=== PATIENT | female | born 1990 | race Caucasian/White ===

== ENCOUNTER 2025-02-17 14:59 | Outpatient (CLI) | payer OTHER, SELFPAY ==
--- NOTE | 2025-02-17 15:00 | CRLHL7_ITS ---
For Patients: As a result of the Century Cures Act, medical imaging exams and procedure reports are released immediately into your electronic medical record. You may view this report before your referring provider. If you have questions, please contact your health care provider. INDICATION: Diamniotic dichorionic twin , growth. TECHNIQUE: Ultrasound OB pelvis transabdominal. Real-time bonilla-scale imaging of the fetus was performed as well as color Doppler and spectral Doppler analysis of the umbilical artery. COMPARISON: None. FINDINGS: Twin living intrauterine gestation as described below. A: heart rate: 147 beats per minute. Presentation: Breech, maternal left. Placenta: Anterior. Amniotic fluid deepest pocket: 4.4 cm. The following biometric measurements were obtained: Biparietal diameter: 6 cm, 24 weeks 3 day ,50percentile. Head circumference: 22 cm, 24 week 3 day, 37 percentile. Abdominal circumference: 20 cm, 24 week 4 day, 51 percentile. Femur length: 4 cm, 24 week 4 day, 44 percentile. Ultrasound age: 24 weeks 2 day. NASIM by US: 06/05/2025. EFW: 707+/-106 Grams, 53 %. Fetus B: heart rate: 142 beats per minute. Presentation: Vertex, maternal right. Placenta: Posterior. Amniotic fluid deepest pocket: 5.2 cm. The following biometric measurements were obtained: Biparietal diameter: 6 cm, 24 weeks 4 days, 52 percentile. Head circumference: 22 cm, 24 week 1 day, 25 percentile. Abdominal circumference: 20 cm, 24 week 0 day, 34 percentile. Femur length: 4 cm, 24 weeks 4 days, 45 percentile. Ultrasound age: 24 weeks 2 day. NASIM by US: 06/07/2025. EFW: 617+/- 101 Grams, 40 %. IMPRESSION.: Twin intrauterine gestation as detailed above. Dictated by Kevin Trimble MD @ 02/20/2025 1:51:23 PM (Electronically Signed)
== END 2025-02-17 15:00 | disposition home or self-care (01) ==
LOC: US 15:00
PROVIDERS: Visit Provider Obstetrics & Gynecology
DX: O30.042 Twin pregnancy, dichorionic/diamniotic, second trimester (principal); Z3A.24 24 weeks gestation of pregnancy
CPT/HCPCS: 76815

== ENCOUNTER 2025-03-16 12:10 | Outpatient (CLI) | payer OTHER, SELFPAY ==
--- NOTE | 2025-03-16 12:15 | CRLHL7_ITS ---
For Patients: As a result of the Century Cures Act, medical imaging exams and procedure reports are released immediately into your electronic medical record. You may view this report before your referring provider. If you have questions, please contact your health care provider. OB ULTRASOUND ??? TWIN LMP: 08/31/2024. NASIM by LMP: 06/07/2025. GA: 28 w, 1 d. Comparison: 02/17/2025. INDICATION: Di-Di twins, growth. TECHNIQUE: Real time grayscale imaging of the fetus was performed. Transabdominal. TWIN A: CERVIX: Not visualized. POSITIONING: Vertex. AMNIOTIC FLUID: 4.4 cm. SDP (N: greater than 2 x 1 cm) PLACENTA: Technique: Transabdominal. PLACENTA POSITION: Anterior. DOPPLER: heart rate: 135 bpm. BIOMETRY: BPD: 7.3 cm. 29 w, 1 d, 73 percent. HC: 26.3 cm. 28 w, 4 d, 33 percent. AC: 22.7 cm. 27 w, 0 d, 14 percent. FL: 5.2 cm. 27 w, 6 d, 28 percent. FL/AC ratio: 23.11 percent. HC/AC ratio: 1.16. EFW: 1104 g. Weight: 2 lbs, 7 oz. age by this US: 28 w, 1 d. NASIM by this US: 06/07/2025. Percentile by NASIM: 20.4 percent. TWIN B: CERVIX: Not visualized. POSITIONING: Vertex. AMNIOTIC FLUID: 4.5 cm. SDP (N: greater than 2 x 1 cm) PLACENTA: Technique: Transabdominal. PLACENTA POSITION: Posterior. DOPPLER: heart rate: 145 bpm. BIOMETRY: BPD: 7.2 cm. 29 w, 0 d, 68 percent. HC: 26.1 cm. 28 w, 2 d, 25 percent. AC: 23.2 cm. 27 w, 4 d, 26 percent. FL: 5.1 cm. 27 w, 3 d, 16 percent. FL/AC ratio: 22.0 percent. HC/AC ratio: 1.12. EFW: 1109 g. Weight: 2 lbs, 7 oz. age by this US: 28 w, 1 d. NASIM by this US: 06/07/2025. Percentile by NASIM: 21.3 percent. IMPRESSION: 1. Twin A measures 28 weeks 1 day with sonographic due date 06/07/2025. Good correlation with dates. Normal interval growth. Estimated weight 20th percentile. Abdominal circumference 14th percentile. Vertex position, maternal left. 2. Twin B measures 28 weeks 1 day with sonographic due date 06/07/2025. Good correlation with dates and normal interval growth. Estimated weight 21st percentile with abdominal circumference 26th percentile. Vertex position, maternal left. Cayetano Martin M.D. Diagnostic Radiologist [email or web address] DSM/jj jj/Dictated by: Cayetano Martin MD @ 03/17/2025 8:08:00 AM (Electronically Signed)
== END 2025-03-16 12:11 | disposition home or self-care (01) ==
LOC: US 12:11
PROVIDERS: Visit Provider Obstetrics & Gynecology
DX: O30.003 Twin pregnancy, unspecified number of placenta and unspecified number of amniotic sacs, third trimester (principal); Z3A.28 28 weeks gestation of pregnancy
CPT/HCPCS: 76816

== ENCOUNTER 2025-03-16 13:45 | Outpatient (CLI) | payer OTHER, SELFPAY | END 2025-03-16 13:46 | disposition home or self-care (01) | PROVIDERS: Visit Provider Obstetrics & Gynecology | DX: O99.013 Anemia complicating pregnancy, third trimester (principal); D50.9 Iron deficiency anemia, unspecified; R82.90 Unspecified abnormal findings in urine; Z3A.28 28 weeks gestation of pregnancy; Z11.3 Encounter for screening for infections with a predominantly sexual mode of transmission | CPT/HCPCS: 82728; 86592; 87086 ==

== ENCOUNTER 2025-03-17 08:28 | Outpatient (CLI) | payer OTHER, SELFPAY | END 2025-03-17 08:29 | disposition home or self-care (01) | LOC: NFLDREF 03-21 17:05 | PROVIDERS: Visit Provider Obstetrics & Gynecology | DX: O99.810 Abnormal glucose complicating pregnancy (principal) | CPT/HCPCS: 82951; 82952 ==

== ENCOUNTER 2025-03-21 13:23 | Outpatient (CLI) | payer OTHER, SELFPAY ==
--- NOTE | 2025-03-21 13:47 | CRLHL7_ITS ---
For Patients: As a result of the Cures Act, medical imaging exams and procedure reports are released immediately into your electronic medical record. You may view this report before your referring provider. If you have questions, please contact your health care provider. OB ULTRASOUND NASIM by LMP or US: 06/07/2025. GA: 28 w, 6 d. Comparison: Ultrasound 03/16/2025, 02/17/2025. INDICATION: Decreased movement. TECHNIQUE: Real time grayscale imaging of the fetus was performed. Transabdominal. TWIN A: CERVIX: Not visualized. POSITIONING: Vertex. AMNIOTIC FLUID: 3.5 cm. SDP (N: greater than 2 x 1 cm) BIOPHYSICAL PROFILE: 2: Gross body movements 2: tone 2: Respiratory activity 2: Amniotic fluid SDP (N: greater than 2 x 1 cm) 8/8: Total score PLACENTA: Technique: Transabdominal. PLACENTA POSITION: Anterior. DOPPLER: heart rate: 125 bpm. TWIN B: POSITIONING: Breech. AMNIOTIC FLUID: 5.6 cm. SDP (N: greater than 2 x 1 cm) BIOPHYSICAL PROFILE: 2: Gross body movements 2: tone 2: Respiratory activity 2: Amniotic fluid SDP (N: greater than 2 x 1 cm) 8/8: Total score PLACENTA: Technique: Transabdominal. PLACENTA POSITION: Posterior. DOPPLER: heart rate: 145 bpm. IMPRESSION: 1. Twin A: Normal biophysical profile score 8/8. 2. Twin B: Normal biophysical profile score 8/8. Cayetano Martin M.D. Diagnostic Radiologist [email or web address]/Dictated by: Cayetano Martin MD @ 03/21/2025 3:27:00 PM (Electronically Signed)
[2025-03-21 14:53] VITALS: BP 115/62; PULSE 94
[2025-03-21 14:59] LABS: Appearance Urine Clear (Clear); Bilirubin Urine Negative (Negative); Blood Urine Negative (Negative); Color Urine Yellow (Yellow); Glucose Urine Negative (Negative); Ketones Urine Negative (Negative); Leukocyte Esterase Urine Negative (Negative); Nitrite Urine Negative (Negative); Protein Urine Negative (Negative); Specific Gravity Urine 1.015 (1.000-1.030); Urobilinogen Urine 0.2 (0.2-1.0); pH Urine 7.5 (5.0-8.5)
[2025-03-21 15:08] VITALS: BP 114/63; PULSE 99
[2025-03-21 15:23] VITALS: BP 109/63; PULSE 101
[2025-03-21 15:27] LABS: Hemoglobin* 9.8 gm/dL (12.0-16.0); Mean Corpuscular HGB Conc 33 gm/dL (32-36); Mean Corpuscular Hemoglobin 29 pg (26-34); Mean Corpuscular Volume 88 fL (80-100); Platelet Count* 345 K/uL (140-440)
[2025-03-21 15:32] LABS: Slide Review Reflex No
[2025-03-21 15:39] LABS: Total Protein Urine 11 mg/dL
[2025-03-21 15:40] LABS: Creatinine Urine 74.6 mg/dL; Protein Creatinine Ratio Urine 0.15 (0-0.19)
[2025-03-21 15:42] VITALS: BP 117/62; PULSE 96
[2025-03-21 15:52] LABS: Blood Urea Nitrogen* 7 mg/dL (5-24); Creatinine* 0.5 mg/dL (0.5-1.5); Estimated Glomerular Filt Rate 125 ml/min
[2025-03-21 15:53] VITALS: BP 110/58; PULSE 99
[2025-03-21 15:53] LABS: Alanine Aminotransferase* 15 U/L (4-35); Aspartate Amino Transferase* 29 U/L (12-35)
--- NOTE | 2025-03-21 16:47 | PC.OBNST ---
NST Note NST Note Start: 03/21/25 13:36 Freq: ONCE Status: Active Protocol: Document 03/21/25 13:36 ABH (Rec: 03/21/25 16:47 ABH No Response) NST Note 3 Para (# of births) 1 EDC 06/07/25 Gestational Age In Weeks & Days 28 Weeks & 6 Days High Risk Factors Twins Patient Presented with Complaint(s) of Decreased movement Other Complaints Complaint of headache and vision changes Reactive Yes Appropriate for Gestational Age Yes TON Jean RN Date 03/21/25 Reactive Yes Appropriate for Gestational Age Yes TON Chun RN Date 03/21/25 OB NST charge Yes Complete NST Note via Write Note Yes The provider's electronic signature indicates the NST is reactive/appropriate for gestational age. *Note to provider: If an addendum is required, open the patient's chart and click on the note under the Nurse/Allied Health tab.
== END 2025-03-21 16:00 | disposition home or self-care (01) ==
LOC: OB OUT 13:23 → OB 13:23
PROVIDERS: Visit Provider Obstetrics & Gynecology
DX: O36.8130 Decreased fetal movements, third trimester, not applicable or unspecified (principal); O30.003 Twin pregnancy, unspecified number of placenta and unspecified number of amniotic sacs, third trimester; Z3A.28 28 weeks gestation of pregnancy
CPT/HCPCS: 36415; 59025; 76819; 81003; 82565; 82570; 84156; 84450; 84460; 84520; 85027; G0463

== ENCOUNTER 2025-04-03 11:51 | Outpatient (CLI) | payer OTHER, SELFPAY | END 2025-04-03 11:52 | disposition home or self-care (01) | LOC: NFLDREF 04-06 23:24 | PROVIDERS: Visit Provider Obstetrics & Gynecology | DX: Z34.93 Encounter for supervision of normal pregnancy, unspecified, third trimester (principal); Z3A.30 30 weeks gestation of pregnancy | CPT/HCPCS: 82728 ==

== ENCOUNTER 2025-04-14 10:00 | Outpatient (RCR) | payer OTHER, SELFPAY ==
--- NOTE | 2025-02-22 10:03 | URNOTE ---
Prior auth is not required for INfed (J1750) per [employer] on behalf of [employer].
[2025-02-24 11:47] VITALS: BP 113/71; PULSE 101; RESP 15; TEMP 36.6; O2SAT 100
[2025-02-24] MEDS: SODIUM CHLORIDE 0.9 % (FLUSH) 10 ML SYRINGE IVF (12:16)
[2025-02-24] MEDS: IRON DEXTRAN COMPLEX 25 MG in 0.9 % SODIUM CHLORIDE 100 ml 100 ML 402 MG IVPB (12:28)
[2025-02-24 12:53] VITALS: BP 108/70; PULSE 92; RESP 15; TEMP 36.6
[2025-02-24] MEDS: IRON DEXTRAN COMPLEX 975 MG in 0.9 % SODIUM CHLORIDE 250 ml 250 ML 270 MG IVPB (13:40)
[2025-02-24 14:48] VITALS: BP 100/60; PULSE 98; RESP 15; TEMP 36.4; O2SAT 98
[2025-02-24 15:27] VITALS: BP 128/80; PULSE 103; RESP 18; O2SAT 99
--- NOTE | 2025-04-04 11:05 | URNOTE ---
Request received for authorization for [employer] (Infed) (J1750). Prior authorization is not required per [employer] on behalf of [employer] plan is active.
[2025-04-14] MEDS: IRON DEXTRAN COMPLEX 25 MG in 0.9 % SODIUM CHLORIDE 100 ml 100 ML 402 MG IVPB (10:43)
[2025-04-14 11:06] VITALS: BP 100/68; PULSE 103; RESP 18; O2SAT 100
[2025-04-14] MEDS: IRON DEXTRAN COMPLEX 975 MG in 0.9 % SODIUM CHLORIDE 250 ml 250 ML 270 MG IVPB (11:57)
[2025-04-14 13:10] VITALS: BP 104/71; PULSE 103; RESP 20; O2SAT 100
[2025-04-16 16:11] LABS: Hemoglobin - Other 0.0 % (0.0-0.0); Hemoglobin Cap ELP Not Performed
== END 2025-08-23 23:59 | disposition home or self-care (01) ==
LOC: CCIC 10:00
PROVIDERS: Obstetrics & Gynecology; Visit Provider Clinical Nurse Specialist
DX: O99.013 Anemia complicating pregnancy, third trimester (principal); D50.9 Iron deficiency anemia, unspecified
CPT/HCPCS: 36415; 76816; 83020; 83021; 85660; 96365; J1750; J7050

== ENCOUNTER 2025-04-14 13:18 | Outpatient (CLI) | payer OTHER, SELFPAY ==
--- NOTE | 2025-04-14 13:00 | CRLHL7_ITS ---
For Patients: As a result of the Century Cures Act, medical imaging exams and procedure reports are released immediately into your electronic medical record. You may view this report before your referring provider. If you have questions, please contact your health care provider. LMP: 08/31/2024. NASIM by US: 06/07/2025. GA: 32w, 2d. COMPARISON: 03/21/2025, 03/16/2025, 02/17/2025. Twins. INDICATION: Di/Di twins. Twin A: CERVIX: Not visualized. POSITIONING: Vertex. AMNIOTIC FLUID: 6.1 cm SDP. PLACENTA POSITION: Anterior. DOPPLER: heart rate: 133 bpm. Biometry: BPD: 8.1 cm. 32w, 5d, 53.4 percent. HC: 29.4 cm. 32w, 3d, 18.4 percent. AC: 28.9 cm. 32w, 6d, 67.7 percent. FL: 6.0 cm. 31w, 1d, 12.7 percent. FL/AC ratio: 20.7 percent. HC/AC ratio: 1.0. EFW: 1951 g. Weight: 4 lbs, 5 oz. age by this US: 32w, 2d. NASIM by this US: 06/07/2025. Percentile by NASIM: 40.6 percent. Twin B: CERVIX: Not visualized. POSITIONING: Vertex. AMNIOTIC FLUID: 6.6 cm SDP. PLACENTA POSITION: Posterior. DOPPLER: heart rate: 134 bpm. Biometry: BPD: 8.3 cm. 33w, 4d, 77.4 percent. HC: 30.3 cm. 33w, 5d, 51.2 percent. AC: 28.9 cm. 32w, 6d, 67.4 percent. FL: 5.9 cm. 30w, 4d, 5.8 percent. FL/AC ratio: 20.3 percent. HC/AC ratio: 1.1. EFW: 1956 g. Weight: 4 lbs, 5 oz. age by this US: 32w, 5d. NASIM by this US: 06/04/2025. Percentile by NASIM: 41.4 percent. IMPRESSION: 1. Twin A: Sonographic gestational age 32 weeks 2 days and sonographic due date 06/07/2025. Good correlation with dates. Estimated weight 41st percentile. Abdominal circumference 68th percentile. 2. Twin B: Sonographic gestational age 32 weeks 5 days with a sonographic due date 06/04/2025. Good correlation with dates. Estimated weight 41st percentile. Abdominal circumference 67th percentile. Femur length 6th percentile. 3. Twin A is vertex position, maternal left. Twin B is vertex position, maternal right. Similar cystic areas within the membrane again noted. Cayetano Martin M.D. Diagnostic Radiologist [email or web address] bM/Dictated by: Cayetano Martin MD @ 04/14/2025 4:12:00 PM (Electronically Signed)
== END 2025-04-14 13:19 | disposition home or self-care (01) ==
LOC: US 13:18
PROVIDERS: Visit Provider Obstetrics & Gynecology
DX: O30.003 Twin pregnancy, unspecified number of placenta and unspecified number of amniotic sacs, third trimester (principal); Z3A.32 32 weeks gestation of pregnancy
CPT/HCPCS: 76816

== ENCOUNTER 2025-04-28 14:44 | Outpatient (CLI) | payer OTHER, SELFPAY ==
[2025-04-29 13:19] LABS: Strep B DNA Probe Negative (Negative)
[2025-04-29 13:21] LABS: Strep B Susceptibility Needed? No
== END 2025-04-28 14:45 | disposition home or self-care (01) ==
LOC: NFLDREF 14:45
PROVIDERS: Visit Provider Obstetrics & Gynecology
DX: Z34.83 Encounter for supervision of other normal pregnancy, third trimester (principal)
CPT/HCPCS: 82728; 87081; 87653

== ENCOUNTER 2025-05-05 14:30 | Outpatient (CLI) | payer OTHER, SELFPAY | END 2025-05-05 14:31 | disposition home or self-care (01) | PROVIDERS: Visit Provider Obstetrics & Gynecology | DX: O30.043 Twin pregnancy, dichorionic/diamniotic, third trimester (principal); Z3A.35 35 weeks gestation of pregnancy | CPT/HCPCS: 82565; 82570; 84156; 84450; 84460; 84520 ==

== ENCOUNTER 2025-05-12 13:00 | Outpatient (CLI) | payer OTHER, SELFPAY ==
--- NOTE | 2025-05-12 13:00 | CRLHL7_ITS ---
For Patients: As a result of the Century Cures Act, medical imaging exams and procedure reports are released immediately into your electronic medical record. You may view this report before your referring provider. If you have questions, please contact your health care provider. LMP: . NASIM by LMP: 06/07/2025. GA: 36w, 2d. Twin gestation. INDICATION: Di/Di twins, check growth. CERVIX: Not visualized. Twin A: POSITIONING: Vertex. AMNIOTIC FLUID: 3.4 cm SDP. PLACENTA POSITION: Anterior. DOPPLER: heart rate: 133 bpm. Biometry: BPD: 9.0 cm. 36w, 2d, 61 percent. HC: 32.4 cm. 36w, 5d, 29 percent. AC: 31.3 cm. 35w, 2d, 31 percent. FL: 6.8 cm. 34w, 6d, 15 percent. FL/AC ratio: 21.67 percent. HC/AC ratio: 1.03. EFW: 2674 g. Weight: 5 lbs, 14 oz. age by this US: 35w, 6d. NASIM by this US: 06/10/2025. Percentile by NASIM: 29 percent. Twin B: POSITIONING: Vertex. AMNIOTIC FLUID: 4.9 cm SDP. PLACENTA POSITION: Posterior. DOPPLER: heart rate: 144 bpm. Biometry: BPD: 9.3 cm. 37w, 4d, 90 percent. HC: 33.5 cm. 38w, 3d, 72 percent. AC: 30.6 cm. 34w, 4d, 15 percent. FL: 6.7 cm. 34w, 3d, 8 percent. FL/AC ratio: 21.89 percent. HC/AC ratio: 1.10. EFW: 2615 g. Weight: 5 lbs, 12 oz. age by this US: 36w, 2d. NASIM by this US: 7.9.25 Percentile by NASIM: 24 percent. IMPRESSION: 1. Twin A: Sonographic gestational age 35 weeks 6 days and sonographic due date 06/10/2025. Good correlation with dates. Normal interval growth. Estimated weight 29th percentile. Abdominal circumference 31st percentile. 2. Twin B: Sonographic gestational age 36 weeks 2 days and sonographic due date 06/07/2025. Good correlation with dates. Normal interval growth. Estimated weight 24th percentile. Abdominal circumference 15th percentile. Cayetano Martin M.D. Diagnostic Radiologist [email or web address] bM/Dictated by: Cayetano Martin MD @ 05/12/2025 3:11:00 PM (Electronically Signed)
== END 2025-05-12 13:01 | disposition home or self-care (01) ==
LOC: US 13:01
PROVIDERS: Visit Provider Obstetrics & Gynecology
DX: O30.043 Twin pregnancy, dichorionic/diamniotic, third trimester (principal); Z3A.36 36 weeks gestation of pregnancy
CPT/HCPCS: 76816

== ENCOUNTER 2025-05-19 14:01 | Outpatient (CLI) | payer OTHER, SELFPAY ==
--- NOTE | 2025-05-19 14:00 | CRLHL7_ITS ---
For Patients: As a result of the Cures Act, medical imaging exams and procedure reports are released immediately into your electronic medical record. You may view this report before your referring provider. If you have questions, please contact your health care provider. OB ULTRASOUND BIOPHYSICAL PROFILE LMP: 08/31/2024. NASIM by LMP:06/07/2025. GA: 37 w, 2 d. TWIN A INDICATION: Di-di twins, decreased movement. TECHNIQUE: Real time bonilla scale imaging of the fetus was performed. CERVIX: Not visualized. POSITIONING: Vertex. AMNIOTIC FLUID: 4.5 cm. SDP (N: greater than 2 x 1 cm) BIOPHYSICAL PROFILE: Total score: 2. Gross body movements: 2. tone: 2. Respiratory activity: 2. Amniotic fluid: 8. (SDP N: greater than 2 x 1 cm) PLACENTA POSITION: Anterior. DOPPLER: heart rate: 127 bpm. TWIN B POSITIONING: Vertex. AMNIOTIC FLUID: 7.3 cm. SDP (N: greater than 2 x 1 cm) BIOPHYSICAL PROFILE: Total score: 2. Gross body movements: 2. tone: 2. Respiratory activity: 2. Amniotic fluid: 8. (SDP N: greater than 2 x 1 cm) PLACENTA POSITION: Posterior. DOPPLER: heart rate: 131 bpm. IMPRESSION: 1. Twin A: Normal biophysical profile 8/8. Vertex position, maternal left. 2. Twin B: Normal biophysical profile. Vertex position, maternal right. Cayetano Martin M.D. Diagnostic Radiologist [email or web address] DW/Dictated by: Cayetano Martin MD @ 05/20/2025 9:21:00 PM (Electronically Signed)
== END 2025-05-19 14:02 | disposition home or self-care (01) ==
LOC: US 14:01
PROVIDERS: Visit Provider Obstetrics & Gynecology
DX: O30.043 Twin pregnancy, dichorionic/diamniotic, third trimester (principal); Z3A.37 37 weeks gestation of pregnancy
CPT/HCPCS: 76819

== ENCOUNTER 2025-05-23 16:40 | Inpatient (IN) | payer OTHER, SELFPAY ==
[2025-05-23] VITALS (11 sets, daily range): BP systolic 110–142; BP diastolic 68–77; PULSE 100–114; TEMP 36.6–36.9; O2SAT 99–100; BMI 41.6
--- NOTE | 2025-05-23 17:25 | P.LDBA_ITS ---
Subjective History of Present Illness Narrative: Patient is being admitted to Labor and Delivery for IOL due to Dichorionic twin . She is a 35 year old at 37 6/7 weeks gestation. Her full history and physical was dictated by Dr. Churchill on 05/12/25. Please see this for details. Patient today states that she has been doing okay, she has continued to experience episodes of abdominal tightening and watery like vaginal discharge that she would describe same as my last appointment. Denies vaginal bleeding. She is anxious about delivery and the possibility of a breech extraction. Specific Issues/Plans Transfer at 24.3 weeks' gestation from [facility] in [place] Spouse: Vinay Son: Santino Twins: Girls! Elizabeth and Guera(sp?) H&P: by Dr. Churchill on 05/12/25 # dichorionic diamniotic twin - s/p MFM and genetic counseling - Level II US on 01/06/2025 - T0apoey growth scan starting at 24 weeks - Weekly surveillance starting at 36 weeks if uncomplicated - Recommended delivery: 38-38.6 weeks - surveillance sheet filled out on 03/16/25 - IOL schedule for May 23 cervical ripening --> May 24 @ 38 weeks # One Elevated BP at home and headache (05/05/25), h/o pp pre-e after first delivery. - Labs 05/05: Hgb 10.6, plts 301K, AST 43, ALT 19, BUN 6, Creat 0.6. Urine P/C 0.07. # Normocytic anemia with recently normal ferritin - Hgb 9.7 g/dL earlier in - Failed PO iron - s/p IV iron on 02/24/25 with INFeD - Hgb on 03/16/25 was 9.9 with ferritin at 144 - Repeat Hgb 04/03: 10.1. Ferritin 90.3 but checked after iron infusion. - Hemoglobin electrophoresis negative - Repeat Hb early April- 10.7 on 04/28 # Hx of Pre-eclampsia - Normal baseline pre-eclampsia labs - On LDA # BMI 37 - surveillance per twins # History of infertility, low ovarian reserve. - Conceived spontaneously! # [place] (vs allergic rxn) from flu shot - prefers to avoid vaccinations labs 10/21: Blood type: A+, antibody screen negative Hemoglobin: 11.8 Platelets: 375 Rubella: 3.04 Varicella: 12.90 RPR: non reactive Hep B sAg: Non reactive Hep C Ab: Nonreactive HIV: Nonreactive HbA1c: 5.6 GC/Chlamydia: Declined Genetic testing: low risk (11/21) 1 hr GTT: 143 3rd trimester Hb: 04/28 10.7 GBS: 04/28/25 Imagin. 1st trimester: Di-di twins at 7 weeks 2 days on 10/21/2024 2. Anatomy scan: Fetus 1: No anomalies commonly detected by ultrasound were identified. Growth parameters an estimated weight were consistent with gestational age predicted by sign NASIM. Normal amniotic fluid. Fetus 2: Hypoplastic nasal bone is noted. No other anomalies. Growth parameters appropriate. Inter twin discordance 2.2%. Normal amniotic fluid. Per MFM, given normal NIPT and no other abnormalities, likely a normal variant. No further aneuploidy evaluation or follow-up ultrasound surveillance is necessary for the hypoplastic nasal bone. 3. 04/14/2025: Twin A: Vertex, SDP 6.1 cm EFW 1951 g, weight 4 lb 5 oz, 41%. Twin B: Vertex, SDP 6.6 cm, EFW 1956 g, weight 4 lb 5 oz, 41%. Inter twin discordance 0%. Vaccinations: COVID: Declined Flu: Declined Tdap: Declined RSV: N/A GBS negative 32 week mental health: PHQ-9 0, JOLEEN-7 0. Last pap: [Only high-risk abnormal pap results in problem list] OB - Problem Based A/P Additional Plan (1) Dichorionic diamniotic twin gestation: Status: Acute (2) Hx of pre-eclampsia in prior , currently : Status: Acute Plan 1. Since cervix is favorable, will wait to continue with IOL if needed until after midnight. Plan would be to start low dose Oxytocin again if needed. 2. History of preeclampsia, will add preeclampsia labs to admission labs. Close monitoring of V/S. 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 3. Continuous monitoring at the start of interventions. 4. Patient is planning epidural for pain management. 5. GBS negative, no need for antibiotic prophylaxis. 6. Type and screen, IV in place-higher risk for PPH. OB Exam Physical Exam Vital signs: Pulse BP 114 H 110/68 05/23/25 16:56 05/23/25 16:56 Narrative: Bedside US confirms vertex presentation for both babies. 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
[2025-05-23 18:00] LABS: Amnisure Rom* Negative
[2025-05-23 18:33] LABS: Hematocrit 31.7 % (33.0-51.0); Hemoglobin* 10.9 gm/dL (12.0-16.0); Mean Corpuscular HGB Conc 34 gm/dL (32-36); Mean Corpuscular Hemoglobin 30 pg (26-34); Mean Corpuscular Volume 86 fL (80-100); Platelet Count* 307 K/uL (140-440); Red Blood Count 3.67 m/uL (4.00-5.20); White Blood Count* 11.71 K/uL (4.50-11.00)
[2025-05-23 18:34] LABS: Slide Review Reflex No
[2025-05-23 18:51] LABS: Alanine Aminotransferase* 19 U/L (4-35); Aspartate Amino Transferase* 36 U/L (12-35); Blood Urea Nitrogen* 9 mg/dL (5-24); Creatinine* 0.5 mg/dL (0.5-1.5); Est. Creatinine Clearance* 168.21; Estimated Glomerular Filt Rate 125 ml/min
[2025-05-23] MEDS: SCOPOLAMINE 1 MG/3 DAY PATCH 1 PATCH TRANSDERMA (18:59)
[2025-05-23] MEDS: ONDANSETRON 2 MG/ML inj 4 MG IV (21:17)
[2025-05-23 21:59] LABS: Creatinine Urine 143.3 mg/dL; Protein Creatinine Ratio Urine 0.03 (0-0.19); Total Protein Urine < 5 mg/dL
[2025-05-24] VITALS (150 sets, daily range): BP systolic 84–151; BP diastolic 44–82; PULSE 81–130; RESP 16; TEMP 36.4–36.9; O2SAT 90–100
[2025-05-24] MEDS: CALCIUM CARBONATE 500 MG CHEW PO ×2 (01:41→08:19)
[2025-05-24] MEDS: LACTATED RINGERS 1000 ML 1,000 ML 125 ML IV ×4 (03:22→11:50)
[2025-05-24] MEDS: OXYTOCIN 30 unit/500 ML in NS 30 UNIT/500 ML BAG IVPB (03:23)
--- NOTE | 2025-05-24 05:35 | PM.OBPNL ---
Subjective Date Seen: 05/24/25 Narrative: Uncomfortable Objective Vital Signs: Last Vital Signs Temp 98.4 F 05/24/25 03:57 Pulse 101 H 05/24/25 05:20 BP 135/70 05/24/25 05:20 Pulse Ox 99 05/23/25 22:59 Contractions Monitor mode: External Contraction pattern: Irregular Contraction intensity: Moderate Pitocin Rate (mU/min): 1 Assessment Assessment: induction ongoing Tracing Comments: Baby A has been very difficult to monitor continuously with external monitor. Periods of monitoring have not shown any sign of significant decelerations, has shown accelerations. Baby B:120bpm/positive accelerations/negative decelerations/moderate variability. Labor Progress: Due to staffing issues overnight Oxytocin was not started until around 3:30am. Maternal Status: Stable. Plan Plan: Recommend AROM for baby A and placement of scalp monitor. Patient would like placement of epidural prior to AROM. Continued discussions have happened with patient and about delivery planning. At this moment, there have not been any indications that would make me recommend a delivery, we did discuss that it is always an option if she asks for it. Discussed that we can never promise that she would not need an emergency delivery as this is a possibility with any attempt at a vaginal delivery. Discussed that at the end of the day, a vaginal delivery will always be safer and associated with less risks if successful compared to a delivery. Discussed that we do have indications that would make us recommend a delivery in a timely manner instead of an emergent manner such as protraction of labor progress, category 2 tracing etc... Patient has voiced out her desire to try to complete a vaginal delivery. At this moment will continue with above mentioned plan.
[2025-05-24] MEDS: ONDANSETRON 2 MG/ML inj 4 MG IV (05:38)
[2025-05-24] MEDS: LIDOCAINE 2% (PF) 5 ML VIAL EPIDURAL ×2 (06:37→15:40)
[2025-05-24] MEDS: ROPIVACAINE 0.2% 100 ml 100 ML 12 MG EPIDURAL ×2 (06:37→14:52)
[2025-05-24] MEDS: PHENYLEPHRINE 100 MCG/ML SYRINGE IVP ×8 (06:43→12:43)
--- NOTE | 2025-05-24 06:50 | PM.ANBPRC ---
[facility] Medical History Endometriosis determined by laparoscopy ?N80.9 - Endometriosis, unspecified (ICD-10) Surgical History H/O laparoscopy ?Z98.890 - Other specified postprocedural states (ICD-10) Social History What is your current living situation?: I presently have a place to live Problems where you live: no known problems In the past 12 months, utilities in danger of being shut off: no In past 12 months, lack of transportation kept you from medical appts, meetings, work, or getting things needed for daily living: no In the past 12 mos, have been you worried that your food would run out before you had money to buy more?: never true In the past 12 mos, the food you bought just didn't last and you didn't have money to buy more?: never true Smoking Status: Never smoker How often does anyone, including family, friends and others, physically hurt you: never How often does anyone, including family, friends and others, insult or talk down to you: never How often does anyone, including family, friends and others, threaten you with harm: never How often does anyone, including family, friends and others, scream or curse at you: never Meds Home Medications and Allergies Home Medications ?Medication ?Instructions ?Recorded ?Confirmed ?Type aspirin 81 mg tablet,delayed 81 mg PO QDAY 02/17/25 05/23/25 History release (Adult Low Dose Aspirin) cholecalciferol (vitamin D3) 25 25 mcg PO QDAY 02/17/25 05/23/25 History mcg (1,000 unit) capsule docosahexaenoic acid 200 mg mg PO 02/17/25 05/19/25 History capsule ( DHA) folic acid 400 mcg tablet 0.4 mg PO QDAY 02/17/25 05/23/25 History Allergies Allergy/AdvReac Type Severity Reaction Status Date / Time cefuroxime (From Ceftin) Allergy Severe Verified 05/23/25 17:01 influenza virus vacc Allergy Severe Verified 05/23/25 17:01 trivalent, spl (From Fluzone) prednisolone Allergy Severe Verified 05/23/25 17:01 Sulfa (Sulfonamide Allergy Severe Swelling Verified 05/23/25 17:01 Antibiotics) of Lip/Tongue/Throat doxycycline Allergy Unknown Verified 05/23/25 17:01 Results Labs Labs: Laboratory Results - last 24 hr 05/23/25 05/23/25 05/23/25 17:38 18:25 20:50 WBC 11.71 H RBC 3.67 L Hgb 10.9 L Hct 31.7 L MCV 86 MCH 30 MCHC 34 Plt Count 307 BUN 9 Creatinine 0.5 Estimated Creat Clear 168.21 Estimated GFR 125 AST 36 H ALT 19 Urine Creatinine 143.3 Protein/Creatinin Ratio 0.03 Urine Total Protein < 5 Membrane Rupture Negative Blood Type A Positive Antibody Screen NEGATIVE Vital Signs Vital Signs: Last Vital Signs Temp 97.8 F 05/24/25 06:47 Pulse 86 05/24/25 06:46 BP 106/58 L 05/24/25 06:46 Pulse Ox 100 05/24/25 06:45 Weight: 131.723 kg Height: 177.8 cm Anesthesia Procedures Epidural Insertion Patient Location: OB Start Time: 06:00 Stop Time: 07:00 Start Date: 05/24/25 Stop Date: 05/24/25 Reason for Block: procedure for pain Patient Position: sitting Performed By: Leyla Membreno Preanesthetic Checklist: IV checked, risks and benefits discussed, monitors and equipment checked, pre-op evaluation, timeout performed and anesthesia consent Prep: chlorhexidine gluconate Monitoring: blood pressure monitoring, continuous pulse oximetry and heart rate Approach: midline Vertebral Space: lumbar (1-5) Epidural Technique: KEKE saline Needle Type: Tuohy needle Injection Technique: continuous catheter (continuous catheter) Needle gauge: 17 Needle Length (cm): 10 cm Needle Insertion Depth (cm): 8 Catheter Gauge: 19 Catheter Type: multi-orifice Catheter at skin depth (cm): 15 Test Dose Result: negative and lidocaine 1.5% with epinephrine 1 to 200,000
--- NOTE | 2025-05-24 06:59 | PM.OBPNL ---
Subjective Time Seen by Provider: 08:00 Date Seen: 05/24/25 Narrative: Dominique is a 35-year-old ongoing induction of labor in the setting of dichorionic diamniotic twin gestation. is otherwise complicated by anemia, history of preeclampsia. Induction is included low-dose Pitocin overnight. This is currently at 1 milliunits per minute, where there was noted difficulty monitoring both babies overnight. Overall, there status is reassuring just difficult to trace. Patient is now comfortable status post epidural placement. She is feeling intermittent nausea, secondary to the hypotension that is being treated with phenylephrine and ephedrine by nurses. She denies any regular/painful contractions, vaginal bleeding leaking of fluid. Endorses movement of both babies. She is agreeable to a cervical exam and amniotomy with FSE placement for twin A. Objective Exam: General: Alert and oriented, no acute distress Psych: Appropriate mood and affect Abdomen: Gravid. Cephalic/cephalic on admission US. EFW at time of last growth ultrasound was 2624 g at the 29th percentile for twin a, 2615 g at the 24th percentile for twin B. Discordance is 2.2%. Cervix: 4/50/-1, amniotomy performed with return of large volume clear fluid. FSE was applied to twin A. FHR twin A: Category 1. Baseline is 120 beats per minute, moderate variability, no apparent accelerations in the period immediately prior to FSE placement. No apparent decelerations. FHR twin B: Category 1. Baseline is 120bpm, moderate variability, acceleration present, no apparent decelerations Vital Signs: Last Vital Signs Temp 97.8 F 05/24/25 06:47 Pulse 88 05/24/25 06:58 BP 103/51 L 05/24/25 06:58 Pulse Ox 99 05/24/25 06:55 Contractions Monitor mode: External Contraction pattern: Irregular Contraction intensity: Moderate Pitocin Rate (mU/min): 1 Plan Plan: Dominique is a 35-year-old ongoing induction of labor in the setting of a dichorionic diamniotic twin gestation at 38w0d gestational age today. is otherwise complicated by history of preeclampsia and anemia. Induction progress has included Pitocin, currently at 1 milliunits per minute. She is now status post amniotomy of twin A, FSE was applied. Cervix is 4/50/-1. - Plan to continue Pitocin titration at 2 milliunits per minute Q 30 minutes pending heart rate toco data - Anticipate next cervical exam of 4 hours, sooner as clinically indicated - Prior to amniotomy, we did discuss the risks/benefits again of a twin vaginal delivery. Explained that it is very reassuring that her twins are currently below vertex with a 2% inter twin discordance. I reviewed standard obstetric indications that could lead to a delivery in any labor. More specific to a twin vaginal delivery, we again reviewed following vaginal delivery of twin a that next steps could include normal spontaneous vaginal delivery of twin B if it is vertex, possible breech extraction and in the event of an emergency for twin B (such as heart rate changes, cord prolapse, etc.). Explained emergency steps that could be required for breech vaginal delivery including piper forceps, cervical incisions, abdominal rescue. Even without any of these acute complications, we did discuss the risk of cord compression and brachial plexus injury. She again affirmed her desire to proceed with a twin vaginal delivery prior to amniotomy. That said, she said that she would like us to notify her sooner rather than later (if possible) if we have concerns about her labor course or baby's well-being that may necessitate . I reassured her that of course we will do so (for things that can be anticipated), but most of the risk with a twin vaginal delivery will occur her acute/emergent setting particularly with the unpredictable course of twin B. She expressed understanding and is agreeable to proceed. - Plan delivery in the OR, with twin set up - Pediatrics to attend delivery in the setting of twin delivery - BT A+ - Admission Hgb 10.9, active T/S on file - GBS negative
[2025-05-24] MEDS: ePHEDrine sulfate 5 MG/ML inj 10 MG IVP ×9 (07:29→12:26)
[2025-05-24] MEDS: fentaNYL 100 MCG/2 ML inj EPIDURAL (15:40)
--- NOTE | 2025-05-24 18:55 | PM.OBPNL ---
Subjective Time Seen by Provider: 14:15 Date Seen: 05/24/25 Narrative: Dominique is a 35-year-old ongoing induction of labor in the setting of dichorionic diamniotic twin gestation. is otherwise complicated by anemia, history of preeclampsia. Induction is included low-dose Pitocin overnight and amniotomy of twin A. Pitocin titration is ongoing. status has been reassuring for both babies. Patient notes some suprapubic pain/pressure. Agreeable to cervical exam. Objective Exam: General: Alert and oriented, no acute distress Psych: Appropriate mood and affect Abdomen: Gravid. Vertex/vertex on admission. heart rate twin A: Category 1 heart rate twin B: Category 1 Cervix: 6/80/-1 Vital Signs: Last Vital Signs Temp 98.1 F 05/24/25 15:30 Pulse 96 05/24/25 18:50 Resp 16 05/24/25 14:16 BP 119/58 L 05/24/25 18:50 Pulse Ox 99 05/24/25 16:14 Contractions Monitor mode: External Contraction pattern: Irregular Contraction intensity: Moderate Pitocin Rate (mU/min): 1 Plan Plan: Dominique is a 35-year-old ongoing induction of labor in the setting of a dichorionic diamniotic twin gestation at 38w0d gestational age today. is otherwise complicated by history of preeclampsia and anemia. - Induction progress has included Pitocin and amniotomy of twin A, FSE was applied. - Cervix is 6/80/-1, representing transition to active labor. Plan to hold Pitocin. - OR crew notified of plan twin vaginal delivery in active labor. - Anticipate next exam in 2 hours, sooner as clinically indicated - BT A+ - Admission Hgb 10.9, active T/S on file - GBS negative
--- NOTE | 2025-05-24 18:58 | W.PM.VAGDEL1 ---
Procedure Delivery date: 05/24/25 Procedure Done: Global Procedure Details: Normal spontaneous vaginal delivery of twins Second-degree perineal laceration repair Events: Labor Induction, AMA and Other (Dichorionic diamniotic twins, asthma, maternal mood disorder, anemia) Delivery augmentation: rupture of membranes Delivery monitor: internal FHT Route of delivery: Laceration description: Perineal - 2nd Degree Delivery repair: Vicryl Estimated blood loss (mL): 200 Anesthesia type: Epidural Disposition: floor Complications: None Narrative: Dominique is a 35 yo G 2 P 1 at 38w0d GA admitted for induction of labor. is complicated by dichorionic diamniotic twin , elevated glucose tolerance testing with subsequent normal monitoring, AMA, anemia, asthma, maternal mood disorder. heart tones on admission were category 1 for both twins. Her labor was induced with Pitocin and epidural was utilized for pain management. Status of bag of herndon: AROM performed of twin A, large volume clear fluid. heart tones during active labor were category 1 for both twins. She was complete at 1610 and transferred to the operating room. She started pushing at 1644. She made excellent descent through the second stage of labor, and had a normal spontaneous vaginal delivery of twin A at 1653. heart tones during second stage of labor were category 1 primarily, rare variable deceleration noted with rapid return to baseline of 145bpm with moderate variability. Twin A delivered OA, restituted VIK and the anterior and posterior shoulders delivered without difficulty. Nuchal cord: absent. The cord was clamped and cut after 60 seconds of delayed cord clamping. Ultrasound was immediately performed, where twin B was noted to be cephalic. heart tones were reassuring. AROM was performed at 1657, return of large volume clear fluid. Patient noticed pressure within a few minutes of amniotomy, started pushing. heart tones during second stage of labor were category 2 - baseline of 125bpm with moderate variability was noted, with intermittent periods of variable decelerations. FSE was applied and was not reliably tracing, thus we revised back to external monitor. FHR would often recover to baseline readily with normal baseline and moderate variability. At 1725, she had a 90 second deep variable vs late deceleration (interrupted tracing) to a ming of 50bpm with slower recovery. Pitocin was reduced and ultimately discontinued, IV bolus administered and maternal repositioning occurred. More gradual descent was noted with twin throughout second stage, where operative vaginal delivery was verbally consented for if prolonged deceleration were to occur or deep/recurrent variables again occurred. After consenting for Kiwi and obtaining device, Twin B's status was significantly improved to baseline of 120-130bpm, moderate variability with 10x10 accelerations present but intermittent variable decelerations did still occur. She made excellent descent ultimately, where normal spontaneous vaginal delivery of Twin B occurred at 1746. Twin B delivered direct OP, restituted LOP and the anterior and posterior shoulders delivered without difficulty. Nuchal cord: present x 1, tight but able to deliver through and reduce immediately after delivery. The cord was clamped and cut after 60 seconds of delayed cord clamping. Active management of the third stage occurred with IV pitocin and gentle cord traction and the placenta delivered spontaneous and intact at 1753. Cord gases sent: no Cord blood sent for ABO: no Twin A details: - Liveborn female fetus at 1653 - weight 2860g - APGARs were 7 and 8 at 1 and 5 minutes respectively Twin B details: - Liveborn female fetus at 1746 - weight 2890g - APGARs were 7 and 7 at 1 and 5 minutes respectively - resuscitation included CPAP for approximately 2 minutes, see IMMIGRATION [place] note for details Perineum and vagina were inspected, and the following lacerations were noted: Second-degree laceration along her former perineal laceration. Repair was completed in the usual fashion with 2-0 and 3-0 Vicryl under existing epidural analgesia. Excellent hemostasis was noted. The following counts were correct: sponges, needles, instruments. Mother and infants in stable condition following the . [place] Infant A Gender: Female presentation: vertex Position: Right Occiput Anterior Placental Delivery: Spontaneous Cord Description: 3 Vessels Infant B Gender: Female presentation: vertex Position: Other (Direct occiput posterior) Placental Delivery: Spontaneous Cord Description: 3 Vessels, Nuchal Cord and Reduced
[2025-05-24] MEDS: fentaNYL 100 MCG/2 ML inj IVP (20:30)
--- NOTE | 2025-05-24 21:03 | P.OBPN_ITS ---
OB - PN:Subj Subjective Time Seen by Provider: 21:03 Date Seen: 05/24/25 Narrative: Dominique is a 35-year-old seen a few hours status post of dichorionic diamniotic twins. QBL from her delivery was 200 mL, second-degree laceration was repaired. Patient noted onset of significant abdominal/suprapubic pain, rectal pressure and urge to void in her recovery. She was up ambulate to the bathroom, but notes she could not void. Nursing completed a fundal check, where her uterus was noted to be 3 above umbilicus and off to the right. RN requested IV narcotics were requested due to pain an anticipated vaginal/bimanual exam, noting her epidural has seemingly worn off (has been able to ambulate). 100 mcg of IV fentanyl was administered. I presented the bedside, where patient appeared to be in moderate distress secondary to pain. Vital signs reviewed, where slight tachycardia is noted with HR ranging from 95-105bpm, normotensive. Her slight tachycardia is noted to be consistent with her historic baseline. She repeatedly noted feeling like she new lly needed to pee, citing abdominal and vaginal pressure. Bedside transabdominal ultrasound was performed, where uterus was noted to be about 2 cm above the umbilicus stent to the right. Her bladder is markedly distended. A Duong catheter was inserted sterilely, with immediate return of greater than 1.2L of urine. Her labia were noted to be very tender, but perineal incision is noted to be intact and dry. Fundal massage was completed, with no return of appreciable bleeding. Gentle vaginal exam was completed, no apparent blood or clot collections noted in the proximal vagina. Fundus now palpates firm and at umbilicus, more midline in location. Repeat transabdominal ultrasound demonstrates a thin and homogeneous endometrial stripe, very small clot burden noted in the lowering uterine segment. Patient has noted significant improvement in her discomfort. No apparent ongoing hemorrhage. Recommend diligent vital sign monitoring, fundal height assessments and perineal exams to assess for bleeding. Plan to utilize Pyridium as needed for bladder spasms. Pain control with ibuprofen and Tylenol ongoing. Discussed that I would recommend we maintain her Duong catheter for the next few hours to prevent overdistention of the bladder. Reviewed that urinary retention in the immediate state is typically transient, likely to improve with expectant management. We discussed tentatively keeping her Duong in place for few hours or even as long as overnight if well tolerated. Upon Duong removal, recommend timed voiding every 2 hours. If she is unable to void at 4 hours or with return of her suprapubic pain/urgency in the interim, I would recommend proceeded with in/out catheterization. Of note, I was alerted to to mild range blood pressures while actively pushing in the operating room. These did seem to coincide with times of active pushing, however given patient's history of preeclampsia I would recommend we proceed with CBC, creatinine, AST and ALT out of an abundance of precaution. Of note, she does not currently meet criteria for hypertensive disorder of . Patient expressed understanding and is agreeable entirety of plan. OB - PN: Obj Exam Physical Exam: Vital signs: Temp Pulse Resp BP Pulse Ox 98.1 F 96 16 119/58 L 99 05/24/25 15:30 05/24/25 18:50 05/24/25 14:16 05/24/25 18:50 05/24/25 16:14 OB - PN: Obj Data Labs Labs: Laboratory Results - last 24 hr 05/23/25 20:50 Urine Creatinine 143.3 Protein/Creatinin Ratio 0.03 Urine Total Protein < 5 OB - PN: A/P Delivery Assessment and Plan (1) Dichorionic diamniotic twin gestation: Status: Acute (2) Hx of pre-eclampsia in prior , currently : Status: Acute
[2025-05-24 21:18] LABS: Hemoglobin* 10.6 gm/dL (12.0-16.0); Mean Corpuscular HGB Conc 34 gm/dL (32-36); Mean Corpuscular Hemoglobin 29 pg (26-34); Mean Corpuscular Volume 86 fL (80-100); Platelet Count* 276 K/uL (140-440)
[2025-05-24 21:24] LABS: Slide Review Reflex No
[2025-05-24] MEDS: ACETAMINOPHEN 500 MG TABLET 1000 MG PO (21:30)
[2025-05-24 21:37] LABS: Alanine Aminotransferase* 24 U/L (4-35); Aspartate Amino Transferase* 41 U/L (12-35); Creatinine* 0.5 mg/dL (0.5-1.5); Est. Creatinine Clearance* 168.21; Estimated Glomerular Filt Rate 125 ml/min
[2025-05-25 00:20] VITALS: BP 124/74; PULSE 84; RESP 16; TEMP 36.9; O2SAT 99
[2025-05-25] MEDS: IBUPROFEN 600 MG TABLET PO ×4 (00:54→23:00)
[2025-05-25] MEDS: PHENAZOPYRIDINE HCL 200 MG TABLET PO (00:59)
[2025-05-25] MEDS: ACETAMINOPHEN 500 MG TABLET 1000 MG PO ×3 (03:35→18:28)
[2025-05-25 04:20] VITALS: BP 99/67; PULSE 92; RESP 16; TEMP 36.5; O2SAT 97
[2025-05-25 06:38] LABS: Hemoglobin* 10.1 gm/dL (12.0-16.0)
[2025-05-25 08:34] VITALS: BP 111/75; PULSE 88; RESP 16; O2SAT 97
--- NOTE | 2025-05-25 09:31 | P.OBPN_ITS ---
OB - PN:Subj Subjective Date Seen: 05/25/25 Patient comments OB post-: no complaints, perineal pain, tolerating diet and flatus present [place] status: and doing well feeding status: exclusively Narrative: Dominique feels well.? Her pain is well controlled with current medications.?She did complain of pain with getting up and sitting in a chair. Discussed getting in a regular schedule for ibuprofen and Tylenol, utilizing ice, and taking a bath. Per the RN she did inquire about additional medications earlier this morning but did not mention it to me. Open to considering a one time dose of narcotics if she tries these interventions and still feels she needs more relief. She has no new complaints.? Urinary output is adequate and she is voiding without difficulty.? Has a good appetite, is tolerating a general diet, is passing flatus, and has not had a bowel movement.? Has scant amount of rubra lochia.? She is ambulating well.?She is breast feeding and supplementing with donor milk in a syringe. Encouraged help with nursing and consultation. OB - PN: Obj Exam Physical Exam: Vital signs: Temp Pulse Resp BP Pulse Ox O2 Del Method 97.7 F 88 16 111/75 97 Room Air 05/25/25 04:20 05/25/25 08:34 05/25/25 08:34 05/25/25 08:34 05/25/25 08:34 05/25/25 08:34 Narrative: GENERAL APPEARANCE:? normal affect, alert, no distress? MOOD:? appropriate? CHEST:? clear to auscultation and percussion? HEART:? regular rate and rhythm? ABDOMEN:? soft, non-tender the uterine fundus is U/U and is appropriate for the stage of recovery.? PERINEUM:? mild edema of the perineum, there is a 2nd degree laceration that is healing well.? EXTREMITIES:? normal and no edema? OB - PN: Obj Data Labs Labs: Laboratory Results - last 24 hr 05/24/25 05/25/25 21:12 06:19 WBC 16.10 H RBC 3.60 L Hgb 10.6 L 10.1 L Hct 31.0 L MCV 86 MCH 29 MCHC 34 Plt Count 276 Creatinine 0.5 Estimated Creat Clear 168.21 Estimated GFR 125 AST 41 H ALT 24 OB - PN: A/P Delivery Assessment and Plan (1) Hx of pre-eclampsia in prior , currently : Status: Acute (2) Elevated BP without diagnosis of hypertension: Status: Acute (3) Asthma: Status: Acute (4) Anxiety: Status: Acute (5) Depression: Status: Acute (6) Lactating mother: Status: Acute (7) care following vaginal delivery: Status: Acute (8) Twin delivered vaginally: Status: Acute Plan day: 1 Plan: routine care Comments: Anticipate discharge home tomorrow.
--- NOTE | 2025-05-25 09:36 | PM.ANPOST ---
Post Anesthesia Note Post Anesthesia Note Patient seen: Inpatient Respiratory Status: adequate Cardiovascular Status: adequate Mental Status: baseline Pain: adequate Temp: baseline Anesthetic awareness: N/A Complications: none Follow care: none
[2025-05-25] MEDS: ONDANSETRON 2 MG/ML inj 4 MG IV (10:23)
[2025-05-25] MEDS: OXYCODONE 5 MG TABLET PO (13:22)
[2025-05-25 13:28] VITALS: BP 100/66; PULSE 86; RESP 16; O2SAT 97
[2025-05-25 14:40] LABS: Rapid Plasma Reagin (RPR) Non Reactive (Non Reactive)
[2025-05-25] MEDS: DOCUSATE SODIUM 100 MG CAPSULE PO (14:47)
[2025-05-25 17:07] VITALS: BP 108/66; PULSE 80; RESP 18; O2SAT 100
[2025-05-26 01:30] VITALS: BP 100/68; PULSE 77; RESP 16; TEMP 36.7; O2SAT 98
[2025-05-26] MEDS: IBUPROFEN 600 MG TABLET PO (04:46)
[2025-05-26] MEDS: ACETAMINOPHEN 500 MG TABLET 1000 MG PO ×2 (04:46→15:02)
--- NOTE | 2025-05-26 09:11 | PM.OBDSVD1 ---
DS: Providers Provider Date Seen: 05/26/25 Date of admission: 05/23/25 17:30 Primary care physician: Not a Local Provider Admitting Clinician: Jordyn Yee MD Attending Physician on discharge: Marva Delacruz CNM Date of Discharge: 05/26/25 DS: Diagnosis Discharge Diagnosis (1) Twin delivered vaginally: Status: Acute (2) care following vaginal delivery: Status: Acute (3) Lactating mother: Status: Acute (4) Elevated BP without diagnosis of hypertension: Status: Acute Exam Narrative: Exam Narrative: VSS, afebrile GENERAL APPEARANCE: ?normal affect, alert, no distress MOOD: ?appropriate HEENT: normocephalic, neck supple, full ROM CHEST: ?Symmetrical chest wall movement. ?Normal respiratory effort. ?Clear to auscultation HEART: ?regular rate and rhythm ABDOMEN: ?soft, non-tender. Uterine fundus is firm, at Umbilicus, Midline and is appropriate for the stage of recovery. ?Bowel sounds present. PERINEUM: ?mild edema of the perineum, there is a 2nd degree laceration that is healing well. EXTREMITIES: ?normal and 1+ edema Const: Vital Signs, click to edit/add: Vital Signs - 24 hr 05/25/25 13:28 05/25/25 17:07 05/26/25 01:30 Temperature 98.0 F Pulse Rate [Pulse Oximeter] 86 80 77 Respiratory Rate 16 18 16 Blood Pressure [Ri ght Arm] 100/66 108/66 100/68 Pulse Oximetry 97 100 98 Oxygen Delivery Me thod Room Air Room Air Room Air Documenting provider has reviewed patient's vital signs: yes OB - DS: Summary Hospital Course Hospital Course: Dominique is a 35 y.o. who was admitted to [facility] & [facility] for induction of labor. ?She had an uncomplicated NVD of twins.?The patient feels well. ?The pain is well controlled with current medications. ?She has no new complaints. ?She is breast feeding and reports things are not going well. She struggled with with her first child and had low supply. She has been working with and is open to supplementation, plans to discuss home feeding plan with them today before discharge.? the patient has done well.? Vitals have been stable. We discussed her past history of preeclampsia and she has a BP cuff at home. She is aware of s/s to report and BP parameters.? She has remained afebrile.? Has a good appetite, is tolerating a general diet. ?She is voiding without difficulty.? She is passing gas and has not had a bowel movement.? She is ambulating and denies any dizziness.? Has Small amount of rubra lochia. ?She is undecided on her plan for prevention. Peripartum Data Infant delivery method: Vaginal Laceration description: Perineal - 2nd Degree complications: none Infant Gender: Female Discharge Plan: Home Infant A Gender: Female Infant Discharge Plan: Home [place] Infant B Gender: Female Status at Discharge Functional status at discharge: independent ambulation Overall status at discharge: patient is progressing back to baseline Time Spent with Patient Time attestation: Total time spent providing and/or coordinating discharge services: Time spent: Less than 30 minutes Discharge Plan Discharge Disposition: Home, Self-Care Date of Admission: 05/23/25 17:30 Attending Provider on Discharge: Marva Delacruz Consulting Providers: Yarelis Martinez Primary Care Provider: Provider,Not a Local Condition: Stable Anticipated Discharge Date/Time: 05/26/25 12:00 Discharge Medications: New acetaminophen 500 mg Tablet 1,000 mg PO Q6H PRNQty: 0 0RF docusate sodium 100 mg Capsule 100 mg PO DAILY Qty: 90 0RF ibuprofen 600 mg Tablet 600 mg PO Q6H PRNQty: 60 0RF oxycodone 5 mg capsule 5 mg PO Q6H PRN (Reason: pain) Qty: 3 0RF Rx Instructions: use only for breakthrough pain if Tylenol and Ibuprofen is not enough. Continued DHA 200 mg capsule See Rx Instructions PO DAILY Rx Instructions: as directed orally daily; cholecalciferol (vitamin D3) 25 mcg (1,000 unit) capsule 25 mcg PO QDAY folic acid 400 mcg tablet 0.4 mg PO QDAY Discontinued aspirin [Adult Low Dose Aspirin] 81 mg tablet,delayed release (DR/EC) 81 mg PO QDAY Discharge Orders: Discharge Order (Routine); Ordered 05/26/25 Ordered By: Marva Delacruz Patient Education: OB Over the Counter Medication Information, OB Vaginal/Breast Feeding Additional Instructions: Discharge instructions were reviewed with the patient including signs and symptoms of infection and home going medications Nothing vaginally for 6 weeks: no tampons or intercourse Do not drive while taking narcotic pain medication(s) Off Work or School for 8 weeks 2-week visit: discuss infant feeding concerns, review control options and screen for anxiety/depression. 6-week visit for an annual exam. consultation services are available to all mothers and babies for the first year after delivery.? To make an appointment, please call [phone]. Activity Level: Activity as Tolerated Discharge Diet: Regular Follow Up Appointments: [facility] [Provider Group] Forms: [email or web address] Info Instructions
[2025-05-26 09:55] VITALS: BP 102/65; PULSE 80; RESP 16; TEMP 36.6; O2SAT 100
[2025-05-26 14:00] VITALS: BP 116/80
[2025-05-26 18:10] LABS: Rubella Antibody IgG 14.2 IU/mL
== END 2025-05-26 14:00 | disposition home or self-care (01) | DRG 807 ==
PROVIDERS: Obstetrics & Gynecology; Admitting Provider Obstetrics & Gynecology; Visit Provider Obstetrics & Gynecology
DX: O30.043 Twin pregnancy, dichorionic/diamniotic, third trimester (principal); Z37.2 Twins, both liveborn; R33.9 Retention of urine, unspecified; R10.9 Unspecified abdominal pain; R03.0 Elevated blood-pressure reading, without diagnosis of hypertension; O70.1 Second degree perineal laceration during delivery; O99.02 Anemia complicating childbirth; D64.9 Anemia, unspecified; O99.344 Other mental disorders complicating childbirth; F41.9 Anxiety disorder, unspecified; F32.A Depression, unspecified; J45.909 Unspecified asthma, uncomplicated; Z3A.37 37 weeks gestation of pregnancy
CPT/HCPCS: 01967; 36415; 76815; 82565; 82570; 84112; 84156; 84450; 84460; 84520; 85018; 85025; 85027; 86592; 86762; 86850; 86900; 86901; A9270; J2405; J2795; J3010; J7120

== ENCOUNTER 2025-05-28 14:03 | Emergency (ER) | payer OTHER, SELFPAY ==
--- OUTSIDE RECORDS SUMMARY | 2025-05-28 14:05 | XMS_ITS | Encounter Summary ---
Author Organization [facility] Address [address], [place] [address] Care Team Providers Care Intern Product Marketing Manager Name Role Phone Maira Up MD Primary Care Provider [phone] Encounter Details Date Type Department Care Team (Late st Contact Info) Description 10/15/2014 Emergency Room External to [facility], Provider FLU SMPTOMS VIRAL ILLNESS Social History Tobacco Use Types Packs/Day Years Used Date Smoking Tobacco: Never Smokeless Tobacco: Never Comments:no smoking in home Alcohol Use Standard Drinks/Week Comments Yes 0 (1 standard drink = 0.6 oz pur e alcohol) occa. Comments No Sex and Gender Information Value Date Recorded Sex Assigned at Not on file Legal Sex Female 5:05 AM CDT Gender Identity Not on file Sexual Orientation Not on file documented as of this encounter Plan of Treatment Not on file documented as of this encounter Visit Diagnoses Not on filedocumented in this encounter Care Teams Intern Product Marketing Manager Relationship Specialty Start Date End Date Maira Up MD [address] [place] [address] PCP - General Internal Medicine 05/31/13 documented as of this encounter
--- OUTSIDE RECORDS SUMMARY | 2025-05-28 14:05 | XMS_ITS | Encounter Summary ---
Author [facility] Address [address] [place] [address] Care Team Providers Care Munitions Handler Supervisor Name Role Phone Maira Up MD Primary Care Provider [phone] Encounter Details Date Type Department Care Team (Late st Contact Info) Description 02/02/2014 Correspondence None No Primary/Referring, Phy INCOMPLETE INSURANCE INFORMATION Social History Tobacco Use Types Packs/Day Years [...] on file documented as of this encounter Progress Notes * No Primary/Referring, Phy - 02/02/2014 12:00 AM CST documented in this encounter Plan of Treatment Not on file documented as of this encounter Visit Diagnoses Not on filedocumented in this encounter Care Teams Munitions Handler Supervisor Relationship Specialty Start Date End Date Maira Up MD [address] [place] [address] PCP - General Internal Medicine 05/31/13 documented as of this encounter
--- OUTSIDE RECORDS SUMMARY | 2025-05-28 14:05 | XMS_ITS | Encounter Summary ---
Author Organization [facility] Address [address] [place] [address] Care Team Providers Care Woolen Suiting Shrinker Name Role Phone Maira Up MD Primary Care Provider [phone] Encounter Details Date Type Department Care Team (Late st Contact Info) Description 11/13/2015 Correspondence [facility] Occupational and Environmental Medicine [address] [place] [id number] Yariel Gregory MD [address] [place] [address] OCC MED NOTES Social History Tobacco Use Types Packs/Day Years [...] on filedocumented in this encounter Care Teams Woolen Suiting Shrinker Relationship Specialty Start Date End Date Maira Up MD [address] [place] [address] PCP - General Internal Medicine 05/31/13 documented as of this encounter
--- OUTSIDE RECORDS SUMMARY | 2025-05-28 14:05 | XMS_ITS | Encounter Summary ---
Author Organization [facility] Address [address], [place] [address] Care Team Providers Care Tinsmith Apprentice Name Role Phone Maira Up MD Primary Care Provider [phone] Encounter Details Date Type Department Care Team (Late st Contact Info) Description 10/15/2014 Emergency Room External to [facility], Provider VIRAL ILLNESS Social History Tobacco Use Types [...] on filedocumented in this encounter Care Teams Tinsmith Apprentice Relationship Specialty Start Date End Date Maira Up MD [address] [place] [address] PCP - General Internal Medicine 05/31/13 documented as of this encounter
--- OUTSIDE RECORDS SUMMARY | 2025-05-28 14:05 | XMS_ITS | Encounter Summary ---
Author [facility] Address [address] [place] [address] Care Team Providers Care Sort Worker Name Role Phone Maira Up MD Primary Care Provider [phone] Encounter Details Date Type Department Care Team (Late st Contact Info) Description 08/20/2012 Emergency Room External to [facility], Provider ABD PAIN ED STAFF PHYSICIAN NOTE Social History Tobacco Use Types Packs/Day Years Used Date Smoking Tobacco: Never Smokeless Tobacco: Never Comments:no smoking in home Alcohol Use Standard Drinks/Week Comments No 0 (1 standard drink = 0.6 oz pur e alcohol) abstinent x 09/13/2010 Comments No Sex and Gender Information Value Date Recorded Sex Assigned at Not on file Legal Sex Female 5:05 AM CDT Gender Identity Not on file Sexual Orientation Not on file documented as of this encounter Progress Notes * [facility], Provider - 08/20/2012 12:00 AM CDT documented in this encounter Plan of Treatment Not on file documented as of this encounter Visit Diagnoses Not on filedocumented in this encounter Care Teams Sort Worker Relationship Specialty Start Date End Date Maira Up MD [address] [place] [address] PCP - General Internal Medicine 05/31/13 documented as of this encounter
--- OUTSIDE RECORDS SUMMARY | 2025-05-28 14:06 | XMS_ITS | Clinical Summary ---
Author Organization [facility] Address [address] [place] [address] Care Team Providers Care Deli Manager Name Role Phone Maira Saldaña MD Unavailable Edyta Londono DO Primary Care Provider Allergies Active Allergy Reactions Criticality Noted Date Comments Cefuroxime Rash Low 09/18/2011 Doxycycline GI Bleeding 07/03/2022 Influenza Virus Vaccines Muscle Weakness High 2010 Stroke-like symptoms Prednisolone Stomach Upset High 03/03/2018 Blood in stool Sulfa (Sulfonamide Antibiotics) Edema 09/18/2011 Medications vits96/iron fum/folic ( VITAMIN WITH FOLIC ACID) tablet Take 1 Tab by mouth. Take one tablet daily Active NebulizerIndicati ons:Bronchospasm Nebulizer, disposable neb kit x 4, reuseable neb kit x 1, mask x 1, filters x 1. Frequency of use: daily; Medication: albuterol Length of need: 99 months 1 Each 1 Active InnoSpire Elegance USE DIRECTED WITH ALBUTEROL 2 Active SUMAtriptan (IMITREX) 50 mg tabletIndications :Migraine syndrome Take 1 Tablet (50 mg) by mouth every 2 hours if needed for Migraine. Give at minimum 2hrs apart. Max Dose: 200mg per 24hrs. 9 Tablet 3 4 Active codeine-guaiFENes in 10-100 mg/5 mL liquidIndications :Acute cough Take 5 mL by mouth at bedtime if needed for Cough. 100 mL 4 Active fluticasone (50 mcg per actuation) nasal solution (FLONASE)Indicati ons:Sinusitis, unspecified chronicity, unspecified location Inhale 1 [place] into affected nostril(s) once daily. 24 g 4 Active cholecalciferol (Vitamin D-3) 2,000 unit capsule Take 2,000 units by mouth once daily. Active Magnesium Citrate powd As directed. Active fluticasone propionate (FLOVENT) 44 mcg/Actuation inhalerIndication s:Influenza-like illness Inhale 1 Puff by mouth two times daily. 10.6 g 5 Active aspirin chewable 81 mg chewable tabletIndications :Influenza-like illness Chew 1 Tablet (81 mg) by mouth once daily with a meal. 5 Active metoclopramide HCl (REGLAN) 10 mg tabletIndications :Nausea Take 1 Tablet (10 mg) by mouth every 6 hours if needed for Nausea/Vomitin g. 20 Tablet 5 Active budesonide (PULMiCORT) 1 mg/2 mL neb suspensionIndicat ions:Upper respiratory tract infection, unspecified type,SOB (shortness of breath),Mild intermittent asthma with acute exacerbation (HC) Inhale 1 mg via a nebulizer two times daily. 60 mL 5 Active fluticasone propion-salmetero L (Advair Diskus) 100-50 mcg/dose diskus inhalerIndication s:SOB (shortness of breath),Mild intermittent asthma with acute exacerbation (HC),Expiratory wheezing Inhale 1 Puff by mouth two times daily. 60 Each 5 Active ferrous sulfate 325 mg (65 mg iron) tablet Take 1 Tablet by mouth once daily. 5 Active Active Problems Problem Noted Date Diagnosed Date Mild intermittent asthma with acute exacerbation 11/03/2024 Chronic left-sided low back pain 12/18/2021 Overview (12/18/2021): IMO Update IMO Update Anxiety and depression 12/08/2018 Migraine 07/03/2014 Adverse reaction to influenza vaccine 04/14/2013 Overview (12/18/2021): 2009. Went urgent care, drooping left sided face, and numbness and tingling. Treated with Benadryl. 2009. Went urgent care, drooping left sided face, and numbness and tingling. Treated with Benadryl. 2009. Went urgent care, drooping left sided face, and numbness and tingling. Treated with Benadryl. Hypercholesteremia 08/06/2010 Estimated Date of Delivery Comme nts Yes 06/07/2025 Resolved Problems Problem Noted Date Diagnosed Date Resolved Date Stroke-like symptoms 06/22/2019 024 Overview (02/08/2024): to influenza shot MDD (major depressive disorder) 09/08/2014 12/08/2018 Anxiety 09/08/2014 12/08/2018 Neurologic abnormality 07/03/201402/07 Conversion disorder 07/03/2014 02/08/20 24 Finger contusion 03/23/2012 07/03/2014 Encounters Date Type Department Care Team Description 05/25/2025 Lab Requisition [facility] [phone] Yarelis Martinez MD from Last 3 Months Immunizations Immunization Administration Dates Next Due DTP 06/09/1995, 0,1989,1989 ,1989 DTaP 06/09/1995 HIB HbOC (HibTITER) 12/08/1991 HIB PRP-T (ActHIB,Hiberix) 12/08/1991 Hepatitis A (Adult) 02/15/2019,12/16/2011 Hepatitis A (Peds) 12/16/2011 Hepatitis B (Peds) 12/09/1995,07/13/1995, 995 Hepatitis B, Unspecified 12/09/1995,07/13/1995 Inactivated Polio Vaccine 06/09/1995,1989, 1989 Influenza Virus, Unspecified 09/24/1998,11/01/19 97 Influenza, IIV3 (Age 6-35 mos) 09/03/2010 Influenza, IIV3 (Age >=3 years) 09/26/2004 Influenza, IIV4 09/26/2004,09/24/1998,11/01/1997 MMR 04/18/1999,12/08/1991,04/19/1990 Meningococcal Vaccine 07/16/2005 Meningococcal Vaccine (Menactra) 07/16/2005 Oral Polio Vaccine 06/09/1995,07/27/1990, 989,1989 Td (Age >=7 Years) 07/21/2002,07/24/2000 Tdap 09/10/2020,12/16/2011 Typhoid (injectable) 12/16/2011 Family History Medical History Relation Name Comments Drug Abuse Brother Psychiatric illness Brother ADD, OCD Hyperlipidemia Father Hypertension Father Psychiatric illness Maternal Aunt ADHD Diabetes Maternal Grandfather Hyperlipidemia Maternal Grandfather Hypertension Maternal Grandfather Diabetes Maternal Grandmother great-g randmother Diabetes type II Mother Hypertension Mother Hypothyroidism Mother Psychiatric illness Mother anxiety. On paxil. bipolar ? Cancer Paternal Uncle unknown Relation Name Status Comments Brother Father Alive Half-Sister 1 Meghna Alive Half-Sister 2 Kanchan Alive Maternal Aunt Maternal Grandfather Maternal Grandmother Mother Alive Paternal Uncle Social History Tobacco Use Types Packs/Day Years Used Date Smoking Tobacco: Former Cigarettes 0.3 0.5 0 06/02/2018 - 2018 Smokeless Tobacco: Never Tobacco Cessation:Counseling Given: Not Answered Comments:attempting on own Alcohol Use Standard Drinks/Week Comments Not Currently 0 (1 standard drink = 0.6 oz pur e alcohol) 1-2 month; no binging PHQ-2 Answer Date Recorded PHQ-2 TOTAL SCORE 6 06/09/2024 Social Connections Answer Date Recorded Do you often feel lonely or isolated from those around you? 0 05/25/2024 Financial Resource Strain Answer Date R ecorded Difficulty of Paying Living Expenses 3 05/25/2024 Difficulty of Paying Living Expenses Not on file 05/25/2024 Food Insecurity Answer Date Recorded Do you worry your food will run out before you are able to buy more? 1 05/25/2024 Transportation Needs Answer Date Record ed Does lack of transportation keep you from medica l appointments? 1 05/25/2024 Does lack of transportation keep you from work, meetings or getting things that you need? 1 05/25/2024 Housing Stability Answer Date Recorded What is your housing situation today? 1 05/25/2024 Interpersonal Safety Answer Date Record ed Are you being hit, kicked, p ushed or yelled at (see row info)? No 01/06/2025 Interpersonal Safety Abuse 12 - 18 Not on file 01/06/2025 Interpersonal Safety Ambulatory Vulnerability No t on file 01/06/2025 Utilities Answer Date Recorded Do you have trouble paying f or utilities (for example, heat, electricity, water, phone)? 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) Current Last Filed Vital Signs Vital Sign Reading Time Taken Comments Blood Pressure 122/64 02/18/2025 10:15 AM CDT Pulse 117 02/18/2025 10:15 AM CDT Temperature 36.6 C (97.8 F) 02/18/2025 10:15 AM CDT Respiratory Rate 16 02/18/2025 10:15 AM CDT Oxygen Saturation 100% 01/09/2025 3:26 PM PROPERTY MANAGEMENT BOOKKEEPER Inhaled Oxygen Concentration - - Weight 125.2 kg (276 lb) 02/18/2025 10:15 AM CDT Height 174.9 cm (5' 8.86) 01/09/2025 3:26 PM CS T Body Mass Index 40.92 01/09/2025 3:26 PM PROPERTY MANAGEMENT BOOKKEEPER Plan of Treatment Health Maintenance Due Date Last Done Comments HIV for age 15-65 2004 COVID-19 vaccine series ( - 2023- season) 2024 Pap test for age 21-65 12/08/2024 0 (Completed outside of [facility]), 08/13/2017, 07/20/2014 Depression screening for age 12+ 06/09/2025 06/09/2024, 02/08/2024, 05/29/2021, Additional history exists BMI (ht and wt on same day) for age 18+ 01/09/2026 01/09/2025, 11/08/2024, 08/30/2024, Additional history exists Tetanus booster 09/10/2030 09/10/2020, 11/30, 12/16/2011, Additional history exists Hepatitis B series for 19+ Completed 12/09, 12/09/1995, 07/13/1995, Additional history exists Tdap Completed 09/10/2020, 11/30, 12/16/2011 Hepatitis C screening for age 18-79 Completed 10/01/2023 Pneumococcal series for age 6-49 Aged Out No longer eligible based on patient's age to complete this topic RSV vaccine for adults or (No Doses Required) Completed Procedures Procedure Name Priority Date/Time Associated Diagnosis Comments ANTI HCV Routine 10/01/2023 3:38 PM CDT Polyarthralgia Positive SHAKIRA (antinuclear antibody) ACADEMIC COMPUTING DIRECTOR THIN PREP PAP SCREEN IMAGED Routine 08/13/2017 10:31 AM CDT Cervical cancer screening from Last 3 Months or Most Recently Relevant to Health Maintenance Results * ANTI HCV (10/01/2023 3:38 PM CDT) HEPATITIS C ANTIBODY Non-Reacti ve Non-React jaylon 10/02/2023 3:14 PM CDT [facility] Comment:Please note, per www .CDC.gov: If a patient is known to be at high risk of HCV infection, or is symptomatic, and the physician's suspicion of HCV infection is high, HCV RNA testing is often employed and is of diagnostic value, even after an initial negative anti-HCV test result. Blood BLOOD SPECIMEN / Unknown Butterfly / Unknown 10/01/2023 3:38 PM CDT 10/01/2023 3:46 PM CDT Shavon Zuniga MD SEND OUTS Final Result [facility] [address] [place] [address], [place] * ACADEMIC COMPUTING DIRECTOR THIN PREP PAP SCREEN IMAGED (08/13/2017 10:31 AM CDT) Case Report Gynecologic Cytology Report Case: [id number] Authorizing Provider: Ara Aguilera MD Collected: 08/13/2017 1031 Ordering Location: [facility] Received: 08/13/2017 [facility] First Screen: Matilde Bear Rescreen: Kandice Chand Specimen: ACADEMIC COMPUTING DIRECTOR ThinPrep Vial Screening, Cervical 08/21/2017 12:25 PM CDT [facility] INTERPRETATION/ RESULT NEGATIVE FOR INTRAEPITHELIAL LESION OR MALIGNANCY (NIL) (none) 08/21/2017 12:25 PM CDT [facility] at 1225 CDT SPECIMEN ADEQUACY Satisfactory for evaluation Endocervical component present Scant cellularity Obscuring Inflammation 08/21/2017 12:25 PM CDT [facility] HPV REQUEST HPV if ASCUS 08/21/2017 12:25 PM CDT [facility] Date of LMP 07/31/2017 08/21/2017 12:25 PM CDT [facility] Last Pap Date 201308/21/2017 12:25 PM CDT [facility] Last Pap Result UNS 7 12:25 PM CDT [facility] Abnormal Pap or [place] Bx in last 5 years No 08/21/2017 12:25 PM CDT [facility] Menstrual Status Regular Periods 08/21/2017 12:25 PM CDT [facility] [place] Bx Done Today No 08/21/2017 12:25 PM CDT [facility] Additional Information None given 08/21/2017 12:25 PM CDT [facility] Automated Review Successful 08/21/2017 12:25 PM CDT [facility] Comment:Specimen processed s uccessfully by automated warp knitting machine operator device, ThinPrep Imaging System, [employer] Note The pap test is a screening technique, not a diagnostic procedure. It is used primarily to screen for squamous cancers and precursor lesions. Published studies have shown that it is subject to both false negative and false positive results. The pap test should not be used as the sole means to diagnose or exclude pre-malignant and malignant lesions. Interpreted at [facility] ([facility] Lab, [facility], [facility], [facility], [facility], [facility], [facility]) 08/21/2017 12:25 PM T [facility] Other (Cervical) 08/13/2017 10:31 AM CDT 08/13/2017 10:31 AM CDT us Ara Aguilera MD PATHOLOGY/CYTOLOGY Heidi hylton Result [facility] [address] [place] [address], [place] from Last 3 Months or Most Recently Relevant to Health Maintenance Insurance [employer] CHOICE [facility] WORKERS COMP Advance Directives * Full Code (Latest Code Status on File) Date Activated Date Inactivated Comments 02/04/2022 7:57 AM 02/04/2022 2:55 PM Question Answer Comments Code Status Discussion: Unable to Assess Preferences, Provider to review later Care Teams Deli Manager Relationship Specialty Start Date End Date Edyta Londono DO [address] [place] [address] PCP - General Family Practice 12/26/24 Maira Saldaña MD Family Practice Family Practice 04/14/13
--- OUTSIDE RECORDS SUMMARY | 2025-05-28 14:06 | XMS_ITS | Encounter Summary ---
Author Organization [facility] Address [address] [place] [address] Care Team Providers Care Senior Media Director Name Role Phone Maira Up MD Primary Care Provider [phone] Encounter Details Date Type Department Care Team (Latest Contact Info) Description 02/22/1998 Orders Only Natali Chao Social History Tobacco Use Types Packs/Day Years Used Date Smoking Tobacco: Never Assessed Comments Unknown Sex and Gender Information Value Date Recorded Sex Assigned at Not on file Legal Sex Female 5:05 AM CDT Gender Identity Not on file Sexual Orientation Not on file documented as of this encounter Plan of Treatment Not on file documented as of this encounter Visit Diagnoses Not on filedocumented in this encounter Care Teams Senior Media Director Relationship Specialty Start Date End Date Maira Up MD [address] [place] [address] PCP - General Internal Medicine 05/31/13 documented as of this encounter
--- OUTSIDE RECORDS SUMMARY | 2025-05-28 14:06 | XMS_ITS | Encounter Summary ---
Author Organization [facility] Address [address] [place] [address] Care Team Providers Care Technical Sales Support Manager Name Role Phone Maira Up MD Primary Care Provider [phone] Encounter Details Date Type Department Care Team (Latest Contact Info) Description 03/25/2004 Hospital None Unknown, Physician [address] [place] [address] CONSULT ABD PAIN Social History Tobacco Use Types Packs/Day Years [...] as of this encounter Progress Notes * Unknown, Physician - 03/25/2004 12:00 AM CDT * Unknown, Physician - 03/25/2004 12:00 AM CDT documented in this encounter Plan of Treatment Not on file documented as of this encounter Visit Diagnoses Not on filedocumented in this encounter Care Teams Technical Sales Support Manager Relationship Specialty Start Date End Date Maira Up MD [address] [place] [address] PCP - General Internal Medicine 05/31/13 documented as of this encounter
--- OUTSIDE RECORDS SUMMARY | 2025-05-28 14:06 | XMS_ITS | Encounter Summary ---
Author Organization [facility] Address [address] [place] [address] Care Team Providers Care Salesperson Surgical Appliances Name Role Phone Maira Up MD Primary Care Provider [phone] Encounter Details Date Type Department Care Team (Late st Contact Info) Description 01/19/2013 Emergency Room External to Lili Wilson, Provider LOWER BACK PAIN Social History Tobacco Use Types Packs/Day [...] as of this encounter Progress Notes * Lili Wilson, Provider - 01/19/2013 12:00 AM CST documented in this encounter Plan of Treatment Not on file documented as of this encounter Visit Diagnoses Not on filedocumented in this encounter Care Teams Salesperson Surgical Appliances Relationship Specialty Start Date End Date Maira Up MD [address] [place] [address] PCP - General Internal Medicine 05/31/13 documented as of this encounter
--- OUTSIDE RECORDS SUMMARY | 2025-05-28 14:06 | XMS_ITS | Clinical Summary ---
Author Organization [facility] Address [address] [place] [address] Care Team Providers Care Photoengraving Proofer Apprentice Name Role Phone Maira Up MD Primary Care Provider [phone] Source Comments You are receiving this document as you are listed as the primary care provider,follow-up provider, or the patient has been referred to you for consultation.This is in compliance with the Medicare and[facility] EHR Incentive Program,which states Providers who transition their patient to another setting of careor provider of care or refers their patient to another provider of care shouldprovide summary care record for each transition of care or referral. [facility] Allergies Active Allergy Reactions Criticality Noted Date Comments Cephalosporins Rash 09/08/2003 Influenza Virus Vaccine 09/05/2010 Pt. Had numbness and paralysis of arm and droopiness of face. Penicillins Rash 12/10/2000 Sulfa Antibiotics Swelling Swelling in hands/ feet; pt denies h/o: anaphylaxis, facial angioedema, Rx or use of epi pen Medications * This document contains information received from the source organization and may not represent a complete record from that organization. cyclobenzaprine (AKA FLEXERIL) 10 MG tablet Take 1 Tab by mouth at bedtime as needed for Muscle Spasms. 20 Tab 1 11/13/2015 Active Vit-Fe Fumarate-FA ( RX 1 OR) Active Active Problems Problem Noted Date Diagnosed Date Work related injury 12/19/2015 Back strain 12/19/2015 CAREPLAN: TERMINATION 09/11/2011 Overview (09/11/2011): This patient's care has been terminated on 09/11/2011 due to Failed Intake. Please direct the patient to the Customer Service number on the back of their insurance card for other options outside of [facility]. They may contact their health insurance company to get a list of providers outside of the [facility] system or they may wish to contact [facility] or [facility]. Surveillance of previously p rescribed intrauterine contraceptive device 11/21/2010 Overview (12/09/2010): Copper IUD Migraine 08/06/2010 Hypercholesteremia 08/06/2010 Weight gain 08/06/2010 Asthma 02/17/2005 Resolved Problems Problem Noted Date Diagnosed Date Resolved Date Low back pain 12/27/2015 02/26/2016 Immunizations Immunization Administration Dates Next Due DTP 06/09/1995, 0,1989,05/25/19 89,1989 Flu Vac (3+ yrs) 09/03/2010,09/26/2004 HepA Adult (19+ yrs) 12/16/2011 HepB Ped/Adol (0-18 yrs) 12/09/1995,07/13/1995,0 06/09/1995 Hib (HbOC) 12/08/1991 Influenza, Unspecified Formulation 09/24/1998, MCV4 (Menactra) 07/16/2005 MMR 04/18/1999,04/19/1990 OPV, Trivalent (Orimune or tOPV) 995,07/27/1990,1989,03/19/19 89 Td 07/21/2002,07/24/2000 Tdap 12/16/2011 Typhoid (Typhim Vi, IM) 12/16/2011 Varicella 03/07/1998(Deferred: Immune by oGrdo stephen) Family History Medical History Relation Name Comments Hypertension Father Hypertension Maternal Grandfather Hypertension Paternal Grandmother Relation Name Status Comments Father Maternal Grandfather Paternal Grandmother Social History Tobacco Use Types Packs/Day Years [...] on file Sexual Orientation Not on file Last Filed Vital Signs Vital Sign Reading Time Taken Comments Blood Pressure 112/79 08/29/2023 3:00 AM CDT Pulse 92 08/29/2023 12:24 AM CDT Temperature 36.5 C (97.7 F) 08/29/2023 12:24 AM CDT Respiratory Rate 16 08/29/2023 12:24 AM CDT Oxygen Saturation 100% 08/29/2023 3:00 AM CDT Inhaled Oxygen Concentration - - Weight 117.9 kg (260 lb) 08/29/2023 12:24 AM CDT Height 177.8 cm (5' 10) 08/29/2023 12:24 AM CDT Body Mass Index 37.31 08/29/2023 12:24 AM CDT Plan of Treatment Health Maintenance Due Date Last Done Comments Hep C Screening (Preventive Services) 1989 Asthma ACT (score of 20 or higher) 1993 Pneumococcal Vaccine (1 of 2 - PCV) 2008 Cervical Cancer Screening Due 08/07/2010 08/06/2010 SMI: Fasting Lipid 08/06/2011 08/06/2010 HepA Vaccine (2 of 2 - Risk 2-dose series) 06/15/2012 12/16/2011 Adult Preventive Visit 08/06/2012 0, 07/29/2001, 06/15/2000 DTaP/Tdap/Td Vaccine (7 - Tdap) 12/16/2021 12/16/2011, 07/21/2002, 07/24/2000, Additional history exists COVID-19 Vaccine ( season) 2024 SMI: Hgb A1C 08/29/2024 08/29/2023, 08/30, 09/03/2010, Additional history exists Influenza Vaccine (Season Ended) 2025 09/03/2010, 09/26/2004, 09/24/1998, Additional history exists Zoster/Shingles Vaccine (1 of 2) 2039 Hib Vaccine Completed 12/08/1991 IPV (Polio) Vaccine Completed 06/09/1995, 07/27/1990, 1989, Additional history exists HepB Vaccine Completed 12/09/1995, 06/30, 06/09/1995 HIV Screening (Preventive Services) Completed 06/27/2000 MCV4 Vaccine Completed 07/16/2005 HPV Vaccine Aged Out No longer eligi ble based on patient's age to complete this topic Meningococcal B Vaccine Aged Out No l onger eligible based on patient's age to complete this topic Procedures Procedure Name Priority Date/Time Associated Diagnosis Comments BASIC METABOLIC PANEL STAT 08/29/2023 1:29 AM CDT LIPID PANEL & DIRECT LDL (IF NEEDED) Routine 08/06/2010 3:06 PM CDT Lipid Screening PAP TEST, ROUTINE Routine 08/06/2010 12: 00 AM CDT Screening for Malignant Neoplasm of the Cervix HIV ANTIBODY Routine 06/27/2000 8:52 PM CDT from Last 3 Months or Most Recently Relevant to Health Maintenance Results * Basic Metabolic Panel (08/29/2023 1:29 AM CDT) Sodium 138 136 - 145 mmol/L 08/29/2023 1:56 AM [facility] Potassium 3.9 3.5 - 5.1 mmol/L 08/29/2023 1:56 AM [facility] Chloride 104 98 - 109 mmol/L 08/29/2023 1:56 AM [facility] CO2 22 20 - 29 mmol/L 08/29/2023 1:56 AM [facility] Anion Gap 12 7 - 16 mmol/L 08/29/2023 1:56 AM [facility] Calcium 9.3 8.4 - 10.4 mg/dL 08/29/2023 1:56 AM [facility] BUN 9 7 - 26 mg/dL 08/29/2023 1:56 AM [facility] Creatinine 0.69 0.55 - 1.02 mg/dL 08/29/2023 1:56 AM [facility] Glucose 96 70 - 100 mg/dL 08/29/2023 1:56 AM CDT [facility] Comment:The given reference range is for the fasting state. Non-fasting reference range for glucose is 70 - 180 mg/dL. GFR, Estimated >60 >60 mL/min/1.7 3m2 08/29/2023 1:56 AM CDT [facility] Blood Venipuncture / Unknown 08/29/2023 1:29 AM CDT 08/29/2023 1:34 AM CDT John Churchill MD LAB_1 Final Result [address] [phone] * (ABNORMAL) LIPID PANEL AND DIRECT LDL(IF NEEDED) (08/06/2010 3:06 PM CDT) Cholesterol 226(H) 0 - 199 mg/dl [facility] Triglyceride 138 0 - 149 mg/dl [facility] HDL 58 >40 mg/dl [facility] LDL, Calc. 140(H) 0 - 129 mg/dl [facility] Hours Fasting 15 hours [facility] 08/06/2010 3:06 PM CDT 08/06/2010 3:11 PM CDT Natali Gay MD LAB_1 Final Result Performing Organization Address City/[facility]/ZIP Co de Phone Number [facility] [address] [address] * PAP TEST, ROUTINE (08/06/2010 12:00 AM CDT) Cytology, Pap (NOTE) Parts Analyst Cytology Report Patient Name: SELAM RAMSEY Taken: 08/06/2010 Received: 08/08/2010 Reported: 08/14/2010 Physician(s): NATALI GAY ([id number]) Source of Specimen Liquid routine Pap, cervical/endocervi fabi: Specimen Adequacy Satisfactory for evaluation. Endocervical component present. Final Cytologic Interpretation/Res ult NEGATIVE FOR INTRAEPITHELIAL LESION OR MALIGNANCY (NILM) Other Cytologic Findings Fungal organisms morphologically consistent with Tish spp. Inflammation hernesto/08/14/2010 Electronically Signed Out By BLAZE Mendoza (ASCP) BLAZE Mendoza (ASCP) Pap Smear History Date of Last Menstrual Period: 08/01/10 [facility] 08/06/2010 08/08/2010 9:0 9 AM CDT Natali Gay MD LAB_1 Final Result [facility] [address] [address] * HIV 1/2 ANTIBODY (06/27/2000 8:52 PM CDT) HIV 1/2 Antibody Non-Reacti ve [facility] 06/27/2000 8:52 PM CDT 06/27/2000 8:57 PM CDT Ped Spucc LAB_1 Final Result Performing Organization Address City/[facility] Co de Phone Number [facility] [address] [address] from Last 3 Months or Most Recently Relevant to Health Maintenance Insurance [address] [place] [id number] [place] [address] [place] [address] [employer] Care Teams Photoengraving Proofer Apprentice Relationship Specialty Start Date End Date Maira Up MD [address] [place] [address] PCP - General Internal Medicine 05/31/13
--- OUTSIDE RECORDS SUMMARY | 2025-05-28 14:06 | XMS_ITS | Encounter Summary ---
[facility] Address [address], [place] [address] Care Team Providers Care Architectural Examiner Name Role Phone Maira Up MD Primary Care Provider [phone] Encounter Details Date Type Department Care Team (Latest Contact Info) Description 06/30/2000 Orders Only Jcarlos Ramirez MD [address] [place] [address] Social History Tobacco Use Types Packs/Day Years [...] on filedocumented in this encounter Care Teams Architectural Examiner Relationship Specialty Start Date End Date Maira Up MD [address] [place] [address] PCP - General Internal Medicine 05/31/13 documented as of this encounter
--- OUTSIDE RECORDS SUMMARY | 2025-05-28 14:06 | XMS_ITS | Encounter Summary ---
Author Organization [facility] Address [address] [place] [address] Care Team Providers Care Glove Sewer Name Role Phone Maira Up MD Primary Care Provider [phone] Encounter Details Date Type Department Care Team (Late st Contact Info) Description 02/02/2014 Emergency Room External to [facility], Provider SOFT TISSUE INJURY TO RT ELBOW Social History Tobacco Use Types Packs/Day Years [...] as of this encounter Progress Notes * [facility][1], Provider - 02/02/2014 12:00 AM CST documented in this encounter Plan of Treatment Not on file documented as of this encounter Visit Diagnoses Not on filedocumented in this encounter Care Teams Glove Sewer Relationship Specialty Start Date End Date Maira Up MD [address] [place] [address] PCP - General Internal Medicine 05/31/13 documented as of this encounter
--- OUTSIDE RECORDS SUMMARY | 2025-05-28 14:06 | XMS_ITS | Encounter Summary ---
Author Organization [facility] Address [address], [place] [address] Care Team Providers Care School Traffic Guard Name Role Phone Maira Up MD Primary Care Provider [phone] Encounter Details Date Type Department Care Team (Latest Contact Info) Description 09/10/1998 Orders Only Ronnie Angel MD [address] [place] [address] Social History Tobacco Use Types Packs/Day Years [...] on filedocumented in this encounter Care Teams School Traffic Guard Relationship Specialty Start Date End Date Maira Up MD [address] [place] [address] PCP - General Internal Medicine 05/31/13 documented as of this encounter
--- OUTSIDE RECORDS SUMMARY | 2025-05-28 14:06 | XMS_ITS | Encounter Summary ---
Author Organization [facility] Address [address], [place] [address] Care Team Providers Care Build And Deployment Engineer Name Role Phone Maira Up MD Primary Care Provider [phone] Encounter Details Date Type Department Care Team (Late st Contact Info) Description 06/03/2001 Office Visit [facility] [address] [place] [address] Jcarlos Ramirez MD [address] [place] [address] Social History Tobacco Use Types Packs/Day Years Used Date Smoking Tobacco: Never Assessed Comments Unknown Sex and Gender Information Value Date Recorded Sex Assigned at Not on file Legal Sex Female 5:05 AM CDT Gender Identity Not on file Sexual Orientation Not on file documented as of this encounter Progress Notes * Jcarlos Ramirez - 06/03/2001 12:00 AM CDTS: Dominique is here for an evaluation of an illness of several day's duration consisting of initially of little bit of right chest tightness, progressing on into cough, fever and today she has developed some nausea, general body aches and ear pain. She had a bloody nose a little bit earlier today. There has been no wheezing. Her older brother was treated with Zithromax for respiratory tract infection about a week ago and the family has been at [facility] while this developed. O: Dominique is alert, active, and pleasant child who weighs 169 pounds, temperature of 103.1 and pulse ox of 98% at room air. She is flushed, uncomfortable, and has got a runny nose and little bit of red throat and supple neck without nodes. Tympanic membranes are fine. Lungs are pretty clear to auscultation but she is tachypneic with a respiratory rate of about 28-30. A: Febrile illness with upper and lower respiratory tract component. P: Rapid strep is obtained and is negative. Chest x-ray shows a fairly prominent right lower lobe pneumonia with obscuring the diaphragm. CBC shows a normal hemoglobin and white blood cell count of 8,700 with 340,000 platelets. Differential is pending. P: I am going to arbitrarily treat with Zithromax Z-Pierre, continue supportive care with plenty of fluids, Tylenol / Advil and I would like to see her tomorrow afternoon for a recheck. IN SUMMARY: febrile illness cc: documented in this encounter Plan of Treatment Not on file documented as of this encounter Visit Diagnoses Not on filedocumented in this encounter Care Teams Build And Deployment Engineer Relationship Specialty Start Date End Date Maira Up MD [address] [place] [address] PCP - General Internal Medicine 05/31/13 documented as of this encounter
--- OUTSIDE RECORDS SUMMARY | 2025-05-28 14:06 | XMS_ITS | Encounter Summary ---
Author Organization [facility] Address [address] [address] Care Team Providers Care Mobile Marketing Manager Name Role Phone Maira Up MD Primary Care Provider [phone] Encounter Details Date Type Department Care Team (Latest Contact Info) Description 02/12/1999 Office Visit Louise Alvarez MD Social History Tobacco Use Types Packs/Day Years Used Date Smoking Tobacco: Never Assessed Comments Unknown Sex and Gender Information Value Date Recorded Sex Assigned at Not on file Legal Sex Female 5:05 AM CDT Gender Identity Not on file Sexual Orientation Not on file documented as of this encounter Progress Notes * Louise Alvarez - 02/12/1999 12:00 AM CSTS: Today here for right earache. Complaining of right earache today, has had cold symptoms for one week. Has a history of asthma, although she is doing very well this winter. This morning she was playing tennis and she hit her head with a tennis racquet by herself accidentally. No loss of consciousness, no vomiting after this event. She didn't get sleepy or change in her consciousness. O: Alert, cooperative, in no acute distress. Well-oriented. T: 98.8. Ears, left side landmark and light reflex present, clear tympanic membrane. Right side tympanic membrane disfigured. There is a couple of large bullous lesions noted. Throat redness, no exudate, head symmetric, no tenderness with touch or any bump on her head. Lungs: clear. Eyes: PERRL. Normal fundi exam. Lungs: good air entry, no rales or wheezing. Abdomen soft, no organomegaly, no palpable mass. Skin is clear. Neurologic exam in detail within normal limits. A: Right otitis media and closed head injury. P: The patient is allergic to Sulfa and penicillin. Therefore, placed on Vantin 250 mg p.o. b.i.d. x 10 days. Follow up if any symptoms persist. Regarding closed head injury, close watch regarding her level of alertness and information regarding closed head injury was given. cc: T SENIOR ASSOCIATE documented in this encounter Plan of Treatment Not on file documented as of this encounter Visit Diagnoses Not on filedocumented in this encounter Care Teams Mobile Marketing Manager Relationship Specialty Start Date End Date Maira Up MD [address] [place] [address] PCP - General Internal Medicine 05/31/13 documented as of this encounter
--- OUTSIDE RECORDS SUMMARY | 2025-05-28 14:06 | XMS_ITS | Encounter Summary ---
Author Organization [facility] Address [address] [place] [address] Care Team Providers Care Rubber Cutting Machine Tender Name Role Phone Blake Bonillaah Primary Care Provider [phone] Betty Godfrey MD Unavailable [facility], Shoaib Colon/Sylvain Primary Care Pr ovider Stacia Lozano MD Unavailable Encounter Details Date Type Department Care Team (Late st Contact Info) Description 07/23/2020 Records - [facility] CONVERSION Scan, Non-Provider Social History Tobacco Use Types Packs/Day Years Used Date Smoking Tobacco: Never Assessed Comments Unknown Sex and Gender Information Value Date Recorded Sex Assigned at Female 09/07/2023 1:35 PM CDT Legal Sex Female 3:11 PM PELLET MILL OPERATOR Gender Identity Female 09/07/2023 1:35 PM CDT Sexual Orientation Not on file documented as of this encounter Plan of Treatment Not on file documented as of this encounter Visit Diagnoses Not on filedocumented in this encounter Additional Health Concerns Infection Onset Date Last Indicated Resolved Time Rule Out COVID-19 11/18/2021 11/18/2021 11/18/2021 6:50 PM PELLET MILL OPERATOR documented as of this encounter Care Teams Rubber Cutting Machine Tender Relationship Specialty Start Date End Date Leyla Bonilla PCP - General Family Practice 06/22/19 11/28/24 Shoaib Xie [address] [place] [address] PCP - General 11/29/24 [place] [address] [place] [address] Assigned OBGYN Provider 10/20/21 2 Stacia Lozano MD [address] [place] [address] [address] [place] [address] Assigned OBGYN Provider 01/22/25 documented as of this encounter
--- OUTSIDE RECORDS SUMMARY | 2025-05-28 14:06 | XMS_ITS | Encounter Summary ---
Author Organization [facility] Address [address] [place] [address] Care Team Providers Care Laborer Carpentry Dock Name Role Phone Maira Up MD Primary Care Provider [phone] Encounter Details Date Type Department Care Team (Latest Contact Info) Description 09/08/1999 Orders Only Carlito Cadet MD [address] [place] [address] Social History Tobacco Use Types Packs/Day Years [...] on filedocumented in this encounter Care Teams Laborer Carpentry Dock Relationship Specialty Start Date End Date Maira Up MD [address] [place] [address] PCP - General Internal Medicine 05/31/13 documented as of this encounter
--- OUTSIDE RECORDS SUMMARY | 2025-05-28 14:06 | XMS_ITS | Encounter Summary ---
Author Organization [facility] Address [address] [address] Care Team Providers Care Design Leader Name Role Phone Maira Up MD Primary Care Provider [phone] Encounter Details Date Type Department Care Team (Late st Contact Info) Description 12/05/2003 Hospital External to Jcarlos Ramirez MD [address] [place] [address] [facility] ORTHO EXAM Social History Tobacco Use Types Packs/Day Years [...] encounter Progress Notes * Jcarlos Ramirez - 12/05/2003 12:00 AM DIRECTOR OF INCOME TAX CTOR OF INCOME TAX documented in this encounter Plan of Treatment Not on file documented as of this encounter Visit Diagnoses Not on filedocumented in this encounter Care Teams Design Leader Relationship Specialty Start Date End Date Maira Up MD [address] [place] [address] PCP - General Internal Medicine 05/31/13 documented as of this encounter
--- OUTSIDE RECORDS SUMMARY | 2025-05-28 14:06 | XMS_ITS | Encounter Summary ---
Author Organization [facility] Address [address] [address] Care Team Providers Care Chest Pain Coordinator Name Role Phone Maira Up MD Primary Care Provider [phone] Encounter Details Date Type Department Care Team (Latest Contact Info) Description 08/12/1998 Orders Only Drake Saldivar Social History Tobacco Use Types Packs/Day Years [...] on filedocumented in this encounter Care Teams Chest Pain Coordinator Relationship Specialty Start Date End Date Maira Up MD [address] [place] [address] PCP - General Internal Medicine 05/31/13 documented as of this encounter
--- OUTSIDE RECORDS SUMMARY | 2025-05-28 14:06 | XMS_ITS | Encounter Summary ---
Author Organization [facility] Address [address] [place] [address] Care Team Providers Care Psychiatric Clinical Nurse Specialist Name Role Phone Maira Up MD Primary Care Provider [phone] Encounter Details Date Type Department Care Team (Latest Contact Info) Description 02/26/1998 Orders Only Drake Isidro MD [address] [place], [place] [address] Social History Tobacco Use Types Packs/Day Years [...] on filedocumented in this encounter Care Teams Psychiatric Clinical Nurse Specialist Relationship Specialty Start Date End Date Maira Up MD [address] [place] [address] PCP - General Internal Medicine 05/31/13 documented as of this encounter
--- OUTSIDE RECORDS SUMMARY | 2025-05-28 14:06 | XMS_ITS | Encounter Summary ---
Author Organization [facility] Address [address] [place] [address] Care Team Providers Care Vp Data Name Role Phone Maira Up MD Primary Care Provider [phone] Encounter Details Date Type Department Care Team (Late st Contact Info) Description 01/07/2013 Scanned History External to Transferred Record, Provider SOAR CHIRO Social History Tobacco Use Types Packs/Day Years [...] as of this encounter Progress Notes * Transferred Record, Provider - 01/07/2013 12:00 AM CST documented in this encounter Plan of Treatment Not on file documented as of this encounter Visit Diagnoses Not on filedocumented in this encounter Care Teams Vp Data Relationship Specialty Start Date End Date Maira Up MD [address] [place] [address] PCP - General Internal Medicine 05/31/13 documented as of this encounter
--- OUTSIDE RECORDS SUMMARY | 2025-05-28 14:06 | XMS_ITS | Encounter Summary ---
Author Organization [facility] Address [address], [place] [address] Care Team Providers Care Wheel Cutter Name Role Phone Maira Up MD Primary Care Provider [phone] Encounter Details Date Type Department Care Team (Latest Contact Info) Description 10/22/1998 Office Visit Louise Alvarez MD Social History Tobacco Use Types Packs/Day Years Used Date Smoking Tobacco: Never Assessed Comments Unknown Sex and Gender Information Value Date Recorded Sex Assigned at Not on file Legal Sex Female 5:05 AM CDT Gender Identity Not on file Sexual Orientation Not on file documented as of this encounter Progress Notes * Louise Alvarez - 10/22/1998 12:00 AM CSTS: Patient is here today for a lump in the mouth. Has a lump in her right cheek that has been swollen and painful for two days. Has a history of recurrent canker sores. No fever, no cold symptoms. Her appetite is down due to the abdominal pain. No vomiting or diarrhea today. O: On exam, alert, cooperative, in no acute distress. Her weight is 113 pounds, temperature 98.2. Ears bilaterally: [place] and light reflex present, clear TM. Mouth: Throat is clear. There is a large canker sore on the left buccal area and one smaller one in the right buccal area. There are no caries. The gums are not red; no tenderness. There is no swelling of the cheeks. Neck supple. No enlarged lymph node in the neck area. Lungs: Good air entry. No rales or wheezing. Abdomen soft, no organomegaly, no palpable mass. A: Probably is aphthous. P: Reassured Mom. Use Ibuprofen for discomfort. Also, place her on non-citrus drink and bland diet. T HOUSE MANAGER documented in this encounter Plan of Treatment Not on file documented as of this encounter Visit Diagnoses Not on filedocumented in this encounter Care Teams Wheel Cutter Relationship Specialty Start Date End Date Maira Up MD [address] [place] [address] PCP - General Internal Medicine 05/31/13 documented as of this encounter
--- OUTSIDE RECORDS SUMMARY | 2025-05-28 14:06 | XMS_ITS | Encounter Summary ---
Author Organization [facility] Address [address], [place] [address] Care Team Providers Care Mental Hygiene Consultant Name Role Phone Maira Up MD Primary Care Provider [phone] Encounter Details Date Type Department Care Team (Latest Contact Info) Description 08/14/1998 Orders Only Louise Alvarez MD Social History Tobacco Use [...] on filedocumented in this encounter Care Teams Mental Hygiene Consultant Relationship Specialty Start Date End Date Maira Up MD [address] [place] [address] PCP - General Internal Medicine 05/31/13 documented as of this encounter
--- OUTSIDE RECORDS SUMMARY | 2025-05-28 14:06 | XMS_ITS | Encounter Summary ---
[facility] Organization [facility] Address [address] [address] Care Team Providers Care Snowboarder Name Role Phone Maira Up MD Primary Care Provider [phone] Encounter Details Date Type Department Care Team (Latest Contact Info) Description 12/27/1997 Orders Only Juma Kelly MD Social History Tobacco Use Types Packs/Day [...] on filedocumented in this encounter Care Teams Snowboarder Relationship Specialty Start Date End Date Maira Up MD [address] [place] [address] PCP - General Internal Medicine 05/31/13 documented as of this encounter
--- OUTSIDE RECORDS SUMMARY | 2025-05-28 14:06 | XMS_ITS | Clinical Summary ---
Author Organization [facility] Address [address] [place] [address]. [place] [address] Care Team Providers Care Classifying Machine Operator Name Role Phone Clinic, [facility] Primary [facility] Pr ovider Allergies Active Allergy Reactions Criticality Noted Date Comments Cefuroxime Rash Low 10/15/2014 Influenza Vaccines Other (See Comments) 019 Stroke like symptoms Prednisolone Other (See Comments) 06/22/2019 Blood in stool Prednisone Other (See Comments) 06/22/2019 Psychosis in a high dose , has used since did ok as a smaller dose Sulfa Antibiotics Swelling 10/15/2014 Medications vitamin iron-folic acid 27mg-0.8mg ( S) 27 mg iron- 800 mcg Tab tablet [ VITAMIN IRON-FOLIC ACID 27MG-0.8MG ( S) 27 MG IRON- 800 MCG TAB TABLET] Take 1 tablet by mouth at bedtime. 06/22/2019 Active magnesium oxide 500 mg Tab [MAGNESIUM OXIDE 500 MG TAB] Take 500 mg by mouth at bedtime. 09/17/2020 Active acetaminophen (TYLENOL) 500 MG tablet [ACETAMINOPH EN (TYLENOL) 500 MG TABLET] Take 1,000 mg by mouth every 6 (six) hours as needed for pain. 11/03/2020 Active doxylamine (UNISOM) 25 mg tablet [DOXYLAMINE (UNISOM) 25 MG TABLET] Take 25 mg by mouth at bedtime as needed for sleep. 11/03/2020 Active Active Problems Problem Noted Date Diagnosed Date 10/28/2020 , incidental 09/11/2020 Emesis 09/11/2020 Nonintractable migraine, unspecified migraine ty pe 09/11/2020 Paresthesias 06/23/2019 Stroke-like symptoms 06/22/2019 Anxiety and depression 12/08/2018 Conversion disorder 07/03/2014 Neurologic abnormality 07/03/2014 Migraine 07/03/2014 Influenza vaccine side effect 04/14/2013 Overview (05/31/2021): 2010. Went urgent care, drooping left sided face, and numbness and tingling. Treated with Benadryl. Chronic left-sided low back pain Overview (05/15/2021): IMO Update Estimated Date of Delivery Comme nts Yes 06/07/2025 Based on last me nstrual period of 08/31/2024 Family History Medical History Relation Comments Hyperlipidemia Father Hypertension Father Anxiety Disorder Mother Hypertension Mother Relation Status Comments Father Mother Social History Tobacco Use Types Packs/Day Years Used Date Smoking Tobacco: Former Cigarettes Q uit: 2019 Smokeless Tobacco: Current Comments:2 packs year Alcohol Use Standard Drinks/Week Comments Not Currently 0 (1 standard drink = 0.6 oz pure alcohol) Alcoholic Drinks/day: socially Adolescent Education Answer Date Record ed Getting School Help Needed Not on file 08/22 Estimated Date of Delivery Comme nts Yes 06/07/2025 Based on last me nstrual period of 08/31/2024 Sex and Gender Information Value Date Recorded Sex Assigned at Female 09/07/2023 1:35 PM CDT Legal Sex Female 3:11 PM HR ADMINISTRATOR Gender Identity Female 09/07/2023 1:35 PM CDT Sexual Orientation Not on file Last Filed Vital Signs Vital Sign Reading Time Taken Comments Blood Pressure 124/74 11/29/2024 10:48 AM HR ADMINISTRATOR Pulse 86 11/29/2024 10:48 AM HR ADMINISTRATOR Temperature 36.5 C (97.7 F) 11/29/2024 10:48 AM HR ADMINISTRATOR Respiratory Rate 20 11/29/2024 10:48 AM HR ADMINISTRATOR Oxygen Saturation 100% 11/29/2024 10:48 AM HR ADMINISTRATOR Inhaled Oxygen Concentration - - Weight 115.7 kg (255 lb) 11/29/2024 10:48 AM HR ADMINISTRATOR Height 175.3 cm (5' 9) 11/29/2024 10:48 AM HR ADMINISTRATOR Body Mass Index 37.66 11/29/2024 10:48 AM HR ADMINISTRATOR Plan of Treatment Health Maintenance Due Date Last Done Comments ADVANCE CARE PLANNING 1989 ANNUAL REVIEW OF HM ORDERS 1989 PAP 12/08/2022 12/08/2019, 07/2020, 08/13/2017, Additional history exists COVID-19 VACCINE ( season) 2024 MATERNAL SCREENING DISCUSSION 11/09/2024 PHQ-2 (once per calendar year) 2024 YEARLY PREVENTIVE VISIT 02/07/2025 02/08/20 24, 05/29/2021, 11/17/2019, Additional history exists OBGCT (OB) 02/15/2025 TDAP VACCINE () 03/08/2025 GROUP B STREP SCREENING 05/10/2025 INFLUENZA VACCINE (Season Ended) 2025 09/03/2010, 09/26/2004, 09/24/1998, Additional history exists DIABETES SCREENING 11/29/2027 11/29/2024, 1 01/19/2021, 07/29/2021, Additional history exists DTAP/TDAP/TD VACCINE (8 - Td or Tdap) 09/10/2030 09/10/2020, 12/16/2011, 07/21/2002, Additional history exists ZOSTER VACCINE (1 of 2) 2039 HEPATITIS B VACCINE Completed 12/09/1995, 12/09/1995, 07/13/1995, Additional history exists HIV SCREENING Completed 06/27/2000 MENINGITIS VACCINE Completed 07/16/2005, 07/16/2005 HEPATITIS C SCREENING Completed 10/01/2023 HPV VACCINE Aged Out No longer eligi ble based on patient's age to complete this topic PNEUMOCOCCAL VACCINE: PEDIATRICS (0 to 5 YEARS) AND AT-RISK PATIENTS (6 to 49 YEARS) Aged Out No longer eligible based on patient's age to complete this topic RSV VACCINE (No Doses Required) Completed Procedures Procedure Name Priority Date/Time Associated Diagnosis Comments BASIC METABOLIC PANEL STAT 11/29/2024 11:34 AM HR ADMINISTRATOR from Last 3 Months or Most Recently Relevant to Health Maintenance Results * (ABNORMAL) Basic metabolic panel (11/29/2024 11:34 AM HR ADMINISTRATOR) Sodium 132(L) 135 - 145 mmol/L 11/29/2024 11:57 AM [facility] Potassium 4.4 3.4 - 5.3 mmol/L 11/29/2024 11:57 AM [facility] Chloride 99 98 - 107 mmol/L 11/29/2024 11:57 AM [facility] Carbon Dioxide (CO2) 21(L) 22 - 29 mmol/L 11/29/2024 11:57 AM [facility] Anion Gap 12 7 - 15 mmol/L 11/29/2024 11:57 AM [facility] Urea Nitrogen 7.9 6.0 - 20.0 mg/dL 11/29/2024 11:57 AM [facility] Creatinine 0.69 0.51 - 0.95 mg/dL 11/29/2024 11:57 AM [facility] GFR Estimate >90 >60 mL/min/1.7 3m2 11/29/2024 11:57 AM [facility] Comment:eGFR calculated usin g 2020 CKD-EPI equation. Calcium 8.6(L) 8.8 - 10.4 mg/dL 11/29/2024 11:57 AM [facility] Comment:Reference intervals for this test were updated on 06/14/2024 to reflect our healthy population more accurately. There may be differences in the flagging of prior results with similar values performed with this method. Those prior results can be interpreted in the context of the updated reference intervals. Glucose 92 70 - 99 mg/dL 11/29/2024 11:57 AM [facility] Blood BLOOD SPECIMEN / Unknown Venipuncture / Unknown 11/29/2024 11:34 AM [facility] 11/29/2024 11:37 AM [facility] us Herve Fields PA-C LAB - BLOOD ORDERABLES Final Result [facility] [address] [place] [address], [place] from Last 3 Months or Most Recently Relevant to Health Maintenance Insurance [employer]ICE [employer] Care Teams Classifying Machine Operator Relationship Specialty Start Date End Date Clinic, [facility] [address] PCP - General 11/29/24
[2025-05-28 14:16] VITALS: BP 153/101; PULSE 110; RESP 20; TEMP 36.7; O2SAT 98; BMI 39.5
--- NOTE | 2025-05-28 14:21 | ED.GENADULT ---
HPI - General Adult General Date Seen: 05/28/25 Chief complaint: Post OB/Post- Complication Stated complaint: vaginal tear Time Seen by Provider: 05/28/25 14:10 History of Present Illness HPI narrative: 35 yo F who presents to the ER today for[]. She was admitted to Labor and delivery 5 days ago on 05/23 for induction of labor with dichorionic twin . She was 37 weeks eggs, 6 days at the time she was admitted for induction. She had vaginal delivery of both twins. She did have a second-degree laceration following were her former perineal laceration had been. Laceration were repaired by the OB doctor with 2-0 and 3-0 Vicryl. Good hemostasis was achieved. She was . She does have a history of preeclampsia with previous pregnancies and so was sent home with instructions for blood pressure monitoring. She was discharged home. She says overall her vaginal bleeding had been slack inning. She had been having a fair amount of constipation and had gone several days without a bowel movement. She took a suppository 2 days ago and had a fairly large bowel movement with some improvement in her abdominal bloating and symptoms that she was feeling from constipation. However since then she has noted worsening pain from her vaginal laceration. She is concerned that she might have torn something when she passed a bowel movement. She feels a burning/searing perineal pain from her vaginal laceration. In particular it is worse when she sits down on the toilet PE. The pain is worse probably from traction on the skin when she is sitting rather than from urine trickling around the laceration. 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 Not large volume blood loss but just few drops on the toilet paper. The blood is been reddish and yellowish. She does not really look closely. No brown or malodorous discharge. No clear purulent discharge. She does have some upper abdominal discomfort mostly in the periumbilical region which she attributes to diastasis recti which has been present throughout this . No new abdominal pain. No pelvic pain. No right upper quadrant pain. She did have borderline blood pressures when she was discharged and did have peripheral edema. She has been monitoring her blood pressure and it tends to run fairly low at home. She has been noticing worsening peripheral edema for the past couple of days. No headache. No vision changes. No numbness or weakness in her arms or legs. No confusion. No right upper quadrant pain. No rash or jaundice. She has been very sleep deprived because she is working on trying to care for her twin infants. They were up at least every 3 hours. She is feeling exhausted. Related Data Home Medications ?Medication ?Instructions ?Recorded ?Confirmed cholecalciferol (vitamin D3) 25 25 mcg PO QDAY 02/17/25 05/23/25 mcg (1,000 unit) capsule docosahexaenoic acid 200 mg See Rx Instructions PO DAILY 02/17/25 05/24/25 capsule ( DHA) folic acid 400 mcg tablet 0.4 mg PO QDAY 02/17/25 05/23/25 Previous Rx's ?Medication ?Instructions ?Recorded acetaminophen 500 mg tablet 1,000 mg (2 x 500 mg) PO Q6H PRN 05/26/25 #0 tabs docusate sodium 100 mg capsule 100 mg PO DAILY #90 caps 05/26/25 ibuprofen 600 mg tablet 600 mg PO Q6H PRN #60 tabs 05/26/25 oxycodone 5 mg capsule 5 mg PO Q6H PRN pain #3 caps 05/26/25 nitrofurantoin 100 mg PO BID #14 caps 05/28/25 monohydrate/macrocrystals 100 mg capsule (Macrobid) oxycodone 5 mg tablet 5 mg PO Q6H PRN pain #10 tabs 05/28/25 polyethylene glycol 3350 17 17 g PO DAILY PRN #119 grams 05/28/25 gram/dose oral powder (LaxaClear) Allergies Allergy/AdvReac Type Severity Reaction Status Date / Time cefuroxime (From Ceftin) Allergy Severe Verified 05/23/25 17:01 influenza virus vacc Allergy Severe Verified 05/23/25 17:01 trivalent, spl (From Fluzone) prednisolone Allergy Severe Verified 05/23/25 17:01 Sulfa (Sulfonamide Allergy Severe Swelling Verified 05/23/25 17:01 Antibiotics) of Lip/Tongue/Throat doxycycline Allergy Unknown Verified 05/23/25 17:01 [facility] Medical History (Updated 05/28/25 @ 16:59 by Ameya Jolley MD) Abnormal glucose tolerance affecting , antepartum ?O99.810 - Abnormal glucose complicating (ICD-10) Anemia affecting ?O99.019 - Anemia complicating , unspecified trimester (ICD-10) Dichorionic diamniotic twin gestation ?O30.049 - Twin , dichorionic/diamniotic, unspecified trimester (ICD-10) Endometriosis determined by laparoscopy ?N80.9 - Endometriosis, unspecified (ICD-10) Surgical History H/O laparoscopy ?Z98.890 - Other specified postprocedural states (ICD-10) Social History What is your current living situation?: I presently have a place to live Problems where you live: no known problems In the past 12 months, utilities in danger of being shut off: no In past 12 months, lack of transportation kept you from medical appts, meetings, work, or getting things needed for daily living: no In the past 12 mos, have been you worried that your food would run out before you had money to buy more?: never true In the past 12 mos, the food you bought just didn't last and you didn't have money to buy more?: never true Smoking Status: Never smoker Do you use any of these nicotine containing products: None How often do you have a drink containing alcohol: never AUDIT-C Alcohol total score: 0 Non-prescribed substance use: denies use How often does anyone, including family, friends and others, physically hurt you: never How often does anyone, including family, friends and others, insult or talk down to you: never How often does anyone, including family, friends and others, threaten you with harm: never How often does anyone, including family, friends and others, scream or curse at you: never Exam Narrative: Exam Narrative: Constitutional: Appears well-developed and well-nourished. Alert. Conversant. Non toxic. HENT: Head: Atraumatic. Nose: Nose normal. Mouth/Throat: Oral mucosa is clear and moist. no trismus. Pharynx normal. Tonsils symmetric. No tonsillar enlargement, erythema, or exudate. Eyes: Conjunctivae normal. EOM normal. Pupils equal, round, and reactive to light. No scleral icterus. Neck: Normal range of motion. Neck supple. No tracheal deviation present. Cardiovascular: Normal rate, regular rhythm. No gallop. No friction rub. No murmur heard. Symmetric radial artery pulses Pulmonary/Chest: Effort normal. No stridor. No respiratory distress. No wheezes. No rales. No rhonchi . No tenderness. Abdominal: Soft. Bowel sounds normal. No distension. No mass. No tenderness. No rebound. No guarding. Pelvic: Performed with female tenterer. Normal external genitalia. She does have a vaginal laceration in the posterior fornix of the vagina. It appears is of the suture line is holding. There is no active bleeding. No signs of surrounding erythema or purulent drainage. It does not seem that this laceration penetrates through to the rectum or externally onto the perineum. Normal vaginal mucosa of the external vagina. We did not perform a speculum exam because of the discomfort associated with the healing vaginal injury. Musculoskeletal: RUE: Normal range of motion. No tenderness. No deformity LUE: Normal range of motion. No tenderness. No deformity RLE: Normal range of motion. 2+ pitting edema. No tenderness. No deformity LLE: Normal range of motion. 2+ pitting edema. No tenderness. No deformity Lymph: No cervical adenopathy. Neurological: Alert and oriented to person, place, and time. Normal strength. CN II-VII intact. No sensory deficit. GCS eye subscore is 4. GCS verbal subscore is 5. GCS motor subscore is 6. Normal coordination Skin: Skin is warm and dry. No rash noted. No pallor. Normal capillary refill. Psychiatric: Normal mood. Normal affect. Const: Vital Signs, click to edit/add: Vital Signs - 24 hr 05/28/25 14:16 05/28/25 14:32 05/28/25 14:46 Temperature 98.0 F Pulse Rate 88 88 Pulse Rate [Right Pulse Oximeter] 110 H Respiratory Rate 20 20 Blood Pressure 137/88 122/74 Blood Pressure [Ri ght Upper Arm] 153/101 H Pulse Oximetry 98 98 Oxygen Delivery Me thod Room Air 05/28/25 15:07 05/28/25 15:17 Temperature Pulse Rate Pulse Rate [Right Pulse Oximeter] Respiratory Rate Blood Pressure 117/80 119/67 Blood Pressure [Ri ght Upper Arm] Pulse Oximetry Oxygen Delivery Me thod Course Vital Signs Vital signs: Initial Vital Signs Temperature 98.0 F 05/28/25 14:16 Temperature Source Temporal Artery Scan 05/28/25 14:16 Pulse Rate 110 H 05/28/25 14:16 Respiratory Rate 20 05/28/25 14:16 Blood Pressure 153/101 H 05/28/25 14:16 Blood Pressure Mean 118 H 05/28/25 14:16 Blood Pressure Position Sitting 05/28/25 14:16 Pulse Oximetry 98 05/28/25 14:16 Oxygen Delivery Method Room Air 05/28/25 14:16 Vital Signs Temperature 98.0 F 05/28/25 14:16 Pulse Rate 110 H 05/28/25 14:16 Respiratory Rate 20 05/28/25 14:16 Blood Pressure 153/101 H 05/28/25 14:16 Pulse Oximetry 98 05/28/25 14:16 Oxygen Delivery Method Room Air 05/28/25 14:16 Temperature 98.0 F 05/28/25 14:16 Pulse Rate 88 05/28/25 14:46 Respiratory Rate 05/28/25 14:46 Blood Pressure 119/67 05/28/25 15:17 Pulse Oximetry 98 05/28/25 14:46 Oxygen Delivery Method Room Air 05/28/25 14:16 Medications Administered Medications: Discontinued Medications Generic Name Dose Route Start Last Admin Trade Name Joshuaq PRN Reason Stop Dose Admin Acetaminophen 1,000 mg 05/28/25 15:06 05/28/25 15:22 Acetaminophen 500 Mg Tablet PO 05/28/25 15:07 1,000 mg ONCE ONE Administration Ibuprofen 600 mg 05/28/25 15:06 05/28/25 15:22 Ibuprofen 600 Mg Tablet PO 05/28/25 15:07 600 mg ONCE ONE Administration Oxycodone HCl 5 mg 05/28/25 15:40 05/28/25 15:57 Oxycodone 5 Mg Tablet PO 05/28/25 15:41 5 mg ONCE ONE Administration Medical Decision Making [facility] Narrative Medical decision making narrative: Very pleasant 35-year-old female who is day 4 after vaginal delivery of twins. She presents to the ER today primarily for pain in her posterior vagina and perineum. She had a recognized grade 2 vaginal laceration from the delivery which was repaired by her luggage liner that day. She has been having worsening pain especially a burning, searing type pain for the past couple of days after she passed her 1st hard constipated bowel movement. Concern here was for possible dehiscence of the wound, evolving infection, or a high-grade laceration. Fortunately on our exam it actually looks like laceration is healing pretty well. No sign of infection or bleeding or purulent drainage at this time. I think it is safe to continue to keep an eye on this and let it heal. I do not think she needs antibiotics or repeat surgical intervention. We did apply topical viscous lidocaine without much improvement in her pain. She did respond better to oxycodone. Will give her a prescription for oxycodone. Opiate precautions reviewed. She will need medications for constipation. She is already on docusate. Will add MiraLax as well. Incidentally she has a history of preeclampsia with her 1st child. She has been noting increasing bilateral lower extremity edema since she left the hospital but blood pressures have been controlled on her home measurements. Initial blood pressure measurement here at the ER triage was elevated (153/101) with heart rate of 110 but subsequent readings are more normal (130/80s) heart rate down to the 80s. I suspect that her 1st hypertensive reading was probably due to stress and pain from going through the triage process. We did check labs and they look reassuring. She is anemic but that similar to discharge. LFTs, kidney function, other blood counts look good. Platelet count normal. Blood pressure normalized further wash was resting here in the ER. Urinalysis is abnormal suggesting pyuria and hematuria. Unclear if this is simply from her vaginal sources since there is skin in the urine or if this actually represented of UTI. Discussed options with the patient including doing nothing about the abnormal urine, treating empirically with antibiotics, or obtaining a catheterized urine sample. I had ordered a catheterized urine sample but the patient strongly wants to just treat empirically. She does not want catheter today. Therefore will put her on a 7 day course of Macrobid. The symptoms could be indicative of UTI since she is having some lower abdominal pain and urinary frequency. She is not having any fever, flank pain, or other symptoms of pyelonephritis or urosepsis. At this point I do not think she needs CT imaging liver kidney stone. Lab Data Labs: Lab Results 05/28/25 05/28/25 Range/Units 14:24 15:12 WBC 8.92 (4.50-11.00) K/uL RBC 3.25 L (4.00-5.20) m/uL Hgb 9.6 L (12.0-16.0) gm/dL Hct 28.8 L (33.0-51.0) % MCV 89 (80-100) fL MCH 30 (26-34) pg MCHC 33 (32-36) gm/dL RDW Coeff of Jennifer 13.5 (11.5-15.5) % Plt Count 358 (140-440) K/uL Neut % (Auto) 72.8 H (42.0-72.0) % Lymph % (Auto) 19.3 L (20-44) % [place] % (Auto) 5.6 (0.0-11.0) % Eos % (Auto) 1.5 (0.0-7.0) % Baso % (Auto) 0.2 (0.0-3.0) % Neut # (Auto) 6.50 (1.7-7.0) K/uL Lymph # (Auto) 1.70 (0.90-2.90) K/uL [place] # (Auto) 0.50 (0.00-0.90) K/UL Eos # (Auto) 0.13 (0.00-0.50) K/uL Baso # (Auto) 0.02 (0.00-0.30) K/uL Abs Immat Gran (auto) 0.05 (0.00-0.30) K/uL Imm/Tot Granulo (auto) 0.6 % INR 0.92 (0.91-1.10) Sodium 136 (135-149) mmol/L Potassium 4.0 (3.6-5.1) mmol/L Chloride 104 (96-114) mmol/L Carbon Dioxide 25 (20-32) mmol/L Anion Gap 7 (7-15) mEq/L BUN 12 (5-24) mg/dL Creatinine 0.7 (0.5-1.5) mg/dL Estimated Creat Clear 120.15 Estimated GFR 115 ml/min Glucose 86 (60-115) mg/dL Calcium 9.0 (8.4-10.6) mg/dL Magnesium 1.8 (1.5-2.6) mg/dL Total Bilirubin 0.3 (0.1-1.5) mg/dL AST 38 H (12-35) U/L ALT 26 (4-35) U/L Alkaline Phosphatase 87 (40-150) U/L Total Protein 6.4 (6.0-8.3) g/dL Albumin 3.5 (3.3-5.0) g/dL Urine Color Yellow (Yellow) Urine Appearance Clear (Clear) Urine pH 7.0 (5.0-8.5) Ur Specific [place] 1.015 (1.000-1.030) Urine Protein Negative (Negative) Urine Glucose (UA) Negative (Negative) Urine Ketones Negative (Negative) Urine Blood 3+ A (Negative) Urine Nitrite Negative (Negative) Urine Bilirubin Negative (Negative) Urine Urobilinogen 0.2 (0.2-1.0) Ur Leukocyte Esterase 2+ A (Negative) Urine RBC 25-50 A (0-2) Urine WBC 50-100 A (0-5) Ur Squamous Epith Cells Moderate A (None-Few) Urine Bacteria Moderate A (None) Discharge Plan Discharge Clinical Impression: UTI (urinary tract infection), Vaginal tear resulting from childbirth Patient Disposition: Home, Self-Care Condition: Stable Instructions: Urinary Tract Infection in Women (DC), Urinary Tract Infection in (ED) Additional Instructions: As we discussed, your urine sample is abnormal today suggesting the you probably have a bladder infection. Please start on the antibiotics today to help treat your infection. Monitor carefully and if you have worsening symptoms such as worsening pain, kidney pain, fever chills, vomiting, or weakness, please return to the ER or see your doctor right away. Please continue to monitor the swelling in your legs, monitor your blood pressure. Call your OB or return to the ER right away if you have any worsening concerns. Use the oxycodone as needed for the pain from your vaginal injury. Be careful with oxycodone because it could cause constipation, dizziness, drowsiness,, and can be addictive. Use the stool softener docusate and the stool softener MiraLax as needed to help prevent constipation from the Percocet. Prescriptions: New nitrofurantoin monohyd/m-cryst [Macrobid] 100 mg capsule 100 mg PO BID Qty: 14 0RF Rx Instructions: must administer with a meal/food oxycodone 5 mg tablet 5 mg PO Q6H PRN (Reason: pain) Qty: 10 0RF polyethylene glycol 3350 [LaxaClear] 17 gram/dose powder 17 g PO DAILY PRNQty: 119 0RF No Action DHA 200 mg capsule See Rx Instructions PO DAILY Rx Instructions: as directed orally daily; cholecalciferol (vitamin D3) 25 mcg (1,000 unit) capsule 25 mcg PO QDAY folic acid 400 mcg tablet 0.4 mg PO QDAY acetaminophen 500 mg Tablet 1,000 mg PO Q6H PRNQty: 0 0RF docusate sodium 100 mg Capsule 100 mg PO DAILY Qty: 90 0RF ibuprofen 600 mg Tablet 600 mg PO Q6H PRNQty: 60 0RF oxycodone 5 mg capsule 5 mg PO Q6H PRN (Reason: pain) Qty: 3 0RF Rx Instructions: use only for breakthrough pain if Tylenol and Ibuprofen is not enough. Follow Up/Referrals: Provider,Not a Local [Primary Care Provider, Family Practice] Stand Alone Forms: MyHealth Info Instructions
[2025-05-28 14:32] VITALS: BP 137/88; PULSE 88
[2025-05-28 14:46] VITALS: BP 122/74; PULSE 88; RESP 20; O2SAT 98
[2025-05-28 14:57] LABS: Appearance Urine Clear (Clear); Bilirubin Urine Negative (Negative); Color Urine Yellow (Yellow); Glucose Urine Negative (Negative); Ketones Urine Negative (Negative); Specific Gravity Urine 1.015 (1.000-1.030)
[2025-05-28 15:00] LABS: Blood Urine 3+ (Negative)
[2025-05-28 15:01] LABS: Bacteria Urine Moderate; Leukocyte Esterase Urine 2+ (Negative); Nitrite Urine Negative (Negative); Protein Urine Negative (Negative); RBC Urine 25-50 (0-2); Squamous Epithelial Cell Urine Moderate (None-Few); Urobilinogen Urine 0.2 (0.2-1.0); WBC Urine 50-100 (0-5)
[2025-05-28 15:07] VITALS: BP 117/80
[2025-05-28 15:17] VITALS: BP 119/67
[2025-05-28] MEDS: IBUPROFEN 600 MG TABLET PO (15:22)
[2025-05-28] MEDS: ACETAMINOPHEN 500 MG TABLET 1000 MG PO (15:22)
[2025-05-28 15:37] LABS: Basophils Absolute Auto 0.02 K/uL (0.00-0.30); Basophils Percent Auto 0.2 % (0.0-3.0); Eosinophils Absolute Auto 0.13 K/uL (0.00-0.50); Eosinophils Percent Auto 1.5 % (0.0-7.0); Hematocrit 28.8 % (33.0-51.0); Hemoglobin* 9.6 gm/dL (12.0-16.0); Immature Granulocytes Abs Auto 0.05 K/uL (0.00-0.30); Immature Granulocytes Pct Auto 0.6 %; Lymphocytes Percent Auto 19.3 % (20-44); Mean Corpuscular HGB Conc 33 gm/dL (32-36); Mean Corpuscular Hemoglobin 30 pg (26-34); Mean Corpuscular Volume 89 fL (80-100); Monocytes Percent Auto 5.6 % (0.0-11.0); Neutrophils Percent Auto 72.8 % (42.0-72.0); Platelet Count* 358 K/uL (140-440); RDW Coefficient of Variation % 13.5 % (11.5-15.5); Red Blood Count 3.25 m/uL (4.00-5.20); White Blood Count* 8.92 K/uL (4.50-11.00)
[2025-05-28 15:40] LABS: Albumin* 3.5 g/dL (3.3-5.0); Chloride* 104 mmol/L (96-114); INR 0.92 (0.91-1.10); Prothrombin Time 13.1 Seconds; Sodium* 136 mmol/L (135-149)
[2025-05-28 15:42] LABS: Blood Urea Nitrogen* 12 mg/dL (5-24); Creatinine* 0.7 mg/dL (0.5-1.5); Est. Creatinine Clearance* 120.15; Estimated Glomerular Filt Rate 115 ml/min
[2025-05-28 15:43] LABS: Alanine Aminotransferase* 26 U/L (4-35); Alkaline Phosphatase* 87 U/L (40-150); Anion Gap 7 mEq/L (7-15); Aspartate Amino Transferase* 38 U/L (12-35); Bilirubin Total* 0.3 mg/dL (0.1-1.5); Carbon Dioxide* 25 mmol/L (20-32); Glucose* 86 mg/dL (60-115); Magnesium* 1.8 mg/dL (1.5-2.6); Total Protein* 6.4 g/dL (6.0-8.3)
[2025-05-28 15:47] LABS: Slide Review Reflex No
[2025-05-28] MEDS: OXYCODONE 5 MG TABLET PO (15:57)
[2025-05-28 17:11] VITALS: BP 124/83; PULSE 68; RESP 18; O2SAT 99
== END 2025-05-28 17:12 | disposition home or self-care (01) ==
PROVIDERS: Emergency Provider Emergency Medicine
DX: N39.0 Urinary tract infection, site not specified (principal); O70.9 Perineal laceration during delivery, unspecified
CPT/HCPCS: 36415; 80053; 81001; 83735; 85025; 85610; 87086; 99283; A9270

== ENCOUNTER 2025-05-31 17:28 | Emergency (ER) | payer OTHER, SELFPAY ==
--- OUTSIDE RECORDS SUMMARY | 2025-05-31 17:30 | XMS_ITS | Encounter Summary ---
Author Organization [facility] Address [address] [place] [address] Care Team Providers Care Lighting Director Name Role Phone Maira Up MD Primary Care Provider [phone] Encounter Details Date Type Department Care Team (Late st Contact Info) Description 02/02/2014 Emergency Room External to [facility], Provider SOFT TISSUE INJURY TO RT ELBOW [...] as of this encounter Progress Notes * [facility], Provider - 02/02/2014 12:00 AM CST documented in this encounter Plan of Treatment Not on file documented as of this encounter Visit Diagnoses Not on filedocumented in this encounter Care Teams Lighting Director Relationship Specialty Start Date End Date Maira Up MD [address] [place] [address] PCP - General Internal Medicine 05/31/13 documented as of this encounter
--- OUTSIDE RECORDS SUMMARY | 2025-05-31 17:30 | XMS_ITS | Clinical Summary ---
Author Organization [facility] Address [address] [place] [address] Care Team Providers Care Tobacco Primer Machine Operator Name Role Phone Maira Up MD Primary Care Provider Source Comments You are receiving this document as you are listed as the primary care provider,follow-up provider, or the patient has been referred to you for consultation.This is in compliance with the Medicare and[facility] EHR Incentive Program,which states Providers who transition their patient to another setting of careor provider of care or refers their patient to another provider of care shouldprovide summary care record for each transition of care or referral. [facility] Allergies Active Allergy Reactions Criticality Noted Date [...] a list of providers outside of the [facility] system or they may wish to contact [facility] or [facility]. Surveillance of previously p rescribed intrauterine [...] Vi, IM) 12/16/2011 Varicella 03/07/1998(Deferred: Immune by Gordo stephen) Family History Medical History Relation Name [...] 136 - 145 mmol/L 08/29/2023 1:56 AM [facility] Potassium 3.9 3.5 - 5.1 mmol/L 08/29/2023 1:56 AM [facility] Chloride 104 98 - 109 mmol/L 08/29/2023 1:56 AM [facility] CO2 22 20 - 29 mmol/L 08/29/2023 1:56 AM [facility] Anion Gap 12 7 - 16 mmol/L 08/29/2023 1:56 AM [facility] Calcium 9.3 8.4 - 10.4 mg/dL 08/29/2023 1:56 AM [facility] BUN 9 7 - 26 mg/dL 08/29/2023 1:56 AM [facility] Creatinine 0.69 0.55 - 1.02 mg/dL 08/29/2023 1:56 AM [facility] Glucose 96 70 - 100 mg/dL 08/29/2023 1:56 AM CDT [facility] Comment:The given reference range is for the fasting state. Non-fasting reference range for glucose is 70 - 180 mg/dL. GFR, Estimated >60 >60 mL/min/1.7 3m2 08/29/2023 1:56 AM CDT [facility] Blood Venipuncture / Unknown 08/29/2023 1:29 AM CDT 08/29/2023 1:34 AM CDT John Churchill MD LAB_1 Final Result [address] [phone] * (ABNORMAL) LIPID PANEL AND DIRECT LDL(IF NEEDED) (08/06/2010 3:06 PM CDT) Cholesterol 226(H) 0 - 199 mg/dl [facility] Triglyceride 138 0 - 149 mg/dl [facility] HDL 58 >40 mg/dl [facility] LDL, Calc. 140(H) 0 - 129 mg/dl [facility] Hours Fasting 15 hours [facility] 08/06/2010 3:06 PM CDT 08/06/2010 3:11 PM CDT Natali Gay MD LAB_1 Final Result Performing Organization Address City/[facility]/ZIP Co de Phone Number [facility] [address] [address] * PAP TEST, ROUTINE (08/06/2010 12:00 AM CDT) Cytology, Pap (NOTE) Service Center Technician Cytology Report Patient Name: SELAM RAMSEY Taken: 08/06/2010 Received: 08/08/2010 Reported: 08/14/2010 Physician(s): NATALI GAY ([id number]) Source of Specimen Liquid routine Pap, cervical/endocervi fabi: Specimen Adequacy Satisfactory for evaluation. Endocervical component present. Final Cytologic Interpretation/Res ult NEGATIVE FOR INTRAEPITHELIAL LESION OR MALIGNANCY (NILM) Other Cytologic Findings Fungal organisms morphologically consistent with Tish spp. Inflammation hernesto/08/14/2010 Electronically Signed Out By BLAZE Mendoza (ASCP) BLAZE Mendoza (ASCP) Pap Smear History Date of Last Menstrual Period: 08/01/10 [facility] 08/06/2010 08/08/2010 9:0 9 AM CDT Natali Gay MD LAB_1 Final Result [facility] [address] [id number] * HIV 1/2 ANTIBODY (06/27/2000 8:52 PM CDT) HIV 1/2 Antibody Non-Reacti ve [facility] 06/27/2000 8:52 PM CDT 06/27/2000 8:57 PM CDT Ped Spucc LAB_1 Final Result Performing Organization Address City/[facility] Co de Phone Number [facility] [address] [phone] from Last 3 Months or Most Recently Relevant to Health Maintenance Insurance [address] [place] [phone] [place] [address] [place] [address] [employer] Care Teams Tobacco Primer Machine Operator Relationship Specialty Start Date End Date Maira Up MD [address] [place] [address] PCP - General Internal Medicine 05/31/13
--- OUTSIDE RECORDS SUMMARY | 2025-05-31 17:30 | XMS_ITS | Encounter Summary ---
[facility] Address [address] [place] [address] Care Team Providers Care Sourcing Analyst Name Role Phone Maira Up MD Primary Care Provider [phone] Encounter Details Date Type Department Care Team (Late st Contact Info) Description 08/20/2012 Emergency Room External to [facility], Provider ABD PAIN ED STAFF PHYSICIAN [...] as of this encounter Progress Notes * [facility], Provider - 08/20/2012 12:00 AM CDT documented in this encounter Plan of Treatment Not on file documented as of this encounter Visit Diagnoses Not on filedocumented in this encounter Care Teams Sourcing Analyst Relationship Specialty Start Date End Date Maira Up MD [address] [place] [address] PCP - General Internal Medicine 05/31/13 documented as of this encounter
--- OUTSIDE RECORDS SUMMARY | 2025-05-31 17:30 | XMS_ITS | Encounter Summary ---
Author Organization [facility] Address [address], [place] [address] Care Team Providers Care Senior Planner Name Role Phone Maira Up MD Primary Care Provider [phone] Encounter Details Date Type Department Care Team (Late st Contact Info) Description 06/03/2001 Office Visit [facility] [address] [place] [address] Jcarlos Ramirez MD [address] [place] [address] Social History Tobacco Use Types Packs/Day Years [...] ago and the family has been at [facility] while this developed. O: Dominique is alert, [...] filedocumented in this encounter Care Teams Senior Planner Relationship Specialty Start Date End Date Maira Up MD [address] [place] [address] PCP - General Internal Medicine 05/31/13 documented as of this encounter
--- OUTSIDE RECORDS SUMMARY | 2025-05-31 17:30 | XMS_ITS | Encounter Summary ---
Author Organization [facility] Address [address], [place] [address] Care Team Providers Care Drain Cleaner Name Role Phone Maira pU MD Primary Care Provider Encounter Details Date Type Department Care Team (Late st Contact Info) Description 10/15/2014 Emergency Room External to [facility], Provider VIRAL ILLNESS Social History [...] on filedocumented in this encounter Care Teams Drain Cleaner Relationship Specialty Start Date End Date Maira Up MD [address] [place] [address] PCP - General Internal Medicine 05/31/13 documented as of this encounter
--- OUTSIDE RECORDS SUMMARY | 2025-05-31 17:30 | XMS_ITS | Encounter Summary ---
Author [facility] Address [address] [place] [address] Care Team Providers Care Runner Man Name Role Phone Maira Up MD Primary Care Provider [phone] Encounter Details Date Type Department Care Team [...] on filedocumented in this encounter Care Teams Runner Man Relationship Specialty Start Date End Date Maira Up MD [address] [place] [address] PCP - General Internal Medicine 05/31/13 documented as of this encounter
--- OUTSIDE RECORDS SUMMARY | 2025-05-31 17:30 | XMS_ITS | Encounter Summary ---
Author Organization [facility] Address [address] [address] Care Team Providers Care Community Action Worker Name Role Phone Maira Up MD Primary Care Provider [phone] Encounter Details Date Type Department Care Team (Latest Contact Info) Description 06/30/2000 Orders Only Jcarlos Ramirez MD [address] [place] [address] Social History Tobacco Use Types Packs/Day Years [...] on filedocumented in this encounter Care Teams Community Action Worker Relationship Specialty Start Date End Date Maira pU MD [address] [place] [address] PCP - General Internal Medicine 05/31/13 documented as of this encounter
--- OUTSIDE RECORDS SUMMARY | 2025-05-31 17:30 | XMS_ITS | Encounter Summary ---
Author Organization [facility] Address [address] [place] [address] Care Team Providers Care Drug Enforcement Agent Name Role Phone Maira Up MD Primary Care Provider [phone] Encounter Details Date Type Department Care Team [...] on filedocumented in this encounter Care Teams Drug Enforcement Agent Relationship Specialty Start Date End Date Maira Up MD [address] [place] [address] PCP - General Internal Medicine 05/31/13 documented as of this encounter
--- OUTSIDE RECORDS SUMMARY | 2025-05-31 17:30 | XMS_ITS | Encounter Summary ---
Author Organization [facility] Address [address] [address] Care Team Providers Care Bark Grinder Name Role Phone Maira Up MD Primary Care Provider [phone] Encounter Details Date Type Department Care Team (Late st Contact Info) Description 10/15/2014 Emergency Room External [place] [facility] [place] FLU SMPTOMS VIRAL ILLNESS Social History [...] on filedocumented in this encounter Care Teams Bark Grinder Relationship Specialty Start Date End Date Maira Up MD [address] [place] [address] PCP - General Internal Medicine 05/31/13 documented as of this encounter
--- OUTSIDE RECORDS SUMMARY | 2025-05-31 17:30 | XMS_ITS | Encounter Summary ---
Author Organization [facility] Address [address] [place] [address] Care Team Providers Care Nail Assembly Machine Operator Name Role Phone Maira Up MD Primary Care Provider Encounter Details Date [...] on filedocumented in this encounter Care Teams Nail Assembly Machine Operator Relationship Specialty Start Date End Date Maira Up MD [address] [place] [address] PCP - General Internal Medicine 05/31/13 documented as of this encounter
--- OUTSIDE RECORDS SUMMARY | 2025-05-31 17:30 | XMS_ITS | Encounter Summary ---
Author Organization [facility] Address [address] [place] [address] Care Team Providers Care Sports Medicine Specialist Name Role Phone Maira Up MD Primary Care Provider [phone] Encounter Details Date Type Department Care Team (Late st Contact Info) Description 11/13/2015 Correspondence [facility] Occupational and Environmental Medicine [address] [place] [address] Yariel Gregory MD [address] [place] [address] OCC MED NOTES Social History Tobacco Use [...] on filedocumented in this encounter Care Teams Sports Medicine Specialist Relationship Specialty Start Date End Date Maira Up MD [address] [place] [address] PCP - General Internal Medicine 05/31/13 documented as of this encounter
--- OUTSIDE RECORDS SUMMARY | 2025-05-31 17:31 | XMS_ITS | Clinical Summary ---
Author Organization [facility] Address [address] [place] [address]. [place] [address] Care Team Providers Care Icer Machine Operator Name Role Phone Clinic, Shoaib [...] PM CDT Legal Sex Female 3:11 PM ROLLOUT MANAGER Gender Identity Female 09/07/2023 1:35 PM CDT Sexual Orientation Not on file Last Filed Vital Signs Vital Sign Reading Time Taken Comments Blood Pressure 124/74 11/29/2024 10:48 AM ROLLOUT MANAGER Pulse 86 11/29/2024 10:48 AM ROLLOUT MANAGER Temperature 36.5 C (97.7 F) 11/29/2024 10:48 AM ROLLOUT MANAGER Respiratory Rate 20 11/29/2024 10:48 AM ROLLOUT MANAGER Oxygen Saturation 100% 11/29/2024 10:48 AM ROLLOUT MANAGER Inhaled Oxygen Concentration - - Weight 115.7 kg (255 lb) 11/29/2024 10:48 AM ROLLOUT MANAGER Height 175.3 cm (5' 9) 11/29/2024 10:48 AM ROLLOUT MANAGER Body Mass Index 37.66 11/29/2024 10:48 AM ROLLOUT MANAGER Plan of Treatment Health Maintenance Due Date [...] BASIC METABOLIC PANEL STAT 11/29/2024 11:34 AM ROLLOUT MANAGER from Last 3 Months or Most Recently Relevant to Health Maintenance Results * (ABNORMAL) Basic metabolic panel (11/29/2024 11:34 AM ROLLOUT MANAGER) Sodium 132(L) 135 - 145 mmol/L 11/29/2024 11:57 AM [facility] Potassium 4.4 3.4 - 5.3 mmol/L 11/29/2024 11:57 AM [facility] Chloride 99 98 - 107 mmol/L 11/29/2024 11:57 AM [facility] Carbon Dioxide (CO2) 21(L) 22 - 29 mmol/L 11/29/2024 11:57 AM [facility] Anion Gap 12 7 - 15 mmol/L 11/29/2024 11:57 AM [facility] Urea Nitrogen 7.9 6.0 - 20.0 mg/dL 11/29/2024 11:57 AM [facility] Creatinine 0.69 0.51 - 0.95 mg/dL 11/29/2024 11:57 AM [facility] GFR Estimate >90 >60 mL/min/1.7 3m2 11/29/2024 11:57 AM [facility] Comment:eGFR calculated usin g 2020 CKD-EPI equation. Calcium 8.6(L) 8.8 - 10.4 mg/dL 11/29/2024 11:57 AM [facility] Comment:Reference intervals for this test were updated on 06/14/2024 to reflect our healthy population more accurately. There may be differences in the flagging of prior results with similar values performed with this method. Those prior results can be interpreted in the context of the updated reference intervals. Glucose 92 70 - 99 mg/dL 11/29/2024 11:57 AM [facility] Blood BLOOD SPECIMEN / Unknown Venipuncture / Unknown 11/29/2024 11:[address] [facility] 11/29/2024 11:[address] [facility] us Herve Fields PA-C LAB - BLOOD ORDERABLES Final Result [facility] [address] [place] [address], [place] from Last 3 Months or Most Recently Relevant to Health Maintenance Insurance [employer] Care Teams Icer Machine Operator Relationship Specialty Start Date End Date Clinic, Shoaib Colon/Sylvain [facility] [place] [address] PCP - General 11/29/24
--- OUTSIDE RECORDS SUMMARY | 2025-05-31 17:31 | XMS_ITS | Encounter Summary ---
Author Organization [facility] Address [address] [address] Care Team Providers Care Mobile Solutions Architect Name Role Phone Maira Up MD Primary Care Provider [phone] Encounter Details Date Type Department Care Team [...] is 113 pounds, temperature 98.2. Ears bilaterally: Mckenna and light reflex present, clear TM. Mouth: [...] her on non-citrus drink and bland diet. RICT MANAGER PRIMARY CARE SALES documented in this encounter Plan of Treatment Not on file documented as of this encounter Visit Diagnoses Not on filedocumented in this encounter Care Teams Mobile Solutions Architect Relationship Specialty Start Date End Date Maira Up MD [address] [place] [address] PCP - General Internal Medicine 05/31/13 documented as of this encounter
--- OUTSIDE RECORDS SUMMARY | 2025-05-31 17:31 | XMS_ITS | Encounter Summary ---
Author Organization [place] Address [address] [place] [address] Care Team Providers Care Barnworker Groom Name Role Phone Blake Bonillaah Primary Care Provider [phone] Betty Godfrey MD Unavailable [facility], Shoaib Colon/Sylvain Primary Care Pr ovider Stacia [...] PM CDT Legal Sex Female 3:11 PM MARKLOGIC DEVELOPER Gender Identity Female 09/07/2023 1:35 PM CDT Sexual Orientation Not on file documented as of this encounter Plan of Treatment Not on file documented as of this encounter Visit Diagnoses Not on filedocumented in this encounter Additional Health Concerns Infection Onset Date Last Indicated Resolved Time Rule Out COVID-19 11/18/2021 11/18/2021 11/18/2021 6:50 PM MARKLOGIC DEVELOPER documented as of this encounter Care Teams Barnworker Groom Relationship Specialty Start Date End Date Leyla Bonilla PCP - General Family Practice 06/22/19 11/28/24 Shoaib Xie [address] [place] [address] PCP - General 11/29/24 [place] [address] [place] [address] Assigned OBGYN Provider 10/20/21 2 Stacia Lozano MD [address] [place] [address] [address] [place] [address] Assigned OBGYN Provider 01/22/25 documented as of this encounter
--- OUTSIDE RECORDS SUMMARY | 2025-05-31 17:31 | XMS_ITS | Encounter Summary ---
Author Organization [facility] Address [address] [place] [address] Care Team Providers Care Supervisor Finish End Name Role Phone Maira Up MD Primary Care Provider [phone] Encounter Details Date Type Department Care Team (Latest Contact Info) Description 09/08/1999 Orders Only Carlito Cadet MD [address] [place] [address] Social History Tobacco Use Types Packs/Day Years [...] on filedocumented in this encounter Care Teams Supervisor Finish End Relationship Specialty Start Date End Date Maira Up MD [address] [place] [address] PCP - General Internal Medicine 05/31/13 documented as of this encounter
--- OUTSIDE RECORDS SUMMARY | 2025-05-31 17:31 | XMS_ITS | Encounter Summary ---
Author Organization [facility] Address [address], [place] [address] Care Team Providers Care Human Intelligence Name Role Phone Maira Up MD Primary Care Provider [phone] Encounter Details Date Type Department Care Team (Late st Contact Info) Description 12/05/2003 Hospital External to Jcarlos Ramirez MD [address] [place] [address] [facility] ORTHO EXAM Social History Tobacco Use [...] * Jcarlos Ramirez - 12/05/2003 12:[address] L[address] NAVIGATOR documented in this encounter Plan of Treatment Not on file documented as of this encounter Visit Diagnoses Not on filedocumented in this encounter Care Teams Human Intelligence Relationship Specialty Start Date End Date Maira Up MD [address] [place] [address] PCP - General Internal Medicine 05/31/13 documented as of this encounter
--- OUTSIDE RECORDS SUMMARY | 2025-05-31 17:31 | XMS_ITS | Encounter Summary ---
Author Organization [facility] Address [address] [address] Care Team Providers Care Professional Fighter Name Role Phone Maira Up MD Primary Care Provider [phone] Encounter Details Date Type Department Care Team [...] on filedocumented in this encounter Care Teams Professional Fighter Relationship Specialty Start Date End Date Maira Up MD [address] [place] [address] PCP - General Internal Medicine 05/31/13 documented as of this encounter
--- OUTSIDE RECORDS SUMMARY | 2025-05-31 17:31 | XMS_ITS | Encounter Summary ---
Author Organization formerly [facility] Address [address], [place] [address] Care Team Providers Care Mint Wafer Depositor Name Role Phone Maira Up MD Primary Care Provider [phone] Encounter Details Date Type Department Care Team [...] regarding closed head injury was given. cc: ITE GRINDER documented in this encounter Plan of Treatment Not on file documented as of this encounter Visit Diagnoses Not on filedocumented in this encounter Care Teams Mint Wafer Depositor Relationship Specialty Start Date End Date Maira Up MD [address] [place] [address] PCP - General Internal Medicine 05/31/13 documented as of this encounter
--- OUTSIDE RECORDS SUMMARY | 2025-05-31 17:31 | XMS_ITS | Encounter Summary ---
Author Organization [facility] Address [address] [place] [address] Care Team Providers Care Certified Medical Technician Assistant Name Role Phone Maira Up MD Primary Care Provider [phone] Encounter Details Date Type Department Care Team (Latest Contact Info) Description 03/25/2004 Hospital None Unknown, Physician [address] [place] [address] CONSULT ABD PAIN Social History Tobacco Use [...] on filedocumented in this encounter Care Teams Certified Medical Technician Assistant Relationship Specialty Start Date End Date Maira Up MD [address] [place] [address] PCP - General Internal Medicine 05/31/13 documented as of this encounter
--- OUTSIDE RECORDS SUMMARY | 2025-05-31 17:31 | XMS_ITS | Encounter Summary ---
Author Organization [facility] Address [address] [address] Care Team Providers Care Polysomnographic Technician Name Role Phone Maira Up MD Primary Care Provider [phone] Encounter Details Date Type Department Care Team (Latest Contact Info) Description 09/10/1998 Orders Only Ronnie Angel MD [address] [place] [address] Social History Tobacco Use Types Packs/Day Years [...] on filedocumented in this encounter Care Teams Polysomnographic Technician Relationship Specialty Start Date End Date Maira Up MD [address] [place] [address] PCP - General Internal Medicine 05/31/13 documented as of this encounter
--- OUTSIDE RECORDS SUMMARY | 2025-05-31 17:31 | XMS_ITS | Encounter Summary ---
Author Organization [facility] Address [address] [place] [address] Care Team Providers Care Levee Superintendent Name Role Phone Maira Up MD Primary Care Provider [phone] Encounter Details Date Type Department Care Team (Latest Contact Info) Description 02/26/1998 Orders Only Drake Isidro MD [address] [place], [place] [address] Social History Tobacco Use Types Packs/Day Years [...] on filedocumented in this encounter Care Teams Levee Superintendent Relationship Specialty Start Date End Date Maira Up MD [address] [place] [address] PCP - General Internal Medicine 05/31/13 documented as of this encounter
--- OUTSIDE RECORDS SUMMARY | 2025-05-31 17:31 | XMS_ITS | Encounter Summary ---
Author Organization [facility] Address [address], [place] [address] Care Team Providers Care Child Care Lead Teacher Name Role Phone Maira Up MD Primary Care Provider [phone] Encounter Details Date Type Department Care Team [...] on filedocumented in this encounter Care Teams Child Care Lead Teacher Relationship Specialty Start Date End Date Maira Up MD [address] [place] [address] PCP - General Internal Medicine 05/31/13 documented as of this encounter
--- OUTSIDE RECORDS SUMMARY | 2025-05-31 17:31 | XMS_ITS | Encounter Summary ---
Author Organization [facility] Address [address], [place] [address] Care Team Providers Care Senior Customer Service Representative Name Role Phone Maira Up MD Primary Care Provider [phone] Encounter Details Date Type Department Care Team [...] filedocumented in this encounter Care Teams Senior Customer Service Representative Relationship Specialty Start Date End Date Maira Up MD [address] [place] [address] PCP - General Internal Medicine 05/31/13 documented as of this encounter
--- OUTSIDE RECORDS SUMMARY | 2025-05-31 17:31 | XMS_ITS | Encounter Summary ---
Author Organization [facility] Address [address] [address] Care Team Providers Care Manugrapher Name Role Phone Maira Up MD Primary Care Provider [phone] Encounter Details Date Type Department Care Team [...] on filedocumented in this encounter Care Teams Manugrapher Relationship Specialty Start Date End Date Maira Up MD [address] [place] [address] PCP - General Internal Medicine 05/31/13 documented as of this encounter
[2025-05-31 17:44] VITALS: BP 146/91; PULSE 72; RESP 18; TEMP 36.5; O2SAT 99; BMI 38.6
[2025-05-31 17:50] LABS: Appearance Urine Clear (Clear)
--- NOTE | 2025-05-31 17:55 | ED.GENADULT ---
HPI - General Adult General Chief complaint: Post OB/Post- Complication Stated complaint: OB sent to ER for preeclampsia Time Seen by Provider: 05/31/25 17:31 History of Present Illness HPI narrative: This 35-year-old female comes in with possible preeclampsia. She delivered twins a week or 2 ago. She states that she acquired a significant headache today and has measured her blood pressures in the 150 range through the day. She also reports some blurry vision at times. She does have a history of migraines. She arrives here with normal vital signs. Her blood pressure on arrival is 146/91. She called the labor and delivery nurse hotline and was instructed to come to the emergency department. Related Data Home Medications ?Medication ?Instructions ?Recorded ?Confirmed cholecalciferol (vitamin D3) 25 25 mcg PO QDAY 02/17/25 05/23/25 mcg (1,000 unit) capsule docosahexaenoic acid 200 mg See Rx Instructions PO DAILY 02/17/25 05/24/25 capsule ( DHA) folic acid 400 mcg tablet 0.4 mg PO QDAY 02/17/25 05/23/25 Previous Rx's ?Medication ?Instructions ?Recorded acetaminophen 500 mg tablet 1,000 mg (2 x 500 mg) PO Q6H PRN 05/26/25 #0 tabs docusate sodium 100 mg capsule 100 mg PO DAILY #90 caps 05/26/25 ibuprofen 600 mg tablet 600 mg PO Q6H PRN #60 tabs 05/26/25 oxycodone 5 mg capsule 5 mg PO Q6H PRN pain #3 caps 05/26/25 oxycodone 5 mg tablet 5 mg PO Q6H PRN pain #10 tabs 05/28/25 polyethylene glycol 3350 17 17 g PO DAILY PRN #119 grams 05/28/25 gram/dose oral powder (LaxaClear) labetalol 100 mg tablet 100 mg PO BID #60 tabs 05/31/25 Allergies Allergy/AdvReac Type Severity Reaction Status Date / Time cefuroxime (From Ceftin) Allergy Severe Verified 05/23/25 17:01 influenza virus vacc Allergy Severe Verified 05/23/25 17:01 trivalent, spl (From Fluzone) prednisolone Allergy Severe Verified 05/23/25 17:01 Sulfa (Sulfonamide Allergy Severe Swelling Verified 05/23/25 17:01 Antibiotics) of Lip/Tongue/Throat doxycycline Allergy Unknown Verified 05/23/25 17:01 Review of Systems Status of ROS: Reports: 10 or more systems reviewed and unremarkable except as noted in History and below Narrative: Constitutional: No fevers, no weight gain or loss. Eyes: No discharge. HENT: No congestion, no sore throat, no ear pain. Cardiovascular: No chest pain, no palpitations. Respiratory: No shortness of breath, no wheezes, no cough. Gastrointestinal: No abdominal pain, no vomiting, no diarrhea. Genitourinary: No dysuria, no hematuria. Musculoskeletal: Normal range of motion. Skin: No rashes, no pruritis. Neurological: No dizziness, weakness, sensory change, speech change. Endo/Heme/Allergies: No bruising or bleeding. No polydipsia. Pysch: no suicidality, no anxiety, no insomnia. All other systems reviewed and are negative. [facility] Medical History (Updated 05/31/25 @ 19:12 by Bernard Najera MD) Abnormal glucose tolerance affecting , antepartum ?O99.810 - Abnormal glucose complicating (ICD-10) Anemia affecting ?O99.019 - Anemia complicating , unspecified trimester (ICD-10) Dichorionic diamniotic twin gestation ?O30.049 - Twin , dichorionic/diamniotic, unspecified trimester (ICD-10) Endometriosis determined by laparoscopy ?N80.9 - Endometriosis, unspecified (ICD-10) Surgical History H/O laparoscopy ?Z98.890 - Other specified postprocedural states (ICD-10) Social History What is your current living situation?: I presently have a place to live Problems where you live: no known problems In the past 12 months, utilities in danger of being shut off: no In past 12 months, lack of transportation kept you from medical appts, meetings, work, or getting things needed for daily living: no In the past 12 mos, have been you worried that your food would run out before you had money to buy more?: never true In the past 12 mos, the food you bought just didn't last and you didn't have money to buy more?: never true Smoking Status: Never smoker Do you use any of these nicotine containing products: None How often do you have a drink containing alcohol: never AUDIT-C Alcohol total score: 0 Non-prescribed substance use: denies use How often does anyone, including family, friends and others, physically hurt you: never How often does anyone, including family, friends and others, insult or talk down to you: never How often does anyone, including family, friends and others, threaten you with harm: never How often does anyone, including family, friends and others, scream or curse at you: never Exam Narrative: Exam Narrative: Constitutional: Well-developed, well-nourished, no acute distress. HEENT: Normocephalic, atraumatic. Neck: Normal range of motion. Nontender. Supple. Heart: Regular. No murmurs. Normal rate. Intact distal pulses. Lungs: Clear to auscultation. No chest discomfort. No wheezes, rhonchi, or rales. Abdomen: Normal bowel sounds. Nontender. No rebound tenderness. Genitalia: Deferred. Back: No midline tenderness. Normal range of motion. Extremities: Normal range of motion. No injury. Skin: Intact. No rash. Warm. No erythema or pallor. Neurologic: No altered sensation. No weakness. Alert and oriented. Psychiatric: No suicidality. No anxiety or depression. No insomnia. Nursing notes and vitals signs are reviewed. Const: Vital Signs, click to edit/add: Vital Signs - 24 hr 05/31/25 17:44 05/31/25 18:10 Temperature 97.7 F Pulse Rate [Pulse Oximeter] 72 Respiratory Rate 18 Blood Pressure [Ri ght Upper Arm] 146/91 H 143/80 H Pulse Oximetry 99 Oxygen Delivery Me thod Room Air Course Vital Signs Vital signs: Initial Vital Signs Temperature 97.7 F 05/31/25 17:44 Temperature Source Temporal Artery Scan 05/31/25 17:44 Pulse Rate 72 05/31/25 17:44 Pulse Rhythm Regular 05/31/25 17:44 Respiratory Rate 18 05/31/25 17:44 Blood Pressure 146/91 H 05/31/25 17:44 Blood Pressure Mean 109 H 05/31/25 17:44 Blood Pressure Position Sitting 05/31/25 17:44 Pulse Oximetry 99 05/31/25 17:44 Oxygen Delivery Method Room Air 05/31/25 17:44 Vital Signs Temperature 97.7 F 05/31/25 17:44 Pulse Rate 72 05/31/25 17:44 Respiratory Rate 18 05/31/25 17:44 Blood Pressure 146/91 H 05/31/25 17:44 Pulse Oximetry 99 05/31/25 17:44 Oxygen Delivery Method Room Air 05/31/25 17:44 Temperature 97.7 F 05/31/25 17:44 Pulse Rate 72 05/31/25 17:44 Respiratory Rate 18 05/31/25 17:44 Blood Pressure 143/80 H 05/31/25 18:10 Pulse Oximetry 99 05/31/25 17:44 Oxygen Delivery Method Room Air 05/31/25 17:44 Medications Administered Medications: Discontinued Medications Generic Name Dose Route Start Last Admin Trade Name Abram PRN Reason Stop Dose Admin Acetaminophen 1,000 mg 05/31/25 18:41 05/31/25 18:48 Acetaminophen 500 Mg Tablet PO 05/31/25 18:42 1,000 mg ONCE ONE Administration Ibuprofen 600 mg 05/31/25 18:41 05/31/25 18:49 Ibuprofen 200 Mg Tablet PO 05/31/25 18:42 600 mg ONCE ONE Administration Labetalol HCl 100 mg 05/31/25 18:22 05/31/25 18:29 Labetalol Hcl 100 Mg Tablet PO 05/31/25 18:23 100 mg ONCE ONE Administration Medical Decision Making MDM Narrative Medical decision making narrative: This patient comes in because of headache and elevated blood pressure and she is for delivering twins. Labs are acquired and these returned with reassuring findings. These labs are typical ones ordered to evaluate for preeclampsia. The patient did receive an oral dose of labetalol 100 mg as her blood pressure was persistently above 140. I did speak with the pharmacy stock clerk physician on-call Dr. Martinez, who stated that she should be on labetalol 100 mg twice daily. Ranges will be made for a follow-up appointment on Thursday in the OBGYN clinic. Lab Data Labs: Lab Results 05/31/25 05/31/25 Range/Units 17:40 18:15 WBC 7.86 (4.50-11.00) K/uL RBC 3.44 L (4.00-5.20) m/uL Hgb 10.1 L (12.0-16.0) gm/dL Hct 30.1 L (33.0-51.0) % MCV 88 (80-100) fL MCH 29 (26-34) pg MCHC 34 (32-36) gm/dL RDW Coeff of Jennifer 12.9 (11.5-15.5) % Plt Count 419 (140-440) K/uL Neut % (Auto) 67.2 (42.0-72.0) % Lymph % (Auto) 24.3 (20-44) % [place] % (Auto) 6.4 (0.0-11.0) % Eos % (Auto) 1.7 (0.0-7.0) % Baso % (Auto) 0.1 (0.0-3.0) % Neut # (Auto) 5.29 (1.7-7.0) K/uL Lymph # (Auto) 1.91 (0.90-2.90) K/uL [place] # (Auto) 0.50 (0.00-0.90) K/UL Eos # (Auto) 0.13 (0.00-0.50) K/uL Baso # (Auto) 0.01 (0.00-0.30) K/uL Abs Immat Gran (auto) 0.02 (0.00-0.30) K/uL Imm/Tot Granulo (auto) 0.3 % INR 0.88 L (0.91-1.10) Sodium 136 (135-149) mmol/L Potassium 4.2 (3.6-5.1) mmol/L Chloride 105 (96-114) mmol/L Carbon Dioxide 24 (20-32) mmol/L Anion Gap 7 (7-15) mEq/L BUN 11 (5-24) mg/dL Creatinine 0.8 (0.5-1.5) mg/dL Estimated Creat Clear 105.13 Estimated GFR 98 ml/min Glucose 84 (60-115) mg/dL Calcium 9.0 (8.4-10.6) mg/dL Total Bilirubin 0.2 (0.1-1.5) mg/dL Direct Bilirubin 0.1 (0.0-0.5) mg/dL AST 36 H (12-35) U/L ALT 27 (4-35) U/L Alkaline Phosphatase 93 (40-150) U/L Total Protein 6.9 (6.0-8.3) g/dL Albumin 3.8 (3.3-5.0) g/dL Urine Color Yellow (Yellow) Urine Appearance Clear (Clear) Urine pH 6.0 (5.0-8.5) Ur Specific [place] <= 1.005 (1.000-1.030) Urine Protein Negative (Negative) Urine Glucose (UA) Negative (Negative) Urine Ketones Negative (Negative) Urine Blood 2+ A (Negative) Urine Nitrite Negative (Negative) Urine Bilirubin Negative (Negative) Urine Urobilinogen 0.2 (0.2-1.0) Ur Leukocyte Esterase 1+ A (Negative) Urine RBC 0-2 (0-2) Urine WBC 2-5 (0-5) Ur Squamous Epith Cells Moderate A (None-Few) Discharge Plan Discharge Clinical Impression: Hypertension in , condition Patient Disposition: Home, Self-Care Condition: Stable Additional Instructions: Take medication as prescribed. Follow-up with OBGYN clinic. You should receive a call for arrangements for appointment this coming Thursday. Return if worsening. Prescriptions: New labetalol 100 mg tablet 100 mg PO BID Qty: 60 2RF No Action DHA 200 mg capsule See Rx Instructions PO DAILY Rx Instructions: as directed orally daily; cholecalciferol (vitamin D3) 25 mcg (1,000 unit) capsule 25 mcg PO QDAY folic acid 400 mcg tablet 0.4 mg PO QDAY oxycodone 5 mg tablet 5 mg PO Q6H PRN (Reason: pain) Qty: 10 0RF polyethylene glycol 3350 [LaxaClear] 17 gram/dose powder 17 g PO DAILY PRNQty: 119 0RF acetaminophen 500 mg Tablet 1,000 mg PO Q6H PRNQty: 0 0RF docusate sodium 100 mg Capsule 100 mg PO DAILY Qty: 90 0RF ibuprofen 600 mg Tablet 600 mg PO Q6H PRNQty: 60 0RF oxycodone 5 mg capsule 5 mg PO Q6H PRN (Reason: pain) Qty: 3 0RF Rx Instructions: use only for breakthrough pain if Tylenol and Ibuprofen is not enough. Follow Up/Referrals: Provider,Not a Local [Primary Care Provider, Family Practice] Stand Alone Forms: [facility] Info [facility]
[2025-05-31 18:10] VITALS: BP 143/80
--- OUTSIDE RECORDS SUMMARY | 2025-05-31 18:20 | XMS_ITS | Clinical Summary ---
Author Organization [facility] Address [address] [place] [id number] Care Team Providers Care Edger Liner Name Role Phone Maira Saldaña MD Unavailable [...] ons:Sinusitis, unspecified chronicity, unspecified location Inhale 1 Flushing into affected nostril(s) once daily. 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 file Not on file Not [...] N Livin g 9 9 [employer] [place] Complications:Pre-eclampsia (HC) Delivery Location:[facility] Current Last Filed Vital Signs Vital Sign Reading Time Taken Comments Blood Pressure 122/64 02/18/2025 10:15 AM CDT Pulse 117 02/18/2025 10:15 AM CDT Temperature 36.6 C (97.8 F) 02/18/2025 10:15 AM CDT Respiratory Rate 16 02/18/2025 10:15 AM CDT Oxygen Saturation 100% 01/09/2025 3:26 PM ELECTRICAL CONTROL ASSEMBLER Inhaled Oxygen Concentration - - Weight 125.2 kg (276 lb) 02/18/2025 10:15 AM CDT Height 174.9 cm (5' 8.86) 01/09/2025 3:26 PM CS T Body Mass Index 40.92 01/09/2025 3:26 PM ELECTRICAL CONTROL ASSEMBLER Plan of Treatment Health Maintenance Due Date Last Done Comments HIV for age 15-65 2004 COVID-19 vaccine series ( - 2023- season) 2024 Pap test for age 21-65 12/08/2024 0 (Completed outside of [facility]), 08/13/2017, 07/20/2014 Depression screening for age 12+ 06/09/2025 06/09/2024, 02/08/2024, 05/29/2021, Additional history exists BMI (ht and wt on same day) for age 18+ 01/09/2026 01/09/2025, 11/08/2024, 08/30/2024, Additional history exists Tetanus booster 09/10/2030 09/10/2020, 11/30, 12/16/2011, Additional history exists Hepatitis B series for 19+ Completed 12/09, 12/09/1995, 07/13/1995, Additional history exists (IA) Tdap Completed 09/10/2020, 11/30, 12/16/2011 Hepatitis C screening for age 18-79 Completed 10/01/2023 Pneumococcal series for age 6-49 Aged Out No longer eligible based on patient's age to complete this topic RSV vaccine for adults or (No Doses Required) Completed Procedures Procedure Name Priority Date/Time Associated Diagnosis Comments LAB TRACKING EVENT Routine 05/24/2025 4: 53 PM CDT PATH TISSUE EXAM PLACENTA Routine 05/24/2025 4:53 PM CDT ANTI HCV Routine 10/01/2023 3:38 PM CDT Polyarthralgia Positive SHAKIRA (antinuclear antibody) GEOMORPHOLOGIST THIN PREP PAP SCREEN IMAGED Routine 08/13/2017 10:31 AM CDT Cervical cancer screening from Last 3 Months or Most Recently Relevant to Health Maintenance Results * LAB TRACKING EVENT (05/24/2025 4:53 PM CDT) Other (Other) Client Collect / Unknown 05/24/2025 4:53 PM CDT 05/25/2025 2:14 PM CDT Yarelis Martinez MD LAB BILL ONLY Final Re [facility] [address] [place] [address], * PATH TISSUE EXAM PLACENTA (05/24/2025 4:53 PM CDT) Case Report Pathology Report Case: [id number] Authorizing Provider: Yarelis Martinez MD Collected: 05/24/20251652 Ordering Location: [facility] Received: 05/25/2025 1611 Pathologist: Bird Snow MD Specimens: A) - Placenta B) - Placenta 05/29/2025 7:44 AM CDT [facility] Final Diagnosis A,B) PLACENTAS, VAGINAL DELIVERY: Third trimester twin placentas with the following characteristics: 1. Twin A (Part A), portion of placenta with: a. Placental weight: Not obtained (partial placenta provided) b. Membranes with no significant histologic alterations c. Three vessel umbilical cord d. Placental disc without infarcts 2. Twin B (Part B), portion of placenta with: a. Placental weight: Not obtained (partial placenta provided) b. Membranes with no significant histologic alterations c. Three vessel umbilical cord d. Placental disc without infarcts 3. Chorionic villi consistent with gestational age 4. Negative for chorioamnionitis , funisitis, and villitis 5. Chorionicity indeterminate (partial placentas provided) 05/29/2025 7:44 AM CDT [facility] at 0744 CDT Clinical Information Indications for Placental Examination by Pathology / indications: Multiple Gestation Maternal indications: AMA Infectious specimen (e.g. maternal HIV or HCV): No Clinical information: Date of delivery: 05/24/2025 Time of delivery: 1652 Type of delivery: Vaginal Live born:Yes Gestational age: 38.0 weeks weight of infant(s): 2860 grams Sex of (s): Female Pertinent Maternal History: Maternal parity: Diabetes: No Hypertension: No Eclampsia: No Smoking: No 05/29/2025 7:44 AM CDT [facility] LABORATORY-C ENTRAL LABORATORY Gross Description A) Received fresh labeled with the patient's name and A, is a 3.3 x 3.2 x 2 cm portion of placenta parenchyma with a small portion of associated hunt membrane. The surface has a purplish blue appearance. The maternal surface appears intact without adherent blood clot. On cut section, no discrete lesions are identified. Also submitted is a 3 cm long, 1.7 cm diameter portion of trivascular umbilical cord with no knots or hemorrhages. Motocross Racer sections are submitted as follows: 1. Sections of umbilical cord 2. Sections of membrane 3-4. Full-thickness sections from portion of placenta B) Received fresh labeled with the patient's name and B, is a 3.5 x 3.2 x 2 cm portion of placenta with small portion of associated hunt membrane. The surface has a purplish blue appearance. The maternal surface is intact without adherent blood clot. On cut section, no discrete lesions are identified. Also submitted is a 5 cm long, 1.6 cm diameter portion of trivascular umbilical cord with no cord knots or hemorrhages. Motocross Racer sections are submitted as follows: 1. Motocross Racer sections of umbilical cord 2. Motocross Racer sections of membrane 3, 4. Motocross Racer full-thickness sections of placenta tissue TRB 05/25/2025 05/29/2025 7:44 AM CDT [facility]- ENTRAL LABORATORY Microscopic Description The final diagnosis is based on microscopic examination of appropriate sections of all specimens. 05/29/2025 7:44 AM CDT [facility] LABORATORY-C ENTRAL LABORATORY Additional Information Interpreted at [facility], Central Laboratory - [address] [address] 05/29/2025 7:44 AM CDT [facility]- ENTRAL LABORATORY Tissue SPECIMEN FROM PLACENTA / Unknown 05/24/2025 4:53 PM CDT 05/25/2025 4:11 PM CDT Tissue specimen (specimen) SPECIMEN FROM PLACENTA / Unknown 05/24/2025 5:46 PM CDT 05/25/2025 4:11 PM CDT Yarelis Martinez MD PATHOLOGY/CYTOLOGY Final Result Performing Organization Address City/State/[facility] Co de Phone Number [facility] [address] [place] [address], [place] * ANTI HCV (10/01/2023 3:38 PM CDT) HEPATITIS C ANTIBODY Non-Reacti ve Non-React jaylon 10/02/2023 3:14 PM CDT [facility] TRAL LABORATORY Comment:Please note, per www .CDC.gov: [...] PM CDT 10/01/2023 3:46 PM CDT Shavon Mariel Zuniga MD SEND OUTS Final Result Performing Organization Address [facility] Co de Phone Number [facility] [address] [place] [address], [place] * GEOMORPHOLOGIST THIN PREP PAP SCREEN IMAGED (08/13/2017 10:31 AM CDT) Case Report Gynecologic Cytology Report Case: [id number] Authorizing Provider: Ara Aguilera MD Collected: 08/13/2017 1031 Ordering Location: [facility] Received: 08/13/2017 [facility] First Screen: Matilde Bear Rescreen: Kandice Chand Specimen: GEOMORPHOLOGIST ThinPrep Vial Screening, Cervical 08/21/2017 12:25 PM CDT [facility] INTERPRETATION/ RESULT NEGATIVE FOR INTRAEPITHELIAL LESION OR MALIGNANCY (NIL) (none) 08/21/2017 12:25 PM CDT [facility] [employer] ENTRAL LABORATORY at 1225 CDT SPECIMEN ADEQUACY Satisfactory for evaluation Endocervical component present Scant cellularity Obscuring Inflammation 08/21/2017 12:25 PM CDT [facility] [employer] ENTRAL LABORATORY HPV REQUEST HPV if ASCUS 08/21/2017 12:25 PM CDT [facility] LAB[facility]AT[facility] Date of LMP 07/31/2017 08/21/2017 12:25 PM CDT [facility] LABORAT[facility] Last Pap Date 201308/21/2017 12:25 PM CDT [facility] ENTRAL LABORATORY Last Pap Result UNS 7 12:25 PM CDT [facility] ENTRAL LABORATORY Abnormal Pap or [place] Bx in last 5 years No 08/21/2017 12:25 PM CDT [facility] Menstrual Status Regular Periods 08/21/2017 12:25 PM CDT [facility] [place] Bx Done Today No 08/21/2017 12:25 PM CDT [facility] Additional Information None given 08/21/2017 12:25 PM CDT [facility] Automated Review Successful 08/21/2017 12:25 PM CDT [facility] Comment:Specimen processed s uccessfully by automated production stage manager device, ThinPrep Imaging System, [employer] Note The pap test is a screening technique, not a diagnostic procedure. It is used primarily to screen for squamous cancers and precursor lesions. Published studies have shown that it is subject to both false negative and false positive results. The pap test should not be used as the sole means to diagnose or exclude pre-malignant and malignant lesions. Interpreted at [facility] Laboratory (Central Lab, [facility], [facility], [facility], [facility], [facility]) 08/21/2017 12:25 PM CDT [facility] Other (Cervical) 08/13/2017 10:31 AM CDT 08/13/2017 10:31 AM CDT us Ara Aguilera MD PATHOLOGY/CYTOLOGY Heidi hylton Result [facility] [address] [place] [address], [place] from Last 3 Months or Most Recently Relevant to Health Maintenance Insurance [employer] CHOICE [facility] WORKERS COMP Advance Directives * Full Code (Latest Code Status on File) Date Activated Date Inactivated Comments 02/04/2022 7:57 AM 02/04/2022 2:55 PM Question Answer Comments Code Status Discussion: Unable to Assess Preferences, Provider to review later Care Teams Edger Liner Relationship Specialty Start Date End Date Edyta Londono DO [address] [place] [address] PCP - General Family Practice 12/26/24 Maira Saldaña MD Family Practice Family Practice 04/14/13
[2025-05-31 18:25] LABS: Hematocrit 30.1 % (33.0-51.0); Hemoglobin* 10.1 gm/dL (12.0-16.0); Immature Granulocytes Abs Auto 0.02 K/uL (0.00-0.30); Immature Granulocytes Pct Auto 0.3 %; Lymphocytes Absolute Auto 1.91 K/uL (0.90-2.90); Mean Corpuscular HGB Conc 34 gm/dL (32-36); Mean Corpuscular Hemoglobin 29 pg (26-34); Mean Corpuscular Volume 88 fL (80-100); RDW Coefficient of Variation % 12.9 % (11.5-15.5); Red Blood Count 3.44 m/uL (4.00-5.20); White Blood Count* 7.86 K/uL (4.50-11.00)
[2025-05-31 18:26] LABS: Slide Review Reflex No
[2025-05-31] MEDS: LABETALOL HCL 100 MG TABLET PO (18:29)
[2025-05-31 18:39] LABS: Albumin* 3.8 g/dL (3.3-5.0); Chloride* 105 mmol/L (96-114); Potassium* 4.2 mmol/L (3.6-5.1); Sodium* 136 mmol/L (135-149)
[2025-05-31 18:41] LABS: Alanine Aminotransferase* 27 U/L (4-35); Anion Gap 7 mEq/L (7-15); Aspartate Amino Transferase* 36 U/L (12-35); Blood Urea Nitrogen* 11 mg/dL (5-24); Carbon Dioxide* 24 mmol/L (20-32); Creatinine* 0.8 mg/dL (0.5-1.5); Est. Creatinine Clearance* 105.13; Estimated Glomerular Filt Rate 98 ml/min; INR 0.88 (0.91-1.10); Prothrombin Time 12.7 Seconds
[2025-05-31 18:42] LABS: Alkaline Phosphatase* 93 U/L (40-150); Bilirubin Direct* 0.1 mg/dL (0.0-0.5); Bilirubin Total* 0.2 mg/dL (0.1-1.5); Calcium* 9.0 mg/dL (8.4-10.6); Glucose* 84 mg/dL (60-115); Total Protein* 6.9 g/dL (6.0-8.3)
[2025-05-31] MEDS: ACETAMINOPHEN 500 MG TABLET 1000 MG PO (18:48)
[2025-05-31] MEDS: IBUPROFEN 200 MG TABLET 600 MG PO (18:49)
--- NOTE | 2025-05-31 18:53 | ED.NURSE ---
Patient reporting headache not relieved by medications at a 6/10 today. Upper back pain, vision being funky and off, increased blood pressures at home (156/99) and bilateral LE swelling, 3+ pitting edema. Recheck BP >140/90. Oral labetalol 100mg given.
== END 2025-05-31 19:18 | disposition home or self-care (01) ==
PROVIDERS: Emergency Provider Emergency Medicine Emergency Medical Services
DX: O10.93 Unspecified pre-existing hypertension complicating the puerperium (principal); R51.9 Headache, unspecified; H53.8 Other visual disturbances
CPT/HCPCS: 36415; 80048; 80076; 81001; 85025; 85610; 87086; 99283; 99284; A9270

== ENCOUNTER 2025-06-04 20:05 | Day surgery (SDC) | payer OTHER, SELFPAY ==
[2025-06-04] VITALS (15 sets, daily range): BP systolic 123–145; BP diastolic 72–98; PULSE 63–75; RESP 20; TEMP 35.9; O2SAT 96–100; BMI 38.9
--- OUTSIDE RECORDS SUMMARY | 2025-06-04 20:07 | XMS_ITS | Clinical Summary ---
Author Organization [facility] Address [address] [place] [address]. 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 Gender Identity Female 09/07/2023 1:35 PM CDT Sexual Orientation Not on file Last Filed Vital Signs Vital Sign Reading Time Taken Comments Blood Pressure 124/74 11/29/2024 10:48 AM PRINTING GRAY CLOTH TENDER Pulse 86 11/29/2024 10:48 AM PRINTING GRAY CLOTH TENDER Temperature 36.5 C (97.7 F) 11/29/2024 10:48 AM PRINTING GRAY CLOTH TENDER Respiratory Rate 20 11/29/2024 10:48 AM PRINTING GRAY CLOTH TENDER Oxygen Saturation 100% 11/29/2024 10:48 AM PRINTING GRAY CLOTH TENDER Inhaled Oxygen Concentration - - Weight 115.7 kg (255 lb) 11/29/2024 10:48 AM PRINTING GRAY CLOTH TENDER Height 175.3 cm (5' 9) 11/29/2024 10:48 AM PRINTING GRAY CLOTH TENDER Body Mass Index 37.66 11/29/2024 10:48 AM PRINTING GRAY CLOTH TENDER Plan of Treatment Health Maintenance Due Date [...] BASIC METABOLIC PANEL STAT 11/29/2024 11:34 AM PRINTING GRAY CLOTH TENDER from Last 3 Months or Most Recently Relevant to Health Maintenance Results * (ABNORMAL) Basic metabolic panel (11/29/2024 11:34 AM PRINTING GRAY CLOTH TENDER) Sodium 132(L) 135 - 145 mmol/L 11/29/2024 11:57 AM [facility] Potassium 4.4 3.4 - 5.3 mmol/L 11/29/2024 11:57 AM [facility] Chloride 99 98 - 107 mmol/L 11/29/2024 11:57 AM [facility] Carbon Dioxide (CO2) 21(L) 22 - 29 mmol/L 11/29/2024 11:57 AM [facility] Anion Gap 12 7 - 15 mmol/L 11/29/2024 11:57 AM [facility] Urea Nitrogen 7.9 6.0 - 20.0 mg/dL 11/29/2024 11:57 AM [facility] Creatinine 0.69 0.51 - 0.95 mg/dL 11/29/2024 11:57 AM [facility] GFR Estimate >90 >60 mL/min/1.7 3m2 11/29/2024 11:57 AM [facility] Comment:eGFR calculated usin g 2020 CKD-EPI equation. Calcium 8.6(L) 8.8 - 10.4 mg/dL 11/29/2024 11:57 AM [facility] Comment:Reference intervals for this test were updated on 06/14/2024 to reflect our healthy population more accurately. There may be differences in the flagging of prior results with similar values performed with this method. Those prior results can be interpreted in the context of the updated reference intervals. Glucose 92 70 - 99 mg/dL 11/29/2024 11:57 AM [facility] Blood BLOOD SPECIMEN / Unknown Venipuncture / Unknown 11/29/2024 11:34 AM [facility] 11/29/2024 11:37 AM [facility] us Herve Fields PA-C LAB - BLOOD ORDERABLES Final Result [facility] [address] [place] [address], [place] from Last 3 Months or Most Recently Relevant to Health Maintenance Insurance [employer] CHOICE Member Subscriber Plan / Payer (Ef fective 2020-Present) Name:Ericka Menezesblanca Hernandez Relation to Subscriber:Spouse Name:VINAY MENEZES Date of :1987 (Home) Address: [address] [place] [id number] Payer ID:[id number] (NAIC) Type:Indemnity Address: [address] [address] [employer] Member Subscriber Plan / Payer (Ef fective 2020-Present) Name:Jeffery Dominique L Relation to Subscriber:Spouse Name:VINAY MENEZES Date of :1987 (Home) Address: [address] [place] [id number] Payer ID:[id number] (NAIC) Type:Indemnity Address: [address] [address] Care Teams Strategy Execution Consultant Relationship Specialty Start Date End Date Clinic, Shoaib Colon/Sylvain [facility] [place] [address] PCP - General 11/29/24
--- OUTSIDE RECORDS SUMMARY | 2025-06-04 20:07 | XMS_ITS | Encounter Summary ---
Author Organization [facility] Address [address] [place] [address] Care Team Providers Care Antique Automobiles Repairer Name Role Phone Maira Up MD Primary Care Provider Encounter Details Date Type Department Care Team (Late st Contact Info) Description 10/15/2014 Emergency Room External to [facility], Provider VIRAL ILLNESS Social [...] on filedocumented in this encounter Care Teams [employer] Repairer Relationship Specialty Start Date End Date Maira Up MD [address] [place] [address] PCP - General Internal Medicine 05/31/13 documented as of this encounter
--- OUTSIDE RECORDS SUMMARY | 2025-06-04 20:07 | XMS_ITS | Encounter Summary ---
Author Organization [facility] Address [address] [address] Care Team Providers Care Service Transformer Repair Supervisor Name Role Phone Maira Up MD Primary Care Provider [phone] Encounter Details Date Type Department Care Team [...] on filedocumented in this encounter Care Teams Service Transformer Repair Supervisor Relationship Specialty Start Date End Date Maira Up MD [address] [place] [address] PCP - General Internal Medicine 05/31/13 documented as of this encounter
--- OUTSIDE RECORDS SUMMARY | 2025-06-04 20:07 | XMS_ITS | Clinical Summary ---
Author Organization [facility] Address [address] [place] [address] Care Team Providers Care Head Of Strategy Name Role Phone Maira Up MD Primary Care Provider [phone] Source Comments You are receiving this document as you are listed as the primary care provider,follow-up provider, or the patient has been referred to you for consultation.This is in compliance with the Medicare and[facility] EHR Incentive Program,which states Providers who transition their patient to another setting of careor provider of care or refers their patient to another provider of care shouldprovide summary care record for each transition of care or referral. [facility] Allergies Active Allergy Reactions Criticality Noted Date [...] providers outside of the [facility] system or they may wish to contact [facility] or [facility]. Surveillance of previously p rescribed intrauterine contraceptive [...] 07/24/2000, Additional history exists COVID-19 Vaccine ( - season) 2024 SMI: Hgb A1C 08/29/2024 08/29/2023, 08/30, 09/03/2010, Additional history exists Influenza Vaccine (#1) 2025 0, 09/26/2004, 09/24/1998, Additional history exists Zoster/Shingles Vaccine [...] 136 - 145 mmol/L 08/29/2023 1:56 AM [facility] Potassium 3.9 3.5 - 5.1 mmol/L 08/29/2023 1:56 AM [facility] Chloride 104 98 - 109 mmol/L 08/29/2023 1:56 AM [facility] CO2 22 20 - 29 mmol/L 08/29/2023 1:56 AM [facility] Anion Gap 12 7 - 16 mmol/L 08/29/2023 1:56 AM [facility] Calcium 9.3 8.4 - 10.4 mg/dL 08/29/2023 1:56 AM [facility] BUN 9 7 - 26 mg/dL 08/29/2023 1:56 AM [facility] Creatinine 0.69 0.55 - 1.02 mg/dL 08/29/2023 1:56 AM [facility] Glucose 96 70 - 100 mg/dL 08/29/2023 1:56 AM CDT [facility] Comment:The given reference range is for the fasting state. Non-fasting reference range for glucose is 70 - 180 mg/dL. GFR, Estimated >60 >60 mL/min/1.7 3m2 08/29/2023 1:56 AM CDT [facility] Blood Venipuncture / Unknown 08/29/2023 1:29 AM CDT 08/29/2023 1:34 AM CDT John Churchill MD LAB_1 Final Result [address] [phone] * (ABNORMAL) LIPID PANEL AND DIRECT LDL(IF NEEDED) (08/06/2010 3:06 PM CDT) Cholesterol 226(H) 0 - 199 mg/dl [facility] Triglyceride 138 0 - 149 mg/dl [facility] HDL 58 >40 mg/dl [facility] LDL, Calc. 140(H) 0 - 129 mg/dl [facility] Hours Fasting 15 hours [facility] 08/06/2010 3:06 PM CDT 08/06/2010 3:11 PM CDT Natali Gay MD LAB_1 Final Result Performing Organization Address City/[facility]/ZIP Co de Phone Number [facility] [address] [address] * PAP TEST, ROUTINE (08/06/2010 12:00 AM CDT) Cytology, Pap (NOTE) Paper Reel Operator Cytology Report Patient Name: SELAM RAMSEY Taken: 08/06/2010 Received: 08/08/2010 Reported: 08/14/2010 Physician(s): NATALI GAY ([id number]) Source of Specimen Liquid routine Pap, cervical/endocervi fabi: Specimen Adequacy Satisfactory for evaluation. Endocervical component present. Final Cytologic Interpretation/Res ult NEGATIVE FOR INTRAEPITHELIAL LESION OR MALIGNANCY (NILM) Other Cytologic Findings Fungal organisms morphologically consistent with Tish spp. Inflammation hernesto/08/14/2010 Electronically Signed Out By BLAZE Mendoza (ASCP) BLAZE Mendoza (ASCP) Pap Smear History Date of Last Menstrual Period: 08/01/10 [facility] 08/06/2010 08/08/2010 9:0 9 AM CDT Natali Gay MD LAB_1 Final Result [facility] [address] [address] * HIV 1/2 ANTIBODY (06/27/2000 8:52 PM CDT) HIV 1/2 Antibody Non-Reacti ve [facility] 06/27/2000 8:52 PM CDT 06/27/2000 8:57 PM CDT Ped Spucc LAB_1 Final Result Performing Organization Address City/[facility] Co de Phone Number [facility] [address] [address] from Last 3 Months or Most Recently Relevant to Health [place] [address] [employer] Care Teams Head Of Strategy Relationship Specialty Start Date End Date Maira Up MD [address] [place], [place] [id number] PCP - General Internal Medicine 05/31/13
--- OUTSIDE RECORDS SUMMARY | 2025-06-04 20:07 | XMS_ITS | Encounter Summary ---
Author Organization [facility] Address [address] [address] Care Team Providers Care Trailer Chief Name Role Phone Maira Up MD Primary Care Provider [phone] Encounter Details Date Type Department Care Team (Latest Contact Info) Description 09/10/1998 Orders Only Ronnie Angel MD [address] [place] [address] Social History Tobacco Use Types Packs/Day Years [...] on filedocumented in this encounter Care Teams Trailer Chief Relationship Specialty Start Date End Date Maira Up MD [address] [place] [address] PCP - General Internal Medicine 05/31/13 documented as of this encounter
--- OUTSIDE RECORDS SUMMARY | 2025-06-04 20:07 | XMS_ITS | Encounter Summary ---
Author Organization [facility] Address [address] [place] [address] Care Team Providers Care Wood Router Hand Name Role Phone Maira Up MD Primary Care Provider [phone] Encounter Details Date Type Department Care Team (Latest Contact Info) Description 03/25/2004 Hospital None Unknown, Physician [address] [place] [address] CONSULT ABD PAIN Social History Tobacco Use [...] on filedocumented in this encounter Care Teams Wood Router Hand Relationship Specialty Start Date End Date Maira Up MD [address] [place] [address] PCP - General Internal Medicine 05/31/13 documented as of this encounter
--- OUTSIDE RECORDS SUMMARY | 2025-06-04 20:07 | XMS_ITS | Encounter Summary ---
[facility] Address [address], [place] [address] Care Team Providers Care Pm Technician Name Role Phone Maira Up MD Primary Care Provider [phone] Encounter Details Date Type Department Care Team (Latest Contact Info) Description 06/30/2000 Orders Only Jcarlos Ramirez MD [address] [place] [address] Social History Tobacco Use Types Packs/Day Years [...] on filedocumented in this encounter Care Teams Pm Technician Relationship Specialty Start Date End Date Maira Up MD [address] [place] [address] PCP - General Internal Medicine 05/31/13 documented as of this encounter
--- OUTSIDE RECORDS SUMMARY | 2025-06-04 20:07 | XMS_ITS | Encounter Summary ---
Author Organization [facility] Address [address] [address] Care Team Providers Care Manager Employee Benefits Name Role Phone Maira Up MD Primary Care Provider [phone] Encounter Details Date Type Department Care Team [...] on filedocumented in this encounter Care Teams Manager Employee Benefits Relationship Specialty Start Date End Date Maiar Up MD [address] [place] [address] PCP - General Internal Medicine 05/31/13 documented as of this encounter
--- OUTSIDE RECORDS SUMMARY | 2025-06-04 20:07 | XMS_ITS | Encounter Summary ---
[facility] Organization [facility] Address [address] [address] Care Team Providers Care Bacteriology Research Assistant Name Role Phone Maira Up MD Primary Care Provider [phone] Encounter Details Date Type Department Care Team (Late st Contact Info) Description 12/05/2003 Hospital External to Jcarlos Ramirez MD [address] [place] [address] [facility] ORTHO EXAM Social History Tobacco Use [...] * Jcarlos Ramirez - 12/05/2003 12:00 AM ROUGH ROUNDER H ROUNDER documented in this encounter Plan of Treatment Not on file documented as of this encounter Visit Diagnoses Not on filedocumented in this encounter Care Teams Bacteriology Research Assistant Relationship Specialty Start Date End Date Maira Up MD [address] [place] [address] PCP - General Internal Medicine 05/31/13 documented as of this encounter
--- OUTSIDE RECORDS SUMMARY | 2025-06-04 20:07 | XMS_ITS | Encounter Summary ---
Author [facility] Address [address] [place] [address] Care Team Providers Care Emt Dispatcher Name Role Phone Maira Up MD Primary Care Provider [phone] Encounter Details Date Type Department Care Team (Late st Contact Info) Description 08/20/2012 Emergency Room External to [facility], Provider ABD PAIN ED STAFF PHYSICIAN NOTE [...] as of this encounter Progress Notes * [facility], Provider - 08/20/2012 12:00 AM CDT documented in this encounter Plan of Treatment Not on file documented as of this encounter Visit Diagnoses Not on filedocumented in this encounter Care Teams Emt Dispatcher Relationship Specialty Start Date End Date Maira Up MD [address] [place] [address] PCP - General Internal Medicine 05/31/13 documented as of this encounter
--- OUTSIDE RECORDS SUMMARY | 2025-06-04 20:07 | XMS_ITS | Encounter Summary ---
Author Organization [facility] Address [address] [place] [address] Care Team Providers Care Frame Catcher Name Role Phone Maira Up MD Primary Care Provider [phone] Encounter Details Date Type Department Care Team (Latest Contact Info) Description 09/08/1999 Orders Only Carlito Cadet MD [address] [place] [address] Social History Tobacco Use Types Packs/Day Years [...] on filedocumented in this encounter Care Teams Frame Catcher Relationship Specialty Start Date End Date Maira Up MD [address] [place] [address] PCP - General Internal Medicine 05/31/13 documented as of this encounter
--- OUTSIDE RECORDS SUMMARY | 2025-06-04 20:07 | XMS_ITS | Encounter Summary ---
Author Organization [facility] Address [address], [place] [address] Care Team Providers Care Mechanical Development Engineer Name Role Phone Maira Up MD Primary Care Provider [phone] Encounter Details Date Type Department Care Team [...] on filedocumented in this encounter Care Teams Mechanical Development Engineer Relationship Specialty Start Date End Date Maira Up MD [address] [place] [address] PCP - General Internal Medicine 05/31/13 documented as of this encounter
--- OUTSIDE RECORDS SUMMARY | 2025-06-04 20:07 | XMS_ITS | Encounter Summary ---
Author Organization [facility] Address [address] [place] [address] Care Team Providers Care Manager Furniture Name Role Phone Maira Up MD Primary Care Provider [phone] Encounter Details Date Type Department Care Team [...] filedocumented in this encounter Care Teams Manager Furniture Relationship Specialty Start Date End Date Maira Up MD [address] [place] [address] PCP - General Internal Medicine 05/31/13 documented as of this encounter
--- OUTSIDE RECORDS SUMMARY | 2025-06-04 20:07 | XMS_ITS | Clinical Summary ---
Author Organization [facility] Address [address] [place] [address] Care Team Providers Care Director Government Name Role Phone Maira Saldaña MD Unavailable [...] ons:Sinusitis, unspecified chronicity, unspecified location Inhale 1 Anderson into affected nostril(s) once daily. 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 Not on file Not on file Not [...] N Livin g 9 9 [employer]HEUS [employer] GROUND SUPPORT EQUIPMENT ASSEMBLER,C [place] Complications:Pre-eclampsia (HC) Delivery Location:[facility]) Current Last Filed Vital Signs Vital Sign Reading Time Taken Comments Blood Pressure 122/64 02/18/2025 10:15 AM CDT Pulse 117 02/18/2025 10:15 AM CDT Temperature 36.6 C (97.8 F) 02/18/2025 10:15 AM CDT Respiratory Rate 16 02/18/2025 10:15 AM CDT Oxygen Saturation 100% 01/09/2025 3:26 PM CHIROPRACTOR SOLE PRACTITIONER Inhaled Oxygen Concentration - - Weight 125.2 kg (276 lb) 02/18/2025 10:15 AM CDT Height 174.9 cm (5' 8.86) 01/09/2025 3:26 PM CS T Body Mass Index 40.92 01/09/2025 3:26 PM CHIROPRACTOR SOLE PRACTITIONER Plan of Treatment Health Maintenance Due Date Last Done Comments HIV for age 15-65 2004 COVID-19 vaccine series ( - 2023- season) 2024 Pap test for age 21-65 12/08/2024 0 ([facility] 08/13/2017, 07/20/2014 Depression screening for age 12+ [...] PM CDT Polyarthralgia Positive SHAKIRA (antinuclear antibody) ACCIDENT REPORT CLERK THIN PREP PAP SCREEN IMAGED Routine 08/13/2017 10:31 AM CDT Cervical cancer screening from Last 3 Months or Most Recently Relevant to Health Maintenance Results * LAB TRACKING EVENT (05/24/2025 4:53 PM CDT) Other (Other) Client Collect / Unknown 05/24/2025 4:53 PM CDT 05/25/2025 2:14 PM CDT Yarelis Martinez MD LAB BILL ONLY Final Re s[facility] [address] [place] [address], * PATH TISSUE EXAM PLACENTA (05/24/2025 4:53 PM CDT) Case Report Pathology Report Case: [id number] Authorizing Provider: Yarelis Martinez MD Collected: 05/24/20251652 Ordering Location: [facility] Received: 05/25/2025 1611 Pathologist: Bird Snow MD Specimens: A) - Placenta B) - Placenta 05/29/2025 7:44 AM CDT [facility] Final Diagnosis A,B) PLACENTAS, [...] (partial placentas provided) 05/29/2025 7:44 AM CDT [facility] at 0744 CDT Clinical [...] No Smoking: No 05/29/2025 7:44 AM CDT [facility] [employer] LABORATORY-C ENTRAL LABORATORY Gross Description A) Received [...] umbilical cord with no knots or hemorrhages. Manager Msw sections are submitted as follows: 1. Sections [...] cord with no cord knots or hemorrhages. Manager Msw sections are submitted as follows: 1. Manager Msw sections of umbilical cord 2. Manager Msw sections of membrane 3, 4. Manager Msw full-thickness sections of placenta tissue TRB 05/25/2025 05/29/2025 7:44 AM CDT [facility] [employer] [facility]- ENTRAL LABORATORY Microscopic Description The final diagnosis is based on microscopic examination of appropriate sections of all specimens. 05/29/2025 7:44 AM CDT [facility] [employer] LABORATORY-C ENTRAL LABORATORY Additional Information Interpreted at [facility], Central Laboratory - [address] [place] [address], [place] [address] 05/29/2025 7:44 AM CDT [facility]- ENTRAL LABORATORY Tissue SPECIMEN FROM PLACENTA / Unknown 05/24/2025 4:53 PM CDT 05/25/2025 4:11 PM CDT Tissue specimen (specimen) SPECIMEN FROM PLACENTA / Unknown 05/24/2025 5:46 PM CDT 05/25/2025 4:11 PM CDT Yarelis Martinez MD PATHOLOGY/CYTOLOGY Final Result Performing Organization Address City/State/[facility] Co de Phone Number [facility] [address] [place] [address], [place] * ANTI HCV (10/01/2023 3:38 PM CDT) HEPATITIS C ANTIBODY Non-Reacti ve Non-React jaylon 10/02/2023 3:14 PM CDT [facility] TRAL LABORATORY Comment:Please note, per www .CDC.gov: [...] SEND OUTS Final Result Performing Organization Address [facility] Co de Phone Number [facility] [address] [place] [address], [place] * ACCIDENT REPORT CLERK THIN PREP PAP SCREEN IMAGED (08/13/2017 10:31 AM CDT) Case Report Gynecologic Cytology Report Case: [id number] Authorizing Provider: Ara Aguilera MD Collected: 08/13/2017 1031 [facility] Received: 08/13/2017 [facility] First Screen: Matilde Bear Rescreen: Kandice Chand Specimen: ACCIDENT REPORT CLERK ThinPrep Vial Screening, Cervical 08/21/2017 12:25 PM CDT [facility] INTERPRETATION/ RESULT NEGATIVE FOR INTRAEPITHELIAL LESION OR MALIGNANCY (NIL) (none) 08/21/2017 12:25 PM CDT [facility] [employer] ENTRAL LABORATORY at 1225 CDT SPECIMEN ADEQUACY Satisfactory for evaluation Endocervical component present Scant cellularity Obscuring Inflammation 08/21/2017 12:25 PM CDT [facility] [employer] ENTRAL LABORATORY HPV REQUEST HPV if ASCUS 08/21/2017 12:25 PM CDT [facility] [employer] [facility] EN[facility] Date of LMP 07/31/2017 08/21/2017 12:25 PM CDT [facility] ENTRMO LABORATORY Last Pap Date 201308/21/2017 12:25 PM CDT [facility] ENTRAL LABORATORY Last Pap Result UNS 7 12:25 PM CDT [facility] ENTRAL LABORATORY Abnormal Pap or Sanford Bx in last 5 years No 08/21/2017 12:25 PM CDT [facility] LABORATORY Menstrual Status Regular Periods 08/21/2017 12:25 PM CDT [facility] LAB[facility] Sanford Bx Done Today No 08/21/2017 12:25 PM CDT [facility] Additional Information None given 08/21/2017 12:25 PM CDT [facility] ENTRMO LABORATORY Automated Review Successful 08/21/2017 12:25 PM CDT [facility] ENTRMO LABORATORY Comment:Specimen processed s uccessfully by automated electro winning operator device, ThinPrep Imaging System, [employer] Note The pap test is a screening technique, not a diagnostic procedure. It is used primarily to screen for squamous cancers and precursor lesions. Published studies have shown that it is subject to both false negative and false positive results. The pap test should not be used as the sole means to diagnose or exclude pre-malignant and malignant lesions. Interpreted at [facility] Laboratory (Central Lab, [facility], [facility], [facility], [facility], [facility], [facility]) 08/21/2017 12:25 PM CDT [facility] Other (Cervical) 08/13/2017 10:31 AM CDT 08/13/2017 10:31 AM CDT us Ara Aguilera MD PATHOLOGY/CYTOLOGY Heidi hylton Result [facility] [address] [place] [address], [place] from Last 3 Months or Most Recently Relevant to Health Maintenance Insurance MEDICA CHOICE [facility] WORKERS COMP Advance Directives * Full Code (Latest Code Status on File) Date Activated Date Inactivated Comments 02/04/2022 7:57 AM 02/04/2022 2:55 PM Question Answer Comments Code Status Discussion: Unable to Assess Preferences, Provider to review later Care Teams Director Government Relationship Specialty Start Date End Date Edyta Londono DO [address] [place] [address] PCP - General Family Practice 12/26/24 Maira Saldaña MD Family Practice Family Practice 04/14/13
--- OUTSIDE RECORDS SUMMARY | 2025-06-04 20:07 | XMS_ITS | Encounter Summary ---
Author Organization [facility] Address [address] [place] [address] Care Team Providers Care Chicken And Fish Butcher Name Role Phone Blake Bonillaah Primary Care Provider [phone] Betty Godfrey MD Unavailable [facility], Shoaib Colon/Sylvain Primary Care Pr ovider Stacia [...] PM CDT Legal Sex Female 3:11 PM CLOUD CONSULTANT Gender Identity Female 09/07/2023 1:35 PM CDT Sexual Orientation Not on file documented as of this encounter Plan of Treatment Not on file documented as of this encounter Visit Diagnoses Not on filedocumented in this encounter Additional Health Concerns Infection Onset Date Last Indicated Resolved Time Rule Out COVID-19 11/18/2021 11/18/2021 11/18/2021 6:50 PM CLOUD CONSULTANT documented as of this encounter Care Teams Chicken And Fish Butcher Relationship Specialty Start Date End Date Leyla Bonilla PCP - General Family Practice 06/22/19 11/28/24 Shoaib Xie [address] [place] [address] PCP - General 11/29/24 [place] [address] [place] [address] Assigned OBGYN Provider 10/20/21 2 Stacia Lozano MD [address] [place] [address] [address] [place] [address] Assigned OBGYN Provider 01/22/25 documented as of this encounter
--- OUTSIDE RECORDS SUMMARY | 2025-06-04 20:07 | XMS_ITS | Encounter Summary ---
Author Organization [facility] Address [address] [place] [address] Care Team Providers Care Business Rules Developer Name Role Phone Maira Up MD Primary Care Provider [phone] Encounter Details Date Type Department Care Team (Late st Contact Info) Description 11/13/2015 Correspondence [facility] Occupational and Environmental Medicine [address] [place] [address] Yariel Gregory MD [address] [place] [address] OCC MED NOTES Social History Tobacco Use [...] on filedocumented in this encounter Care Teams Business Rules Developer Relationship Specialty Start Date End Date Maira Up MD [address] [place] [address] PCP - General Internal Medicine 05/31/13 documented as of this encounter
--- OUTSIDE RECORDS SUMMARY | 2025-06-04 20:07 | XMS_ITS | Encounter Summary ---
Author Organization [facility] Address [address] [place] [address] Care Team Providers Care Associate Professor Of Engineering Name Role Phone Maira Up MD Primary Care Provider [phone] Encounter Details Date Type Department Care Team [...] on filedocumented in this encounter Care Teams Associate Professor Of Engineering Relationship Specialty Start Date End Date Maira Up MD [address] [place] [address] PCP - General Internal Medicine 05/31/13 documented as of this encounter
--- OUTSIDE RECORDS SUMMARY | 2025-06-04 20:07 | XMS_ITS | Encounter Summary ---
Author Organization [facility] Address [address], [place] [address] Care Team Providers Care Stock Checker Name Role Phone Maira Up MD Primary Care Provider [phone] Encounter Details Date Type Department Care Team (Late st Contact Info) Description 10/15/2014 Emergency Room External to [facility], Provider FLU SMPTOMS VIRAL ILLNESS Social [...] on filedocumented in this encounter Care Teams Stock Checker Relationship Specialty Start Date End Date Maira Up MD [address] [place] [address] PCP - General Internal Medicine 05/31/13 documented as of this encounter
--- OUTSIDE RECORDS SUMMARY | 2025-06-04 20:07 | XMS_ITS | Encounter Summary ---
Author Organization [facility] Address [address] [place] [address] Care Team Providers Care Craft Center Director Name Role Phone Maira Up MD Primary Care Provider [phone] Encounter Details Date Type Department Care Team (Latest Contact Info) Description 02/26/1998 Orders Only Drake Isidro MD [address] [place], [place] [address] Social History Tobacco Use Types Packs/Day Years [...] on filedocumented in this encounter Care Teams Craft Center Director Relationship Specialty Start Date End Date Maira Up MD [address] [place] [address] PCP - General Internal Medicine 05/31/13 documented as of this encounter
--- OUTSIDE RECORDS SUMMARY | 2025-06-04 20:07 | XMS_ITS | Encounter Summary ---
Author Organization [facility] Address [address], [place] [address] Care Team Providers Care Drone Pilot Name Role Phone Maira Up MD Primary Care Provider [phone] Encounter Details Date Type Department Care Team (Late st Contact Info) Description 06/03/2001 Office Visit [facility] [address] [place] [address] Jcarlos Ramirez MD [address] [place] [address] Social History Tobacco Use Types Packs/Day Years [...] ago and the family has been at [facility] while this developed. O: Dominique is [...] on filedocumented in this encounter Care Teams Drone Pilot Relationship Specialty Start Date End Date Maira Up MD [address] [place] [address] PCP - General Internal Medicine 05/31/13 documented as of this encounter
--- OUTSIDE RECORDS SUMMARY | 2025-06-04 20:07 | XMS_ITS | Encounter Summary ---
Author Organization [facility] Address [address], [place] [address] Care Team Providers Care Technical Architect Name Role Phone Maira Up MD Primary Care Provider [phone] Encounter Details Date Type Department Care Team [...] filedocumented in this encounter Care Teams Technical Architect Relationship Specialty Start Date End Date Maira Up MD [address] [place] [address] PCP - General Internal Medicine 05/31/13 documented as of this encounter
--- OUTSIDE RECORDS SUMMARY | 2025-06-04 20:07 | XMS_ITS | Encounter Summary ---
Author Organization [facility] Address [address], [place] [address] Care Team Providers Care Hydrochloric Manufacturing Supervisor Name Role Phone Maira Up MD Primary Care Provider [phone] Encounter Details Date Type Department Care Team [...] regarding closed head injury was given. cc: HANDLER documented in this encounter Plan of Treatment Not on file documented as of this encounter Visit Diagnoses Not on filedocumented in this encounter Care Teams Hydrochloric Manufacturing Supervisor Relationship Specialty Start Date End Date Maira Up MD [address] [place] [address] PCP - General Internal Medicine 05/31/13 documented as of this encounter
--- OUTSIDE RECORDS SUMMARY | 2025-06-04 20:07 | XMS_ITS | Encounter Summary ---
Author Organization [facility] Address [address] [place] [address] Care Team Providers Care Clicker Operator Name Role Phone Maira Up MD Primary Care Provider [phone] Encounter Details Date Type Department Care Team [...] on filedocumented in this encounter Care Teams Clicker Operator Relationship Specialty Start Date End Date Maira Up MD [address] [place] [address] PCP - General Internal Medicine 05/31/13 documented as of this encounter
--- OUTSIDE RECORDS SUMMARY | 2025-06-04 20:07 | XMS_ITS | Encounter Summary ---
Author Organization [facility] Address [address] [place] [address] Care Team Providers Care Reconciliation Accountant Name Role Phone Maira Up MD Primary Care Provider [phone] Encounter Details Date Type Department Care Team (Late st Contact Info) Description 02/02/2014 Emergency Room External to [facility], Provider SOFT TISSUE INJURY TO RT ELBOW [...] as of this encounter Progress Notes * [facility], Provider - 02/02/2014 12:00 AM CST documented in this encounter Plan of Treatment Not on file documented as of this encounter Visit Diagnoses Not on filedocumented in this encounter Care Teams Reconciliation Accountant Relationship Specialty Start Date End Date Maira Up MD [address] [place] [address] PCP - General Internal Medicine 05/31/13 documented as of this encounter
--- OUTSIDE RECORDS SUMMARY | 2025-06-04 20:07 | XMS_ITS | Encounter Summary ---
Author Organization [facility] Address [address] [address] Care Team Providers Care Rn Team Leader Name Role Phone Maira Up MD Primary Care Provider [phone] Encounter Details Date Type Department Care Team [...] as of this encounter Progress Notes * oLuise Alvarez - 10/22/1998 12:00 AM CSTS: Patient [...] is 113 pounds, temperature 98.2. Ears bilaterally: [place] and light reflex present, clear TM. Mouth: [...] her on non-citrus drink and bland diet. ENT SAFETY MANAGER documented in this encounter Plan of Treatment Not on file documented as of this encounter Visit Diagnoses Not on filedocumented in this encounter Care Teams Rn Team Leader Relationship Specialty Start Date End Date Maira Up MD [address] [place] [address] PCP - General Internal Medicine 05/31/13 documented as of this encounter
--- NOTE | 2025-06-04 20:26 | CRLHL7_ITS ---
For Patients: As a result of the Century Cures Act, medical imaging exams and procedure reports are released immediately into your electronic medical record. You may view this report before your referring provider. If you have questions, please contact your health care provider. INDICATION: 3 weeks , vaginal bleeding, passing clots TECHNIQUE: Ultrasound pelvis transvaginal. Endovaginal imaging was performed to better visualize the endometrium and ovaries. Real-time bonilla scale sonographic images with spectral and color Doppler imaging of the ovaries were obtained. COMPARISON: 05/19/2025 FINDINGS: Uterus: 14.7 x 7.8 x 11 cm. Heterogeneous hypoechoic material is present within the uterine cavity which may be due to blood products. Normal echotexture of the myometrium noted with no masses are seen. Endometrium: 37 mm. Color Doppler shows vascularity along the margins of the endometrium and near the fundus. Right ovary: 4.8 x 2.8 x 2.5 cm. There is a cyst measuring 2.3 cm in the right ovary. The right ovary is normal in appearance and echotexture. Color Doppler examination of the right ovary is limited. Left ovary: The left ovary is not seen and may be obscured by bowel gas. Cul-de-sac: No significant ascites noted. IMPRESSION: 1. Endometrium is thickened, heterogeneous and vascular in appearance. Findings are suggestive of retained products of conception. Dictated by Nolan Larsen MD @ 06/04/2025 10:19:28 PM Dictated by: Nolan Larsen MD @ 06/04/2025 22:19:36 (Electronically Signed)
--- NOTE | 2025-06-04 20:38 | ED.PREGNANCY ---
HPI - General Date Seen: 06/04/25 Chief complaint: Vaginal Bleeding Stated complaint: heavy bleeding Time Seen by Provider: 06/04/25 20:09 Source: patient Mode of arrival: ambulatory Limitations: no limitations History of Present Illness HPI Narrative: Patient is a 35-year-old female post Twin vaginal delivery 11 days ago, presents here with markedly increased vaginal bleeding, passing large clots that her hands size. And bright red blood. She contacted OB who told her to come in, she did not feel dizzy or faint there is no history of syncope, she was having some bleeding, a but nothing like this it has happened the last 6-8 hours. She says her delivery was complicated by which she describes as hemorrhage in the PACU. She also has had PIH in is continuing on her labetalol. No previous history of bleeding, she has been anemic in the past and did require during this iron infusions and transfusion with her last delivery. Denies any fevers chills or sweats, there is no history of any dysuria frequency, no history of any nasal bleeding, she does have a very urticarial rash on her abdomen, denies any significant abdominal plain she does get cramping when she breast feeds. Related Data Home Medications ?Medication ?Instructions ?Recorded ?Confirmed cholecalciferol (vitamin D3) 25 25 mcg PO QDAY 02/17/25 05/23/25 mcg (1,000 unit) capsule docosahexaenoic acid 200 mg See Rx Instructions PO DAILY 02/17/25 05/24/25 capsule ( DHA) folic acid 400 mcg tablet 0.4 mg PO QDAY 02/17/25 05/23/25 Previous Rx's ?Medication ?Instructions ?Recorded acetaminophen 500 mg tablet 1,000 mg (2 x 500 mg) PO Q6H PRN 05/26/25 #0 tabs docusate sodium 100 mg capsule 100 mg PO DAILY #90 caps 05/26/25 ibuprofen 600 mg tablet 600 mg PO Q6H PRN #60 tabs 05/26/25 oxycodone 5 mg capsule 5 mg PO Q6H PRN pain #3 caps 05/26/25 oxycodone 5 mg tablet 5 mg PO Q6H PRN pain #10 tabs 05/28/25 polyethylene glycol 3350 17 17 g PO DAILY PRN #119 grams 05/28/25 gram/dose oral powder (LaxaClear) labetalol 100 mg tablet 100 mg PO BID #60 tabs 05/31/25 Allergies Allergy/AdvReac Type Severity Reaction Status Date / Time cefuroxime (From Ceftin) Allergy Severe Verified 05/23/25 17:01 influenza virus vacc Allergy Severe Verified 05/23/25 17:01 trivalent, spl (From Fluzone) prednisolone Allergy Severe Verified 05/23/25 17:01 Sulfa (Sulfonamide Allergy Severe Swelling Verified 05/23/25 17:01 Antibiotics) of Lip/Tongue/Throat doxycycline Allergy Unknown Verified 05/23/25 17:01 Review of Systems Status of ROS: Reports: 10 or more systems reviewed and unremarkable except as noted in History and below PFSH PFS Medical History Abnormal glucose tolerance affecting , antepartum ?O99.810 - Abnormal glucose complicating (ICD-10) Anemia affecting ?O99.019 - Anemia complicating , unspecified trimester (ICD-10) Dichorionic diamniotic twin gestation ?O30.049 - Twin , dichorionic/diamniotic, unspecified trimester (ICD-10) Endometriosis determined by laparoscopy ?N80.9 - Endometriosis, unspecified (ICD-10) Surgical History H/O laparoscopy ?Z98.890 - Other specified postprocedural states (ICD-10) Social History What is your current living situation?: I presently have a place to live Problems where you live: no known problems In the past 12 months, utilities in danger of being shut off: no In past 12 months, lack of transportation kept you from medical appts, meetings, work, or getting things needed for daily living: no In the past 12 mos, have been you worried that your food would run out before you had money to buy more?: never true In the past 12 mos, the food you bought just didn't last and you didn't have money to buy more?: never true Smoking Status: Never smoker Do you use any of these nicotine containing products: None How often do you have a drink containing alcohol: never AUDIT-C Alcohol total score: 0 Non-prescribed substance use: denies use How often does anyone, including family, friends and others, physically hurt you: never How often does anyone, including family, friends and others, insult or talk down to you: never How often does anyone, including family, friends and others, threaten you with harm: never How often does anyone, including family, friends and others, scream or curse at you: never Exam Narrative: Exam Narrative: On examination in room 5 she is in no apparent distress speaking to me normally alert to 3 spheres, she walked in the room. Her pupils equal round reactive to light shockingly her conjunctivae are not pale, oropharynx normal neck is supple chest is good air entry bilaterally no wheezing crackles noted heart sounds are normal abdomen is otherwise soft, she I think I can still feel uterus, on her abdomen she does have what appears to be urticarial papules of (PUPS) Const: Vital Signs, click to edit/add: Vital Signs - 24 hr 06/04/25 20:28 06/04/25 20:33 06/04/25 20:34 Temperature 96.7 F L Pulse Rate 71 67 Pulse Rate [Left P ulse Oximeter] 75 Respiratory Rate 20 Blood Pressure 123/84 Blood Pressure [Ri ght Upper Arm] 145/98 H Pulse Oximetry 99 99 99 Oxygen Delivery [facility] Room Air 06/04/25 20:47 06/04/25 20:48 06/04/25 21:00 Temperature Pulse Rate 69 73 66 Pulse Rate [Left P ulse Oximeter] Respiratory Rate Blood Pressure 128/91 H Blood Pressure [Ri ght Upper Arm] Pulse Oximetry 98 99 99 Oxygen Delivery [facility] 06/04/25 21:02 06/04/25 21:15 06/04/25 21:17 Temperature Pulse Rate 69 65 64 Pulse Rate [Left P ulse Oximeter] Respiratory Rate Blood Pressure 128/72 127/77 Blood Pressure [Ri ght Upper Arm] Pulse Oximetry 99 100 [facility] 06[facility] 22:08 06/04/25 22:15 06/04/25 22:20 Temperature Pulse Rate 66 63 68 Pulse Rate [Left P ulse Oximeter] Respiratory Rate Blood Pressure Blood Pressure [Ri ght Upper Arm] Pulse Oximetry 97 97 96 [facility] 06/04/25 22:21 06/04/25 22:30 06/04/25 22:35 Temperature Pulse Rate 65 71 72 Pulse Rate [Left P ulse Oximeter] Respiratory Rate Blood Pressure 139/78 Blood Pressure [Ri ght Upper Arm] Pulse Oximetry 97 97 100 Oxygen Delivery Sc thod Documenting provider has reviewed patient's vital signs: yes Course Course ED Course: Patient continued to bleed a little bit, not a lot, but every time she stood up she would-a little bit, her labs returned showing a mild anemia, but not too bad. Unfortunately her ultrasound did show would likely is retained products of conception I spoke to Dr. Freeman from OB, she recommended D and C, patient is fit for surgery, she last had Dr. Salas on the way and approximately 2 hours ago, Patient is ASA 1 for surgery, Consultations Consultation #1: Consultation with Dr. Freeman from OBGYN Time: 22:30 Vital Signs Vital signs: Initial Vital Signs Temperature 96.7 F L 06/04/25 20:28 Temperature Source Temporal Artery Scan 06/04/25 20:28 Pulse Rate 75 06/04/25 20:28 Pulse Rhythm Regular 06/04/25 20:28 Respiratory Rate 20 06/04/25 20:28 Blood Pressure 145/98 H 06/04/25 20:28 Blood Pressure Mean 113 H 06/04/25 20:28 Blood Pressure Position Semi-Fowlers 06/04/25 20:28 Pulse Oximetry 99 06/04/25 20:28 Oxygen Delivery Method Room Air 06/04/25 20:28 Vital Signs Temperature 96.7 F L 06/04/25 20:28 Pulse Rate 75 06/04/25 20:28 Respiratory Rate 20 06/04/25 20:28 Blood Pressure 145/98 H 06/04/25 20:28 Pulse Oximetry 99 06/04/25 20:28 Oxygen Delivery Method Room Air 06/04/25 20:28 Temperature 96.7 F L 06/04/25 20:28 Pulse Rate 72 06/04/25 22:35 Respiratory Rate 20 06/04/25 20:28 Blood Pressure 139/78 06/04/25 22:35 Pulse Oximetry 100 06/04/25 22:35 Oxygen Delivery Method Room Air 06/04/25 20:28 Medications Administered Medications: Generic Name Dose Route Start Last Admin Trade Name Freq PRN Reason Stop Dose Admin Hydromorphone HCl 0.5 mg 06/04/25 21:55 06/04/25 21:40 Hydromorphone 0.5 Mg/0.5 Ml Inj IVP 06/04/25 21:56 0.5 mg ONCE ONE Administration Discontinued Medications Generic Name Dose Route Start Last Admin Trade Name Abram PRN Reason Stop Dose Admin Sodium Chloride 1,000 mls @ 1,000 mls/hr 06/04/25 20:30 06/04/25 21:45 0.9 % Sodium Chloride 1000 Ml IV 06/04/25 21:29 Infused .Q1H PRICILLA Infusion MDM - OB/Uterine Contractions MDM Narrative Medical decision making narrative: We will start an IV, I will do a type and screen on her. I will get ultrasound, laboratory work, and contact OB. Medical Records Attestation: I reviewed the patient's medical records. Lab Data Attestation: I reviewed the patient's lab results. Labs: Lab Results 06/04/25 Range/Units 20:47 WBC 9.60 (4.50-11.00) K/uL RBC 3.76 L (4.00-5.20) m/uL Hgb 10.9 L (12.0-16.0) gm/dL Hct 32.9 L (33.0-51.0) % MCV 88 (80-100) fL MCH 29 (26-34) pg MCHC 33 (32-36) gm/dL RDW Coeff of Jennifer 12.9 (11.5-15.5) % Plt Count 483 H (140-440) K/uL Neut % (Auto) 67.6 (42.0-72.0) % Lymph % (Auto) 25.0 (20-44) % [place] % (Auto) 5.5 (0.0-11.0) % Eos % (Auto) 1.6 (0.0-7.0) % Baso % (Auto) 0.2 (0.0-3.0) % Neut # (Auto) 6.49 (1.7-7.0) K/uL Lymph # (Auto) 2.40 (0.90-2.90) K/uL [place] # (Auto) 0.50 (0.00-0.90) K/UL Eos # (Auto) 0.15 (0.00-0.50) K/uL Baso # (Auto) 0.02 (0.00-0.30) K/uL Abs Immat Gran (auto) 0.01 (0.00-0.30) K/uL Imm/Tot Granulo (auto) 0.1 % INR 0.94 (0.91-1.10) APTT 34 H (23-33) Seconds Sodium 135 (135-149) mmol/L Potassium 4.1 (3.6-5.1) mmol/L Chloride 103 (96-114) mmol/L Carbon Dioxide 22 (20-32) mmol/L Anion Gap 10 (7-15) mEq/L BUN 13 (5-24) mg/dL Creatinine 0.8 (0.5-1.5) mg/dL Estimated Creat Clear 101.60 Estimated GFR 98 ml/min Glucose 87 (60-115) mg/dL Calcium 9.1 (8.4-10.6) mg/dL Blood Type A Positive Antibody Screen NEGATIVE Imaging Data Pelvic ultrasound: Radiologist's impression: [place] [address] Diagnostic Imaging Report Patient: Dominique Gil MR#: [id number] : 1990 Acct:[id number] Loc: ED Service Date: 06/04/[address]: Ordering Physician: Saravanan Sherwood M.D. Date of Service: 06/04/25 Procedure(s): US pelvic TA and TV Accession Number(s): [id number] cc: Provider,Not a Local; Saravanan Sherwood M.D.~ For Patients: As a result of the Century Cures Act, medical imaging exams and procedure reports are released immediately into your electronic medical record. You may view this report before your referring provider. If you have questions, please contact your health care provider. INDICATION: 3 weeks , vaginal bleeding, passing clots TECHNIQUE: Ultrasound pelvis transvaginal. Endovaginal imaging was performed to better visualize the endometrium and ovaries. Real-time bonilla scale sonographic images with spectral and color Doppler imaging of the ovaries were obtained. COMPARISON: 05/19/2025 FINDINGS: Uterus: 14.7 x 7.8 x 11 cm. Heterogeneous hypoechoic material is present within the uterine cavity which may be due to blood products. Normal echotexture of the myometrium noted with no masses are seen. Endometrium: 37 mm. Color Doppler shows vascularity along the margins of the endometrium and near the fundus. Right ovary: 4.8 x 2.8 x 2.5 cm. There is a cyst measuring 2.3 cm in the right ovary. The right ovary is normal in appearance and echotexture. Color Doppler examination of the right ovary is limited. Left ovary: The left ovary is not seen and may be obscured by bowel gas. Cul-de-sac: No significant ascites noted. IMPRESSION: 1. Endometrium is thickened, heterogeneous and vascular in appearance. Findings are suggestive of retained products of conception. Dictated by Nolan Larsen MD @ 06/04/2025 10:19:28 PM Dictated by: Nolan Larsen MD @ 06/04/2025 22:19:36 (Electronically Signed) Discharge Plan Discharge Clinical Impression: Abnormal vaginal bleeding, Retained products of conception, induced hypertension Patient Disposition: XFER to OR Follow Up/Referrals: Provider,Not a Local [Primary Care Provider, Family Practice]
[2025-06-04 20:57] LABS: Hematocrit 32.9 % (33.0-51.0); Hemoglobin* 10.9 gm/dL (12.0-16.0); Immature Granulocytes Abs Auto 0.01 K/uL (0.00-0.30); Immature Granulocytes Pct Auto 0.1 %; Lymphocytes Absolute Auto 2.40 K/uL (0.90-2.90); Mean Corpuscular HGB Conc 33 gm/dL (32-36); Mean Corpuscular Hemoglobin 29 pg (26-34); Mean Corpuscular Volume 88 fL (80-100); RDW Coefficient of Variation % 12.9 % (11.5-15.5); Red Blood Count 3.76 m/uL (4.00-5.20); White Blood Count* 9.60 K/uL (4.50-11.00)
[2025-06-04 20:58] LABS: Slide Review Reflex No
[2025-06-04 21:19] LABS: Chloride* 103 mmol/L (96-114); Sodium* 135 mmol/L (135-149)
[2025-06-04 21:20] LABS: Potassium* 4.1 mmol/L (3.6-5.1)
[2025-06-04 21:22] LABS: Blood Urea Nitrogen* 13 mg/dL (5-24); Creatinine* 0.8 mg/dL (0.5-1.5); Est. Creatinine Clearance* 101.60; Estimated Glomerular Filt Rate 98 ml/min
[2025-06-04 21:23] LABS: Anion Gap 10 mEq/L (7-15); Calcium* 9.1 mg/dL (8.4-10.6); Carbon Dioxide* 22 mmol/L (20-32); Glucose* 87 mg/dL (60-115); INR 0.94 (0.91-1.10); Prothrombin Time 13.3 Seconds
[2025-06-04] MEDS: CLINDAMYCIN 900 MG/50 ML-D5W 900 MG/50 ML PIGGYBACK 100 MG IVPB (23:49)
[2025-06-05] VITALS (7 sets, daily range): BP systolic 109–137; BP diastolic 68–87; PULSE 63–74; RESP 14–18; TEMP 36.5–36.7; O2SAT 95–100
[2025-06-05] MEDS: LIDOCAINE 1% MDV 20 ML INJECTION (00:01)
[2025-06-05] MEDS: BUPIVACAINE 0.5% 30 ML INJECTION (00:01)
--- NOTE | 2025-06-05 00:21 | PM.GYNCN1 ---
OUTBOUND SALES ADVISOR - CN: HPI Data of Consult Date Seen: 06/04/25 Patient: [facility] Patient Consult date: 06/04/25 Requesting Physician: Nuvia Freeman MD Primary Care Provider: Not a Local Provider Consult Narrative Reason for consult: vaginal bleeding Narrative: Dominique Gil is a 35 year old female who is day #11 following vaginal delivery of twin girls. She presented to the Emergency Department complaining of heavy vaginal bleeding since delivery and passage of fist-sized clots the day of evaluation. She also states that she has been experiencing low abdominal cramping and vaginal pain at the perineal repir site since delivery, and has been evaluated twice for this since delivery. Also complains of hemorrhoidal pain and difficulty passing BMs secondary to pain. . On labetalol for gestational hypertension. Has been using tylenol, ibuprofen and occasional oxycodone for her pain. Denies fevers, chills, malaise. cc:: CC: Nuvia Freeman MD Review of Systems Status of ROS: Reports: 10 or more systems reviewed and unremarkable except as noted in History and below Narrative: She states that her perineal repair took 12 weeks to heal following her previous delivery. [facility] Medical History Abnormal glucose tolerance affecting , antepartum ?O99.810 - Abnormal glucose complicating (ICD-10) Anemia affecting ?O99.019 - Anemia complicating , unspecified trimester (ICD-10) Dichorionic diamniotic twin gestation ?O30.049 - Twin , dichorionic/diamniotic, unspecified trimester (ICD-10) Endometriosis determined by laparoscopy ?N80.9 - Endometriosis, unspecified (ICD-10) Surgical History H/O laparoscopy ?Z98.890 - Other specified postprocedural states (ICD-10) Social History What is your current living situation?: I presently have a place to live Problems where you live: no known problems In the past 12 months, utilities in danger of being shut off: no In past 12 months, lack of transportation kept you from medical appts, meetings, work, or getting things needed for daily living: no In the past 12 mos, have been you worried that your food would run out before you had money to buy more?: never true In the past 12 mos, the food you bought just didn't last and you didn't have money to buy more?: never true Smoking Status: Never smoker Do you use any of these nicotine containing products: None How often do you have a drink containing alcohol: never AUDIT-C Alcohol total score: 0 Non-prescribed substance use: denies use How often does anyone, including family, friends and others, physically hurt you: never How often does anyone, including family, friends and others, insult or talk down to you: never How often does anyone, including family, friends and others, threaten you with harm: never How often does anyone, including family, friends and others, scream or curse at you: never Meds Home Medications and Allergies Home Medications ?Medication ?Instructions ?Recorded ?Confirmed ?Type cholecalciferol (vitamin D3) 25 25 mcg PO QDAY 02/17/25 05/23/25 History mcg (1,000 unit) capsule docosahexaenoic acid 200 mg See Rx Instructions PO DAILY 02/17/25 05/24/25 History capsule ( DHA) folic acid 400 mcg tablet 0.4 mg PO QDAY 02/17/25 05/23/25 History acetaminophen 500 mg tablet 1,000 mg (2 x 500 mg) PO Q6H PRN 05/26/25 Rx #0 tabs docusate sodium 100 mg capsule 100 mg PO DAILY #90 caps 05/26/25 Rx ibuprofen 600 mg tablet 600 mg PO Q6H PRN #60 tabs 05/26/25 Rx oxycodone 5 mg capsule 5 mg PO Q6H PRN pain #3 caps 05/26/25 Rx oxycodone 5 mg tablet 5 mg PO Q6H PRN pain #10 tabs 05/28/25 Rx polyethylene glycol 3350 17 17 g PO DAILY PRN #119 grams 05/28/25 Rx gram/dose oral powder (LaxaClear) labetalol 100 mg tablet 100 mg PO BID #60 tabs 05/31/25 Rx Allergies Allergy/AdvReac Type Severity Reaction Status Date / Time cefuroxime (From Ceftin) Allergy Severe Verified 05/23/25 17:01 influenza virus vacc Allergy Severe Verified 05/23/25 17:01 trivalent, spl (From Fluzone) prednisolone Allergy Severe Verified 05/23/25 17:01 Sulfa (Sulfonamide Allergy Severe Swelling Verified 05/23/25 17:01 Antibiotics) of Lip/Tongue/Throat doxycycline Allergy Unknown Verified 05/23/25 17:01 OUTBOUND SALES ADVISOR - Exam Physical Exam: Vital signs: Temp Pulse Resp BP Pulse Ox O2 Del Method 96.7 F L 72 20 139/78 100 Room Air 06/04/25 20:28 06/04/25 22:35 06/04/25 20:28 06/04/25 22:35 06/04/25 22:35 06/04/25 20:28 Constitutional: Constitutional: no acute distress and cooperative Routine Respiratory Exam: Comments: Normal respiratory effort Routine Abdominal Exam: Abdominal: Present soft; Absent tenderness Routine Exam: Comments: Exam deferred to operating room Routine Extremities Exam: Extremities: Absent pedal edema OUTBOUND SALES ADVISOR - Results Labs Labs: Short CBC 06/04/25 Range/Units 20:47 WBC 9.60 (4.50-11.00) K/uL Hgb 10.9 L (12.0-16.0) gm/dL Hct 32.9 L (33.0-51.0) % Plt Count 483 H (140-440) K/uL BMP 06/04/25 20:47 Sodium 135 Potassium 4.1 Chloride 103 Carbon Dioxide 22 BUN 13 Creatinine 0.8 Glucose 87 Calcium 9.1 Imaging US - pelvis: Attestation: I have reviewed the pertinent imaging results. My impression: Likely retained products of conception. Radiologist's impression: [place] [address] Diagnostic Imaging Report Patient: Dominique Gil MR#: [id number] : 1990 Acct:[id number] Loc: ED Service Date: 06/04/[address]: Ordering Physician: Saravanan Sherwood M.D. Date of Service: 06/04/25 Procedure(s): US pelvic TA and TV Accession Number(s): [id number] cc: Provider,Not a Local; Saravanan Sherwood M.D.~ For Patients: As a result of the Cures Act, medical imaging exams and procedure reports are released immediately into your electronic medical record. You may view this report before your referring provider. If you have questions, please contact your health care provider. INDICATION: 3 weeks , vaginal bleeding, passing clots TECHNIQUE: Ultrasound pelvis transvaginal. Endovaginal imaging was performed to better visualize the endometrium and ovaries. Real-time bonilla scale sonographic images with spectral and color Doppler imaging of the ovaries were obtained. COMPARISON: 05/19/2025 FINDINGS: Uterus: 14.7 x 7.8 x 11 cm. Heterogeneous hypoechoic material is present within the uterine cavity which may be due to blood products. Normal echotexture of the myometrium noted with no masses are seen. Endometrium: 37 mm. Color Doppler shows vascularity along the margins of the endometrium and near the fundus. Right ovary: 4.8 x 2.8 x 2.5 cm. There is a cyst measuring 2.3 cm in the right ovary. The right ovary is normal in appearance and echotexture. Color Doppler examination of the right ovary is limited. Left ovary: The left ovary is not seen and may be obscured by bowel gas. Cul-de-sac: No significant ascites noted. IMPRESSION: 1. Endometrium is thickened, heterogeneous and vascular in appearance. Findings are suggestive of retained products of conception. Dictated by Nolan Larsen MD @ 06/04/2025 10:19:28 PM Dictated by: Nolan Larsen MD @ 06/04/2025 22:19:36 (Electronically Signed) Assessment and Plan Assessment and plan (1) Retained products of conception: Status: Acute (2) Abnormal vaginal bleeding: Status: Acute Plan Recommend examination under anesthesia and suction curettage. The relative risks and benefits the surgical procedure were reviewed with the patient and informed consent obtained. Risks reviewed included, but are not limited to, bleeding, infection, injury to other organs including uterine perforation. Because it is quite late, will plan to observe the patient overnight on the medical-surgical unit, and if stable, she can be discharged in the morning. We discussed postoperative pain control. We also reviewed conservative management for hemorrhoidal pain. She was reassured that if there is no sign of infection of the vaginal/perineal repair, that the pain will gradually improve as the tissues heal.
--- NOTE | 2025-06-05 00:31 | P.ANES_ITS ---
Anesthesia Charges Start Date/Time Anesthesia Start Date: 06/05/25 Anesthesia Start Time: 23:37 Stop Date/Time Anesthesia Stop Date: 06/05/25 Anesthesia Stop Time: 00:18 Summary Emergency: DISTRIBUTION CLERK Coding CPT Codes CPT Codes: ANESTH VAGINAL PROCEDURES - 44545 ([id number]) P3 - PATIENT W/SEVERE SYS DISEASE, QZ - DISTRIBUTION CLERK SVC W/O MARKETING DEVELOPMENT MANAGER BY Additional Codes: Summary - Emergency: DISTRIBUTION CLERK ([id number])
--- NOTE | 2025-06-05 00:31 | W.ANESCHARGE ---
Anesthesia Charges Start Date/Time Anesthesia Start Date: 06/05/25 Anesthesia Start Time: 23:37 Stop Date/Time Anesthesia Stop Date: 06/05/25 Anesthesia Stop Time: 00:18 Summary Emergency: REMEDIATION PROJECT ENGINEER Coding CPT Codes CPT Codes: ANESTH VAGINAL PROCEDURES - 63241 ([id number]) P3 - PATIENT W/SEVERE SYS DISEASE, QZ - REMEDIATION PROJECT ENGINEER SVC W/O MASTIC SPRAYER BY Additional Codes: Summary - Emergency: REMEDIATION PROJECT ENGINEER ([id number])
--- NOTE | 2025-06-05 00:44 | P.GYNPRC_ITS ---
Procedure Note Date of procedure: 06/04/25 Will [facility] bill your pro fee for this procedure?: Yes Pre-op diagnosis: 1. Heavy vaginal bleeding 2. Retained products of conception following vaginal delivery of twins 3. Vaginal/perineal pain status post repair vaginal/perineal laceration Post-op diagnosis: Same. Procedure: 1. Examination under anesthesia 2. Suction curettage Anesthesia: MAC and local (Paracervical block) Complications: None Surgeon: Nuvia Freeman MD Estimated blood loss (mL): 10 Pathology: specimen obtained, sent to pathology (Products of conception) Condition: stable Disposition: same day Findings: Vaginal/perineal repair intact. No sign of infection. Perianal hemorrhoids, soft without evidence of thrombosis. Small amount blood, clots, and products of conception within the uterus. Procedure Description: After obtaining informed consent, the patient was taken to the operating room where she received monitored anesthesia care. She was prepared and draped in the normal, sterile fashion in the dorsal lithotomy position. Clindamycin 900 mg IV was administered intravenously. An examination was performed under anesthesia with the findings noted above. An open-sided bivalve speculum was placed into the vagina and the cervix easily visualized. The anterior lip of the cervix was grasped with a single-tooth tenaculum for traction. A paracervical block was administered using a total of 20 mL of a 50:50 mixture of 1% lidocaine and 0.5% Marcaine, plain. A sound was gently inserted through the cervical os into the uterus to the level of the fundus. Sound length was 10 cm. The cervix was gently dilated using Hegar dilators to a #10 dilator. A 10 mm rigid, curved suction cannula was advanced through the cervical os into the uterine cavity. Gentle suction was applied, and the uterine lining gently curetted. A small amount of products of conception and blood was removed. The suction cannula was removed. The uterine lining was gently explored using a sharp curette, and a gritty feel was felt throughout. One final pass was made with the suction cannula, no further tissue was recovered. All instruments were then removed. The patient tolerated the procedure well. Sponge, lap, and needle counts were reported as correct x2. The patient was taken to the recovery room awake and in stable condition.
--- NOTE | 2025-06-05 06:28 | PC.NURSE ---
End of shift report: Patient arrived to the unit at 0018. Pleasant and cooperative. VSS. Afebrile. Denies nausea. Pt stated that she was having some abdominal cramps, pt stated they were tolerable and rated it 5/10. Intermittent aqua-k pad was utilized. Pt discharged at 0610 via wheelchair. Belongings are with the patient. Discharge instructions gone through and signed. IV removed, tip intact.?
== END 2025-06-05 06:10 | disposition home or self-care (01) ==
LOC: ED 22:54 → SS 22:59 → MEDSURG 06-05 00:28
PROVIDERS: Emergency Provider Family Medicine; Visit Provider Obstetrics & Gynecology
PROC: (CPT 59160; principal; 2025-06-04 23:30)
DX: O72.2 Delayed and secondary postpartum hemorrhage (principal); R10.2 Pelvic and perineal pain; O87.2 Hemorrhoids in the puerperium; O13.5 Gestational [pregnancy-induced] hypertension without significant proteinuria, complicating the puerperium
CPT/HCPCS: 59160; 00940; 36415; 76830; 76856; 80048; 85025; 85610; 85730; 86850; 86900; 86901; 99140; 99284; 99285; J2003; J0665; J0736; J1171; J1885; J2405; J2704; J3010; J7030

== ENCOUNTER 2025-06-08 12:11 | Outpatient (CLI) | payer OTHER, SELFPAY ==
--- NOTE | 2025-06-08 12:00 | CRLHL7_ITS ---
For Patients: As a result of the Century Cures Act, medical imaging exams and procedure reports are released immediately into your electronic medical record. You may view this report before your referring provider. If you have questions, please contact your health care provider. INDICATION: COMPARISON: Pelvic ultrasound on June 04, 2025 TECHNIQUE: Mack-scale and color Doppler ultrasound of the uterus and ovaries from a transabdominal and transvaginal approach. Transvaginal ultrasound of the pelvis was performed to better visualize the genitourinary organs, such as the ovaries and/or endometrium. Color-flow and spectral Doppler imaging of both ovaries is performed. FINDINGS: The uterus measures 15.1 x 7.5 x 10.3 cm and demonstrates normal echogenicity. No uterine masses. The endometrium is thickened measuring 2.8 centimeters with a minimal amount of blood flow seen in the endometrium anteriorly to the left of midline, likely site of baby A`s placenta location. There is heterogeneous echogenic material in the endometrial canal. The cervix is normal. The right ovary measures 5.7 x 2.3 x 3.1 cm. Physiologic appearance without a dominant cystic lesion or solid ovarian / adnexal mass. There is normal arterial and venous color Doppler flow. The left ovary measures 4.0 x 1.4 x 2.0 cm. Physiologic appearance without a dominant cystic lesion or solid ovarian / adnexal mass. There is normal arterial and venous color Doppler flow. No free fluid. IMPRESSION: Re-demonstration of a thickened, heterogeneous, and slightly vascular endometrium consistent with persistent retained products of conception. Dictated by Js Garrido MD @ 06/08/2025 1:13:20 PM (Electronically Signed)
== END 2025-06-08 12:12 | disposition home or self-care (01) ==
LOC: US 12:11
PROVIDERS: Visit Provider Obstetrics & Gynecology
DX: O73.0 Retained placenta without hemorrhage (principal)
CPT/HCPCS: 76830; 76856; 93976

== ENCOUNTER 2025-06-09 11:50 | Day surgery (SDC) | payer OTHER, SELFPAY ==
[2025-06-09 12:20] VITALS: BMI 36.6
[2025-06-09] MEDS: LACTATED RINGERS 1000 ML 1,000 ML 100 ML IV (12:50)
[2025-06-09] MEDS: SODIUM CHLORIDE 0.9 % (FLUSH) 10 ML SYRINGE IVF (12:57)
[2025-06-09 12:58] VITALS: BP 113/68; PULSE 78; RESP 16; TEMP 36.5; O2SAT 98
[2025-06-09 12:59] LABS: Hemoglobin* 12.3 gm/dL (12.0-16.0)
[2025-06-09 13:03] LABS: Appearance Urine Clear (Clear)
[2025-06-09 13:17] LABS: Creatinine* 0.8 mg/dL (0.5-1.5); Est. Creatinine Clearance* 105.13; Estimated Glomerular Filt Rate 98 ml/min
[2025-06-09] MEDS: CLINDAMYCIN 900 MG/50 ML-D5W 900 MG/50 ML PIGGYBACK 100 MG IVPB (13:32)
[2025-06-09] MEDS: BUPIVACAINE 0.5% 30 ML INJECTION (13:52)
[2025-06-09] MEDS: GENTAMICIN 435 MG in 0.9 % SODIUM CHLORIDE 100 ml 100 ML 110.88 MG IVPB (13:54)
--- NOTE | 2025-06-09 14:11 | P.ANES_ITS ---
Anesthesia Charges Start Date/Time Anesthesia Start Date: 06/09/25 Anesthesia Start Time: 13:28 Stop Date/Time Anesthesia Stop Date: 06/09/25 Coding CPT Codes CPT Codes: ANESTH HYSTEROSCOPE/GRAPH - 39814 ([id number]) QK - C D REACTOR OPERATOR 2-4 CNCRNT ANES PROC, QX - NAPPER RUNNER SVC W/ MD MED DIRECTION, P2 - PATIENT W/MILD SYST DISEASE
--- NOTE | 2025-06-09 14:11 | W.ANESCHARGE ---
Anesthesia Charges Start Date/Time Anesthesia Start Date: 06/09/25 Anesthesia Start Time: 13:28 Stop Date/Time Anesthesia Stop Date: 06/09/25 Coding CPT Codes CPT Codes: ANESTH HYSTEROSCOPE/GRAPH - 77260 ([id number]) QK - APPLICATION SUPPORT CONSULTANT 2-4 CNCRNT ANES PROC, QX - PAPER FEEDER SVC W/ MD MED DIRECTION, P2 - PATIENT W/MILD SYST DISEASE
--- NOTE | 2025-06-09 14:53 | SUR.OPER ---
jennifer clear deficit was 1150cc
[2025-06-09] MEDS: SILVER NITRATE APPLICATOR 1 EACH STICK..EA. TOPICAL (15:23)
[2025-06-09] MEDS: miSOPROStoL 800 MCG/4 TABLET PR (15:39)
[2025-06-09] MEDS: ESTROGENS, CONJUGATED VAGINAL 0.625 MG/G CREAM 1 APPLIC VAGINAL (15:43)
[2025-06-09 15:51] VITALS: BP 118/59; PULSE 75; RESP 16; TEMP 36; O2SAT 98
--- NOTE | 2025-06-09 15:53 | W.PM.H&PU ---
History & Physical Update History & Physical Update H&P Reviewed and patient assessed: No changes noted
--- NOTE | 2025-06-09 15:54 | P.ANES_ITS ---
Anesthesia Charges Start Date/Time Anesthesia Start Date: 06/09/25 Anesthesia Start Time: 13:28 Stop Date/Time Anesthesia Stop Date: 06/09/25 Anesthesia Stop Time: 15:52 Coding CPT Codes CPT Codes: ANESTH HYSTEROSCOPE/GRAPH - 27466 ([id number]) P2 - PATIENT W/MILD SYST DISEASE, QK - SOAKING PIT OPERATOR 2-4 CNCRNT ANES PROC, QX - RN CASE MANAGER SVC W/ MD MED DIRECTION
--- NOTE | 2025-06-09 15:54 | W.ANESCHARGE ---
Anesthesia Charges Start Date/Time Anesthesia Start Date: 06/09/25 Anesthesia Start Time: 13:28 Stop Date/Time Anesthesia Stop Date: 06/09/25 Anesthesia Stop Time: 15:52 Coding CPT Codes CPT Codes: ANESTH HYSTEROSCOPE/GRAPH - 22585 ([id number]) P2 - PATIENT W/MILD SYST DISEASE, QK - CHECK EMBOSSER 2-4 CNCRNT ANES PROC, QX - EDUCATIONAL/DEVELOPMENT ASSISTANT SVC W/ MD MED DIRECTION
--- NOTE | 2025-06-09 15:54 | W.PM.GYNPROC ---
Procedure Note Date of procedure: 06/09/25 Will [facility] bill your pro fee for this procedure?: Yes Pre-op diagnosis: Delayed bleeding, suspected retained products of conception, persistent pelvic pain Post-op diagnosis: Delayed bleeding, suspected retained products of conception, perineal laceration dehiscence Procedure: Hysteroscopy, dilation and curettage, cystoscopy, perineal laceration revision Anesthesia: MAC and local Complications: None Surgeon: Yoselin Yee MD Submarine Element Coordinator: Lcuy Her Estimated blood loss (mL): 50 Urine Output (mL): 200 Pathology: specimen obtained, sent to pathology (Endometrial curettings) Condition: stable Disposition: same day Findings: Normal external genitalia, evidence of perineal laceration repair, suture material in place. Perineal body defect, perineal skin approximated and followed by a deep about 2-3 cm indentation before posterior vaginal mucosa. Posterior vaginal wall prolapse at least grade 3. Speculum exam: grossly normal cervix, w/o gross lesions or abnormal discharge. Open at least 1cm. Intrauterine cavity: endometrium with thick and irregular tissue, on the posterior uterine wall what looked like a large lesion that is purplish in color and had the appearance of retained placental tissue. Bilateral cornual openings seen. Cystoscopy: gas bubble noted, bladder mucosa intact w/o lesions or foreign objects. Bilateral ureteral openings and jets seen. Small scattered spots of blood noted most likely secondary from manipulation. Procedure Description: Patient was taken to the OR were MAC anesthesia was administered without difficulty. She was placed in the dorsal lithotomy position with Matt type stirrups. An exam under anesthesia as described above. Patient was then prepared and draped in the normal sterile fashion. A bivalved speculum was inserted in the posterior aspect of the vagina. 0.5% Marcaine was injected at 2 and 11 o'clock a total of about 5mL utilized. A single-tooth tenaculum was used to grasp the anterior lip of the cervix. The uterus was carefully sounded to 8 cm. The cervical os was sequentially dilated to accommodate the 5 mm TrueClear hysteroscope using Hegar dilators. A 5 mm 30 degree TrueClear hysteroscope was introduced under direct visualization, and the uterus was distended with normal saline. Findings as above. Soft tissue incisor blade from TrueClear hysteroscope system was introduced under direct visualization and endometrial curettings performed with removal of polypoid lesions. Hysteroscope removed under direct visualization. Mirena IUD was placed without difficulty, strings were cut and left about 3 -4 cm long. Tenaculum was removed from the cervix and good hemostasis was noted at puncture sites. Patient tolerated the procedure well. Instrument and sponge counts were correct x2. The patient was awakened from MAC anesthesia and taken to the recovery room in a stable condition. The patient will go home after recovering from anesthesia and meeting all the criteria for discharge. She was given instruction regarding follow-up visit in 2 weeks at [facility] and instructions for pain medication. Cystoscopy was performed using sterile normal saline as distending medium. The bladder was carefully inspected and noted to be free of filling defects or suture material. Both ureteral orifices were easily visualized and fluorescein tinged urine jets were noted from both sides. The cystoscope was then removed. The Duong catheter was replaced into the bladder. Fluid deficit: 1050mL
[2025-06-09 16:00] VITALS: BP 118/78; PULSE 75; RESP 16; O2SAT 98
--- NOTE | 2025-06-09 16:02 | P.ANES_ITS ---
Anesthesia Charges Start Date/Time Anesthesia Start Date: 06/09/25 Anesthesia Start Time: 13:28 Stop Date/Time Anesthesia Stop Date: 06/09/25 Anesthesia Stop Time: 15:52 Coding CPT Codes CPT Codes: ANESTH HYSTEROSCOPE/GRAPH - 11130 ([id number]) P2 - PATIENT W/MILD SYST DISEASE, QX - PARTS LISTER SVC W/ MD MED DIRECTION, QK - QUALITY REP 2-4 CNCRNT ANES PROC
--- NOTE | 2025-06-09 16:02 | W.ANESCHARGE ---
Anesthesia Charges Start Date/Time Anesthesia Start Date: 06/09/25 Anesthesia Start Time: 13:28 Stop Date/Time Anesthesia Stop Date: 06/09/25 Anesthesia Stop Time: 15:52 Coding CPT Codes CPT Codes: ANESTH HYSTEROSCOPE/GRAPH - 75916 ([id number]) P2 - PATIENT W/MILD SYST DISEASE, QX - MANAGER BODY SVC W/ MD MED DIRECTION, QK - SUPERVISOR SANDBLASTER 2-4 CNCRNT ANES PROC
[2025-06-09 16:15] VITALS: BP 134/86; PULSE 60; RESP 16; O2SAT 98
[2025-06-09 16:30] VITALS: BP 127/85; PULSE 70; RESP 16; O2SAT 98
[2025-06-09 16:45] VITALS: BP 134/93; PULSE 65; RESP 16; O2SAT 98
== END 2025-06-09 17:15 | disposition home or self-care (01) ==
PROVIDERS: Obstetrics & Gynecology; Visit Provider Obstetrics & Gynecology
PROC: 0UDB8ZZ Extraction of Endometrium, Via Natural or Artificial Opening Endoscopic (ICD-10-PCS; CPT 58558; principal; 2025-06-09 13:15)
DX: O72.2 Delayed and secondary postpartum hemorrhage (principal); R10.2 Pelvic and perineal pain; N81.6 Rectocele; O90.1 Disruption of perineal obstetric wound
CPT/HCPCS: 58558; 00952; 36415; 81001; 81003; 82565; 85018; 86850; 86900; 86901; 87086; 88305; A9270; C1782; J0665; J0736; J1580; J1885; J2250; J2704; J3010; J3490; J7120

== ENCOUNTER 2025-08-11 10:36 | Outpatient (CLI) | payer OTHER, SELFPAY ==
[2025-08-13 02:07] LABS: HPV Source Cervix
[2025-08-14 19:52] LABS: Pap Test Digital Imaging Done
== END 2025-08-11 10:37 | disposition home or self-care (01) ==
PROVIDERS: Visit Provider Physician Assistant
DX: Z12.4 Encounter for screening for malignant neoplasm of cervix (principal); Z11.51 Encounter for screening for human papillomavirus (HPV)
CPT/HCPCS: 87624; 87625; 88141; 88142; 88175

== ENCOUNTER 2025-09-16 22:47 | Emergency (ER) | payer OTHER, SELFPAY ==
--- OUTSIDE RECORDS SUMMARY | 2025-02-14 09:00 | XMS_ITS ---
Author Organization [email or web address] [facility] [place] Address [address] [place] [address] Care Team Providers Care Body Presser Name Role Phone None, No PCP Primary Care Provider UnavailDominique Nath Unavailable [phone] Lizette Berg Unavailable [phone] Social History Sex Assigned At : Social History Observation Description Sex Assigned At Female Encounters Encounter Location Date Provider Diagnosis [address] [id number] 02/14/2025 Lizette Berg Plan Of Treatment No Information Progress Notes * Romaine MENEZESOB: 9 (35 yo F)Acc No.[id number]:02/14/2025 Patient: Dominique TEJEDA Provider: Pritesh Gama D.C. :1990 A ge:35 Y S ex:Female Date:02/14/2025 Address:[address] [place] [address], [address], [id number] Pcp:No PCP None Subjective: * Chief Complaints: * * Medical History: Objective: * Vitals: Assessment: Plan: * Treatment: * Images: Billing Information: * Visit Code: * Procedure Codes: * Electronic signature of Lizette Berg D.C. on 09/16/2025 at 11:52 PM CDT Sign off status: Pending * Provider: Pritesh Gama D.C. Date: 0 02/14/2025 Generated for Shala somers/Alicia/Norberto on: 1 11:52 PM CDT
--- OUTSIDE RECORDS SUMMARY | 2025-02-14 09:00 | XMS_ITS ---
Author Organization [employer] [facility] [place] Address [address] [place] [address] Care Team Providers Care Shop Worker Name Role Phone None, No PCP Primary Care Provider UnavailDominique Nath Unavailable [phone] Lizette Berg Unavailable [phone] Social History Sex Assigned At : Social History Observation Description Sex Assigned At Female Encounters Encounter Location Date Provider Diagnosis [address] [id number] 02/14/2025 Lizette Berg Plan Of Treatment No Information Progress Notes * Romaine MENEZESOB: 9 (35 yo F)Acc No.[id number]:02/14/2025 Patient: Dominique TEJEDA Provider: Pritesh Gama D.C. :1990 A ge:35 Y S ex:Female Date:02/14/2025 Address:[address] [place] [address], [address], [id number] Pcp:No PCP None Subjective: * Chief Complaints: * * Medical History: Objective: * Vitals: Assessment: Plan: * Treatment: * Images: Billing Information: * Visit Code: * Procedure Codes: * Electronic signature of Lizette Berg D.C. on 09/16/2025 at 10:51 PM CDT Sign off status: Pending * Provider: Pritesh Gama D.C. Date: 0 02/14/2025 Generated for Shala somers/Alicia/Norberto on: 1 10:51 PM CDT
--- OUTSIDE RECORDS SUMMARY | 2025-02-15 09:15 | XMS_ITS ---
Author Organization [facility] [place] Address [address] [place] [address] Care Team Providers Care Hide Shaker Name Role Phone None, No PCP Primary Care Provider UnavailDominique Nath Unavailable [phone] Iraj Francis Unavailable [phone] REASON FOR VISIT 02/04 visits through 04/12 Medications Medication SIG (Take, Route, Frequency, Duration) Notes Start Date End Date Status Magnesium Active ZyrTEC Allergy Activ e Folic Acid 0.8 MG 1 capsule Orally Onc e a day; Duration: 90 days 10/23/2024 Active Aspirin 81 MG 1 tablet Orally Once a day; Duration: 90 days START AT 12 WEEKS GESTATION 10/23/2024 Active + DHA Activ e Zoloft 50 MG 1 tablet Orally Once a day; Duration: 30 days 12/27/2024 Active Ferrous Sulfate 325 (65 Fe) MG 1 tablet Orally daily; Duration: 90 days 12/29/2024 Active Tylenol PRN Active Vitamin D Active Unisom Active Social History Sex Assigned At : Social History Observation Description Sex Assigned At Female Encounters Encounter Location Date Provider Diagnosis [facility] [address] [id number] 02/15/2025 Iraj Francis Low back pain at multiple sites M54.50 ; Segmental and somatic dysfunction of lumbar region M99.03 ; Segmental and somatic dysfunction of sacral region M99.04 ; Segmental and somatic dysfunction of pelvic region M99.05 and Pubic bone pain M89.9 Assessments Encounter Date Diagnosis (ICD Code) Assessment Notes Treatment Notes Treatment Clinical Notes Section Notes 02/15/2025 Low back pain at multiple sites (ICD-10 - M54.50) DIAGNOSIS: Upon consideration of the information available I have diagnosed Dominique with the above diagnoses. The patient is currently in acute phase. The patient's prognosis of current condition is Fair. Short Term Goals- decrease segmental dysfunction, decrease swelling and inflammation, decrease pain, relief care, relief of symptoms, diminish symptoms of pain associated with , and pain management - Short Term Goals: slight improvement by next exam City Administrator Goals- decrease segmental dysfunction, decrease swelling and inflammation, increase active and passive range of motion, strengthening, decrease muscle spasms, decrease pain, relief care, relief of symptoms, pain management, maximum medical improvement, increase proprioception, decrease nociception, improve level of comfort throughout FDC goals: significantly improved by discharge Today's Treatment: - Chief Complaint: headaches, bilateral neck, bilateral trapezius, upper thoracic, mid thoracic, lower thoracic, low back - Primary Treatment: Diversified and Manual- Chiropractic Manipulative Therapy (CMT) to the right T9, left L2, right L4, right ilium spinal level(s). - Post treatment: Dominique felt/noticed related improvement after treatment. 02/15/2025 Segmental and somatic dysfunction of lumbar region (ICD-10 - M99.03) DIAGNOSIS: Upon consideration of the information available I have diagnosed Dominique with the above diagnoses. The patient is currently in acute phase. The patient's prognosis of current condition is Fair. Short Term Goals- decrease segmental dysfunction, decrease swelling and inflammation, decrease pain, relief care, relief of symptoms, diminish symptoms of pain associated with , and pain management - Short Term Goals: slight improvement by next exam Retirement Goals- decrease segmental dysfunction, decrease swelling and inflammation, increase active and passive range of motion, strengthening, decrease muscle spasms, decrease pain, relief care, relief of symptoms, pain management, maximum medical improvement, increase proprioception, decrease nociception, improve level of comfort throughout computer terminal operator goals: significantly improved by discharge Today's Treatment: - Chief Complaint: headaches, bilateral neck, bilateral trapezius, upper thoracic, mid thoracic, lower thoracic, low back - Primary Treatment: Diversified and Manual- Chiropractic Manipulative Therapy (CMT) to the right T9, left L2, right L4, right ilium spinal level(s). - Post treatment: Dominique felt/noticed related improvement after treatment. 02/15/2025 Segmental and somatic dysfunction of sacral region (ICD-10 - M99.04) DIAGNOSIS: Upon consideration of the information available I have diagnosed Dominique with the above diagnoses. The patient is currently in acute phase. The patient's prognosis of current condition is Fair. Short Term Goals- decrease segmental dysfunction, decrease swelling and inflammation, decrease pain, relief care, relief of symptoms, diminish symptoms of pain associated with , and pain management - Short Term Goals: slight improvement by next exam Retirement Goals- decrease segmental dysfunction, decrease swelling and inflammation, increase active and passive range of motion, strengthening, decrease muscle spasms, decrease pain, relief care, relief of symptoms, pain management, maximum medical improvement, increase proprioception, decrease nociception, improve level of comfort throughout computer terminal operator goals: significantly improved by discharge Today's Treatment: - Chief Complaint: headaches, bilateral neck, bilateral trapezius, upper thoracic, mid thoracic, lower thoracic, low back - Primary Treatment: Diversified and Manual- Chiropractic Manipulative Therapy (CMT) to the right T9, left L2, right L4, right ilium spinal level(s). - Post treatment: Dominique felt/noticed related improvement after treatment. 02/15/2025 Segmental and somatic dysfunction of pelvic region (ICD-10 - M99.05) DIAGNOSIS: Upon consideration of the information available I have diagnosed Dominique with the above diagnoses. The patient is currently in acute phase. The patient's prognosis of current condition is Fair. Short Term Goals- decrease segmental dysfunction, decrease swelling and inflammation, decrease pain, relief care, relief of symptoms, diminish symptoms of pain associated with , and pain management - Short Term Goals: slight improvement by next exam City Administrator Goals- decrease segmental dysfunction, decrease swelling and inflammation, increase active and passive range of motion, strengthening, decrease muscle spasms, decrease pain, relief care, relief of symptoms, pain management, maximum medical improvement, increase proprioception, decrease nociception, improve level of comfort throughout FDC goals: significantly improved by discharge Today's Treatment: - Chief Complaint: headaches, bilateral neck, bilateral trapezius, upper thoracic, mid thoracic, lower thoracic, low back - Primary Treatment: Diversified and Manual- Chiropractic Manipulative Therapy (CMT) to the right T9, left L2, right L4, right ilium spinal level(s). - Post treatment: Dominique felt/noticed related improvement after treatment. 02/15/2025 Pubic bone pain (ICD-10 - M89.9) DIAGNOSIS: Upon consideration of the information available I have diagnosed Dominique with the above diagnoses. The patient is currently in acute phase. The patient's prognosis of current condition is Fair. Short Term Goals- decrease segmental dysfunction, decrease swelling and inflammation, decrease pain, relief care, relief of symptoms, diminish symptoms of pain associated with , and pain management - Short Term Goals: slight improvement by next exam Retirement Goals- decrease segmental dysfunction, decrease swelling and inflammation, increase active and passive range of motion, strengthening, decrease muscle spasms, decrease pain, relief care, relief of symptoms, pain management, maximum medical improvement, increase proprioception, decrease nociception, improve level of comfort throughout computer terminal operator goals: significantly improved by discharge Today's Treatment: - Chief Complaint: headaches, bilateral neck, bilateral trapezius, upper thoracic, mid thoracic, lower thoracic, low back - Primary Treatment: Diversified and Manual- Chiropractic Manipulative Therapy (CMT) to the right T9, left L2, right L4, right ilium spinal level(s). - Post treatment: Dominique felt/noticed related improvement after treatment. 02/15/2025 Other TREATMENT PLAN: Dominique's treatment plan for this episode began on 02/10/25 and is projected to be completed on her estimated delivery date. - Home/Self Care: Dominique was instructed in home care recommendations that included: home cold pack - Primary Complaint(s): low back, pelvis, pubic bone - Primary Treatment: Diversified and Manual- Chiropractic Manipulative Therapy (CMT) to the lumbar spinal region, sacral spinal region at a frequency and duration of 2 visits per week for next 2 weeks, then 1 visit per week for the duration of her ; followed by a re-exam after delivery. - During the visit today we performed the following 3-4 region adjustment Continue with regular exercise. Continue co-treatment with Chiro DIAGNOSIS: Upon consideration of the information available I have diagnosed Dominique with the above diagnoses. The patient is currently in acute phase. The patient's prognosis of current condition is Fair. Short Term Goals- decrease segmental dysfunction, decrease swelling and inflammation, decrease pain, relief care, relief of symptoms, diminish symptoms of pain associated with , and pain management - Short Term Goals: slight improvement by next exam City Administrator Goals- decrease segmental dysfunction, decrease swelling and inflammation, increase active and passive range of motion, strengthening, decrease muscle spasms, decrease pain, relief care, relief of symptoms, pain management, maximum medical improvement, increase proprioception, decrease nociception, improve level of comfort throughout computer terminal operator goals: significantly improved by discharge Today's Treatment: - Chief Complaint: headaches, bilateral neck, bilateral trapezius, upper thoracic, mid thoracic, lower thoracic, low back - Primary Treatment: Diversified and Manual- Chiropractic Manipulative Therapy (CMT) to the right T9, left L2, right L4, right ilium spinal level(s). - Post treatment: Dominique felt/noticed related improvement after treatment. Plan Of Treatment Treatment Notes Assessment Notes Other TREATMENT PLAN: Dominique's treatment plan for this episode began on 02/10/25 and is projected to be completed on her estimated delivery date. - Home/Self Care: Dominique was instructed in home care recommendations that included: home cold pack - Primary Complaint(s): low back, pelvis, pubic bone - Primary Treatment: Diversified and Manual- Chiropractic Manipulative Therapy (CMT) to the lumbar spinal region, sacral spinal region at a frequency and duration of 2 visits per week for next 2 weeks, then 1 visit per week for the duration of her ; followed by a re-exam after delivery. - During the visit today we performed the following 3-4 region adjustment Continue with regular exercise. Continue co-treatment with Chiro Progress Notes * Ericka MENEZESMeganOB: 9 (35 yo F)Acc No.[id number]:02/15/2025 Patient: Dominique TEJEDA Provider: Mary Francis DC :1990 A ge:35 Y S ex:Female Date:02/15/2025 Address:[address] [place] [address], [address] [place], [place] [id number] Pcp:No PCP None Subjective: * Chief Complaints: * 1 . 02/04 visits through 5/14. * HPI: * General: P atient presents today 23 weeks and 5 days with a NASIM Of 7/9. She notes she had slight improvement in her low back. She has been doing gentle stretching at home with temporary relief. She got a SIJ belt that did not give her as much relief as her belly band does. pt hx: Patient presents today 23 weeks and 2 days with a NASIM Of 7/9. Patient presents with a main complaint of pubic bone, L hip, pelvis and low back pain. She sees a chiro regulary but only gets temporary relief. With this pain, she has associated L sided sciatic symptoms into her L knee. She has a hx of disc issues. She states she used to lift weights competiviely and regulary, since she has had to drastically change her workout routine. Some yoga feels well but swimming gives the most relief. She does a lot with her stability ball, again with minimal relief. She weard a belly band to help with any round ligament pain. 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 She had a labrum repair surgery in her L hip. Chief Complaint: lower thoracic, low back complaint after becoming . - Frequency/Quality: Constant discomfort described as aching, dull, shooting, sharp, numbness, tingling - Radiation of symptoms: non-radiating - Change in complaint/VAS: Complaint has slightly imrpoved s christi the onset and the pain scale is presently rated 5/10 (10/10 being most severe). - Modifying factors: Relieved by: some chiro, working out and aggravated by: some workouts, exercise - Previous episodes: denies past episodes. - ADL/Functional Deficits: Explains personal care (washing, dressing, etc.), walking, being on her computer, lifting, bending forward, changing body positions, employment, homemaking and sleeping has become difficult due to pain. * Medical History: * Medications: T alona Tylenol , Notes to Pharmacist: PRN, Taking Vitamin D , Taking Unisom , Taking + DHA , Taking Magnesium , Taking ZyrTEC Allergy , Taking Folic Acid 0.8 MG Capsule 1 capsule Orally Once a day , Taking Aspirin 81 MG Tablet Delayed Release 1 tablet Orally Once a day START AT 12 WEEKS GESTATION, Taking Zoloft 50 MG Tablet 1 tablet Orally Once a day , Taking Ferrous Sulfate 325 (65 Fe) MG Tablet 1 tablet Orally daily Objective: * Vitals: * Examination: * General Examination: GENERAL APPEARANCE: a lert, in no acute distress, normal.? Musculoskeletal - Gait and Station: normal gait and normal balance Musculoskeletal - Inspection/Percussion +/or Palpation: suboccipitals, neck, bilateral scalenes, bilateral trapezius, bilateral levator scapulae, upper thoracic, mid thoracic, lower thoracic, lumbar, sacral, bilateral gluteus medius, bilateral psoas Posture- anterior head carriage, rounded shoulders, slight hyperextension of lumbar spine, anterior pelvic tilt - Spinal Stability/Restriction(s)/Subluxation(s) right T9, left L2, right L4, right ilium - Extraspinal restrictions/subluxations: N/A (no other subluxations were noted). - Muscle Strength and Tone: severe muscle spasms in the following areas; suboccipitals, neck, bilateral scalenes, bilateral trapezius, bilateral levator scapulae, upper thoracic, mid thoracic, lower thoracic, lumbar, sacral, bilateral gluteus medius, bilateral psoas - Tonicity: severe hypertonic bilateral suboccipitals, cervical paraspinals, scalenes, bilateral thoracic paraspinals, bilateral trapezius, right levator scapulae, left levator scapulae, bilateral psoas, lumbar paraspinals, bilateral gluteus medius. - Edema:bilateral thoracic paraspinals, bilateral lumbar paraspinals, L SIJ. Assessment: * Assessment: 1. L ow back pain at multiple sites - M54.50 (Primary) 2 . S egmental and somatic dysfunction of lumbar region - M99.03 3 . S egmental and somatic dysfunction of sacral region - M99.04 4 . S egmental and somatic dysfunction of pelvic region - M99.05 5 . P ubic bone pain - M89.9 DIAGNOSIS: Upon consideration of the information available I have diagnosed Dominique with the above diagnoses. The patient is currently in acute phase. The patient's prognosis of current condition is Fair. Short Term Goals- decrease segmental dysfunction, decrease swelling and inflammation, decrease pain, relief care, relief of symptoms, diminish symptoms of pain associated with , and pain management - Short Term Goals: slight improvement by next exam Retirement Goals- decrease segmental dysfunction, decrease swelling and inflammation, increase active and passive range of motion, strengthening, decrease muscle spasms, decrease pain, relief care, relief of symptoms, pain management, maximum medical improvement, increase proprioception, decrease nociception, improve level of comfort throughout FDC goals: significantly improved by discharge Today's Treatment: - Chief Complaint: headaches, bilateral neck, bilateral trapezius, upper thoracic, mid thoracic, lower thoracic, low back - Primary Treatment: Diversified and Manual- Chiropractic Manipulative Therapy (CMT) to the right T9, left L2, right L4, right ilium spinal level(s). - Post treatment: Dominique felt/noticed related improvement after treatment. Plan: * Treatment: * Procedure Codes: 9 8941 CHIROPRACTIC MANIPULATION, Modifiers: AT * Images: Billing Information: * Visit Code: * Procedure Codes: 52465 CHIROPRACTIC MANIPULATION. Modifiers: AT * Electronic signature of Angeles Francis DC on 09/16/2025 at 10:51 PM CDT Sign off status: Pending * Provider: Mary Francis DC Date: 0 02/15/2025 Generated for Printing/Faxing/eTransmitting on: 1 10:51 PM CDT History and Physical Notes * HPI (History of Present Illness) Category Sub-Category Detail Notes Category Not es *General Patient presents today 23 weeks and 5 days with a NASIM Of 7/. She notes she had slight improvement in her low back. She has been doing gentle stretching at home with temporary relief. She got a SIJ belt that did not give her as much relief as her belly band does. pt hx: Patient presents today 23 weeks and 2 days with a NASIM Of 7/9. Patient presents with a main complaint of pubic bone, L hip, pelvis and low back pain. She sees a chiro regulary but only gets temporary relief. With this pain, she has associated L sided sciatic symptoms into her L knee. She has a hx of disc issues. She states she used to lift weights competiviely and regulary, since she has had to drastically change her workout routine. Some yoga feels well but swimming gives the most relief. She does a lot with her stability ball, again with minimal relief. She weard a belly band to help with any round ligament pain. 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 She had a labrum repair surgery in her L hip. Chief Complaint: lower thoracic, low back complaint after becoming . - Frequency/Quality: Constant discomfort described as aching, dull, shooting, sharp, numbness, tingling - Radiation of symptoms: non-radiating - Change in complaint/VAS: Complaint has slightly imrpoved since the onset and the pain scale is presently rated 5/10 (10/10 being most severe). - Modifying factors: Relieved by: some chiro, working out and aggravated by: some workouts, exercise - Previous episodes: denies past episodes. - ADL/Functional Deficits: Explains personal care (washing, dressing, etc.), walking, being on her computer, lifting, bending forward, changing body positions, employment, homemaking and sleeping has become difficult due to pain. Examination Category Sub-Category Detail Notes Category Not es *General Examination GENERAL APPEARANCE: alert, in no acute distress, normal Musculoskeletal - Gait and Station: normal gait and normal balance Musculoskeletal - Inspection/Percussion +/or Palpation: suboccipitals, neck, bilateral scalenes, bilateral trapezius, bilateral levator scapulae, upper thoracic, mid thoracic, lower thoracic, lumbar, sacral, bilateral gluteus medius, bilateral psoas Posture- anterior head carriage, rounded shoulders, slight hyperextension of lumbar spine, anterior pelvic tilt - Spinal Stability/Restriction (s)/Subluxation(s) right T9, left L2, right L4, right ilium - Extraspinal restrictions/subluxat ions: N/A (no other subluxations were noted). - Muscle Strength and Tone: severe muscle spasms in the following areas; suboccipitals, neck, bilateral scalenes, bilateral trapezius, bilateral levator scapulae, upper thoracic, mid thoracic, lower thoracic, lumbar, sacral, bilateral gluteus medius, bilateral psoas - Tonicity: severe hypertonic bilateral suboccipitals, cervical paraspinals, scalenes, bilateral thoracic paraspinals, bilateral trapezius, right levator scapulae, left levator scapulae, bilateral psoas, lumbar paraspinals, bilateral gluteus medius. - Edema:bilateral thoracic paraspinals, bilateral lumbar paraspinals, L SIJ
--- OUTSIDE RECORDS SUMMARY | 2025-02-15 09:15 | XMS_ITS ---
Author Organization [employer] [facility] Address [address] [place] [address] Care Team Providers Care Protection Consultant Name Role Phone None, No PCP Primary Care Provider UnavailDominique Nath Unavailable [phone] Iraj Francis Unavailable REASON FOR VISIT 02/04 visits through 04/12 [...] Woman [facility] [address] [phone] 02/15/2025 Iraj Francis Low back pain at [...] Term Goals: slight improvement by next exam Offal Separator Goals- decrease segmental dysfunction, decrease swelling and inflammation, increase active and passive range of motion, strengthening, decrease muscle spasms, decrease pain, relief care, relief of symptoms, pain management, maximum medical improvement, increase proprioception, decrease nociception, improve level of comfort throughout MCFP goals: significantly improved by discharge Today's Treatment: - Chief Complaint: headaches, bilateral neck, bilateral trapezius, upper thoracic, mid thoracic, lower thoracic, low back - Primary Treatment: Diversified and Manual- Chiropractic Manipulative Therapy (CMT) to the right T9, left L2, right L4, right ilium spinal level(s). - Post treatment: Dmoinique felt/noticed related improvement after treatment. 02/15/2025 Segmental [...] Term Goals: slight improvement by next exam Group Home Goals- decrease segmental dysfunction, decrease swelling and inflammation, increase active and passive range of motion, strengthening, decrease muscle spasms, decrease pain, relief care, relief of symptoms, pain management, maximum medical improvement, increase proprioception, decrease nociception, improve level of comfort throughout long term care pharmacist goals: significantly improved by discharge Today's Treatment: [...] Term Goals: slight improvement by next exam Group Home Goals- decrease segmental dysfunction, decrease swelling and inflammation, increase active and passive range of motion, strengthening, decrease muscle spasms, decrease pain, relief care, relief of symptoms, pain management, maximum medical improvement, increase proprioception, decrease nociception, improve level of comfort throughout long term care pharmacist goals: significantly improved by discharge Today's Treatment: [...] Term Goals: slight improvement by next exam Offal Separator Goals- decrease segmental dysfunction, decrease swelling and inflammation, increase active and passive range of motion, strengthening, decrease muscle spasms, decrease pain, relief care, relief of symptoms, pain management, maximum medical improvement, increase proprioception, decrease nociception, improve level of comfort throughout MCFP goals: significantly improved by discharge Today's Treatment: [...] Term Goals: slight improvement by next exam Group Home Goals- decrease segmental dysfunction, decrease swelling and inflammation, increase active and passive range of motion, strengthening, decrease muscle spasms, decrease pain, relief care, relief of symptoms, pain management, maximum medical improvement, increase proprioception, decrease nociception, improve level of comfort throughout long term care pharmacist goals: significantly improved by discharge Today's Treatment: [...] Term Goals: slight improvement by next exam Offal Separator Goals- decrease segmental dysfunction, decrease swelling and inflammation, increase active and passive range of motion, strengthening, decrease muscle spasms, decrease pain, relief care, relief of symptoms, pain management, maximum medical improvement, increase proprioception, decrease nociception, improve level of comfort throughout long term care pharmacist goals: significantly improved by discharge Today's Treatment: [...] * Ericka MENEZESMeganOB: 9 (35 yo F)Acc No.[id number]:02/15/2025 Patient: Dominique TEJEDA Provider: Mary Francis DC :1990 A ge:35 Y S ex:Female Date:02/15/2025 Address:[address] [place] [address], [address] [place], [place] [id number] Pcp:No PCP None Subjective: * Chief Complaints: [...] Term Goals: slight improvement by next exam Group Home Goals- decrease segmental dysfunction, decrease swelling and inflammation, increase active and passive range of motion, strengthening, decrease muscle spasms, decrease pain, relief care, relief of symptoms, pain management, maximum medical improvement, increase proprioception, decrease nociception, improve level of comfort throughout MCFP goals: significantly improved by discharge Today's Treatment: [...] Information: * Visit Code: * Procedure Codes: 36033 CHIROPRACTIC MANIPULATION. Modifiers: AT * Electronic signature of Angeles Francis DC on 09/16/2025 at 11:52 PM CDT Sign off status: Pending * Provider: Mary Francis DC Date: 0 02/15/2025 Generated for Printing/Faxing/eTransmitting on: 1 11:52 PM CDT History and Physical Notes * [...]
--- OUTSIDE RECORDS SUMMARY | 2025-02-16 08:15 | XMS_ITS ---
Author Organization [facility] Address [address] [place] [address] Care Team Providers Care Construction Person Name Role Phone None, No PCP Primary Care Provider UnavailDominique Nath Unavailable [phone] Reid Rodriguez Unavailable [phone] Social History Sex Assigned At : Social History Observation Description Sex Assigned At Female Encounters Encounter Location Date Provider Diagnosis [address] [place] [phone] 02/16/2025 Reid Rodriguez Plan Of Treatment No Information Progress Notes * Romaine MENEZESOB: 9 (35 yo F)Acc No.[id number]:02/16/2025 Patient: Ericka TEJEDAhel Provider: Mary Rodriguez DPT :1990 A ge:35 Y S ex:Female Date:02/16/2025 Address:[address] [place] [address], [address], [facility] Pcp:No PCP None Subjective: * Chief Complaints: * * Medical History: Objective: * Vitals: Therapeutic Interventions: Assessment: Plan: * Treatment: * Images: Billing Information: * Visit Code: * Procedure Codes: * Electronic signature of Carol Ann Rodriguez DPT on 09/16/2025 at 10:50 PM CDT Sign off status: Pending * Provider: Mary Rodriguez DPT Date: 0 02/16/2025 Generated for Shala somers/Alicia/Norberto on: 1 10:50 PM CDT
--- OUTSIDE RECORDS SUMMARY | 2025-02-16 08:15 | XMS_ITS ---
Author Organization [facility] Address [address] [place] [address] Care Team Providers Care Cloth Booker Name Role Phone None, No PCP Primary Care Provider UnavailDominique Nath Unavailable [phone] Reid Rodriguez Unavailable [phone] Social History Sex Assigned At : Social History Observation Description Sex Assigned At Female Encounters Encounter Location Date Provider Diagnosis [address] [place] [phone] 02/16/2025 Reid Rodriguez Plan Of Treatment No Information Progress Notes * Romaine MENEZESOB: 9 (35 yo F)Acc No.[id number]:02/16/2025 Patient: Ericka TEJEDAhel Provider: Mary Rodriguez DPT :1990 A ge:35 Y S ex:Female Date:02/16/2025 Address:[address] [place] [address], [address], [id number] Pcp:No PCP None Subjective: * Chief Complaints: * * Medical History: Objective: * Vitals: Therapeutic Interventions: Assessment: Plan: * Treatment: * Images: Billing Information: * Visit Code: * Procedure Codes: * Electronic signature of Carol Ann Rodriguez DPT on 09/16/2025 at 11:51 PM CDT Sign off status: Pending * Provider: HECTOR De SouzaT Date: 0 02/16/2025 Generated for Shala somers/Alicia/Norberto on: 1 11:51 PM CDT
--- OUTSIDE RECORDS SUMMARY | 2025-03-09 09:30 | XMS_ITS ---
Author Organization [employer] [facility] Address [address] [place] [address] Care Team Providers Care Inside Contractor Sales Name Role Phone None, No PCP Primary Care Provider Dominique Chavira Unavailable [phone] Ronit Pederosn Unavailable [phone] Social History Sex Assigned At : Social History Observation Description Sex Assigned At Female Encounters Encounter Location Date Provider Diagnosis [address] [place] [phone] 03/09/2025 Ronit Pederson Plan Of Treatment No Information Progress Notes * Romaine MENEZESOB: 9 (35 yo F)Acc No.[id number]:03/09/2025 Patient: Dominique TEJEDA Provider: Mary Pederson DPT :1990 A ge:35 Y S ex:Female Date:03/09/2025 Address:[address] [place], [place] [address], [address], [facility] Pcp:No PCP None Subjective: * Chief Complaints: * * Medical History: Objective: * Vitals: Therapeutic Interventions: Assessment: Plan: * Treatment: * Images: Billing Information: * Visit Code: * Procedure Codes: * Electronic signature of Ronit Pederson DPT on 09/16/2025 at 10:50 PM CDT Sign off status: Pending * Provider: Mary Pederson DPT Date: 0 03/09/2025 Generated for Shala somers/Alicia/Norberto on: 1 10:50 PM CDT
--- OUTSIDE RECORDS SUMMARY | 2025-03-09 09:30 | XMS_ITS ---
Author Organization [facility] Address [address] [place] [address] Care Team Providers Care Mattress Spring Encaser Name Role Phone None, No PCP Primary Care Provider Dominique Chavira Unavailable [phone] Ronit Pederson Unavailable [phone] Social History Sex Assigned At : Social History Observation Description Sex Assigned At Female Encounters Encounter Location Date Provider Diagnosis [address] [place] [phone] 03/09/2025 Ronit Pederson Plan Of Treatment No Information Progress Notes * Romaine MENEZESOB: 9 (35 yo F)Acc No.[id number]:03/09/2025 Patient: Dominique TEJEDA Provider: Mary Pederson DPT :1990 A ge:35 Y S ex:Female Date:03/09/2025 Address:[address] [place], [place] [address]E [facility], [address], [facility] Pcp:No PCP None Subjective: * Chief Complaints: * * Medical History: Objective: * Vitals: Therapeutic Interventions: Assessment: Plan: * Treatment: * Images: Billing Information: * Visit Code: * Procedure Codes: * Electronic signature of Ronit Pederson DPT on 09/16/2025 at 11:51 PM CDT Sign off status: Pending * Provider: Mary Pederson DPT Date: 0 03/09/2025 Generated for Shala somers/Alicia/Norberto on: 1 11:51 PM CDT
--- OUTSIDE RECORDS SUMMARY | 2025-03-16 09:45 | XMS_ITS ---
Author Organization [employer] [facility] Address [address] [place] [address] Care Team Providers Care Appliance Servicer Name Role Phone None, No PCP Primary Care Provider Dominique Chavira Unavailable [phone] Ronit Pederson Unavailable [phone] Social History Sex Assigned At : Social History Observation Description Sex Assigned At Female Encounters Encounter Location Date Provider Diagnosis [address] [place] [phone] 03/16/2025 Ronit Pederson Plan Of Treatment No Information Progress Notes * Romaine MENEZESOB: 9 (35 yo F)Acc No.[id number]:03/16/2025 Patient: Dominique TEJEDA Provider: Mary Pederson DPT :1990 A ge:35 Y S ex:Female Date:03/16/2025 Address:[address] [place], [place] [address] [facility], [address], [facility] Pcp:No PCP None Subjective: * Chief Complaints: * * Medical History: Objective: * Vitals: Therapeutic Interventions: Assessment: Plan: * Treatment: * Images: Billing Information: * Visit Code: * Procedure Codes: * Electronic signature of Ronit Pederson DPT on 09/16/2025 at 10:51 PM CDT Sign off status: Pending * Provider: Mary Pederson DPT Date: 0 03/16/2025 Generated for Shala somers/Alicia/Norberto on: 1 10:51 PM CDT
--- OUTSIDE RECORDS SUMMARY | 2025-03-16 09:45 | XMS_ITS ---
Author Organization [employer] [facility] Address [address] [place] [address] Care Team Providers Care Shift Coordinator Name Role Phone None, No PCP Primary Care Provider Dominique Chavira Unavailable [phone] Ronit Pederson Unavailable [phone] Social History Sex Assigned At : Social History Observation Description Sex Assigned At Female Encounters Encounter Location Date Provider Diagnosis [address] [place] [phone] 03/16/2025 Ronit Pederson Plan Of Treatment No Information Progress Notes * Romaine MENEZESOB: 9 (35 yo F)Acc No.[id number]:03/16/2025 Patient: Dominique TEJEDA Provider: Mary Pederson DPT :1990 A ge:35 Y S ex:Female Date:03/16/2025 Address:[address] [place], [place] [address] [facility], [address], [facility] Pcp:No PCP None Subjective: * Chief Complaints: * * Medical History: Objective: * Vitals: Therapeutic Interventions: Assessment: Plan: * Treatment: * Images: Billing Information: * Visit Code: * Procedure Codes: * Electronic signature of Ronit Pederson DPT on 09/16/2025 at 11:52 PM CDT Sign off status: Pending * Provider: Mary Pederson DPT Date: 0 03/16/2025 Generated for Shala somers/Alicia/Norberto on: 1 11:52 PM CDT
--- OUTSIDE RECORDS SUMMARY | 2025-03-23 09:45 | XMS_ITS ---
Author Organization [employer] [facility] Address [address] [place] [address] Care Team Providers Care Account Financial Manager Name Role Phone None, No PCP Primary Care Provider Dominique Chavira Unavailable [phone] Ronit Pederson Unavailable [phone] Social History Sex Assigned At : Social History Observation Description Sex Assigned At Female Encounters Encounter Location Date Provider Diagnosis [address] [place] [phone] 03/23/2025 Ronit Pederson Plan Of Treatment No Information Progress Notes * Romaine MENEZESOB: 9 (35 yo F)Acc No.[id number]:03/23/2025 Patient: Dominique TEJEDA Provider: Mary Pederson DPT :1990 A ge:35 Y S ex:Female Date:03/23/2025 Address:[address] [place], [place] [address] [facility], [address], [facility] Pcp:No PCP None Subjective: * Chief Complaints: * * Medical History: Objective: * Vitals: Therapeutic Interventions: Assessment: Plan: * Treatment: * Images: Billing Information: * Visit Code: * Procedure Codes: * Electronic signature of Ronit Pederson DPT on 09/16/2025 at 10:50 PM CDT Sign off status: Pending * Provider: Mary Pederson DPT Date: 0 03/23/2025 Generated for Shala somers/Alicia/Norberto on: 1 10:50 PM CDT
--- OUTSIDE RECORDS SUMMARY | 2025-03-23 09:45 | XMS_ITS ---
Author Organization [employer] [facility] Address [address] [place] [address] Care Team Providers Care Utility System Operator Name Role Phone None, No PCP Primary Care Provider Dominique Chavira Unavailable [phone] Ronit Pederson Unavailable [phone] Social History Sex Assigned At : Social History Observation Description Sex Assigned At Female Encounters Encounter Location Date Provider Diagnosis [address] [place] [phone] 03/23/2025 Ronit Pederson Plan Of Treatment No Information Progress Notes * Romaine MENEZESOB: 9 (35 yo F)Acc No.[id number]:03/23/2025 Patient: Dominique TEJEDA Provider: Mary Pederson DPT :1990 A ge:35 Y S ex:Female Date:03/23/2025 Address:[address] [place], [place] [address] [facility], [address], [place] Pcp:No PCP None Subjective: * Chief Complaints: * * Medical History: Objective: * Vitals: Therapeutic Interventions: Assessment: Plan: * Treatment: * Images: Billing Information: * Visit Code: * Procedure Codes: * Electronic signature of Ronit Pederson DPT on 09/16/2025 at 11:52 PM CDT Sign off status: Pending * Provider: Mary Pederson DPT Date: 0 03/23/2025 Generated for Shala somers/Alicia/Norberto on: 1 11:52 PM CDT
--- OUTSIDE RECORDS SUMMARY | 2025-09-16 22:50 | XMS_ITS | Encounter Summary ---
Author Organization [facility] Address [address] [place] [id number] Care Team Providers Care Floorworker Lasting Name Role Phone Maira Up MD Primary Care Provider [phone] Encounter Details Date Type Department Care Team (Late st Contact Info) Description 10/15/2014 Emergency Room External to [facility], Provider VIRAL ILLNESS Social History [...] on filedocumented in this encounter Care Teams Floorworker Lasting Relationship Specialty Start Date End Date Maira Up MD [address] [place] [address] PCP - General Internal Medicine 05/31/13 documented as of this encounter
--- OUTSIDE RECORDS SUMMARY | 2025-09-16 22:50 | XMS_ITS | Encounter Summary ---
Author Organization [facility] Address [address], [place] [address] Care Team Providers Care Hydraulic Hammer Operator Name Role Phone Maira Up MD Primary Care Provider [phone] Encounter Details Date Type Department Care Team [...] on filedocumented in this encounter Care Teams Hydraulic Hammer Operator Relationship Specialty Start Date End Date Maira Up MD [address] [place] [address] PCP - General Internal Medicine 05/31/13 documented as of this encounter
--- OUTSIDE RECORDS SUMMARY | 2025-09-16 22:50 | XMS_ITS | Encounter Summary ---
Author Organization [facility] Address [address] [place] [address] Care Team Providers Care Cryptographic Center Specialist Name Role Phone Maira Up MD Primary Care Provider [phone] Encounter Details Date Type Department Care Team (Late st Contact Info) Description 10/15/2014 Emergency Room External to [facility], Provider FLU SMPTOMS VIRAL ILLNESS Social History [...] on filedocumented in this encounter Care Teams Cryptographic Center Specialist Relationship Specialty Start Date End Date Maira Up MD [address] [place] [address] PCP - General Internal Medicine 05/31/13 documented as of this encounter
--- OUTSIDE RECORDS SUMMARY | 2025-09-16 22:50 | XMS_ITS | Encounter Summary ---
[facility] Address [address], [place] [address] Care Team Providers Care Limnologist Name Role Phone Maira Up MD Primary Care Provider [phone] Encounter Details Date Type Department Care Team [...] on filedocumented in this encounter Care Teams Limnologist Relationship Specialty Start Date End Date Maira Up MD [address] [place] [id number] PCP - General Internal Medicine 05/31/13 documented as of this encounter
--- OUTSIDE RECORDS SUMMARY | 2025-09-16 22:50 | XMS_ITS | Patient Health Record ---
Author Organization [employer] [facility] [place] Address [address] [place] [address] Care Team Providers Care Table Saw Operator Name Role Phone None, No PCP Primary Care Provider UnavailDoimnique Nath Unavailable [phone] Ning Ruiz Unavailable [phone] Lizette Berg Unavailable [phone] Kavitha Coleman Unavailable [phone] Yvrose Casanova Unavailable [phone] Neva Cintron Unavailable [phone] Ronit Pederson Unavailable [phone] Froy Angel Unavailable [phone] Eliz Romero Unavailable Reid Rodriguez Unavailable [phone] Mitzi Alba Unavailable [phone] Michelle Daniel Unavailable [phone] Iraj Francis Unavailable [phone] Laura Acuña Unavailable [phone] Seda Mcclelland Unavailable [phone] Allergies Allergen (clinical drug ingredient) Drug/Non Drug Allergy documented on EMR Reaction Allergy Type Onset Date Status amoxicillin Amoxicillin Unknown Drug Allergy Act jaylon Ceftin Unknown Drug Allergy Active influenza A virus (H1N1) antigen / influenza A virus (H3N2) antigen / influenza B virus antigen Fluzone Unknown Drug Allergy Active prednisolone PrednisoLONE Unknown Drug Allergy A ctive PredniSONE Unknown Drug Allergy Active sulfacetamide Sulfacetamide Sodium Unknown Drug Allergy Active doxycycline Doxycycline Unknown Drug Allergy Act jaylon Results Component Value Reference Range Notes CULTURE, URINE, ROUTINE Reviewed date:10/23/2024 06:46:00 PM Interpretation: Performing Lab:CB, [facility] [address], [place] TobarNfgsUW[address] Jay Nicole Notes/Report: 0 CULTURE, URINE, ROUTINE SEE NOTE using a method to minimize contamination, with Result: Less than 10,000 CFU/mL of single Gram positive Specimen Source: Urine, clean catch Micro Number: [id number] organism isolated. No further testing will be Specimen Quality: Adequate prompt transfer to Urine Culture Transport Tube, CULTURE, URINE, ROUTINE performed. If clinically indicated, recollection Test Status: Final is recommended. Urinalysis, Routine () Reviewed date:10/23/2024 06:46:00 PM Interpretation: Performing Lab: Notes/Report: [facility] (0514), [facility] - Lab Pattern Generator Operator: 01 QNATAL(TM) ADVANCED Reviewed date:12/06/2024 12:05:56 PM Interpretation: Performing Lab:[facility] [place] [facility] Farheen Kendall MD,PhD,PORSCHE Notes/Report: NUMBER OF FETUSES? 2 ADVANCED MATERNAL AGE? YES ABNORMAL WIL? NO ABNORMAL US? NO PERSONAL/FAM HISTORY? NO INTERPRETATION SEE NOTE This specimen showed an expected representation of chromosome 21, 18, and 13 material. See Limitations below. TRISOMY 21 (T21) Negative TRISOMY 18 (T18) Negative TRISOMY 13 (T13) Negative Y CHROMOSOME Not detected Y CHR. INTERPRETATION SEE NOTE Consis tent with multiple female fetuses. SEX CHROMOSOME Not Performed SEX CHROMOSOME INTERP SEE NOTE Sex chromosome aneuploidy testing is not performed for known multiple gestation pregnancies. MICRODELETION Not detected MICRODELETION INTERP SEE NOTE below. No apparent abnormality was detected. See Limitations GESTATIONAL AGE(IN WEEKS) 11 GESTATIONAL AGE (IN DAYS) 6 FRACTION 15.10% LABORATORY COMMENTS SEE NOTE Laboratory testing supervised and results monitored by Kendall Perea, Ph.D., [facility], [facility], [facility]. LIMITATIONS SEE NOTE QNatal(R) Advanced is a cell-free DNA screening test that QNatal(R) Advanced is a quantitative analysis of maternal validated in higher order pregnancies (more than two) results may be affected by the presence of chromosome Trisomy 21 (Down syndrome), Trisomy 18, Trisomy 13, and microdeletion regions (see Methodology). The Y chromosome twin pregnancies for the trisomies listed above and for in isolation from other clinical findings and laboratory due to limited data. This screening test has not been abnormalities or microdeletions that are maternal or defects or ventral wall defects and should not be considered 47,XXX, and 47,XYY), as well as sex. In addition, if is analyzed for the determination of sex. The aneuploidy results issued for pregnancies confirmed to be of and for the determination of sex. Sex chromosome QNatal(R) Advanced has been validated in tobias confined placental in origin. test results. sensitivity and specificity of sex determination abnormalities that may cause defects, including analysis and this determination can be confounded by pregnancies for the trisomies and sex chromosome abnormalities listed above, as well as for microdeletions, multiple gestations are not valid and should be disregarded. multiple gestation pregnancies. It should be noted that selected as an option, QNatal(R) Advanced can screen for certain sex chromosome abnormalities (i.e., 45,X, 47,XXY, analysis may be less than that of the Trisomy 21, 18, and 13 assess the risk of abnormalities such as neural tube because limited data is available. Sex chromosomal certain microdeletions (i.e., 22q, 5p, 1p36, 15q, 11q, 8q, and 4p) that may cause defects. This test does not aneuploidy analysis is only performed in tobias Microdeletion screening is limited to the specified and placental cfDNA. As a result, the accuracy of screening pregnancies. This screening test has also been validated in screens for increased risk of certain chromosomal microdeletions, but not for the sex chromosome abnormalities vanishing twin syndrome in pregnancies that were originally SPECIFICATIONS SEE NOTE (LDT) has been determined based on internal analytical assessment. Y >99.9% Sensitivity Specificity Accuracy Performance of the QNatal Advanced laboratory-developed test T21 >99.9% >99.9% T18 >99.9% >99.9% T13 >99.9% >99.9% METHODOLOGY SEE NOTE followed by detection on a massively parallel sequencing detection of microdeletions if requested. Performance a license agreement with [employer]. screening test. This screening test is performed pursuant to Improvements Amendments of 1988 (CLIA), and as such it has QNatal Advanced is a laboratory developed test that has been from the critical regions involved in 1p36 microdeletion Circulating cell-free (cf) DNA was isolated from plasma syndrome (1p36), Farris-Hirschhorn syndrome (4p), Cri-du-chat (15q), and DiGeorge syndrome (22q) is evaluated for the the representation of chromosomes 21, 18, 13, X and Y in platform. Bioinformatic analysis was performed to determine syndrome (5p), Padma-Giedion syndrome (8q), Grace developed and validated, pursuant to the Clinical Laboratory characteristics refer to the analytical performance of this circulating cell-free DNA. The representation of sequences not been reviewed by FDA. 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), Prader Willi syndrome/Angelman syndrome CBC (INCLUDES DIFF/PLT) Reviewed date:12/29/2024 09:05:23 AM Interpretation: Performing Lab:[facility] [facility], [facility] HospitalDfmaQT[address] Jay Nicole Notes/Report: WHITE BLOOD CELL COUNT 10.2 3.8-10.8 Thousand/uL RED BLOOD CELL COUNT 3.76 3.80-5.10 Million/uL HEMOGLOBIN 10.7 11.7-15.5 g/dL HEMATOCRIT 33.4 35.0-45.0 % MCV 88.8 80.0-100.0 fL MCH 28.5 27.0-33.0 pg MCHC 32.0 32.0-36.0 g/dL not clinically significant; however, it should be condition. value (in the range of 30 to 32 g/dL) is most likely red cell parameters and the patient's clinical interpreted with caution in correlation with other For adults, a slight decrease in the calculated MCHC RDW 12.8 11.0-15.0 % PLATELET COUNT 375 140-400 Thousand/uL MPV 9.6 7.5-12.5 fL ABSOLUTE NEUTROPHILS 7548 4033-8140 cells/uL ABSOLUTE LYMPHOCYTES 2050 850-3900 cells/uL ABSOLUTE MONOCYTES 520 200-950 cells/uL ABSOLUTE EOSINOPHILS 61 15-500 cells/uL ABSOLUTE BASOPHILS 20 0-200 cells/uL NEUTROPHILS 74 LYMPHOCYTES 20.1 MONOCYTES 5.1 EOSINOPHILS 0.6 BASOPHILS 0.2 MATERNAL SERUM AFP Reviewed date:12/29/2024 08:41:15 AM Interpretation: Performing Lab:[facility]-[place] [address] [place] Jay Nicole Notes/Report: INTERPRETATION: Screen negat jaylon for open NTD for twins. Risk for ONTD NOT CALCULATED AFP, Serum 47.7 AFP MoM 1.72 COMMENTS: The AFP MoM value has been adjusted for a twin risk is unavailable for twins at this time. unaffected pregnancies. Thus, this screen does not defects. A likelihood estimate of neural tube defect , fell within the range seen most often in was used to calculate the gestational age. This patient's NASIM (estimated date of delivery) indicate an increased risk for open neural tube . The AFP MoM, when adjusted for a twin COMMENT > or = 4.00 adjusted MOM for For additional information, please refer to assistance with recalculations, please call your local Screen Positive for Open NTD: > or = 2.50 adjusted MOM diabetics risk assessment report is based in part on [employer] [phone](). (This link is being provided for informational/ twins interpretation of these results, please contact your triplets the laboratory promptly if any data are incorrect. For This is a screening test, not a diagnostic test. This insulin-dependent diabetics [facility] laboratory. For assistance with Interpretive Cutoffs twins insulin-dependent educational purposes only.) Local [facility] genetic counselor or call > or = 1.90 adjusted MOM for > or = 4.50 adjusted MOM for data provided by the ordering physician. Please notify > or = 3.50 adjusted MOM for http://education.Dianxin/faq/FAQ74v 1 Calc'd Gestational Age 16.9 Maternal Weight 267 Est'd Date of Delivery 06/07/2025 NASIM Determined by LMP Mother's Ethnic Origin OTHER Number of Fetuses 2 Insulin Depend Diabetic NO Repeat Specimen NO Hx Of Neural Tube Defects NO Prev Down Synd NO Donor Egg NO Donor Age: Egg Retrieval NOT GIVEN FERRITIN Reviewed date:12/29/2024 08:41:32 AM Interpretation: Performing Lab:[facility]-[address] Jay Nicole Notes/Report: FERRITIN 45 16-154 ng/mL PROTEIN, TOTAL W/CREAT, RAND OM URINE Reviewed date:02/14/2025 05:23:17 PM Interpretation: Performing Lab:[facility], [place] ZdkwWP[address] Jay Nicole Notes/Report: CREATININE, RANDOM URINE 59 20-275 mg/dL PROTEIN/CREATININE RATIO 102 24-184 mg/g crea t PROTEIN/CREATININE RATIO 0.102 0.024-0 .184 mg/mg creat PROTEIN, TOTAL, RANDOM UR 6 5-24 mg/dL CBC (INCLUDES DIFF/PLT) Reviewed date:02/14/2025 08:51:38 AM Interpretation: Performing Lab:[facility] [address], [place] MbyvOE[address] Jay Nicole Notes/Report: WHITE BLOOD CELL COUNT 11.5 3.8-10.8 Thousand/uL RED BLOOD CELL COUNT 3.39 3.80-5.10 Million/uL HEMOGLOBIN 9.7 11.7-15.5 g/dL HEMATOCRIT 29.5 35.0-45.0 % MCV 87.0 80.0-100.0 fL MCH 28.6 27.0-33.0 pg MCHC 32.9 32.0-36.0 g/dL red cell parameters and the patient's clinical interpreted with caution in correlation with other condition. value (in the range of 30 to 32 g/dL) is most likely not clinically significant; however, it should be For adults, a slight decrease in the calculated MCHC RDW 12.7 11.0-15.0 % PLATELET COUNT 389 140-400 Thousand/uL MPV 9.9 7.5-12.5 fL ABSOLUTE NEUTROPHILS 8809 8584-2191 cells/uL ABSOLUTE LYMPHOCYTES 2047 850-3900 cells/uL ABSOLUTE MONOCYTES 575 200-950 cells/uL ABSOLUTE EOSINOPHILS 58 15-500 cells/uL ABSOLUTE BASOPHILS 12 0-200 cells/uL NEUTROPHILS 76.6 LYMPHOCYTES 17.8 MONOCYTES 5.0 EOSINOPHILS 0.5 BASOPHILS 0.1 FERRITIN Reviewed date:02/14/2025 08:51:38 AM Interpretation: Performing Lab:[facility]-[address], [place] MobileEoxpSZ[address] Jay Nicole Notes/Report: FERRITIN 31 16-154 ng/mL AST Reviewed date:10/23/2024 11:45:23 AM Interpretation: Performing Lab:[facility]-[place] [address], [place] MahmoodFlpvGI[address] Jay Nicole Notes/Report: AST 22 10-30 U/L ALT Reviewed date:10/23/2024 11:45:23 AM Interpretation: Performing Lab:[facility]-[place] [address], [place] WoodFfhkUT[address] Jay Nicole Notes/Report: ALT 16 6-29 U/L URIC ACID Reviewed date:10/23/2024 11:45:23 AM Interpretation: Performing Lab:[facility]-[address], [place] WoodTjsaOA[address] Jay Nicole Notes/Report: URIC ACID 3.3 2.5-7.0 mg/dL Therapeutic target for gout patients: <6.0 mg/dL HEMOGLOBIN A1c Reviewed date:10/23/2024 11:45:23 AM Interpretation: Performing Lab:[facility]-[address], [place] WoodOdesWK[address] Jay Nicole Notes/Report: HEMOGLOBIN A1c 5.6 <5.7 % of total Hgb control in non- diabetic patients. Different For the purpose of screening for the presence of This assay result is consistent with a decreased risk > or =6.5% Consistent with diabetes According to [place] Diabetes Association (ADA) Currently, no consensus exists regarding use of <5.7% Consistent with the absence of diabetes guidelines, hemoglobin A1c <7.0% represents optimal hemoglobin A1c for diagnosis of diabetes in children. metrics may apply to specific patient populations. of diabetes. (prediabetes) 5.7-6.4% Consistent with increased risk for diabetes Standards of Medical Care in Diabetes(ADA). diabetes: HEPATITIS C AB W/REFL TO HCV RNA, QN, PCR Reviewed date:10/23/2024 11:45:23 AM Interpretation: Performing Lab:[facility]-[place] [address], [place] WoodGrbfJX[address] Jay Nicole Notes/Report: HEPATITIS C ANTIBODY NON-REACTIVE NON-REACTIVE For additional information please refer to evidence of HCV infection. educational purposes only.) if recent HCV exposure is suspected, a test for HCV RNA HCV antibody was non-reactive. There is no laboratory http://LAST MINUTE NETWORK.Dianxin/faq/FAQ22v 1 (test code 85245) is suggested. In most cases, no further action is required. However, (This link is being provided for informational/ VARICELLA ZOSTER VIRUS ANTIB OH (IGG) Reviewed date:10/23/2024 11:45:23 AM Interpretation: Performing Lab:[facility]-[address], CircleHcseQJ[address] Jay Nicole Notes/Report: VARICELLA ZOSTER VIRUS ANTIBODY (IGG) 12.90 --------- test for vaccination-induced immunity is Varicella susceptibility to VZV infection. A more sensitive has antibody to VZV but does not differentiate sensitive enough to detect antibodies induced by <1.00 Negative - Antibody not detected the patient. This assay reliably measures immunity between an active or past infection. Zoster Virus Antibody Immunity Screen, ACIF. The clinical diagnosis must be interpreted in A positive result indicates that the patient vaccination. Thus, a negative result in a vaccinated due to previous infection but may not be conjunction with the clinical signs and symptoms of S/CO Interpretation Signal to Cut-off individual does not necessarily indicate > or = 1.00 Positive - Antibody detected OBSTETRIC PANEL W/FOURTH GEN ERATION HIV Reviewed date:10/23/2024 11:45:23 AM Interpretation: Performing Lab:[facility]-[address] [address], CircleMknyYT[address] Jay Nicole Notes/Report: WHITE BLOOD CELL COUNT 9.5 3.8-10.8 Thousand/uL RED BLOOD CELL COUNT 4.10 3.80-5.10 Million/uL HEMOGLOBIN 11.8 11.7-15.5 g/dL HEMATOCRIT 36.7 35.0-45.0 % MCV 89.5 80.0-100.0 fL MCH 28.8 27.0-33.0 pg MCHC 32.2 32.0-36.0 g/dL value (in the range of 30 to 32 g/dL) is most likely red cell parameters and the patient's clinical interpreted with caution in correlation with other condition. For adults, a slight decrease in the calculated MCHC not clinically significant; however, it should be RDW 12.3 11.0-15.0 % PLATELET COUNT 420 140-400 Thousand/uL MPV 9.7 7.5-12.5 fL ABSOLUTE NEUTROPHILS 6251 7292-1197 cells/uL ABSOLUTE LYMPHOCYTES 2603 850-3900 cells/uL ABSOLUTE MONOCYTES 561 200-950 cells/uL ABSOLUTE EOSINOPHILS 67 15-500 cells/uL ABSOLUTE BASOPHILS 19 0-200 cells/uL NEUTROPHILS 65.8 LYMPHOCYTES 27.4 MONOCYTES 5.9 EOSINOPHILS 0.7 BASOPHILS 0.2 ANTIBODY SCREEN, RBC W/REFL ID, TITER AND AG NO ANTIBODIES DETECTED for pretransfusion screening or for the medical Reference range No antibodies detected This assay is a screening test for the detection of red blood cell antibodies. The test is not to be used management of an alloimmunized . ABO GROUP A RH TYPE RH(D) POSITIVE For additional information, please refer to educational purposes only.) http://LAST MINUTE NETWORK.VEEDIMS/faq/ATW697 (This link is being provided for informational/ RPR (DX) W/REFL TITER AND CONFIRMATORY TESTING NON-REACTIVE NON-REACTIVE is suspected, submit a new sample in 2-4 weeks. No laboratory evidence of syphilis. If recent exposure HEPATITIS B SURFACE ANTIGEN NON-REACTIVE NON-REACTIVE http://Hydra Dx/faq/CCD318 educational purposes only.) For additional information, please refer to (This link is being provided for informational/ RUBELLA AB (IGG), IMMUNE STATUS 3.04 0.90-0.99 Equivocal rubella virus. The presence of rubella IgG antibody suggests Index Interpretation immunization or past or current infection with > or = 1.00 Consistent with immunity <0.90 Not consistent with immunity ----- HIV AG/AB, 4TH GEN NON-REACTIVE NON-REACTIVE you from records whose confidentiality may be making any further disclosure of the information (This link is being provided for informational/ HIV-1 antigen and HIV-1/HIV-2 antibodies were not A general authorization for the release of medical or educational purposes only.) The performance of this assay has not been clinically For additional information please refer to other information is NOT sufficient for this purpose. protected by state law. If your state requires such without the specific written consent of the person http://LAST MINUTE NETWORK.Dianxin/faq/NNP591 PLEASE NOTE: This information has been disclosed to detected. There is no laboratory evidence of HIV protection, then the state law prohibits you from infection. validated in patients less than 2 years old. to whom it pertains, or as otherwise permitted by law. 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 Thank you!-Isma FINNEY Yeng 11/24/2024 09:44:38 AM >Referral form uploaded to chart and faxed via YY. Lepe Yang, Yeng 01/11/2025 02:23:52 PM >Patient completed appt on 01/06/25, report in chart. Closing out, PHOEBE. Referral Priority Routine Referral Appointment Date 01/06/2025 Medications Medication SIG (Take, Route, Frequency, Duration) Notes Start Date End Date Status Zoloft 50 MG 1 tablet Orally Once a day; Duration: 30 days 12/27/2024 Active Ferrous Sulfate 325 (65 Fe) MG 1 tablet Orally daily; Duration: 90 days 12/29/2024 Active Magnesium Active ZyrTEC Allergy Activ e Folic Acid 0.8 MG 1 capsule Orally Onc e a day; Duration: 90 days 10/23/2024 Active Aspirin 81 MG 1 tablet Orally Once a day; Duration: 90 days START AT 12 WEEKS GESTATION 10/23/2024 Active Tylenol PRN Active Vitamin D Active Unisom Active + DHA Activ e Immunizations Vaccine Route Administration Date Status Comme nts TDAP IM Intramuscular 09/10/2020 Administered Social History Tobacco Use: Social History Observation Description Date Details (start date - stop date) Former Smoker NA - NA Sex Assigned At : Social History Observation Description Sex Assigned At Female Tobacco Use/Smoking Question Answer Notes Are you a former smoker How long has it been since you last smoked? 1-5 years Alcohol Screen (Audit-C) Question Answer Notes Did you have a drink containing alcohol in the p ast year? No Points 0 Interpretation Negative Sexual History Question Answer Notes Had sex in the past 12 months (vaginal, oral, or anal)? Yes Problems Problem Type SNOMED Code ICD Code Onset Dates Problem Status W/U Status Risk Notes Problem Cervicalgia (80975573) Cervicalgia (M54.2) Active confirmed Problem Dysuria (02726576) Dysuria (R30.0) Active confi rmed Problem Chronic fatigue syndrome (disorder) (26463326) Chronic fatigue, unspecified (R53.82) Active confirmed Problem Maternal obesity complicating , childbirth and the puerperium, antepartum (274663183566) Obesity affecting in second trimester (O99.212) Active confirmed Problem Amenorrhea (29138033) Amenorrhea (N91.2) Active confirmed Problem Urinary frequency (822966698) Urinary frequency (R35.0) Active confirmed Problem Endometriosis (331072677) Endometriosis (N80.9) Active confirmed Problem Chronic fatigue syndrome (21226316) Chronic fatigue (R53.82) Active confirmed Problem SI - Stress incontinence (18414030) Stress incontinence of urine (N39.3) Active confirmed Problem Anemia in mother complicating , childbirth AND/OR puerperium (15841199) Anemia affecting (O99.019) Active confirmed Problem Menstrual problem (188219442) Abnormal menses (N92.6) Active confirmed Problem Gastroesophageal reflux disease (021954937) GERD without esophagitis (K21.9) Active confirmed Problem Insomnia (573117306) Insomnia, unspecified type (G47.00) Active confirmed Problem Disorder of female genital organs (110021839) Pain of female symphysis pubis (N94.9) Active confirmed Problem Joint pain (31437898) Arthralgia, unspecified joint (M25.50) Active confirmed Problem Missed period (45559429) Missed menses (N92.6) Active confirmed Problem Maternal obesity complicating , childbirth and the puerperium, antepartum (935930886953) Obesity affecting in first trimester (O99.211) Active confirmed Problem Maternal obesity complicating , childbirth and the puerperium, antepartum (172434725705) Obesity affecting in third trimester (O99.213) Active confirmed Problem Refractory migraine with aura (810347575) Intractable migraine with aura with status migrainosus (G43.111) Active confirmed Problem Essential hypertension (61075072) Hypertension, unspecified type (I10) Active confirmed Problem Migraine without aura, not refractory (234988983) Migraine without aura and without status migrainosus, not intractable (G43.009) Active confirmed Problem Paresthesia (57235792) Paresthesia (R20.2) Active confirmed Problem Anemia of (disorder) (24692133) Anemia during (O99.019) Active confirmed Problem Acute abdominal pain (536742519) Acute abdominal pain (R10.9) Active confirmed Problem Abnormal immunology finding (405707907) Elevated antinuclear antibody (SHAKIRA) level (R76.8) Active confirmed Problem Anemia during in second trimester (O99.012) Active confirmed Problem Paresthesia (finding) (71035012) Paresthesias (R20.2) Active confirmed Vital Signs Blood pressure diastolic 64 mm Hg 02/13/2025 Height 68.25 in 02/13/2025 Blood pressure systolic 122 mm Hg 02/13/2025 Weight 278 lbs 02/13/2025 BMI 41.961 kg/m2 02/13/2025 Encounters Encounter Location Date Provider Diagnosis [address] [id number] 12/27/2024 Michelle Daniel Encounter for supervision of other normal in second trimester Z34.82 ; Anemia affecting O99.019 and Encounter for supervision of normal first in second trimester Z34.02 [facility] [address] [place] [address] 10/21/2024 Laura Acuña Encounter for supervision of normal in multigravida in first trimester Z34.[address] [id number] 01/16/2025 Michelle Daniel Encounter for supervision of other normal , unspecified trimester Z34.80 ; Dichorionic diamniotic twin in second trimester O30.042 and 19 weeks gestation of Z3A.[address] [id number] 12/19/2024 Michelle Daniel Encounter for supervision of other normal , unspecified trimester Z34.80 ; Dichorionic diamniotic twin in second trimester O30.042 and 15 weeks gestation of Z3A.15 [facility] [address] [place] [address] 10/21/2024 Laura Acuña First trimester Z33.1 ; High-risk in first trimester O09.91 ; Obesity affecting in first trimester O99.211 ; Dichorionic diamniotic twin in first trimester O30.041 and History of pre-eclampsia in prior , currently O09.[address] [id number] 02/13/2025 Michelle Daniel H/O pre-eclampsia Z87.59 ; Supervision of high risk , unspecified, third trimester O09.93 ; Dichorionic diamniotic twin in second trimester O30.042 and Obesity affecting in second trimester O99.[address] [id number] 01/16/2025 Michelle Daniel Supervision of high risk , unspecified, second trimester O09.92 ; Dichorionic diamniotic twin in second trimester O30.042 ; Obesity affecting in second trimester O99.212 ; Anemia during O99.019 ; Stress incontinence of urine N39.3 ; Other specified diseases and conditions complicating O99.891 and Myalgia, other site M79.[address] [id number] 12/27/2024 Eliz Porter 16 weeks gestation of Z3A.[address] [id number] 12/19/2024 Michelle Daniel Supervision of high risk , unspecified, second trimester O09.92 ; Anemia during in second trimester O99.012 ; Obesity affecting in second trimester O99.212 ; Dichorionic diamniotic twin in second trimester O30.042 ; History of pre-eclampsia in prior , currently O09.299 and History of hemorrhage, currently O09.[address] [id number] 11/21/2024 Dominique Pacheco Obesity affecting in first trimester O99.211 ; Supervision of high risk , unspecified, first trimester O09.91 and Encounter for supervision of other normal , first trimester Z34.81 [facility] [address] [place] [address] 10/21/2024 Laura Acuña Encounter for supervision of other normal , unspecified trimester Z34.80 [facility] [address] [place] [address] 10/21/2024 Laura Acuña [facility] [address] [place] [id number] 02/10/2025 Alyxandra Jeseritz-Adamson Low back pain at multiple sites M54.50 ; Segmental and somatic dysfunction of lumbar region M99.03 ; Segmental and somatic dysfunction of sacral region M99.04 ; Segmental and somatic dysfunction of pelvic region M99.05 and Pubic bone pain M89.9 [facility] [address] [place], [place] [id number] 02/13/2025 Alyxandra Jeseritz-Adamson Low back pain at multiple sites M54.50 ; Segmental and somatic dysfunction of lumbar region M99.03 ; Segmental and somatic dysfunction of sacral region M99.04 ; Segmental and somatic dysfunction of pelvic region M99.05 and Pubic bone pain M89.[address] [id number] 02/13/2025 Michelle Daniel Supervision of other high risk pregnancies, third trimester O09.893 ; Dichorionic diamniotic twin in second trimester O30.042 and 23 weeks gestation of Z3A.[address] [id number] 11/21/2024 Dominique Pacheco Dichorionic diamniotic twin in first trimester O30.041 and 11 weeks gestation of Z3A.11 [facility] [address] [place] [id number] 02/13/2025 Michelle Daniel [facility] [address] [place] [address] 02/09/2025 Dominique Pacheco [facility] [address] [place] [address] 02/09/2025 Dominique Pacheco [facility] [address] [facility] [facility] [facility] [address] [place] [address] [id number] 01/16/2025 Michelle Daniel [facility] [address] [facility] [facility] [address] [place] [address] [id number] 12/29/2024 Dominique Pacheco [facility] [address] [place] [address] 12/29/2024 Eliz Adams [facility] [address] [facility] [facility] [facility] [address] [place] [id number] 12/27/2024 Eliz [facility]ase [facility] [address] [facility] [facility] [address] [facility] [facility] [address] [place] [address] [id number] 11/28/2024 Mitzi Alba [facility] [address] [place] [address] 11/21/2024 Dominique Pacheco [facility] [address] [place] [address] [id number] 11/01/2024 Froy Angel [facility] [address] [facility] [facility] [address] [place] [address] [id number] 12/28/2024 Michelle Daniel [facility] [address] [facility] [facility] [address] [place] [address] [id number] 12/28/2024 Michelle Daniel [facility] [address] [facility] [facility] [address] [place] [address] [id number] 12/28/2024 Michelle Daniel [facility] [address] [place], [place] [address] Drive [address] [place], [place] [id number] 12/25/2024 Michelle Daniel [facility] [address] [place] [address] 12/02/2024 Neva Cintron [facility] [address] [place] [address] 11/29/2024 Dominique Pacheco [facility] [address] [place] [address] 11/28/2024 [facility] [address] [place] [address] 11/28/2024 Mitzi Alba [facility] [address] [place] [address] 11/10/2024 [facility] [address] [place] [address] 11/08/2024 [facility] [address] [place] [address] 11/04/2024 [facility] [address] [place] [address] 11/04/2024 [facility] [address] [place] [address] 11/02/2024 Froy Angel [facility] [address] [place] [address] 11/01/2024 [facility] [address] [place] [address] 11/01/2024 [facility] [address] [place] [address] 10/31/2024 [facility] [address] [place] [address] 10/31/2024 [facility] [address] [place] [address] 10/28/2024 Kavitha Coleman [facility] [address] [place] [address] 10/24/2024 Laura Acuña [facility] [address] [facility] [address] [place], [place] [id number] 09/25/2024 Ning Ruiz Assessments Encounter Date Diagnosis (ICD Code) Assessment Notes Treatment Notes Treatment Clinical Notes Section Notes 11/21/2024 11 weeks gestation of (ICD-10 - Z3A.11) 11/21/2024 Dichorionic diamniotic twin in first trimester (ICD-10 - O30.041) 11/21/2024 Supervision of high risk , unspecified, first trimester (ICD-10 - O09.91) 12/27/2024 Anemia affecting (ICD-10 - O99.019) 12/27/2024 Encounter for supervision of other normal in second trimester (ICD-10 - Z34.82) 01/16/2025 Supervision of high risk , unspecified, second trimester (ICD-10 - O09.92) 11/21/2024 Obesity affecting in first trimester (ICD-10 - O99.211) 01/16/2025 Dichorionic diamniotic twin in second trimester (ICD-10 - O30.042) 10/21/2024 First trimester (ICD-10 - Z33.1) 10/21/2024 High-risk in first trimester (ICD-10 - O09.91) 10/21/2024 Encounter for supervision of other normal , unspecified trimester (ICD-10 - Z34.80) 10/21/2024 Encounter for supervision of normal in multigravida in first trimester (ICD-10 - Z34.81) 02/13/2025 Supervision of high risk , unspecified, third trimester (ICD-10 - O09.93) 02/13/2025 Dichorionic diamniotic twin in second trimester (ICD-10 - O30.042) 02/13/2025 Low back pain at multiple sites (ICD-10 [...] Term Goals: slight improvement by next exam Tray Casting Machine Operator Goals- decrease segmental dysfunction, decrease swelling and inflammation, increase active and passive range of motion, strengthening, decrease muscle spasms, decrease pain, relief care, relief of symptoms, pain management, maximum medical improvement, increase proprioception, decrease nociception, improve level of comfort throughout display carver goals: significantly improved by discharge Today's Treatment: - Chief Complaint: headaches, bilateral neck, bilateral trapezius, upper thoracic, mid thoracic, lower thoracic, low back - Primary Treatment: Diversified and Manual- Chiropractic Manipulative Therapy (CMT) to the right T9, left L2, right L4, right ilium spinal level(s). - Post treatment: Dominique felt/noticed related improvement after treatment. 02/10/2025 Segmental and somatic dysfunction of lumbar region [...] Term Goals: slight improvement by next exam T[employer] Casting Machine Operator Goals- decrease segmental dysfunction, decrease swelling and inflammation, increase active and passive range of motion, strengthening, decrease muscle spasms, decrease pain, relief care, relief of symptoms, pain management, maximum medical improvement, increase proprioception, decrease nociception, improve level of comfort throughout penitentiary goals: significantly improved by discharge Today's Treatment: - Chief Complaint: headaches, bilateral neck, bilateral trapezius, upper thoracic, mid thoracic, lower thoracic, low back - Primary Treatment: Diversified and Manual- Chiropractic Manipulative Therapy (CMT) to the right L5, left sacrum, right ilium spinal level(s). - Post treatment: Dominique felt/noticed related improvement after treatment. 02/13/2025 H/O pre-eclampsia (ICD-10 - Z87.59) 02/13/2025 Supervision of other high risk pregnancies, third trimester (ICD-10 - O09.893) 02/10/2025 Low back pain at multiple sites (ICD-10 [...] Term Goals: slight improvement by next exam Fdc Goals- decrease segmental dysfunction, decrease swelling and inflammation, increase active and passive range of motion, strengthening, decrease muscle spasms, decrease pain, relief care, relief of symptoms, pain management, maximum medical improvement, increase proprioception, decrease nociception, improve level of comfort throughout penitentiary goals: significantly improved by discharge Today's Treatment: - Chief Complaint: headaches, bilateral neck, bilateral trapezius, upper thoracic, mid thoracic, lower thoracic, low back - Primary Treatment: Diversified and Manual- Chiropractic Manipulative Therapy (CMT) to the right L5, left sacrum, right ilium spinal level(s). - Post treatment: Dominique felt/noticed related improvement after treatment. 01/16/2025 Encounter for supervision of other normal , unspecified trimester (ICD-10 - Z34.80) 01/16/2025 Dichorionic diamniotic twin in second trimester (ICD-10 - O30.042) 12/27/2024 16 weeks gestation of (ICD-10 - Z3A.16) 12/19/2024 Supervision of high risk , unspecified, second trimester (ICD-10 - O09.92) 12/19/2024 Anemia during in second trimester (ICD-10 - O99.012) 12/19/2024 Encounter for supervision of other normal , unspecified trimester (ICD-10 - Z34.80) 12/19/2024 Dichorionic diamniotic twin in second trimester (ICD-10 - O30.042) 12/19/2024 15 weeks gestation of (ICD-10 - Z3A.15) 12/19/2024 Obesity affecting in second trimester (ICD-10 - O99.212) 01/16/2025 19 weeks gestation of (ICD-10 - Z3A.19) 02/13/2025 23 weeks gestation of (ICD-10 - Z3A.23) 02/10/2025 Segmental and somatic dysfunction of sacral region [...] Term Goals: slight improvement by next exam T[employer] Casting Machine Operator Goals- decrease segmental dysfunction, decrease swelling and inflammation, increase active and passive range of motion, strengthening, decrease muscle spasms, decrease pain, relief care, relief of symptoms, pain management, maximum medical improvement, increase proprioception, decrease nociception, improve level of comfort throughout penitentiary goals: significantly improved by discharge Today's Treatment: - Chief Complaint: headaches, bilateral neck, bilateral trapezius, upper thoracic, mid thoracic, lower thoracic, low back - Primary Treatment: Diversified and Manual- Chiropractic Manipulative Therapy (CMT) to the right L5, left sacrum, right ilium spinal level(s). - Post treatment: Dominique felt/noticed related improvement after treatment. 02/13/2025 Segmental and somatic dysfunction of lumbar region [...] Term Goals: slight improvement by next exam Fdc Goals- decrease segmental dysfunction, decrease swelling and inflammation, increase active and passive range of motion, strengthening, decrease muscle spasms, decrease pain, relief care, relief of symptoms, pain management, maximum medical improvement, increase proprioception, decrease nociception, improve level of comfort throughout penitentiary goals: significantly improved by discharge Today's Treatment: - Chief Complaint: headaches, bilateral neck, bilateral trapezius, upper thoracic, mid thoracic, lower thoracic, low back - Primary Treatment: Diversified and Manual- Chiropractic Manipulative Therapy (CMT) to the right T9, left L2, right L4, right ilium spinal level(s). - Post treatment: Dominique felt/noticed related improvement after treatment. 02/13/2025 Dichorionic diamniotic twin in second trimester (ICD-10 - O30.042) 10/21/2024 Obesity affecting in first trimester (ICD-10 - O99.211) 01/16/2025 Obesity affecting in second trimester (ICD-10 - O99.212) 11/21/2024 Encounter for supervision of other normal , first trimester (ICD-10 - Z34.81) 01/16/2025 Anemia during (ICD-10 - O99.019) 12/27/2024 Encounter for supervision of normal first in second trimester (ICD-10 - Z34.02) 10/21/2024 Dichorionic diamniotic twin in first trimester (ICD-10 - O30.041) 02/13/2025 Obesity affecting in second trimester (ICD-10 - O99.212) 02/13/2025 Segmental and somatic dysfunction of sacral region [...] Term Goals: slight improvement by next exam T[employer] Casting Machine Operator Goals- decrease segmental dysfunction, decrease swelling and inflammation, increase active and passive range of motion, strengthening, decrease muscle spasms, decrease pain, relief care, relief of symptoms, pain management, maximum medical improvement, increase proprioception, decrease nociception, improve level of comfort throughout display carver goals: significantly improved by discharge Today's Treatment: - Chief Complaint: headaches, bilateral neck, bilateral trapezius, upper thoracic, mid thoracic, lower thoracic, low back - Primary Treatment: Diversified and Manual- Chiropractic Manipulative Therapy (CMT) to the right T9, left L2, right L4, right ilium spinal level(s). - Post treatment: Dominique felt/noticed related improvement after treatment. 02/10/2025 Segmental and somatic dysfunction of pelvic region [...] Term Goals: slight improvement by next exam T[employer] Casting Machine Operator Goals- decrease segmental dysfunction, decrease swelling and inflammation, increase active and passive range of motion, strengthening, decrease muscle spasms, decrease pain, relief care, relief of symptoms, pain management, maximum medical improvement, increase proprioception, decrease nociception, improve level of comfort throughout display carver goals: significantly improved by discharge Today's Treatment: - Chief Complaint: headaches, bilateral neck, bilateral trapezius, upper thoracic, mid thoracic, lower thoracic, low back - Primary Treatment: Diversified and Manual- Chiropractic Manipulative Therapy (CMT) to the right L5, left sacrum, right ilium spinal level(s). - Post treatment: Dominique felt/noticed related improvement after treatment. 12/19/2024 Dichorionic diamniotic twin in second trimester (ICD-10 - O30.042) 12/19/2024 History of pre-eclampsia in prior , currently (ICD-10 - O09.299) 02/10/2025 Pubic bone pain (ICD-10 - M89.9) DIAGNOSIS: [...] Term Goals: slight improvement by next exam T[employer] Casting Machine Operator Goals- decrease segmental dysfunction, decrease swelling and inflammation, increase active and passive range of motion, strengthening, decrease muscle spasms, decrease pain, relief care, relief of symptoms, pain management, maximum medical improvement, increase proprioception, decrease nociception, improve level of comfort throughout display carver goals: significantly improved by discharge Today's Treatment: - Chief Complaint: headaches, bilateral neck, bilateral trapezius, upper thoracic, mid thoracic, lower thoracic, low back - Primary Treatment: Diversified and Manual- Chiropractic Manipulative Therapy (CMT) to the right L5, left sacrum, right ilium spinal level(s). - Post treatment: Dominique felt/noticed related improvement after treatment. 02/13/2025 Segmental and somatic dysfunction of pelvic region [...] Term Goals: slight improvement by next exam Tray Casting Machine Operator Goals- decrease segmental dysfunction, decrease swelling and inflammation, increase active and passive range of motion, strengthening, decrease muscle spasms, decrease pain, relief care, relief of symptoms, pain management, maximum medical improvement, increase proprioception, decrease nociception, improve level of comfort throughout display carver goals: significantly improved by discharge Today's Treatment: - Chief Complaint: headaches, bilateral neck, bilateral trapezius, upper thoracic, mid thoracic, lower thoracic, low back - Primary Treatment: Diversified and Manual- Chiropractic Manipulative Therapy (CMT) to the right T9, left L2, right L4, right ilium spinal level(s). - Post treatment: Dominique felt/noticed related improvement after treatment. 10/21/2024 History of pre-eclampsia in prior , currently (ICD-10 - O09.299) 01/16/2025 Stress incontinence of urine (ICD-10 - N39.3) 01/16/2025 Other specified diseases and conditions complicating (ICD-10 - O99.891) 02/13/2025 Pubic bone pain (ICD-10 - M89.9) DIAGNOSIS: [...] Term Goals: slight improvement by next exam Fdc Goals- decrease segmental dysfunction, decrease swelling and inflammation, increase active and passive range of motion, strengthening, decrease muscle spasms, decrease pain, relief care, relief of symptoms, pain management, maximum medical improvement, increase proprioception, decrease nociception, improve level of comfort throughout penitentiary goals: significantly improved by discharge Today's Treatment: - Chief Complaint: headaches, bilateral neck, bilateral trapezius, upper thoracic, mid thoracic, lower thoracic, low back - Primary Treatment: Diversified and Manual- Chiropractic Manipulative Therapy (CMT) to the right T9, left L2, right L4, right ilium spinal level(s). - Post treatment: Dominique felt/noticed related improvement after treatment. 12/19/2024 History of hemorrhage, currently (ICD-10 - O09.299) 01/16/2025 Myalgia, other site (ICD-10 - M79.18) 02/15/2025 Other TREATMENT PLAN: Dominique's treatment plan [...] Term Goals: slight improvement by next exam Tray Casting Machine Operator Goals- decrease segmental dysfunction, decrease swelling and inflammation, increase active and passive range of motion, strengthening, decrease muscle spasms, decrease pain, relief care, relief of symptoms, pain management, maximum medical improvement, increase proprioception, decrease nociception, improve level of comfort throughout penitentiary goals: significantly improved by discharge Today's Treatment: - Chief Complaint: headaches, bilateral neck, bilateral trapezius, upper thoracic, mid thoracic, lower thoracic, low back - Primary Treatment: Diversified and Manual- Chiropractic Manipulative Therapy (CMT) to the right T9, left L2, right L4, right ilium spinal level(s). - Post treatment: Dominique felt/noticed related improvement after treatment. 02/10/2025 Other TREATMENT PLAN: Dominique's treatment plan for [...] During the visit today we performed the following, examination & 3-4 region adjustment Continue with regular exercise. Continue co-treatment with Chiro look into a SIJ belt for added support. DIAGNOSIS: Upon consideration of the information available [...] Term Goals: slight improvement by next exam Fdc Goals- decrease segmental dysfunction, decrease swelling and inflammation, increase active and passive range of motion, strengthening, decrease muscle spasms, decrease pain, relief care, relief of symptoms, pain management, maximum medical improvement, increase proprioception, decrease nociception, improve level of comfort throughout display carver goals: significantly improved by discharge Today's Treatment: - Chief Complaint: headaches, bilateral neck, bilateral trapezius, upper thoracic, mid thoracic, lower thoracic, low back - Primary Treatment: Diversified and Manual- Chiropractic Manipulative Therapy (CMT) to the right L5, left sacrum, right ilium spinal level(s). - Post treatment: Dominique felt/noticed related improvement after treatment. 02/13/2025 Other TREATMENT PLAN: Dominique's treatment plan for [...] Term Goals: slight improvement by next exam Tray Casting Machine Operator Goals- decrease segmental dysfunction, decrease swelling and inflammation, increase active and passive range of motion, strengthening, decrease muscle spasms, decrease pain, relief care, relief of symptoms, pain management, maximum medical improvement, increase proprioception, decrease nociception, improve level of comfort throughout penitentiary goals: significantly improved by discharge Today's Treatment: - Chief Complaint: headaches, bilateral neck, bilateral trapezius, upper thoracic, mid thoracic, lower thoracic, low back - Primary Treatment: Diversified and Manual- Chiropractic Manipulative Therapy (CMT) to the right T9, left L2, right L4, right ilium spinal level(s). - Post treatment: Dominique felt/noticed related improvement after treatment. Plan Of Treatment Pending Test Test Name Order Date IRON, TIBC AND FERRITIN PANEL 12/27/2024 CBC (INCLUDES DIFF/PLT) 12/27/2024 MATERNAL SERUM AFP 12/27/2024 Hysterosalpingogram 07/11/2024 Insurance Providers Payer Name Payer Address Payer Phone Subscriber Number Group Number Insured Name Patient Relationship to Insured Coverage Start Date Coverage End Date [employer] (Ins. Bill) [address] [address] [place], [place] [id number] Dominique Gil Self - patient is the insured Medical (General) History Medical History History ICD Code Hyperlipidema migraines depression anxiety endometriosis Surgical History Surgery Date(Month/Year) adenoidectomy 1998 tonsillectomy 1998 appendectomy 2004 Laporscopy ovarian cysts 2005 Reconstrutive Pinkie sugery 2006 Left Hip Repairment 12/27/2019 [place] teeth extraction 2021 Hospitalization History Reason Date(Month/Year) child (vaginal) 10/29/2020
--- OUTSIDE RECORDS SUMMARY | 2025-09-16 22:50 | XMS_ITS | Encounter Summary ---
Author Organization [facility]ly [facility] Address [address], [place] [address] Care Team Providers Care Software Testing Specialist Name Role Phone Maira Up MD Primary Care Provider [phone] Encounter Details Date Type Department Care Team (Late st Contact Info) Description 02/02/2014 Emergency Room External to [facility], Provider SOFT TISSUE INJURY TO RT ELBOW [...] as of this encounter Progress Notes * [facility], Provider - 02/02/2014 12:00 AM CST documented in this encounter Plan of Treatment Not on file documented as of this encounter Visit Diagnoses Not on filedocumented in this encounter Care Teams Software Testing Specialist Relationship Specialty Start Date End Date Maira Up MD [address] [place] [address] PCP - General Internal Medicine 05/31/13 documented as of this encounter
--- OUTSIDE RECORDS SUMMARY | 2025-09-16 22:50 | XMS_ITS | Encounter Summary ---
Author Organization [facility] Address [address], [place] [address] Care Team Providers Care Hotbed Lever Operator Name Role Phone Maira Up MD Primary Care Provider [phone] Encounter Details Date Type Department Care Team [...] on filedocumented in this encounter Care Teams Hotbed Lever Operator Relationship Specialty Start Date End Date Maira Up MD [address] [place] [address] PCP - General Internal Medicine 05/31/13 documented as of this encounter
--- OUTSIDE RECORDS SUMMARY | 2025-09-16 22:50 | XMS_ITS | Encounter Summary ---
[facility] Organization [facility] Address [address] [address] Care Team Providers Care Vehicle Refinisher Name Role Phone Maira Up MD Primary Care Provider [phone] Encounter Details Date Type Department Care Team (Late st Contact Info) Description 08/20/2012 Emergency Room External to [facility], Provider ABD PAIN ED STAFF PHYSICIAN [...] as of this encounter Progress Notes * [facility], Provider - 08/20/2012 12:00 AM CDT documented in this encounter Plan of Treatment Not on file documented as of this encounter Visit Diagnoses Not on filedocumented in this encounter Care Teams Vehicle Refinisher Relationship Specialty Start Date End Date Maira Up MD [address] [place] [address] PCP - General Internal Medicine 05/31/13 documented as of this encounter
--- OUTSIDE RECORDS SUMMARY | 2025-09-16 22:50 | XMS_ITS | Encounter Summary ---
Author Organization [facility] Address [address], [place] [address] Care Team Providers Care Director Of Graduate Medical Education Name Role Phone Maira Up MD Primary Care Provider [phone] Encounter Details Date Type Department Care Team (Late st Contact Info) Description 11/13/2015 Correspondence [facility] Occupational and Environmental Medicine [address] [place] [address] Yariel Gregory MD OCC MED NOTES Social History Tobacco Use [...] on filedocumented in this encounter Care Teams Director Of Graduate Medical Education Relationship Specialty Start Date End Date Maira Up MD [address] [place] [address] PCP - General Internal Medicine 05/31/13 documented as of this encounter
--- OUTSIDE RECORDS SUMMARY | 2025-09-16 22:51 | XMS_ITS | Clinical Summary ---
Author Organization [facility] Address [address] [place] [address] Care Team Providers Care Supervisor Front Name Role Phone Maira Saldaña MD Unavailable [...] ons:Sinusitis, unspecified chronicity, unspecified location Inhale 1 [place] into affected nostril(s) once daily. 24 g [...] and tingling. Treated with Benadryl. Hypercholesteremia 08/06/2010 Resolved Problems Problem Noted Date Diagnosed Date Resolved Date Stroke-like symptoms 06/22/2019 024 Overview (02/08/2024): to influenza shot MDD (major depressive disorder) 09/08/2014 12/08/2018 Anxiety 09/08/2014 12/08/2018 Neurologic abnormality 07/03/201402/07 Conversion disorder 07/03/2014 02/08/20 24 Finger contusion 03/23/2012 07/03/2014 Immunizations Immunization Administration Dates Next Due DTP [...] example, heat, electricity, water, phone)? 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) Last Filed Vital Signs Vital Sign Reading Time Taken Comments Blood Pressure 122/64 02/18/2025 10:15 AM CDT Pulse 117 02/18/2025 10:15 AM CDT Temperature 36.6 C (97.8 F) 02/18/2025 10:15 AM CDT Respiratory Rate 16 02/18/2025 10:15 AM CDT Oxygen Saturation 100% 01/09/2025 3:26 PM SPRING COILING MACHINE SETTER Inhaled Oxygen Concentration - - Weight 125.2 kg (276 lb) 02/18/2025 10:15 AM CDT Height 174.9 cm (5' 8.86) 01/09/2025 3:26 PM CS T Body Mass Index 40.92 01/09/2025 3:26 PM SPRING COILING MACHINE SETTER Plan of Treatment Health Maintenance Due Date Last Done Comments HIV for age 15-65 2004 HPV series for age 9-45 (1 - 3-dose SCDM series) 2016 Pap test for age 21-65 12/08/2024 0 (Completed outside of [facility]), 08/13/2017, 07/20/2014 Depression screening for age 12+ 06/09/2025 06/09/2024, 02/08/2024, 05/29/2021, Additional history exists COVID-19 vaccine series (2023- season) 2025 BMI (ht and wt on same day) for age 18+ 01/09/2026 01/09/2025, 11/08/2024, 08/30/2024, Additional history exists Tetanus booster 09/10/2030 09/10/2020, 11/30, 12/16/2011, Additional history exists RSV vaccine for adults or (1 - 1-dose 75+ series) 2064 Hepatitis B series for 19+ Completed 12/09, 12/09/1995, 07/13/1995, Additional history exists Hepatitis C screening for age 18-79 Completed 10/01/2023 Pneumococcal series for age 6-49 Aged Out No longer eligible based on patient's age to complete this topic Procedures Procedure Name Priority Date/Time Associated Diagnosis Comments ANTI HCV Routine 10/01/2023 3:38 PM CDT Polyarthralgia Positive SHAKIRA (antinuclear antibody) REMOTE SENSING SPECIALIST THIN PREP PAP SCREEN IMAGED Routine 08/13/2017 10:31 AM CDT Cervical cancer screening from Last 3 Months or Most Recently Relevant to Health Maintenance Results * ANTI HCV (10/01/2023 3:38 PM CDT) HEPATITIS C ANTIBODY Non-Reacti ve Non-React jaylon 10/02/2023 3:14 PM CDT [facility] Comment:Please note, per www [...] Shavon Zuniga MD SEND OUTS Final Result [facility] [address] [place] [address], [place] * REMOTE SENSING SPECIALIST THIN PREP PAP SCREEN IMAGED (08/13/2017 10:31 AM CDT) Case Report Gynecologic Cytology Report Case: [id number] Authorizing Provider: Ara Aguilera MD Collected: 08/13/2017 1031 Ordering Location: [facility] Received: 08/13/2017 1031 [facility] First Screen: Matilde Bear Rescreen: Kandice Chand Specimen: REMOTE SENSING SPECIALIST ThinPrep Vial Screening, Cervical 08/21/2017 12:25 PM CDT [facility] INTERPRETATION/ RESULT NEGATIVE FOR INTRAEPITHELIAL LESION OR MALIGNANCY (NIL) (none) 08/21/2017 12:25 PM CDT [facility] at 1225 CDT SPECIMEN ADEQUACY Satisfactory for evaluation Endocervical component present Scant cellularity Obscuring Inflammation 08/21/2017 12:25 PM CDT [facility] HPV REQUEST HPV if ASCUS 08/21/2017 12:25 PM CDT [facility] Date of LMP 07/31/2017 08/21/2017 12:25 PM CDT [facility] Last Pap Date 201308/21/2017 12:25 PM CDT [facility] Last Pap Result UNS 7 12:25 PM CDT [facility] [employer] [facility] ENTRAL LABORATORY Abnormal Pap or [place] Bx in last 5 years No 08/21/2017 12:25 PM CDT [facility] Menstrual Status Regular Periods 08/21/2017 12:25 PM CDT [facility] [place] Bx Done Today No 08/21/2017 12:25 PM CDT [facility] Additional Information None given 08/21/2017 12:25 PM CDT [facility] Automated Review Successful 08/21/2017 12:25 PM CDT [facility] Comment:Specimen processed s uccessfully by automated spray drier operator helper device, ThinPrep Imaging System, [employer] Note The pap test is a screening technique, not a diagnostic procedure. It is used primarily to screen for squamous cancers and precursor lesions. Published studies have shown that it is subject to both false negative and false positive results. The pap test should not be used as the sole means to diagnose or exclude pre-malignant and malignant lesions. Interpreted at [facility] ([facility], [facility], [facility], [facility], [facility], [facility], [facility]) 08/21/2017 12:25 PM CDT [facility] Other (Cervical) 08/13/2017 10:31 AM CDT 08/13/2017 10:31 AM CDT us Ara Aguilera MD PATHOLOGY/CYTOLOGY Heidi hylton Result [facility] [address] [place] [address], from Last 3 Months or Most Recently Relevant to Health Maintenance Insurance MEDICA CHOICE [facility] WORKERS COMP Advance Directives * Full Code (Latest Code Status on File) Date Activated Date Inactivated Comments 02/04/2022 7:57 AM 02/04/2022 2:55 PM Question Answer Comments Code Status Discussion: Unable to Assess Preferences, Provider to review later Care Teams Supervisor Front Relationship Specialty Start Date End Date Edyta Londono DO [address] [place] [address] PCP - General Family Practice 12/26/24 Maira Saldaña MD Family Practice Family Practice 04/14/13
--- OUTSIDE RECORDS SUMMARY | 2025-09-16 22:51 | XMS_ITS | Encounter Summary ---
Author Organization [facility] Address [address] [place] [address] Care Team Providers Care Service Sprinkler Helper Name Role Phone Maira Up MD Primary Care Provider [phone] Encounter Details Date Type Department Care Team (Latest Contact Info) Description 06/30/2000 Orders Only Jcarlos Ramirez MD [address] [place] [address] Social History Tobacco Use Types Packs/Day Years [...] filedocumented in this encounter Care Teams Service Sprinkler Helper Relationship Specialty Start Date End Date Maira Up MD [address] [place] [address] PCP - General Internal Medicine 05/31/13 documented as of this encounter
--- OUTSIDE RECORDS SUMMARY | 2025-09-16 22:51 | XMS_ITS | Encounter Summary ---
Author Organization [facility] Address [address] [place] [address] Care Team Providers Care Superintendent Track Name Role Phone Maira Up MD Primary Care Provider [phone] Encounter Details Date Type Department Care Team (Latest Contact Info) Description 02/26/1998 Orders Only Drake Isidro MD [address] [place], [place] [address] Social History Tobacco Use Types Packs/Day Years [...] on filedocumented in this encounter Care Teams Superintendent Track Relationship Specialty Start Date End Date Maira Up MD [address] [place] [address] PCP - General Internal Medicine 05/31/13 documented as of this encounter
--- OUTSIDE RECORDS SUMMARY | 2025-09-16 22:51 | XMS_ITS | Clinical Summary ---
Author Organization [facility] Address [address] [address] Care Team Providers Care Casting And Pasting Supervisor Name Role Phone Maira Up MD Primary Care Provider [phone] Source Comments You are receiving this document as you are listed as the primary care provider,follow-up provider, or the patient has been referred to you for consultation.This is in compliance with the Medicare and[facility] EHR Incentive Program,which states Providers who transition their patient to another setting of careor provider of care or refers their patient to another provider of care shouldprovide summary care record for each transition of care or referral. [facility] Allergies Active Allergy Reactions Criticality Noted Date Comments Cephalosporins Rash 09/08/2003 Influenza Virus Vaccine 09/05/2010 Pt. Had numbness and paralysis of arm and droopiness of face. Penicillins Rash 12/10/2000 Sulfa Antibiotics Swelling Swelling in hands/ feet; pt denies h/o: anaphylaxis, facial angioedema, Rx or use of epi pen Medications cyclobenzaprine (AKA FLEXERIL) 10 MG tablet Take [...] insurance card for other options [facility]. They may contact their health insurance company to get a list of providers outside of the [facility] system or they may wish to contact [facility] or [facility]. Surveillance of previously p rescribed intrauterine contraceptive device 11/21/2010 Overview (12/09/2010): Copper IUD Migraine 08/06/2010 Hypercholesteremia 08/06/2010 Weight gain 08/06/2010 Asthma 02/17/2005 Resolved Problems Problem Noted Date Diagnosed Date Resolved Date Low back pain 12/27/2015 02/26/2016 Encounters Date Type Department Care Team Description 09/12/2025 makayla [address] [place] [address] from Last 3 Months Immunizations Immunization Administration [...] Adult Preventive Visit 08/06/2012 0, 07/29/2001, 06/15/2000 HPV Vaccine (1 - 3-dose SCDM series) 2016 DTaP/Tdap/Td Vaccine (7 - Tdap) 12/16/2021 12/16/2011, 07/21/2002, 07/24/2000, Additional history exists SMI: Hgb A1C 08/29/2024 08/29/2023, 08/30, 09/03/2010, Additional history exists COVID-19 Vaccine ( - season) 2025 Influenza Vaccine (#1) 2025 0, 09/26/2004, 09/24/1998, Additional history exists Zoster/Shingles Vaccine (1 of 2) 2039 Hib Vaccine Completed 12/08/1991 IPV (Polio) Vaccine Completed 06/09/1995, 07/27/1990, 1989, Additional history exists HepB Vaccine Completed 12/09/1995, 06/30, 06/09/1995 HIV Screening (Preventive Services) Completed 06/27/2000 MCV4 Vaccine Completed 07/16/2005 Meningococcal B Vaccine Aged Out No l [...] 136 - 145 mmol/L 08/29/2023 1:56 AM CDT [facility] Potassium 3.9 3.5 - 5.1 mmol/L 08/29/2023 1:56 AM T [facility] Chloride 104 98 - 109 mmol/L 08/29/2023 1:56 AM T [facility] CO2 22 20 - 29 mmol/L 08/29/2023 1:56 AM T [facility] Anion Gap 12 7 - 16 mmol/L 08/29/2023 1:56 AM T [facility] Calcium 9.3 8.4 - 10.4 mg/dL 08/29/2023 1:56 AM T [facility] BUN 9 7 - 26 mg/dL 08/29/2023 1:56 AM T [facility] Creatinine 0.69 0.55 - 1.02 mg/dL 08/29/2023 1:56 AM CDT [facility] Glucose 96 70 - 100 mg/dL 08/29/2023 1:56 AM CDT [facility] Comment:The given reference range is for the fasting state. Non-fasting reference range for glucose is 70 - 180 mg/dL. GFR, Estimated >60 >60 mL/min/1.7 3m2 08/29/2023 1:56 AM CDT [facility] Blood Venipuncture / Unknown 08/29/2023 1:29 AM CDT 08/29/2023 1:34 AM CDT us John Churchill MD LAB_1 Final Result Performing Organization Address City/[facility]/ZIP Co de Phone Number [address] [phone] * (ABNORMAL) LIPID PANEL AND DIRECT LDL(IF NEEDED) (08/06/2010 3:06 PM CDT) Cholesterol 226(H) 0 - 199 mg/dl [facility] Triglyceride 138 0 - 149 mg/dl [facility] HDL 58 >40 mg/dl [facility] LDL, Calc. 140(H) 0 - 129 mg/dl [facility] Hours Fasting 15 hours [facility] 08/06/2010 3:06 PM CDT 08/06/2010 3:11 PM CDT us Cory Gay MD LAB_1 Final Result Performing Organization Address City/[facility]/ZIP Co de Phone Number [facility] [address] [address] * PAP TEST, ROUTINE (08/06/2010 12:00 AM CDT) Cytology, Pap (NOTE) Manager Automotive Cytology Report Patient Name: DOMINIQUE RAMSEY Taken: 08/06/2010 Received: 08/08/2010 Reported: 08/14/2010 Physician(s): CORY GAY ([id number]) Source of Specimen Liquid routine Pap, cervical/endocervi fabi: Specimen Adequacy Satisfactory for evaluation. Endocervical component present. Final Cytologic Interpretation/Res ult NEGATIVE FOR INTRAEPITHELIAL LESION OR MALIGNANCY (NILM) Other Cytologic Findings Fungal organisms morphologically consistent with Tish spp. Inflammation /08/14/2010 Electronically Signed Out By BLAZE Mendoza (ASCP) BLAZE Mendoza (ASCP) Pap Smear History Date of Last Menstrual Period: 08/01/10 [facility] 08/06/2010 08/08/2010 9:0 9 AM CDT Cory Gay MD LAB_1 Final Result Performing Organization Address City/[facility]/ZIP Co de Phone Number [facility] [address] [phone] * HIV 1/2 ANTIBODY (06/27/2000 8:52 PM CDT) HIV 1/2 Antibody Non-Reacti ve [facility] 06/27/2000 8:52 PM CDT 06/27/2000 8:57 PM CDT David Chavez LAB_1 Final Result Performing Organization Address [facility] Co de Phone Number [facility] [address] [address] from Last 3 Months or Most Recently Relevant to Health Maintenance Insurance , [address] [address] , [address] [place] [address] MEDICA CHOICE [address] [place] [address] [address] [place] [address] TRAVELERS Care Teams Casting And Pasting Supervisor Relationship Specialty Start Date End Date Maira Up MD [address] [place] [address] PCP - General Internal Medicine 05/31/13
--- OUTSIDE RECORDS SUMMARY | 2025-09-16 22:51 | XMS_ITS | Encounter Summary ---
Author Organization [facility] Address [address] [place] [address] Care Team Providers Care Slat Grader Name Role Phone Maira Up MD Primary Care Provider [phone] Encounter Details Date Type Department Care Team [...] on filedocumented in this encounter Care Teams Slat Grader Relationship Specialty Start Date End Date Maira Up MD [address] [place] [address] PCP - General Internal Medicine 05/31/13 documented as of this encounter
--- OUTSIDE RECORDS SUMMARY | 2025-09-16 22:51 | XMS_ITS | Encounter Summary ---
Author Organization [facility] Address [address] [place] [address] Care Team Providers Care Aircraft Body Repairer Name Role Phone Maira Up MD Primary Care Provider [phone] Encounter Details Date Type Department Care Team [...] on filedocumented in this encounter Care Teams Aircraft Body Repairer Relationship Specialty Start Date End Date Maira Up MD [address] [place] [address] PCP - General Internal Medicine 05/31/13 documented as of this encounter
--- OUTSIDE RECORDS SUMMARY | 2025-09-16 22:51 | XMS_ITS | Encounter Summary ---
Author Organization [facility] Address [address], [place] [address] Care Team Providers Care Gas Dispatcher Name Role Phone Maira Up MD Primary Care Provider Encounter Details Date Type Department Care Team (Late st Contact Info) Description 12/05/2003 Hospital External to Jcarlos Ramirez MD [address] [place] [address] [facility] ORTHO EXAM Social History Tobacco Use [...] * Jcarlos Ramirez - 12/05/2003 12:00 AM COLLEGE OR UNIVERSITY DEPARTMENT HEAD EGE OR UNIVERSITY DEPARTMENT HEAD documented in this encounter Plan of Treatment Not on file documented as of this encounter Visit Diagnoses Not on filedocumented in this encounter Care Teams Gas Dispatcher Relationship Specialty Start Date End Date Maira Up MD [address] [place] [address] PCP - General Internal Medicine 05/31/13 documented as of this encounter
--- OUTSIDE RECORDS SUMMARY | 2025-09-16 22:51 | XMS_ITS | Encounter Summary ---
Author Organization [facility] Address [address] [place] [address] Care Team Providers Care Supervisor Wash House Name Role Phone Maira Up MD Primary Care Provider [phone] Encounter Details Date Type Department Care Team (Latest Contact Info) Description 09/08/1999 Orders Only Carlito Cadet MD [address] [place] [address] Social History Tobacco Use Types Packs/Day Years [...] filedocumented in this encounter Care Teams Supervisor Wash House Relationship Specialty Start Date End Date Maira Up MD [address] [place] [address] PCP - General Internal Medicine 05/31/13 documented as of this encounter
--- OUTSIDE RECORDS SUMMARY | 2025-09-16 22:51 | XMS_ITS | Encounter Summary ---
Author Organization [facility] Address [address] [address] Care Team Providers Care Manager Pharmacy Name Role Phone Maira Up MD Primary Care Provider [phone] Encounter Details Date Type Department Care Team (Latest Contact Info) Description 09/10/1998 Orders Only Ronnie Angel MD [address] [place] [address] Social History Tobacco Use Types Packs/Day Years [...] filedocumented in this encounter Care Teams Manager Pharmacy Relationship Specialty Start Date End Date Maira Up MD [address] [place] [address] PCP - General Internal Medicine 05/31/13 documented as of this encounter
--- OUTSIDE RECORDS SUMMARY | 2025-09-16 22:51 | XMS_ITS | Encounter Summary ---
Author Organization [facility] Address [address], [place] [address] Care Team Providers Care Biztalk Software Developer Name Role Phone Maira Up MD Primary Care Provider [phone] Encounter Details Date Type Department Care Team [...] on filedocumented in this encounter Care Teams Biztalk Software Developer Relationship Specialty Start Date End Date Maira Up MD [address] [place] [address] PCP - General Internal Medicine 05/31/13 documented as of this encounter
--- OUTSIDE RECORDS SUMMARY | 2025-09-16 22:51 | XMS_ITS | Encounter Summary ---
Author Organization [facility] Address [address] [place] [address] Care Team Providers Care Unit Technician Name Role Phone Maira Up MD Primary Care Provider Encounter Details Date Type Department Care Team (Latest Contact Info) Description 03/25/2004 Hospital None Unknown, Physician [address] [place] [address] CONSULT ABD PAIN Social History Tobacco Use [...] on filedocumented in this encounter Care Teams Unit Technician Relationship Specialty Start Date End Date Maira Up MD [address] [place] [address] PCP - General Internal Medicine 05/31/13 documented as of this encounter
--- OUTSIDE RECORDS SUMMARY | 2025-09-16 22:51 | XMS_ITS | Encounter Summary ---
Author Organization [facility] Address [address] [place] [address] Care Team Providers Care Contact Lens Technician Name Role Phone Maira Up MD Primary Care Provider [phone] Encounter Details Date Type Department Care Team [...] on filedocumented in this encounter Care Teams Contact Lens Technician Relationship Specialty Start Date End Date Maira Up MD [address] [place] [address] PCP - General Internal Medicine 05/31/13 documented as of this encounter
--- OUTSIDE RECORDS SUMMARY | 2025-09-16 22:51 | XMS_ITS | Encounter Summary ---
Author Organization [place] Address [address] [place] [address] Care Team Providers Care Magistrate Assistant Name Role Phone Blake Bonillaah Primary Care Provider [phone] Betty Godfrey MD Unavailable [facility], Shoaib Colon/Sylvain Primary Care Pr ovider [...] PM CDT Legal Sex Female 3:11 PM TRAM OPERATOR Gender Identity Female 09/07/2023 1:35 PM CDT Sexual Orientation Not on file documented as of this encounter Plan of Treatment Not on file documented as of this encounter Visit Diagnoses Not on filedocumented in this encounter Additional Health Concerns Infection Onset Date Last Indicated Resolved Time Rule Out COVID-19 11/18/2021 11/18/2021 11/18/2021 6:50 PM TRAM OPERATOR documented as of this encounter Care Teams Magistrate Assistant Relationship Specialty Start Date End Date Leyla Bonilla PCP - General Family Practice 06/22/19 11/28/24 Shoaib Xie [address] [place] [address] PCP - General 11/29/24 [place] [address] [place] [address] Assigned OBGYN Provider 10/20/21 2 Stacia Lozano MD [address] [place] [address] [address] [place] [address] Assigned OBGYN Provider 01/22/25 documented as of this encounter
--- OUTSIDE RECORDS SUMMARY | 2025-09-16 22:51 | XMS_ITS | Encounter Summary ---
Author Organization [facility] Address [address] [place] [address] Care Team Providers Care Application Systems Engineer Name Role Phone Maira Up MD Primary Care Provider [phone] Encounter Details Date Type Department Care Team [...] regarding closed head injury was given. cc: H MACHINE OPERATOR documented in this encounter Plan of Treatment Not on file documented as of this encounter Visit Diagnoses Not on filedocumented in this encounter Care Teams Application Systems Engineer Relationship Specialty Start Date End Date Maira Up MD [address] [place] [address] PCP - General Internal Medicine 05/31/13 documented as of this encounter
--- OUTSIDE RECORDS SUMMARY | 2025-09-16 22:51 | XMS_ITS | Encounter Summary ---
Author Organization [facility] Address [address] [place] [address] Care Team Providers Care Mat Worker Name Role Phone Maira Up MD Primary Care Provider [phone] Encounter Details Date Type Department Care Team (Late st Contact Info) Description 06/03/2001 Office Visit [facility] [address] [place] [address] Jcarlos Ramirez MD [address] [place] [address] Social History Tobacco Use Types Packs/Day Years [...] and the family has been at [facility] while this developed. O: Dominique is [...] on filedocumented in this encounter Care Teams Mat Worker Relationship Specialty Start Date End Date Maira Up MD [address] [place] [address] PCP - General Internal Medicine 05/31/13 documented as of this encounter
--- OUTSIDE RECORDS SUMMARY | 2025-09-16 22:51 | XMS_ITS | Encounter Summary ---
Author Organization [facility] Address [address], [place] [address] Care Team Providers Care Carriage Dogger Name Role Phone Maira Up MD Primary Care Provider [phone] Encounter Details Date Type Department Care Team (Late st Contact Info) Description 09/12/2025 [address] [place] [address] Social History Tobacco Use Types Packs/Day Years [...] as of this encounter Progress Notes * FAMILY MEDICINELUCIA PROVIDER - 09/12/2025 4:46 AM CDT Lucia Treatment Plan Diagnosis Conjunctivitis Visit Date September 12, 2025 Dominique Gil Date of : 88 Provider Sudha Lincoln, Physician Fur Operator Note From Provider Won Fox, thanks for using Lucia! Your symptoms are currently consistent with viral pinkeye. Don?? start your prescription antibiotic eye drops quite yet. Please read the entire treatment plan below where you will find a lot of helpful information including details on your diagnosis, how to manage symptoms, when it is appropriate to start the eye drops, and when it is safe to return to school or work. We are here for any questions along the way! Take care, NORMA Haley Treatment Plan Because your pink eye is viral, your symptoms should start to improve on their own in about 5 to 7 days.However, viral pink eye can develop into bacterial pink eye. If you notice excessive, thick anddiscoloreddrainage that is present all day, it?? likely you have developed bacterial pink eye. In case this happens, Isent a prescription for an antibiotic eye drop to [facility]. Only fill this prescription if youdevelop symptoms of a bacterial pink eye infection, as antibiotic drops won?? treat or improve your viralinfection. If you have questions, select Help to Request aFollow-up and we??l discuss next steps. Order(s) tobramycin 0.3% drops Apply 1-2 drop into affected eye every four hours as directed for 7 days Note: Continue until symptoms improve. Refills: None Sent To: [facility] [address] [place] [address] Treatment Plan Self Care Tip Topics You're Contagious Artificial Tears Wash Your Hands Avoid Sharing Towels For Secretions What to Expect Viral pink eye usually starts to improve in about 5 days but can take 1 to 2 weeks to fully clear up.[place] eye can also start in one eye and spread to the other, and sometimes symptoms worsen before they getbetter. Follow-up care: We offer follow-up care for 7 days, so if you have any questions during that time, selectHelp to Request a Follow-up. If your symptomsworsen or don?? improve in the expected time frame, complete a new visit so wecan assess your current symptoms and discuss next steps. What to Watch Out For Give us a call immediately if you experience: ??? Vision changes in the affected eye ??? Significant (nearly swollen shut) swelling around the eye ??? Increasing redness ??? Skin changes ??? Pain deep inside the eye My Conditions, Orders, Allergies as of September 12, 2025 Standard condition list None None None Current orders tobramycin (tobramycin) multivitamin (multivitamin) NAC (acetylcysteine) quercetin dihydrate (bulk) (quercetin dihydrate (bulk)) zinc (zinc) Allergies Sulfa (Sulfonamide Antibiotics) Flulaval Quad [id number] (flu vaccine qs 2013-15(36mos+)), IM amoxicillin (amoxicillin), oral Ceftin (cefuroxime axetil), oral Fluzone [id number] (flu vaccine ts 2014-16(6 mos+)), IM [facility] We are an online clinic open 22/06. If you have any questions or comments about this visit, please call or email [email or web address]. documented in this encounter Plan of Treatment Not on file documented as of this encounter Visit Diagnoses Diagnosis Unspecified conjunctivitis documented in this encounter Care Teams Carriage Dogger Relationship Specialty Start Date End Date Maira Up MD [address] [place] [address] PCP - General Internal Medicine 05/31/13 documented as of this encounter
--- OUTSIDE RECORDS SUMMARY | 2025-09-16 22:52 | XMS_ITS | Encounter Summary ---
Author Organization [facility] Address [address] [place] [address] Care Team Providers Care Leather Grader Name Role Phone Maira Up MD Primary Care Provider [phone] Encounter Details Date Type Department Care Team [...] is 113 pounds, temperature 98.2. Ears bilaterally: [place] and light reflex present, clear TM. Mouth: [...] on non-citrus drink and bland diet. T CLERK documented in this encounter Plan of Treatment Not on file documented as of this encounter Visit Diagnoses Not on filedocumented in this encounter Care Teams Leather Grader Relationship Specialty Start Date End Date Maira Up MD [address] [place] [address] PCP - General Internal Medicine 05/31/13 documented as of this encounter
--- OUTSIDE RECORDS SUMMARY | 2025-09-16 22:52 | XMS_ITS | Clinical Summary ---
Author Organization [place] Address [address] [place] [address]. [place] [address] Care Team Providers Care Corn Breeder Name Role Phone Clinic, Shoaib Colon/Sylvain Primary [...] low back pain Overview (05/15/2021): IMO Update Family History Medical History Relation Comments Hyperlipidemia [...] School Help Needed Not on file 08/22 Comments No Sex and Gender Information Value Date Recorded Sex Assigned at Female 09/07/2023 1:35 PM CDT Legal Sex Female 3:11 PM STORE GROUP MANAGER Gender Identity Female 09/07/2023 1:35 PM CDT Sexual Orientation Not on file Last Filed Vital Signs Vital Sign Reading Time Taken Comments Blood Pressure 124/74 11/29/2024 10:48 AM STORE GROUP MANAGER Pulse 86 11/29/2024 10:48 AM STORE GROUP MANAGER Temperature 36.5 C (97.7 F) 11/29/2024 10:48 AM STORE GROUP MANAGER Respiratory Rate 20 11/29/2024 10:48 AM STORE GROUP MANAGER Oxygen Saturation 100% 11/29/2024 10:48 AM STORE GROUP MANAGER Inhaled Oxygen Concentration - - Weight 115.7 kg (255 lb) 11/29/2024 10:48 AM STORE GROUP MANAGER Height 175.3 cm (5' 9) 11/29/2024 10:48 AM STORE GROUP MANAGER Body Mass Index 37.66 11/29/2024 10:48 AM STORE GROUP MANAGER Plan of Treatment Health Maintenance Due Date Last Done Comments ADVANCE CARE PLANNING 1989 ANNUAL REVIEW OF HM ORDERS 1990 PAP 12/08/2022 12/08/2019, 01/0 07/2020, 08/13/2017, Additional history exists PHQ-2 (once per calendar year) 2024 YEARLY PREVENTIVE VISIT 02/07/2025 02/08/20 24, 05/29/2021, 11/17/2019, Additional history exists COVID-19 VACCINE ( season) 2025 INFLUENZA VACCINE (#1) 2025 0, 09/26/2004, 09/24/1998, Additional history exists DIABETES SCREENING 11/29/2027 11/29/2024, 1 01/19/2021, 07/29/2021, Additional history exists DTAP/TDAP/TD VACCINE (8 - Td or Tdap) 09/10/2030 09/10/2020, 12/16/2011, 07/21/2002, Additional history exists ZOSTER VACCINE (1 of 2) 2039 HEPATITIS B VACCINE Completed 12/09/1995, 12/09/1995, 07/13/1995, Additional history exists HIV SCREENING Completed 06/27/2000 MENINGITIS VACCINE Completed 07/16/2005, 07/16/2005 HEPATITIS C SCREENING Completed 10/01/2023 HPV VACCINE (No Doses Required) Completed PNEUMOCOCCAL VACCINE: PEDIATRICS (0 to 5 YEARS) AND AT-RISK PATIENTS (6 to 49 YEARS) Aged Out No longer eligible based on patient's age to complete this topic Procedures Procedure Name Priority Date/Time Associated Diagnosis Comments BASIC METABOLIC PANEL STAT 11/29/2024 11:34 AM STORE GROUP MANAGER from Last 3 Months or Most Recently Relevant to Health Maintenance Results * (ABNORMAL) Basic metabolic panel (11/29/2024 11:34 AM STORE GROUP MANAGER) Sodium 132(L) 135 - 145 mmol/L 11/29/2024 11:57 AM [facility] Potassium 4.4 3.4 - 5.3 mmol/L 11/29/2024 11:57 AM [facility] Chloride 99 98 - 107 mmol/L 11/29/2024 11:57 AM [facility] Carbon Dioxide (CO2) 21(L) 22 - 29 mmol/L 11/29/2024 11:57 AM [facility] Anion Gap 12 7 - 15 mmol/L 11/29/2024 11:57 AM [facility] Urea Nitrogen 7.9 6.0 - 20.0 mg/dL 11/29/2024 11:57 AM [facility] Creatinine 0.69 0.51 - 0.95 mg/dL 11/29/2024 11:57 AM [facility] GFR Estimate >90 >60 mL/min/1.7 3m2 11/29/2024 11:57 AM [facility] Comment:eGFR calculated usia 2020 CKD-EPI equation. Calcium 8.6(L) 8.8 - 10.4 mg/dL 11/29/2024 11:57 AM [facility] Comment:Reference intervals for this test were updated on 06/14/2024 to reflect our healthy population more accurately. There may be differences in the flagging of prior results with similar values performed with this method. Those prior results can be interpreted in the context of the updated reference intervals. Glucose 92 70 - 99 mg/dL 11/29/2024 11:57 AM [facility] Blood BLOOD SPECIMEN / Unknown Venipuncture / Unknown 11/29/2024 11:34 AM STORE GROUP MANAGER 11/29/2024 11:37 AM [facility] Herve Fields PA-C LAB - BLOOD ORDERABLES Final Result [facility] [address] [place] [address], [facility] from Last 3 Months or Most Recently Relevant to Health Maintenance Insurance [employer]ICE [employer] Care Teams Corn Breeder Relationship Specialty Start Date End Date Clinic, Shoaib Colon/Sylvain [address] [place] [address] [place] [address] PCP - General 11/29/24
[2025-09-16 22:55] VITALS: BP 140/80; PULSE 80; RESP 16; TEMP 36.6; O2SAT 98; BMI 39.9
--- NOTE | 2025-09-16 23:23 | ED.GENADULT ---
HPI - General Adult General Time Seen by Provider: 23:23 Date Seen: 09/16/25 Chief complaint: Fall/Minor Trauma Stated complaint: fell, hit head Time Seen by Provider: 09/16/25 23:12 Source: patient, RN notes reviewed and old records reviewed Mode of arrival: ambulatory Limitations: no limitations History of Present Illness HPI narrative: 35-year-old female who comes in today after a fall. Patient reports she slipped on her deck, fell landed on her left side. She complains of a headache and some lightheadedness. No nausea vomiting, no numbness or tingling in the arms legs, does remember the event, no loss of consciousness. Complains of some left shoulder and arm pain after this. Patient reports she was coming to the emergency department due to concern for cough and fever peak, she has had this for 3 days and was taking some clarithromycin at home with no improvement, slight runny nose. Son was recently hospitalized by her report for about 5 days with similar symptoms and was ultimately diagnosed with pertusses but percusses test was negative. She has not taken anything for symptoms of the Tessalon and the clarithromycin as previously mentioned which was from a prior prescription. Related Data Home Medications ?Medication ?Instructions ?Recorded ?Confirmed cholecalciferol (vitamin D3) 25 25 mcg PO QDAY 02/17/25 08/11/25 mcg (1,000 unit) capsule docosahexaenoic acid 200 mg See Rx Instructions PO DAILY 02/17/25 08/11/25 capsule ( DHA) Previous Rx's ?Medication ?Instructions ?Recorded triamcinolone acetonide 0.1 % 1 applic topical TID #30 grams 06/09/25 topical cream benzonatate 200 mg capsule 200 mg PO TID PRN cough #10 caps 09/16/25 Allergies Allergy/AdvReac Type Severity Reaction Status Date / Time cefuroxime (From Ceftin) Allergy Severe Verified 08/11/25 09:47 influenza virus vacc Allergy Severe Verified 08/11/25 09:47 trivalent, spl (From Fluzone) prednisolone Allergy Severe Verified 08/11/25 09:47 Sulfa (Sulfonamide Allergy Severe Swelling Verified 08/11/25 09:47 Antibiotics) of Lip/Tongue/Throat doxycycline Allergy Unknown Verified 08/11/25 09:47 [facility] Medical History Abnormal glucose tolerance affecting , antepartum ?O99.810 - Abnormal glucose complicating (ICD-10) Anemia affecting ?O99.019 - Anemia complicating , unspecified trimester (ICD-10) Dichorionic diamniotic twin gestation ?O30.049 - Twin , dichorionic/diamniotic, unspecified trimester (ICD-10) Endometriosis determined by laparoscopy ?N80.9 - Endometriosis, unspecified (ICD-10) Surgical History H/O laparoscopy ?Z98.890 - Other specified postprocedural states (ICD-10) Social History What is your current living situation?: I presently have a place to live Problems where you live: no known problems In the past 12 months, utilities in danger of being shut off: no In past 12 months, lack of transportation kept you from medical appts, meetings, work, or getting things needed for daily living: no In the past 12 mos, have been you worried that your food would run out before you had money to buy more?: never true In the past 12 mos, the food you bought just didn't last and you didn't have money to buy more?: never true Smoking Status: Never smoker Do you use any of these nicotine containing products: None How often do you have a drink containing alcohol: never AUDIT-C Alcohol total score: 0 Non-prescribed substance use: denies use Caffeine: Yes How often does anyone, including family, friends and others, physically hurt you: never How often does anyone, including family, friends and others, insult or talk down to you: never How often does anyone, including family, friends and others, threaten you with harm: never How often does anyone, including family, friends and others, scream or curse at you: never Exam Narrative: Exam Narrative: General: Well-developed and well-nourished, no acute distress Head: Atraumatic and normocephalic Eyes: Pupils are equal reactive, extraocular motions intact, conjunctiva clear ENT: External nose and ears are normal, posterior pharynx without erythema or exudate Neck: No midline cervical tenderness, full spontaneous range of motion the neck, trachea midline, no adenopathy Heart: Regular rate and rhythm no murmurs or thrills Lungs: Clear to auscultation bilaterally without wheezes or crackles Abdomen: Soft, nontender, nondistended with active bowel sounds Musculoskeletal: No tenderness, deformity, or edema. Full spontaneous range of motion left arm, no tenderness deformity of the upper or lower arm. Neurologic: Awake, alert, and oriented x3, no gross focal neurologic deficits, cranial nerves intact as tested Psych: Mood and affect are appropriate Skin: No rashes Const: Vital Signs, click to edit/add: Vital Signs - 24 hr 09/16/25 22:55 Temperature 97.8 F Pulse Rate [Pulse Oximeter] 80 Respiratory Rate 16 Blood Pressure [Ri ght Upper Arm] 140/80 H Pulse Oximetry 98 Oxygen Delivery Me thod Room Air Course Course ED Course: Most recent OB visit from August 11 patient was seen for IUD insertion. Patient presents today with multiple concerns. She has a cough and intermittent fevers look well as slight runny nose for the last 3 days. She is afebrile here, lungs are clear without wheezing or crackles. Possible recent pertussis exposure, will be started on azithromycin. Also concern about head injury, slipped and fell down about 3 stairs landing on her left side. On exam here, patient is awake and alert, no headache no vomiting, no alcohol use, no amnesia, no external signs of trauma of the head, patient not on blood thinners. No indication for head CT by [place] or [place] Head CT rules, no indication for head CT based on nexus instrument. Patient will be started on azithromycin as well as Robitussin for her cough, Tessalon Perles prescribed as well although they are not in [employer] and so she will need to pick them up in the morning. Vital Signs Vital signs: Initial Vital Signs Temperature 97.8 F 09/16/25 22:55 Temperature Source Temporal Artery Scan 09/16/25 22:55 Pulse Rate 80 09/16/25 22:55 Respiratory Rate 16 09/16/25 22:55 Blood Pressure 140/80 H 09/16/25 22:55 Blood Pressure Mean 100 09/16/25 22:55 Blood Pressure Position Supine 09/16/25 22:55 Pulse Oximetry 98 10/18/25 22:55 Oxygen Delivery Method Room Air 09/16/25 22:55 Vital Signs Temperature 97.8 F 09/16/25 22:55 Pulse Rate 80 09/16/25 22:55 Respiratory Rate 16 09/16/25 22:55 Blood Pressure 140/80 H 09/16/25 22:55 Pulse Oximetry 98 09/16/25 22:55 Oxygen Delivery Method Room Air 09/16/25 22:55 Temperature 97.8 F 09/16/25 22:55 Pulse Rate 80 09/16/25 22:55 Respiratory Rate 16 09/16/25 22:55 Blood Pressure 140/80 H 09/16/25 22:55 Pulse Oximetry 98 09/16/25 22:55 Oxygen Delivery Method Room Air 09/16/25 22:55 Discharge Plan Discharge Clinical Impression: Cough, Head injury Patient Disposition: Home, Self-Care Instructions: Head Injury (DC), Upper Respiratory Infection (DC) Additional Instructions: Take Zithromax prescribed Take Tylenol ibuprofen as needed for fever or headache Activity Level: Activity as Tolerated Discharge Diet: Regular Prescriptions: New benzonatate 200 mg capsule 200 mg PO TID PRN (Reason: cough) Qty: 10 0RF No Action DHA 200 mg capsule See Rx Instructions PO DAILY Rx Instructions: as directed orally daily; cholecalciferol (vitamin D3) 25 mcg (1,000 unit) capsule 25 mcg PO QDAY triamcinolone acetonide 0.1 % cream 1 applic topical TID Qty: 30 0RF Follow Up/Referrals: Provider,Not a Local [Primary Care Provider, Family Practice] Stand Alone Forms: MyHealth Info Instructions
--- OUTSIDE RECORDS SUMMARY | 2025-09-16 23:51 | XMS_ITS | Patient Health Record ---
Author Organization [facility] Address [address] [place] [address] Care Team Providers Care Sample Finisher Name Role Phone None, No PCP Primary Care Provider UnavailDominique Nath Unavailable [phone] Ning Ruiz Unavailable [phone] Lizette Berg Unavailable [phone] Kavitha Coleman Unavailable [phone] Yvrose Casanova Unavailable [phone] Neva Cintron Unavailable [phone] Ronit Pederson Unavailable [phone] Froy Angel Unavailable [phone] Eliz Romero Unavailable Reid Rodriguez Unavailable [phone] Mitzi Alba Unavailable [phone] Michelle Daniel Unavailable [phone] Iraj Francis Unavailable [phone] Laura Acuña Unavailable [phone] Seda Mcclelland Unavailable [phone] Allergies Allergen (clinical drug ingredient) Drug/Non Drug [...] ROUTINE Reviewed date:10/23/2024 06:46:00 PM Interpretation: Performing Lab:[facility] [address], [place] SxedUE[address] Jay Nicole Notes/Report: 0 CULTURE, URINE, ROUTINE SEE NOTE using a method to minimize contamination, with Result: Less than 10,000 CFU/mL of single Gram positive Specimen Source: Urine, clean catch Micro Number: [id number] organism isolated. No further testing will be Specimen Quality: Adequate prompt transfer to Urine Culture Transport Tube, CULTURE, URINE, ROUTINE performed. If clinically indicated, recollection Test Status: Final is recommended. Urinalysis, Routine () Reviewed date:10/23/2024 06:46:00 PM Interpretation: Performing Lab: Notes/Report: Medline (8635), Viraj - Lab Processing Associate: 01 AST Reviewed date:10/23/2024 11:45:23 AM Interpretation: Performing Lab:[facility] [address], [place] UbtgSC[address] Jay Nicole Notes/Report: AST 22 10-30 U/L ALT Reviewed date:10/23/2024 11:45:23 AM Interpretation: Performing Lab:[facility] [address], [place] YuerOE[address] Jay Nicole Notes/Report: ALT 16 6-29 U/L URIC ACID Reviewed date:10/23/2024 11:45:23 AM Interpretation: Performing Lab:[facility] [address], [facility] CenterQlfdCF[address] Jay Nicole Notes/Report: URIC ACID 3.3 2.5-7.0 mg/dL Therapeutic target for gout patients: <6.0 mg/dL HEMOGLOBIN A1c Reviewed date:10/23/2024 11:45:23 AM Interpretation: Performing Lab:[facility] [address], [place] ZxhxAC[address] Jay Nicole Notes/Report: HEMOGLOBIN A1c 5.6 <5.7 % of total Hgb control in non- diabetic patients. Different For the purpose of screening for the presence of This assay result is consistent with a decreased risk > or =6.5% Consistent with diabetes According to [place] Diabetes Association (ADA) Currently, no consensus exists [...] Reviewed date:10/23/2024 11:45:23 AM Interpretation: Performing Lab:[facility]KDW[email or web address], sabio labsYldoUN[address] Jay Nicole Notes/Report: HEPATITIS C ANTIBODY NON-REACTIVE NON-REACTIVE For additional information please refer to evidence of HCV infection. educational purposes only.) if recent HCV exposure is suspected, a test for HCV RNA HCV antibody was non-reactive. There is no laboratory http://Paymate.Dataloop.IO/faq/FAQ22v 1 (test code 23915) is suggested. In most cases, no further action is required. However, (This link is being provided for informational/ VARICELLA ZOSTER VIRUS ANTIB OH (IGG) Reviewed date:10/23/2024 11:45:23 AM Interpretation: Performing Lab:[facility]-[address], PowWow IncPlsiWR[address] Jya Nicole Notes/Report: VARICELLA ZOSTER VIRUS ANTIBODY (IGG) [...] HIV Reviewed date:10/23/2024 11:45:23 AM Interpretation: Performing Lab:[facility], [facility]Robert [address], Robert WoodKhzxGY[address] Jay Pineda Corey Notes/Report: WHITE BLOOD CELL COUNT 9.5 3.8-10.8 [...] MPV 9.7 7.5-12.5 fL ABSOLUTE NEUTROPHILS 6251 7524-4151 cells/uL ABSOLUTE LYMPHOCYTES 2603 850-3900 cells/uL ABSOLUTE [...] information, please refer to educational purposes only.) http://Paymate.Fashism/faq/UAA348 (This link is being provided for informational/ RPR (DX) W/REFL TITER AND CONFIRMATORY TESTING NON-REACTIVE NON-REACTIVE is suspected, submit a new sample in 2-4 weeks. No laboratory evidence of syphilis. If recent exposure HEPATITIS B SURFACE ANTIGEN NON-REACTIVE NON-REACTIVE http://Paymate.Dataloop.IO/faq/DEQ103 educational purposes only.) For additional information, please [...] the specific written consent of the person http://education.Dataloop.IO/faq/UWH242 PLEASE NOTE: This information has been disclosed to detected. There is no laboratory evidence of HIV protection, then the state law prohibits you from infection. validated in patients less than 2 years old. to whom it pertains, or as otherwise permitted by law. JALEESA(ISRRAEL) ADVANCED Reviewed date:12/06/2024 12:05:56 PM Interpretation: Performing Lab:EZ, [facility],[address] [facility]Delta [facility] Medical CenterCA[address] Farheen Kendall MD,PhD,PORSCHE Notes/Report: NUMBER OF FETUSES? [...] results monitored by Kendall Perea, Ph.D., [facility], [facility], [facility]. LIMITATIONS SEE NOTE QNatal(R) Advanced is a [...] if requested. Performance a license agreement with [employer]. screening test. This screening test is performed [...] FDA. 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), Prader Willi syndrome/Angelman syndrome PROTEIN, TOTAL W/CREAT, RAND OM URINE Reviewed date:02/14/2025 05:23:17 PM Interpretation: Performing Lab:[facility] [address] [employer], [place] QzjdLK[address] Jay Nicole Notes/Report: CREATININE, RANDOM URINE 59 20-275 mg/dL PROTEIN/CREATININE RATIO 102 24-184 mg/g crea t PROTEIN/CREATININE RATIO 0.102 0.024-0 .184 mg/mg creat PROTEIN, TOTAL, RANDOM UR 6 5-24 mg/dL CBC (INCLUDES DIFF/PLT) Reviewed date:02/14/2025 08:51:38 AM Interpretation: Performing Lab:[facility]-[address], PowWow IncNsneLN[address] Jay Nicole Notes/Report: WHITE BLOOD CELL COUNT [...] MPV 9.9 7.5-12.5 fL ABSOLUTE NEUTROPHILS 8809 8459-9839 cells/uL ABSOLUTE LYMPHOCYTES 2047 850-3900 cells/uL ABSOLUTE MONOCYTES 575 200-950 cells/uL ABSOLUTE EOSINOPHILS 58 15-500 cells/uL ABSOLUTE BASOPHILS 12 0-200 cells/uL NEUTROPHILS 76.6 LYMPHOCYTES 17.8 MONOCYTES 5.0 EOSINOPHILS 0.5 BASOPHILS 0.1 FERRITIN Reviewed date:02/14/2025 08:51:38 AM Interpretation: Performing Lab:[facility], [facility] [address] The[address]Se[address], PowWow IncEjikJS[address] Jay Nicole Notes/Report: FERRITIN 31 16-154 ng/mL CBC (INCLUDES DIFF/PLT) Reviewed date:12/29/2024 09:05:23 AM Interpretation: Performing Lab:[facility], [facility] [address], AppydrinkAhteEJ[address] Jay Nicole Notes/Report: WHITE BLOOD CELL COUNT [...] MPV 9.6 7.5-12.5 fL ABSOLUTE NEUTROPHILS 7548 0266-4407 cells/uL ABSOLUTE LYMPHOCYTES 2050 850-3900 cells/uL ABSOLUTE MONOCYTES 520 200-950 cells/uL ABSOLUTE EOSINOPHILS 61 15-500 cells/uL ABSOLUTE BASOPHILS 20 0-200 cells/uL NEUTROPHILS 74 LYMPHOCYTES 20.1 MONOCYTES 5.1 EOSINOPHILS 0.6 BASOPHILS 0.2 MATERNAL SERUM AFP Reviewed date:12/29/2024 08:41:15 AM Interpretation: Performing Lab:[facility]-Robert Tobare[address] [facility], Robert TobarSdowNZ[address] Jay Nicole Notes/Report: INTERPRETATION: Screen negat jaylon [...] assessment report is based in part on [facility] [id number]([phone]). (This link is being provided for informational/ twins interpretation of these results, please contact your triplets the laboratory promptly if any data are incorrect. For This is a screening test, not a diagnostic test. This insulin-dependent diabetics [facility] laboratory. For assistance with Interpretive Cutoffs twins insulin-dependent educational purposes only.) Local [facility] genetic counselor or call > or = 1.90 adjusted MOM for > or = 4.50 adjusted MOM for data provided by the ordering physician. Please notify > or = 3.50 adjusted MOM for http://education.Dataloop.IO/faq/FAQ74v 1 Calc'd Gestational Age 16.9 Maternal Weight 267 Est'd Date of Delivery 06/07/2025 NASIM Determined by LMP Mother's Ethnic Origin OTHER Number of Fetuses 2 Insulin Depend Diabetic NO Repeat Specimen NO Hx Of Neural Tube Defects NO Prev Down Synd NO Donor Egg NO Donor Age: Egg Retrieval NOT GIVEN FERRITIN Reviewed date:12/29/2024 08:41:32 AM Interpretation: Performing Lab:CB, [facility]-[address], Robert TobarQgupHY[address] Jay Nicole Notes/Report: FERRITIN 45 16-154 ng/mL Reason For Referral Reason Level 2 US Faxed 1 01/25/24 Appt 01/06/25 Diagnosis 1 Referral of patient (Z76.89) Referral Organization [facility] Referring Provider First Name Dominique Referring Provider Last Name Tara Referring Provider Speciality Obstetrici an and 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 Thank you!-Isma FINNEY Yeng 11/24/2024 09:44:38 AM >Referral form uploaded to chart and faxed via YY. Lepe Yang, Yeng 01/11/2025 02:23:52 PM >Patient completed appt on 01/06/25, report in chart. Closing out, Referral Priority Routine Referral Appointment Date 01/06/2025 [...] Status W/U Status Risk Notes Problem Cervicalgia (11826796) Cervicalgia (M54.2) Active confirmed Problem Dysuria (69544640) Dysuria (R30.0) Active confi rmed Problem Chronic fatigue syndrome (disorder) (20489917) Chronic fatigue, unspecified (R53.82) Active confirmed Problem Maternal obesity complicating , childbirth and the puerperium, antepartum (112968263318) Obesity affecting in second trimester (O99.212) Active confirmed Problem Amenorrhea (22610959) Amenorrhea (N91.2) Active confirmed Problem Urinary frequency (331976007) Urinary frequency (R35.0) Active confirmed Problem Endometriosis (726724522) Endometriosis (N80.9) Active confirmed Problem Chronic fatigue syndrome (52172568) Chronic fatigue (R53.82) Active confirmed Problem SI - Stress incontinence (11720217) Stress incontinence of urine (N39.3) Active confirmed Problem Anemia in mother complicating , childbirth AND/OR puerperium (81970933) Anemia affecting (O99.019) Active confirmed Problem Menstrual problem (389670291) Abnormal menses (N92.6) Active confirmed Problem Gastroesophageal reflux disease (689738948) GERD without esophagitis (K21.9) Active confirmed Problem Insomnia (872917087) Insomnia, unspecified type (G47.00) Active confirmed Problem Disorder of female genital organs (781612885) Pain of female symphysis pubis (N94.9) Active confirmed Problem Joint pain (66390173) Arthralgia, unspecified joint (M25.50) Active confirmed Problem Missed period (68200570) Missed menses (N92.6) Active confirmed Problem Maternal obesity complicating , childbirth and the puerperium, antepartum (803501268829) Obesity affecting in first trimester (O99.211) Active confirmed Problem Maternal obesity complicating , childbirth and the puerperium, antepartum (361079647654) Obesity affecting in third trimester (O99.213) Active confirmed Problem Refractory migraine with aura (086005056) Intractable migraine with aura with status migrainosus (G43.111) Active confirmed Problem Essential hypertension (96659730) Hypertension, unspecified type (I10) Active confirmed Problem Migraine without aura, not refractory (733265974) Migraine without aura and without status migrainosus, not intractable (G43.009) Active confirmed Problem Paresthesia (53596288) Paresthesia (R20.2) Active confirmed Problem Anemia of (disorder) (76146880) Anemia during (O99.019) Active confirmed Problem Acute abdominal pain (515976257) Acute abdominal pain (R10.9) Active confirmed Problem Abnormal immunology finding (679404720) Elevated antinuclear antibody (SHAKIRA) level (R76.8) Active confirmed Problem Anemia during in second trimester (O99.012) Active confirmed Problem Paresthesia (finding) (92569243) Paresthesias (R20.2) Active confirmed Vital Signs Blood pressure diastolic 64 mm Hg 02/13/2025 Height 68.25 in 02/13/2025 Blood pressure systolic 122 mm Hg 02/13/2025 Weight 278 lbs 02/13/2025 BMI 41.961 kg/m2 02/13/2025 Encounters Encounter Location Date Provider Diagnosis [address] [id number] 12/27/2024 Michelle Daniel Encounter for supervision of other normal in second trimester Z34.82 ; Anemia affecting O99.019 and Encounter for supervision of normal first in second trimester Z34.02 [facility] [address] [place] [address] 10/21/2024 Laura Acuña Encounter for supervision of normal in multigravida in first trimester Z34.[address] [id number] 01/16/2025 Michelle Daniel Encounter for supervision of other normal , unspecified trimester Z34.80 ; Dichorionic diamniotic twin in second trimester O30.042 and 19 weeks gestation of Z3A.[address] [id number] 12/19/2024 Michelle Daniel Encounter for supervision of other normal , unspecified trimester Z34.80 ; Dichorionic diamniotic twin in second trimester O30.042 and 15 weeks gestation of Z3A.15 [facility] [address] [place] [address] 10/21/2024 Laura Acuña First trimester Z33.1 ; High-risk in first trimester O09.91 ; Obesity affecting in first trimester O99.211 ; Dichorionic diamniotic twin in first trimester O30.041 and History of pre-eclampsia in prior , currently O09.[address] [id number] 02/13/2025 Michelle Daniel H/O pre-eclampsia Z87.59 ; Supervision of high risk , unspecified, third trimester O09.93 ; Dichorionic diamniotic twin in second trimester O30.042 and Obesity affecting in second trimester O99.[address] [id number] 01/16/2025 Michelle Daniel Supervision of high risk , unspecified, second trimester O09.92 ; Dichorionic diamniotic twin in second trimester O30.042 ; Obesity affecting in second trimester O99.212 ; Anemia during O99.019 ; Stress incontinence of urine N39.3 ; Other specified diseases and conditions complicating O99.891 and Myalgia, other site M79.[address] [id number] 12/27/2024 Eliz Porter 16 weeks gestation of Z3A.[address] [id number] 12/19/2024 Michelle Daniel Supervision of high risk , unspecified, second trimester O09.92 ; Anemia during in second trimester O99.012 ; Obesity affecting in second trimester O99.212 ; Dichorionic diamniotic twin in second trimester O30.042 ; History of pre-eclampsia in prior , currently O09.299 and History of hemorrhage, currently O09.[address] [id number] 11/21/2024 Dominique Pacheco Obesity affecting in first trimester O99.211 ; Supervision of high risk , unspecified, first trimester O09.91 and Encounter for supervision of other normal , first trimester Z34.81 [facility] [address] [place] [address] 10/21/2024 Laura Acuña Encounter for supervision of other normal , unspecified trimester Z34.80 [facility] [address] [place] [address] 10/21/2024 Laura Acuña [facility] [address] [place] [id number] 02/10/2025 Alyxandra Jeseritz-Adamson Low back pain at multiple sites M54.50 ; Segmental and somatic dysfunction of lumbar region M99.03 ; Segmental and somatic dysfunction of sacral region M99.04 ; Segmental and somatic dysfunction of pelvic region M99.05 and Pubic bone pain M89.9 [facility] [address] [place], [place] [id number] 02/13/2025 Alyxandra Jeseritz-Adamson Low back pain at multiple sites M54.50 ; Segmental and somatic dysfunction of lumbar region M99.03 ; Segmental and somatic dysfunction of sacral region M99.04 ; Segmental and somatic dysfunction of pelvic region M99.05 and Pubic bone pain M89.[address] [id number] 02/13/2025 Michelle Daniel Supervision of other high risk pregnancies, third trimester O09.893 ; Dichorionic diamniotic twin in second trimester O30.042 and 23 weeks gestation of Z3A.[address] [id number] 11/21/2024 Dominique Pacheco Dichorionic diamniotic twin in first trimester O30.041 and 11 weeks gestation of Z3A.11 [facility] [address] [place] [id number] 02/13/2025 Michelle Daniel [facility] [address] [place] [address] 02/09/2025 Dominique Pacheco [facility] [address] [place] [address] 02/09/2025 Dominique Pacheco [facility] [address] [place] [address] [place] [id number] 01/16/2025 Michelle Daniel [facility] [address] [place] [address] [place] [id number] 12/29/2024 Dominique Pacheco [facility] [address] [place] [address] 12/29/2024 Eliz Adams [facility] [address] [place] [address] [place] [id number] 12/27/2024 [facility] [address] [place] [address] [place] [id number] 11/28/2024 Mitzi Alba [facility] [address] [place] [address] 11/21/2024 Dominique Pacheco [facility] [address] [place] [id number] 11/01/2024 Froy Angel [facility] [address] [place] [address] [place] [id number] 12/28/2024 Michelle Daniel [facility] [address] [place] [address] [place] [id number] 12/28/2024 Michelle Daniel [facility] [address] [place] [address] [place] [id number] 12/28/2024 Michelle Daniel [facility] [address] [place], [place] [address] Drive [address] [place], [place] [id number] 12/25/2024 Michelle Daniel [facility] [address] [place] [address] 12/02/2024 Neva Cintron [facility] [address] [place] [address] 11/29/2024 Dominique Pacheco [facility] [address] [place] [address] 11/28/2024 [facility] [address] [place] [address] 11/28/2024 Mitzi Alba [facility] [address] [place] [address] 11/10/2024 [facility] [address] [place] [address] 11/08/2024 [facility] [address] [place] [address] 11/04/2024 [facility] [address] [place] [address] 11/04/2024 [facility] [address] [place] [address] 11/02/2024 Froy Angel [facility] [address] [place] [address] 11/01/2024 [facility] [address] [place] [address] 11/01/2024 [facility] [address] [place] [address] 10/31/2024 [facility] [address] [place] [address] 10/31/2024 [facility] [address] [place] [address] 10/28/2024 Kavitha Danedung [facility] [address] [place] [address] 10/24/2024 Laura Acuña [facility] [address] [place] [address] [address] [place], [place] [id number] 09/25/2024 Ning Ruiz Assessments Encounter Date Diagnosis (ICD Code) Assessment Notes Treatment Notes Treatment Clinical Notes Section Notes 10/21/2024 Encounter for supervision of normal in multigravida in first trimester (ICD-10 - Z34.81) 10/21/2024 Encounter for supervision of other normal , unspecified trimester (ICD-10 - Z34.80) 10/21/2024 First trimester (ICD-10 - Z33.1) 10/21/2024 High-risk in first trimester (ICD-10 - O09.91) 11/21/2024 11 weeks gestation of (ICD-10 - Z3A.11) 11/21/2024 Dichorionic diamniotic twin in first trimester (ICD-10 - O30.041) 11/21/2024 Supervision of high risk , unspecified, first trimester (ICD-10 - O09.91) 11/21/2024 Obesity affecting in first trimester (ICD-10 - O99.211) 12/19/2024 Encounter for supervision of other normal , unspecified trimester (ICD-10 - Z34.80) 12/19/2024 Dichorionic diamniotic twin in second trimester (ICD-10 - O30.042) 12/19/2024 Supervision of high risk , unspecified, second trimester (ICD-10 - O09.92) 12/27/2024 Anemia affecting (ICD-10 - O99.019) 12/27/2024 Encounter for supervision of other normal in second trimester (ICD-10 - Z34.82) 01/16/2025 Encounter for supervision of other normal , unspecified trimester (ICD-10 - Z34.80) 01/16/2025 Dichorionic diamniotic twin in second trimester (ICD-10 - O30.042) 01/16/2025 Supervision of high risk , unspecified, second trimester (ICD-10 - O09.92) 12/19/2024 Anemia during in second trimester (ICD-10 - O99.012) 12/27/2024 16 weeks gestation of (ICD-10 - Z3A.16) 01/16/2025 Dichorionic diamniotic twin in second trimester (ICD-10 - O30.042) 02/10/2025 Segmental and somatic dysfunction of lumbar [...] Term Goals: slight improvement by next exam Correction Goals- decrease segmental dysfunction, decrease swelling and inflammation, increase active and passive range of motion, strengthening, decrease muscle spasms, decrease pain, relief care, relief of symptoms, pain management, maximum medical improvement, increase proprioception, decrease nociception, improve level of comfort throughout superintendent terminal goals: significantly improved by discharge Today's Treatment: - Chief Complaint: headaches, bilateral neck, bilateral trapezius, upper thoracic, mid thoracic, lower thoracic, low back - Primary Treatment: Diversified and Manual- Chiropractic Manipulative Therapy (CMT) to the right L5, left sacrum, right ilium spinal level(s). - Post treatment: Dominique felt/noticed related improvement after treatment. 02/10/2025 Low back pain at multiple sites [...] Term Goals: slight improvement by next exam Correction Goals- decrease segmental dysfunction, decrease swelling and inflammation, increase active and passive range of motion, strengthening, decrease muscle spasms, decrease pain, relief care, relief of symptoms, pain management, maximum medical improvement, increase proprioception, decrease nociception, improve level of comfort throughout superintendent terminal goals: significantly improved by discharge Today's Treatment: - Chief Complaint: headaches, bilateral neck, bilateral trapezius, upper thoracic, mid thoracic, lower thoracic, low back - Primary Treatment: Diversified and Manual- Chiropractic Manipulative Therapy (CMT) to the right L5, left sacrum, right ilium spinal level(s). - Post treatment: Dominique felt/noticed related improvement after treatment. 02/13/2025 Low back pain at multiple sites [...] Term Goals: slight improvement by next exam Correction Goals- decrease segmental dysfunction, decrease swelling and inflammation, increase active and passive range of motion, strengthening, decrease muscle spasms, decrease pain, relief care, relief of symptoms, pain management, maximum medical improvement, increase proprioception, decrease nociception, improve level of comfort throughout superintendent terminal goals: significantly improved by discharge Today's Treatment: - Chief Complaint: headaches, bilateral neck, bilateral trapezius, upper thoracic, mid thoracic, lower thoracic, low back - Primary Treatment: Diversified and Manual- Chiropractic Manipulative Therapy (CMT) to the right T9, left L2, right L4, right ilium spinal level(s). - Post treatment: Dominique felt/noticed related improvement after treatment. 02/13/2025 Supervision of other high risk pregnancies, third trimester (ICD-10 - O09.893) 02/13/2025 H/O pre-eclampsia (ICD-10 - Z87.59) 02/13/2025 Dichorionic diamniotic twin in second trimester (ICD-10 - O30.042) 02/13/2025 Supervision of high risk , unspecified, third trimester (ICD-10 - O09.93) 02/13/2025 Dichorionic diamniotic twin in second trimester (ICD-10 - O30.042) 02/13/2025 23 weeks gestation of (ICD-10 - Z3A.23) 02/13/2025 Segmental and somatic dysfunction of lumbar [...] Term Goals: slight improvement by next exam Heavy Threader Goals- decrease segmental dysfunction, decrease swelling and inflammation, increase active and passive range of motion, strengthening, decrease muscle spasms, decrease pain, relief care, relief of symptoms, pain management, maximum medical improvement, increase proprioception, decrease nociception, improve level of comfort throughout group home goals: significantly improved by discharge Today's Treatment: - Chief Complaint: headaches, bilateral neck, bilateral trapezius, upper thoracic, mid thoracic, lower thoracic, low back - Primary Treatment: Diversified and Manual- Chiropractic Manipulative Therapy (CMT) to the right T9, left L2, right L4, right ilium spinal level(s). - Post treatment: Dominique felt/noticed related improvement after treatment. 02/10/2025 Segmental and somatic dysfunction of sacral [...] Term Goals: slight improvement by next exam Correction Goals- decrease segmental dysfunction, decrease swelling and inflammation, increase active and passive range of motion, strengthening, decrease muscle spasms, decrease pain, relief care, relief of symptoms, pain management, maximum medical improvement, increase proprioception, decrease nociception, improve level of comfort throughout superintendent terminal goals: significantly improved by discharge Today's Treatment: - Chief Complaint: headaches, bilateral neck, bilateral trapezius, upper thoracic, mid thoracic, lower thoracic, low back - Primary Treatment: Diversified and Manual- Chiropractic Manipulative Therapy (CMT) to the right L5, left sacrum, right ilium spinal level(s). - Post treatment: Dominique felt/noticed related improvement after treatment. 01/16/2025 Obesity affecting in second trimester (ICD-10 - O99.212) 01/16/2025 19 weeks gestation of (ICD-10 - Z3A.19) 12/19/2024 Obesity affecting in second trimester (ICD-10 - O99.212) 12/19/2024 15 weeks gestation of (ICD-10 - Z3A.15) 10/21/2024 Obesity affecting in first trimester (ICD-10 - O99.211) 10/21/2024 Dichorionic diamniotic twin in first trimester (ICD-10 - O30.041) 11/21/2024 Encounter for supervision of other normal , first trimester (ICD-10 - Z34.81) 12/19/2024 Dichorionic diamniotic twin in second trimester (ICD-10 - O30.042) 02/10/2025 Segmental and somatic dysfunction of pelvic [...] Term Goals: slight improvement by next exam Heavy Threader Goals- decrease segmental dysfunction, decrease swelling and inflammation, increase active and passive range of motion, strengthening, decrease muscle spasms, decrease pain, relief care, relief of symptoms, pain management, maximum medical improvement, increase proprioception, decrease nociception, improve level of comfort throughout group home goals: significantly improved by discharge Today's Treatment: - Chief Complaint: headaches, bilateral neck, bilateral trapezius, upper thoracic, mid thoracic, lower thoracic, low back - Primary Treatment: Diversified and Manual- Chiropractic Manipulative Therapy (CMT) to the right L5, left sacrum, right ilium spinal level(s). - Post treatment: Dominique felt/noticed related improvement after treatment. 01/16/2025 Anemia during (ICD-10 - O99.019) 12/27/2024 Encounter for supervision of normal first in second trimester (ICD-10 - Z34.02) 02/13/2025 Segmental and somatic dysfunction of sacral [...] Term Goals: slight improvement by next exam Correction Goals- decrease segmental dysfunction, decrease swelling and inflammation, increase active and passive range of motion, strengthening, decrease muscle spasms, decrease pain, relief care, relief of symptoms, pain management, maximum medical improvement, increase proprioception, decrease nociception, improve level of comfort throughout group home goals: significantly improved by discharge Today's Treatment: - Chief Complaint: headaches, bilateral neck, bilateral trapezius, upper thoracic, mid thoracic, lower thoracic, low back - Primary Treatment: Diversified and Manual- Chiropractic Manipulative Therapy (CMT) to the right T9, left L2, right L4, right ilium spinal level(s). - Post treatment: Dominique felt/noticed related improvement after treatment. 02/13/2025 Obesity affecting in second trimester (ICD-10 - O99.212) 02/13/2025 Segmental and somatic dysfunction of pelvic [...] Term Goals: slight improvement by next exam Heavy Threader Goals- decrease segmental dysfunction, decrease swelling and inflammation, increase active and passive range of motion, strengthening, decrease muscle spasms, decrease pain, relief care, relief of symptoms, pain management, maximum medical improvement, increase proprioception, decrease nociception, improve level of comfort throughout group home goals: significantly improved by discharge Today's Treatment: - Chief Complaint: headaches, bilateral neck, bilateral trapezius, upper thoracic, mid thoracic, lower thoracic, low back - Primary Treatment: Diversified and Manual- Chiropractic Manipulative Therapy (CMT) to the right T9, left L2, right L4, right ilium spinal level(s). - Post treatment: Dominique felt/noticed related improvement after treatment. 02/10/2025 Pubic bone pain (ICD-10 - M89.9) [...] Term Goals: slight improvement by next exam Heavy Threader Goals- decrease segmental dysfunction, decrease swelling and inflammation, increase active and passive range of motion, strengthening, decrease muscle spasms, decrease pain, relief care, relief of symptoms, pain management, maximum medical improvement, increase proprioception, decrease nociception, improve level of comfort throughout superintendent terminal goals: significantly improved by discharge Today's Treatment: - Chief Complaint: headaches, bilateral neck, bilateral trapezius, upper thoracic, mid thoracic, lower thoracic, low back - Primary Treatment: Diversified and Manual- Chiropractic Manipulative Therapy (CMT) to the right L5, left sacrum, right ilium spinal level(s). - Post treatment: Dominique felt/noticed related improvement after treatment. 12/19/2024 History of pre-eclampsia in prior , currently (ICD-10 - O09.299) 01/16/2025 Stress incontinence of urine (ICD-10 - N39.3) 10/21/2024 History of pre-eclampsia in prior , currently (ICD-10 - O09.299) 12/19/2024 History of hemorrhage, currently (ICD-10 - O09.299) 02/13/2025 Pubic bone pain (ICD-10 - M89.9) [...] Term Goals: slight improvement by next exam Heavy Threader Goals- decrease segmental dysfunction, decrease swelling and inflammation, increase active and passive range of motion, strengthening, decrease muscle spasms, decrease pain, relief care, relief of symptoms, pain management, maximum medical improvement, increase proprioception, decrease nociception, improve level of comfort throughout superintendent terminal goals: significantly improved by discharge Today's Treatment: - Chief Complaint: headaches, bilateral neck, bilateral trapezius, upper thoracic, mid thoracic, lower thoracic, low back - Primary Treatment: Diversified and Manual- Chiropractic Manipulative Therapy (CMT) to the right T9, left L2, right L4, right ilium spinal level(s). - Post treatment: Dominique felt/noticed related improvement after treatment. 01/16/2025 Other specified diseases and conditions complicating (ICD-10 - O99.891) 01/16/2025 Myalgia, other site (ICD-10 - M79.18) [...] Term Goals: slight improvement by next exam Heavy Threader Goals- decrease segmental dysfunction, decrease swelling and inflammation, increase active and passive range of motion, strengthening, decrease muscle spasms, decrease pain, relief care, relief of symptoms, pain management, maximum medical improvement, increase proprioception, decrease nociception, improve level of comfort throughout group home goals: significantly improved by discharge Today's Treatment: [...] Term Goals: slight improvement by next exam Correction Goals- decrease segmental dysfunction, decrease swelling and inflammation, increase active and passive range of motion, strengthening, decrease muscle spasms, decrease pain, relief care, relief of symptoms, pain management, maximum medical improvement, increase proprioception, decrease nociception, improve level of comfort throughout superintendent terminal goals: significantly improved by discharge Today's Treatment: [...] Term Goals: slight improvement by next exam Heavy Threader Goals- decrease segmental dysfunction, decrease swelling and inflammation, increase active and passive range of motion, strengthening, decrease muscle spasms, decrease pain, relief care, relief of symptoms, pain management, maximum medical improvement, increase proprioception, decrease nociception, improve level of comfort throughout group home goals: significantly improved by discharge Today's Treatment: [...] End Date [employer] (Ins. Bill) [address] [address] [place], [place] [id number] Dominique Gil Self - patient is the insured Medical (General) History Medical History History ICD Code Hyperlipidema migraines depression anxiety endometriosis Surgical History Surgery Date(Month/Year) adenoidectomy 1998 tonsillectomy 1998 appendectomy 2004 Laporscopy ovarian cysts 2005 Reconstrutive Pinkie sugery 2006 Left Hip Repairment 12/27/2019 [place] teeth extraction 2021 Hospitalization History Reason Date(Month/Year) child (vaginal) 10/29/2020
== END 2025-09-17 | disposition home or self-care (01) ==
LOC: ED 23:49
PROVIDERS: Emergency Provider Family Medicine
DX: S09.90XA Unspecified injury of head, initial encounter (principal); R05.9 Cough, unspecified; W01.0XXA Fall on same level from slipping, tripping and stumbling without subsequent striking against object, initial encounter
CPT/HCPCS: 99283

== ENCOUNTER 2025-10-06 14:25 | Outpatient (CLI) | payer OTHER, SELFPAY | END 2025-10-06 14:26 | disposition home or self-care (01) | PROVIDERS: Visit Provider Registered Nurse | DX: R53.83 Other fatigue (principal) | CPT/HCPCS: 82306; 84439; 84443 ==

== ENCOUNTER 2025-10-10 12:52 | Outpatient (CLI) | payer OTHER, SELFPAY ==
--- NOTE | 2025-10-10 13:00 | CRLHL7_ITS ---
For Patients: As a result of the Century Cures Act, medical imaging exams and procedure reports are released immediately into your electronic medical record. You may view this report before your referring provider. If you have questions, please contact your health care provider. INDICATION: Pelvic and perineal pain unspecified side. COMPARISON: 06/08/2025 TECHNIQUE: 2D bonilla-scale and color Doppler images were acquired of the pelvis using a transabdominal and transvaginal approach. Transvaginal imaging performed to better visualize the endometrial stripe and ovaries. FINDINGS: Sonographic images demonstrate a normal size and smooth outer contour of the uterus. Uterus measures 7.7 cm in length by 3.9 cm in AP diameter by 5.2 cm in transverse dimension. The myometrium has a normal uniform echotexture. IUD is present in the endometrial canal. Endometrial stripe is not thickened. The right ovary measures 4.7 x 2.3 x 2.1 cm in size and the left ovary measures 3.1 x 1.6 x 2.3 cm. The right ovary demonstrates normal arterial and venous blood flow on color Doppler analysis. Incomplete Doppler analysis of the left ovary due to position. There are no suspicious fluid collections within the cul-de-sac. Hypoechoic right ovarian cyst is present without internal color flow or solid papillary projections measuring 2.7 x 1.7 x 1.9 cm. IMPRESSION: Hemorrhagic right ovarian cyst measures 2.7 cm. No torsion or excess pelvic free fluid. Dictated by Cayetano Martin MD @ 10/10/2025 3:02:24 PM (Electronically Signed)
== END 2025-10-10 12:53 | disposition home or self-care (01) ==
LOC: US 12:53
PROVIDERS: Visit Provider Registered Nurse
DX: R10.20 Pelvic and perineal pain unspecified side (principal); N83.201 Unspecified ovarian cyst, right side
CPT/HCPCS: 76830; 76856; 93976